=== PATIENT | female | born 1970 | race Caucasian/White ===

== ENCOUNTER 2018-07-06 08:10 | Outpatient (CLI) | payer MEDICAID, SELFPAY ==
[2018-07-06 08:18] VITALS: BP 114/72; PULSE 57; RESP 22; TEMP 36.5; O2SAT 97
[2018-07-06] MEDS: Omnipaque 240 MG/ML 50 ML BTL IJ (09:03)
--- NOTE | 2018-07-06 09:06 | DI.RAD_ITS ---
SYMPTOMS/DIAGNOSIS: SACROILIAC JOINT INJECTION PAIN CLINIC: Fluoroscopy Time: 36.4 sec 21.19mGy Fluoroscopy was utilized by Dr. Gerber during the performance of bilateral sacroiliac joint injections. Please refer to the procedure report for complete details.
[2018-07-06] MEDS: methylPREDNISolone ACETATE 80 MG/ML VIAL IJ (09:09)
[2018-07-06] MEDS: Bupivacaine 0.5% Pres-Free 30 ML VIAL IJ (09:10)
[2018-07-06 09:11] VITALS: BP 135/72; PULSE 66; RESP 19; O2SAT 100
--- NOTE | 2018-07-06 09:13 | PDOC.PAIN ---
Pain Clinic Procedure Note INTRA-ARTICULAR SI JOINT INJECTION GARO MONTANA has been referred to the [facility] for intra-articular SI joint injection. COMMENTS: Patient had been here several years ago and had both radiofrequency ablation and SI joint injections with only transient relief. She does not recall how long the procedure lasted Patient was interviewed and the medical record reviewed. There were no medical, pharmacologic, radiographic or other structural contraindications to attempting fluoroscopically guided intra-articular SI joint injection. Risks and expected side effects as well as potential benefit of the procedure were reviewed and voiced concerns addressed. The printed consent form was signed and witnessed. Standard time-out procedure was performed. Patient was placed in the prone position on the fluoroscopy table and automated blood pressure cuff and pulse oximeter applied. The skin entry point for approaching { bilateral} SI joints was identified under the most advantageous fluoroscopic view and marked. Following thorough Chlorhexadine preparation of the skin and draping and 1% lidocaine infiltration of the skin entry point and subcutaneous tissues, a 22 gauge spinal needle was placed under fluoroscopic guidance into {bilateral} SI joints was identified under the most advantageous fluoroscopic view and marked. Following thorough Chlorhexadine preparation of the skin and draping and 1% lidocaine infiltration of the skin entry point and subcutaneous tissues, a 22 gauge spinal needle was placed under fluoroscopic guidance into { bilateral: } SI joint. Intra-articular placement was confirmed by a clear arthrogram resulting from the injection of 0.25ml Omnipaque 240, 1ml 0.5% bupivacaine, and half ml (40mg) of 80mg concentration Depomedrol were injected intra-articularily with an initial reproduction of a significant component of the usual pain. Vital signs were stable throughout the procedure and were as recorded in the docflowsheet by the nursing staff. If given, dosages of intravenous drugs for anxiolysis and analgesia were documented in MAR. Follow up plans and appointments were discussed with the patient. Post procedure instruction was given as documented in nursing documentation and having met discharge criteria, and was discharged from the [facility]. COMMENTS: Pain went from 5/10-0/10. She will follow-up as needed. She may be a candidate for the Intracept study if still having axial back pain. She has Modic changes on her MRI. CC: Sun Mercedes Current Active Problems Problem Status Onset Sacroiliac dysfunction Chronic
--- NOTE | 2018-07-25 15:07 | PDOC.PAIN_ITS ---
Pain Clinic Procedure Note INTRA-ARTICULAR SI JOINT INJECTION GARO MONTANA has been referred to the [facility] for intra- articular SI joint injection. COMMENTS: Patient had been here several years ago and had both radiofrequency ablation and SI joint injections with only transient relief. She does not recall how long the procedure lasted Patient was interviewed and the medical record reviewed. There were no medical , pharmacologic, radiographic or other structural contraindications to attempting fluoroscopically guided intra-articular SI joint injection. Risks and expected side effects as well as potential benefit of the procedure were reviewed and voiced concerns addressed. The printed consent form was signed and witnessed. Standard time-out procedure was performed. Patient was placed in the prone position on the fluoroscopy table and automated blood pressure cuff and pulse oximeter applied. The skin entry point for approaching { bilateral} SI joints was identified under the most advantageous fluoroscopic view and marked. Following thorough Chlorhexadine preparation of the skin and draping and 1% lidocaine infiltration of the skin entry point and subcutaneous tissues, a 22 gauge spinal needle was placed under fluoroscopic guidance into {bilateral} SI joints was identified under the most advantageous fluoroscopic view and marked. Following thorough Chlorhexadine preparation of the skin and draping and 1% lidocaine infiltration of the skin entry point and subcutaneous tissues, a 22 gauge spinal needle was placed under fluoroscopic guidance into { bilateral: } SI joint. Intra-articular placement was confirmed by a clear arthrogram resulting from the injection of 0.25ml Omnipaque 240, 1ml 0.5% bupivacaine, and half ml (40mg) of 80mg concentration Depomedrol were injected intra- articularily with an initial reproduction of a significant component of the usual pain. Vital signs were stable throughout the procedure and were as recorded in the docflowsheet by the nursing staff. If given, dosages of intravenous drugs for anxiolysis and analgesia were documented in MAR. Follow up plans and appointments were discussed with the patient. Post procedure instruction was given as documented in nursing documentation and having met discharge criteria, and was discharged from the [facility]. COMMENTS: Pain went from 5/10-0/10. She will follow-up as needed. She may be a candidate for the Intracept study if still having axial back pain. She has Modic changes on her MRI. CC: Sun Mercedes Current Active Problems Problem Status Onset Sacroiliac dysfunction Chronic
== END 2018-07-06 08:30 ==
PROVIDERS: PCP Nurse Practitioner Family; Visit Provider Anesthesiology Pain Medicine
DX: M53.3 Sacrococcygeal disorders, not elsewhere classified (principal); G89.29 Other chronic pain
CPT/HCPCS: 27096 ×2; 72200; J1040; Q9967

== ENCOUNTER 2018-08-08 01:16 | Outpatient (CLI) | payer MEDICAID, SELFPAY | END 2018-08-08 01:36 | PROVIDERS: PCP Nurse Practitioner Family; Visit Provider Nurse Practitioner Family | DX: R07.9 Chest pain, unspecified (principal) | CPT/HCPCS: 93225 ==

== ENCOUNTER 2018-08-11 07:52 | Outpatient (REF) | payer MEDICAID, SELFPAY ==
--- NOTE | 2018-08-15 10:32 | W.HOLTRPT ---
Holter Monitor Report Holter Monitor Note: Baseline normal sinus. Rare single PAC. No SVT or atrial fibrillation. Rare single PVC. No VT. Nocturnal heart rates as low as 50-55 bpm, sinus bradycardia. No symptoms. Average heart rate 68 bpm, range 51-125 bpm.
== END 2018-08-11 08:12 ==
LOC: RT 07:52
PROVIDERS: PCP Nurse Practitioner Family; Visit Provider Nurse Practitioner Family
DX: R07.9 Chest pain, unspecified (principal)
CPT/HCPCS: 93226

== ENCOUNTER 2018-08-17 00:58 | Outpatient (CLI) | payer MEDICAID, SELFPAY ==
--- NOTE | 2018-08-17 14:00 | DI.US_ITS ---
SYMPTOMS/DIAGNOSIS: LOWER ABD PAIN INTERMITTENT X 3 MONTHS, R10.9 PELVIC ULTRASOUND: A transabdominal and transvaginal examination was carried out. The uterus measures 10.4 cm in length x 4.8 cm in height x 5.4 cm in width with an endometrial stripe thickness of 3.9 mm. There is a 1.6 x 1 x 1.8 cm anterior lower uterine segment fibroid. The right ovary measures 2.2 x 1.4 x 2.0 cm. The left ovary measures 2.7 x 1.5 x 1.9 cm. A 5 mm hypoechoic region in the right ovary likely represents a small follicle. Also there is a 9 mm hypoechoic region in the left ovary which also appears to represent an ovarian follicle.
== END 2018-08-17 01:18 ==
PROVIDERS: PCP Nurse Practitioner Family; Visit Provider Nurse Practitioner Family
DX: R10.31 Right lower quadrant pain (principal); D25.9 Leiomyoma of uterus, unspecified; N83.01 Follicular cyst of right ovary; N83.02 Follicular cyst of left ovary
CPT/HCPCS: 76830; 76856

== ENCOUNTER 2018-08-30 17:26 | Outpatient (REF) | payer MEDICAID, SELFPAY ==
--- NOTE | 2018-08-30 15:30 | PAPFT_PTH ---
PATIENT: Natalia Thomason LOC: [facility] U#:[id number] AGE/SX: 47/F ROOM: RE08/30/[address]: Isaak Navarro MD : 1970 BED: DIS: 08/30/2018 SPEC #: [id number] RECD: 08/30/18 18:00 STATUS: TIERA REJesus Manuel #: [id number] ANNE: 08/30/18 15:[address]: Isaak Navarro DEPT: [facility] Cytology RECD BY: Casandra Shrestha ENTERED: 08/30/18 18:00 SP TYPE: PAPFT OTHR DR: Sun Mercedes Tissues: 1 - CX/ENDOCX FOR PAP SMEARS Procedures: PAP THIN PREP/UVM Screening HPV DNA PROBE Comments: [id number]
== END 2018-08-30 17:46 ==
LOC: LBN 17:26
PROVIDERS: PCP Nurse Practitioner Family; Visit Provider Obstetrics & Gynecology
DX: Z12.4 Encounter for screening for malignant neoplasm of cervix (principal); Z11.51 Encounter for screening for human papillomavirus (HPV)
CPT/HCPCS: 88142; 87624

== ENCOUNTER 2018-11-03 00:28 | Outpatient (CLI) | payer MEDICAID, SELFPAY ==
--- NOTE | 2018-11-03 16:00 | DI.MAMMO_ITS ---
SYMPTOM/DIAGNOSIS: SCREENING, Z12.31 MAMMOGRAMS: Mammograms were interpreted according to the usual protocol including computer analysis with CAD system, tomosynthesis and C view imaging. Comparison is made with the prior examinations. Breast density, Category B. No suspicious masses or microcalcifications are seen. There is no definite evidence of malignancy. IMPRESSION: Negative mammogram. Routine screening is recommended. Category 1B. MQSA ASSESSMENT OF FINDINGS: Negative. Category 1. Patient will receive a letter notifying them of these results. BI-RADS category B. There are scattered areas of fibroglandular density.
== END 2018-11-03 00:48 ==
PROVIDERS: PCP Nurse Practitioner Family; Visit Provider Obstetrics & Gynecology
DX: Z12.31 Encounter for screening mammogram for malignant neoplasm of breast (principal)
CPT/HCPCS: 77063; 77067

== ENCOUNTER 2019-10-19 11:31 | Outpatient (CLI) | payer SELFPAY ==
--- NOTE | 2019-10-19 11:30 | DI.RAD_ITS ---
EXAM: XR ELBOW RT COMPLETE CLINICAL HISTORY: RT ELBOW JOINT PAIN, M25.521 TECHNIQUE: The study was performed according to the usual protocol. COMPARISON: No exams were available for comparison FINDINGS: Three views were obtained. There is no evidence of an elbow joint effusion or hemarthrosis. No bony abnormality is seen.
--- NOTE | 2019-10-19 11:37 | DI.RAD_ITS ---
EXAM: XR FOOT LT COMPLETE CLINICAL HISTORY: INTRACTABLE LT HEEL PAIN, M79.672 TECHNIQUE: COMPARISON: RIGHT KNEE 3 VIEWS from 03/26/2016 FINDINGS: Three views were obtained. There is a small osteophyte of the site of attachment of the plantar fasc ia on the calcaneus. No additional bony or soft tissue abnormality seen. IMPRESSION:
== END 2019-10-19 11:51 ==
PROVIDERS: PCP Nurse Practitioner Family; Visit Provider Nurse Practitioner Family
DX: M25.521 Pain in right elbow (principal); M79.672 Pain in left foot
CPT/HCPCS: 73080; 73630

== ENCOUNTER 2019-11-14 15:37 | Outpatient (REF) | payer OTHER, SELFPAY ==
[2019-11-14 18:59] LABS: HCT 39.7 % (36.0-46.0); HGB 12.6 g/dL (12.0-15.5); Mean Corp. HGB Concentration 31.7 g/dL (32.0-36.0); Mean Corpuscular Hemoglobin 28.4 pg (27.0-33.0); Mean Corpuscular Volume 89.4 fL (80-95); Mean Platelet Volume 11.7 fL (8.0-11.0); Platelet Count 300 x1000/uL (130-400); RBC 4.44 m/cumm (4.00-5.20); RBC Distribution Width 14.6 % (11.7-14.6); White Blood Cell Count 6.09 k/cumm (4.4-10.8)
[2019-11-14 19:19] LABS: Iron 62 ug/dL (50-170)
[2019-11-14 19:34] LABS: ALT 25 U/L (14-59); AST 13 U/L (15-37); Albumin 3.9 g/dL (3.4-5.0); Alkaline Phosphatase 103 U/L (46-116); Anion Gap 7.6 mmol/L (3-11); BUN 14 mg/dL (7-18); Bilirubin, Total 0.4 mg/dL (0.2-1.0); CO2 30.4 mmol/L (21.0-32.0); CREATININE 0.87 mg/dL (0.55-1.02); Calcium 9.2 mg/dL (8.5-10.1); Calculated LDL 138 mg/dL; Chloride 102 mmol/L (98-107); Cholesterol 256 mg/dL (<200); Ferritin 11 ng/mL (8-252); Glucose 86 mg/dL (74-106); HDL Cholesterol 105 mg/dL (40-60); Potassium 4.3 mmol/L (3.5-5.1); Sodium 140 mmol/L (136-145); TSH (W/Ref FT4) 1.31 uIU/mL (0.36-3.74); Total Protein 7.2 g/dL (6.4-8.2); Triglyceride 66 mg/dL (<150)
== END 2019-11-14 15:57 ==
LOC: NCHCN 15:37
PROVIDERS: PCP Nurse Practitioner Family; Visit Provider Nurse Practitioner Family
DX: G47.9 Sleep disorder, unspecified (principal); Z68.41 Body mass index [BMI] 40.0-44.9, adult
CPT/HCPCS: 80053; 80061; 85027; 82728; 83540; 84443

== ENCOUNTER 2020-01-25 17:50 | Outpatient (REF) | payer OTHER, SELFPAY ==
[2020-01-29 12:48] LABS: SARS-CoV-2 Specimen Source Nasopharynx
[2020-01-29 12:50] LABS: SARS-CoV-2 RNA Undetected (Undetected)
== END 2020-01-25 18:10 ==
LOC: NCHCN 17:50
PROVIDERS: PCP Nurse Practitioner Family; Visit Provider Nurse Practitioner Family
DX: Z20.828 Contact with and (suspected) exposure to other viral communicable diseases (principal)
CPT/HCPCS: U0003

== ENCOUNTER 2020-06-10 01:56 | Outpatient (CLI) | payer OTHER, SELFPAY ==
--- NOTE | 2020-06-10 08:00 | DI.US_ITS ---
EXAM: US PELVIS TRANSVAGINAL CLINICAL HISTORY: Menorrhagia, IUD in place,Z30.431,N92.4. TECHNIQUE: Transabdominal and transvaginal pelvic ultrasound was performed using standard protocol. COMPARISON: US US PELVIS TRANSVAGINAL from 08/17/2018 FINDINGS: KIDNEYS: Kidneys are symmetric in size. No evidence of renal calculi. No evidence of hydronephrosis. No renal mass or cyst identified. UTERUS: Position: Anteverted. Size: 8.7 long by 4.8 AP by 6.6 transverse cm Endometrium: 0.5 cm. Normal for patient's menstrual status. Myometrium: Heterogeneous myometrium with at least 3 discrete fibroids identified. The largest measu res 1.2 cm. Cervix: The IUD is located within the cervical canal. OVARIES: Right: 3.1 x 1.8 x 1.6. cm Cyst or mass: 1.9 x 1.1 x 2.1 cm simple cyst. Left: 2.8 x 0.9 x 1.2 cm cm Cyst or mass: None. DOPPLER: Color: Symmetric and uniform flow to both ovaries. No hyperemia. Duplex: Normal ovarian arterial waveforms visualized. CUL-DE-SAC: Free fluid: None. Other: Right fallopian tube has a thickened appearance. No debris or focal fluid is identified sonog raphically IMPRESSION: 1. Normal sonographic appearance of the kidneys. 2. Normal-appearing uterus with endometrial stripe within normal limits. 3. The IUD has a cervical location. 4. Unremarkable bilateral ovaries. 5. Prominent thickened right fallopian tube. No internal debris or focal fluid is identified. An in fectious or inflammatory process should be considered. Please correlate clinically. DATA REPOSITORY:
== END 2020-06-10 02:16 ==
PROVIDERS: PCP Nurse Practitioner Family; Visit Provider Nurse Practitioner Women's Health
DX: N92.4 Excessive bleeding in the premenopausal period (principal); Z30.431 Encounter for routine checking of intrauterine contraceptive device
CPT/HCPCS: 76830; 76856

== ENCOUNTER 2020-06-12 15:03 | Outpatient (REF) | payer OTHER, SELFPAY ==
--- NOTE | 2020-06-12 14:30 | ENDOMET_PTH ---
PATIENT: Natalia Thomason LOC: [facility]#:[id number] AGE/SX: 49/F ROOM: RE06/12/[address]: Isaak Navarro MD : 1970 BED: DIS: 06/12/2020 SPEC #: [id number] RECD: 06/12/20 16:59 STATUS: TIERA REQ #: [id number] ANNE: 06/12/20 14:[address]: Isaak Navarro DEPT: Surgical Specimen RECD BY: Thalia Mendoza ENTERED: 06/12/20 17:00 SP TYPE: Endomet OTHR DR: Rob Smith Tissues: 1 - ENDOMETRIUM BX/ALFETTE Procedures: GROSS AND MICRO LEVEL 4 Comments: [id number]
== END 2020-06-12 15:23 ==
LOC: LBN 15:03
PROVIDERS: PCP Nurse Practitioner Family; Visit Provider Obstetrics & Gynecology
DX: Z12.79 Encounter for screening for malignant neoplasm of other genitourinary organs (principal); N92.0 Excessive and frequent menstruation with regular cycle
CPT/HCPCS: 88305

== ENCOUNTER 2020-06-17 02:24 | Outpatient (CLI) | payer OTHER, SELFPAY ==
[2020-06-17 13:25] LABS: HCT 37.3 % (36.0-46.0); HGB 11.8 g/dL (11.2-15.7); MCH 28.9 pg (27.0-33.0); MCHC 31.6 % (32.0-36.0); MCV 91.2 fL (80-95); MPV 11.5 fL (8.0-11.0); Platelet Count 275 10^3/uL (130-400); RBC 4.09 10^6/uL (3.93-5.22); RDW 14.2 % (11.7-14.6); RDW-SD 47.3 fL; WBC 5.69 10^3/uL (4.4-10.8)
[2020-06-17 14:45] LABS: HCG Qual (Urine) Negative
[2020-06-19 12:53] LABS: COVID-19 RT-PCR Result NEGATIVE (Negative)
== END 2020-06-17 02:44 ==
PROVIDERS: PCP Nurse Practitioner Family; Visit Provider Obstetrics & Gynecology
DX: Z01.818 Encounter for other preprocedural examination (principal)
CPT/HCPCS: 36415; 85027; 86850; 86900; 86901; U0003; 81025

== ENCOUNTER 2020-06-20 07:43 | Day surgery (SDC) | payer OTHER, SELFPAY ==
[2020-06-20 07:47] VITALS: BP 138/73; PULSE 66; RESP 16; TEMP 36.5; O2SAT 98
[2020-06-20] MEDS: Lactated Ringers 1,000 ML 125 ML IV (08:26)
[2020-06-20] MEDS: Lidocaine 1% Multi-Dose 50 ML VIAL (10:20)
--- NOTE | 2020-06-20 10:25 | ENDOMET_PTH ---
PATIENT: Natalia Thomason LOC: [facility] U#:[id number] AGE/SX: 49/F ROOM: RE06/20/[address]: Isaak Navarro MD : 1970 BED: DIS: 06/20/2020 SPEC #: [id number] RECD: 06/20/20 12:54 STATUS: TIERA REQ #: [id number] ANNE: 06/20/20 10:[address]: Isaak Navarro DEPT: Surgical Specimen RECD BY: Casandra Shrestha ENTERED: 06/20/20 12:55 SP TYPE: Endomet OTHR DR: Rob Smith Tissues: 1 - ENDOMETRIUM BX/AYSHA Procedures: GROSS AND MICRO LEVEL 4 Comments: [id number]
[2020-06-20 11:13] VITALS: BP 127/80; PULSE 55; RESP 14; TEMP 36.2; O2SAT 98
--- NOTE | 2020-06-20 11:51 | W.PM.DSUDISC ---
Discharge Plan Disposition Patient Disposition: HOME Condition: Good Discharge Details Reason For Visit: S/P Hysteroscopy D&C and Endometrial Ablation Attending Provider: Isaak Navarro Primary Care Provider: Rob Smith Home Meds and New Rx's Prescriptions: New hydrocodone-acetaminophen 5-325 mg Tablet 1 tab PO Q6H PRN Qty: 15 RF: 0 Continued escitalopram oxalate [Lexapro] 20 mg tablet 30 mg PO DAILY RF: 0 Discharge Instructions Activity:: Activity as Tolerated Diet:: As Tolerated Discharge Orders Discharge Orders: Discharge Order (Routine); Ordered 06/20/20 Ordered By: Isaak Navarro DS: Diagnosis Discharge Diagnosis (1) Menorrhagia, premenopausal: Status: Acute
[2020-06-20] MEDS: HYDROcodone 5/Acetaminophen 325 TAB PO (12:21)
--- NOTE | 2020-06-20 18:00 | ROE_ITS ---
Date of service: 06/20/20 Time of Service: 18:00 Operative Note Operative Note DATE OF PROCEDURE: 06/20/20 PRE-OP DIAGNOSIS: Menorrhagia PROCEDURE: Hysteroscopy, D&C and NovaSure endometrial ablation SURGEON: Isaak Navarro ANESTHESIA: MAC and local ESTIMATED BLOOD LOSS: 10 PATHOLOGY: other (Endometrial curettings) COMPLICATIONS: None Patient was transported to: PACU Patient's condition: stable Findings: 1. On hysteroscopic exam the uterine contour was noted and there was a small endometrial polyp near the fundus. Procedure Description: The patient was taken to the operating room and after adequate sedation was achieved the patient was placed in lithotomy position. The patient was prepped and draped in usual sterile manner. A weighted speculum was placed in the vagina with good visualization of the cervix. A paracervical block with 10 cc 1% plain lidocaine solution was instilled. The anterior lip of the cervix was grasped with a single-tooth tenaculum. The cervix was gently dilated with Lezama dilators. A 5 mm 30 degree hysteroscope with normal saline distention media was advanced to the cervix with good visualization of the end ometrial cavity. The contour of the uterus was normal. There was a small polyp noted near the fundus of the uterus. A sharp curettage was performed and specimens included the endometrial polyp was submitted to pathology. A second pass with the hysteroscope was made and the polyp was noted to be excised completely. The uterine cavity length was assessed at 6.5 cm. Cavity width was assessed at 4.3 cm. The NovaSure had been passed easily and passed cavity assessment. The device was activated and burn cycle completed normally. All instrumentation was removed. The procedure was tolerated well. The patient was transferred to PACU in stable condition.
== END 2020-06-20 12:30 | disposition home or self-care (01) ==
PROVIDERS: PCP Nurse Practitioner Family; Visit Provider Obstetrics & Gynecology
PROC: 0UDB8ZZ Extraction of Endometrium, Via Natural or Artificial Opening Endoscopic (ICD-10-PCS; CPT 58558; principal; 2020-06-20 09:15)
PROC: (CPT 58353; 2020-06-20 09:15)
DX: N92.4 Excessive bleeding in the premenopausal period (principal); N84.0 Polyp of corpus uteri
CPT/HCPCS: 58563; 81025; 88305; J1100; J1885; J2001; J2250; J2405; J2704

== ENCOUNTER 2020-07-24 01:13 | Outpatient (CLI) | payer OTHER, SELFPAY ==
--- NOTE | 2020-07-24 | DI.US_ITS ---
EXAM: US SOFT TISSUE EXTREMITY CLINICAL HISTORY: LT LOWER LEG MASS,R22.40, MEDIAL SIDE. TECHNIQUE: Ultrasound was performed using standard protocol. COMPARISON: No exams were available for comparison FINDINGS: Sonographic assessment utilizing grayscale and color Doppler imaging was performed and targeted to th e area of clinical concern. There is a 1.0 x 0.6 x 1.1 cm ovoid area in the lower leg corresponding to the palpable abnormality. Overall, the area is hypoechoic with a slight isoechoic rim. No internal blood flow is seen. There is edema seen in the soft tissues of the lower leg. IMPRESSION: Nonspecific avascular mixed echogenicity jeweler area in the lower leg corresponding to the palpable abnormality. Differential considerations include scarring, residual hematoma or abscess among other etiologies. If further imaging is warranted an MRI may be considered. DATA REPOSITORY:
== END 2020-07-24 01:33 ==
PROVIDERS: PCP Nurse Practitioner Family; Visit Provider Nurse Practitioner Family
DX: R22.42 Localized swelling, mass and lump, left lower limb (principal)
CPT/HCPCS: 76881

== ENCOUNTER 2020-09-10 07:32 | Outpatient (CLI) | payer OTHER, SELFPAY ==
[2020-09-11 12:29] LABS: SARS-CoV-2 RNA Not Detected (NotDetected)
[2020-09-11 12:30] LABS: SARS-CoV-2 RNA Source Nasal/Nares
== END 2020-09-10 07:52 ==
PROVIDERS: Surgery; PCP Nurse Practitioner Family; Visit Provider Podiatrist
DX: Z01.818 Encounter for other preprocedural examination (principal)
CPT/HCPCS: U0003

== ENCOUNTER 2020-09-13 06:22 | Day surgery (SDC) | payer OTHER, SELFPAY ==
[2020-09-13 06:38] VITALS: BP 128/77; PULSE 68; RESP 20; TEMP 36.7; O2SAT 20
--- NOTE | 2020-09-13 07:09 | HPE_ITS ---
Date of service: 09/13/20 Time of Service: 07:09 History of Present Illness History of Present Illness Chief Complaint: left bunionette deformity Narrative: 50-year-old female with complaint of increasing pain associated left bunionette deformity which is interfering with shoe gear and daily activities. Nonoperative treatments have failed to provide sufficient relief of symptoms. [facility] Medical History Abdominal pain ADHD Anxiety disorder Body mass index (BMI) 40.0-44.9, adult Chest pain Per pt. states this was from anxiety ,and since she has been on anxiety meds she had not had any issues. Elbow joint pain External hemorrhoid Female pelvic pain Heavy menstrual period Herpes simplex Gingivostomatitis Hot flash, menopausal Intractable left heel pain IUD surveillance Mirena for menorrhagia inserted 11/22/19 Knee pain, right Lumbar back pain Lump Menorrhagia, premenopausal Muscle strain Obese Pain in right elbow Plantar wart, left foot Plantar wart, right foot Sacroiliitis, not elsewhere classified Shoulder pain, right Sleep disorder TMJ syndrome Tobacco use Surgical History History of bunionectomy Social History Smoking/Tobacco Use Status: Former Tobacco Use Quit Date: 11/01/16 Smoking risk assessment performed?: Yes Alcohol Intake: never Drug use: Never Substance use type: does not use Do you feel safe at home: Yes Do you feel safe in your relationship?: Yes Female Reproductive History Menstrual control method: progestin IUCD History History 5 Para 4 Hx # Term Pregnancies Multiple births Hx # Pregnancies Ectopic pregnancies AB induced Hx Number of Living Children AB spontaneous 1 Meds Home Medications and Allergies Home Medications Medication Instructions Recorded Confirmed Type escitalopram oxalate 20 mg tablet 30 mg PO DAILY 11/15/19 09/13/20 History hydrocortisone 2.5 % topical cream 1 applic TOPICAL TID PRN 08/09/20 09/13/20 History melatonin 3 mg capsule 6 mg PO HS PRN cap 08/09/20 09/13/20 History tramadol 50 mg tablet 50 mg PO Q6H PRN 08/09/20 09/13/20 History bisacodyl 5 mg tablet,delayed 5 mg PO ONCE #4 tab 09/05/20 09/13/20 Rx release polyethylene glycol 3350 17 238 g PO ONCE #238 g 09/05/20 09/13/20 Rx gram/dose oral powder Allergies Allergy/AdvReac Type Severity Reaction Status Date / Time azithromycin AdvReac Intermediate yeast Unverified 09/13/20 06:44 [From Zithromax Z-Miky] infection methylprednisolone AdvReac Mild Yeast Unverified 09/13/20 06:44 [From Medrol] infection Exam Narrative Exam Narrative: 50-year-old female looking her stated age in no acute distress Head is normocephalic eyes PERRLA Hearing adequate Uvula is midline he will Heart had regular rate and rhythm no gallops rubs or murmurs. Lung nesbitt were clear Abdomen was nontender to palpation bowel sounds x4 Vascular exam: Peripheral pulses are minimally palpable at the ankles graded - 2/4 bilaterally. No peripheral edema. Capillary return is under 3 seconds to all toes. Muscle groups of 5 out of 5 bilaterally. Skeletal exam is remarkable for enlargement of the left fifth MPJ plan swelling laterally over the fifth metatarsal head. There is periarticular tenderness to direct palpation. Digiti quinti varus deformity is appreciated. Remaining exam is otherwise benign. Neurologically she is grossly intact. Impression: Symptomatic left bunionette deformity Plan: Azalea is being brought to the OR for surgical reduction of the left bunionette deformity. Risk and complications of surgery have been discussed including the potential for pain, scarring, infection, over or correction of deformity with potential recurrence requiring revisional procedures. Informed consent has been obtained no promises made to final outcome of surgery. Results Last Vital Signs Temp 36.7 C 09/13/20 06:38 Pulse 68 09/13/20 06:38 Resp 20 09/13/20 06:38 BP 128/77 09/13/20 06:38 Pulse Ox 20 L 09/13/20 06:38 COVID-19 Screening Have you, or household traveled for leisure in last 14 days?: No Had IN PERSON contact w/suspected or confirmed C-19 person: No
[2020-09-13] MEDS: Lactated Ringers 1,000 ML 80 ML IV (07:28)
[2020-09-13] MEDS: ceFAZolin 1 GM/50 ML BAG IVPB (07:33)
[2020-09-13] MEDS: Lidocaine 1% Pres-Free 5 ML VIAL (07:52)
[2020-09-13] MEDS: Bupivacaine 0.5% Pres-Free 30 ML VIAL (07:53)
[2020-09-13] MEDS: Dexamethasone 4 MG/ML VIAL (08:06)
--- NOTE | 2020-09-13 08:24 | ROE_ITS ---
Date of service: 09/13/20 Time of Service: 08:24 Operative Note Operative Note DATE OF PROCEDURE: 09/13/20 PRE-OP DIAGNOSIS: Left bunionette deformity PROCEDURE: Exostectomy fifth MPJ left foot/partial fifth metatarsal head resection SURGEON: Harsh Viramontes ANESTHESIA: HALIMA ESTIMATED BLOOD LOSS: 1 PATHOLOGY: none sent TOURNIQUET TIME: 30 COMPLICATIONS: None Patient was transported to: same day Patient's condition: stable Indications: 50-year-old female with complaints of progressive pain associated with a left bunionette deformity interfering with comfortable shoe gear, ambulation and daily activities. Symptoms have not improved through palliative treatments. She understands risk and complications of surgery pertaining to pain, scarring, infection, recurrence of deformity, worsening of digiti quinti varus deformity potentially requiring surgical repair. Informed consents been obtained. No promises made to final outcome of surgery. Procedure Description: Azalea was brought to the operative suite placed in the supine position with a left foot prepped and draped in the usual sterile podiatric fashion. Anesthesia being obtained and timeout being performed the left foot was exsanguinated and a well-padded ankle tourniquet inflated 250 mmHg. Attention was directed to the dorsal lateral aspect of the left fifth MPJ where a 3 cm incision was made centered over the fifth MPJ. The incision was deepened in controlled depth fashion hemostasis acquired with electrocautery as needed. Dissection was carried down to the joint capsule which was incised dorsal midline. The joint capsule was retracted medially and laterally. Hypertrophy was appreciated laterally on the fifth metatarsal head as well as b ase of the proximal phalanx. With power instrumentation the lateral hyper trophic bone was resected from the both sides of the MPJ. Hand rasp was then used to smooth all rough and bony edges followed by copious irrigation. Good correction of deformity was appreciated. The joint capsule was repaired with simple interrupted suture 3-0 Vicryl. Subcutaneous layer was brought together with simple interrupted suture 4-0 Vicryl. The skin was coapted with continuous running suture of 4-0 Monocryl. 4 mg of dexamethasone phosphate was infused locally around the incision. Mastisol half-inch Steri-Strips Xeroform gauze fluff compression dressings applied. Tourniquet was released at approximately 30 minutes vascularity returning immediately to all toes. Natalia left the OR with vital signs stable vascular status intact sharp and sponge counts correct. She will be followed by myself in the office next week.
--- NOTE | 2020-09-13 08:30 | W.PM.DSUDISC ---
Discharge Plan Disposition Patient Disposition: HOME Condition: Good Discharge Details Reason For Visit: bunionette resection, left foot Attending Provider: Harsh Viramontes Primary Care Provider: Rob Smith Home Meds and New Rx's Prescriptions: New hydrocodone-acetaminophen [[place]] 5-325 mg tablet 1 tab PO Q6H PRN (Reason: post op pain) Qty: 9 RF: 0 ibuprofen 600 mg tablet 600 mg PO Q6H PRN (Reason: pain and inflamation) Qty: 90 RF: 1 Continued polyethylene glycol 3350 17 gram/dose powder 238 g PO ONCE Qty: 238 RF: 0 bisacodyl [Dulcolax (bisacodyl)] 5 mg tablet,delayed release (DR/EC) 5 mg PO ONCE Qty: 4 RF: 0 escitalopram oxalate [Lexapro] 20 mg tablet 30 mg PO DAILY RF: 0 melatonin 3 mg capsule 6 mg PO HS PRNRF: 0 tramadol 50 mg tablet 50 mg PO Q6H PRNRF: 0 hydrocortisone 2.5 % cream 1 applic topical TID PRNRF: 0 Discharge Instructions Activity:: Elevate Remove Dressings/Wound Care:: Do Not Remove Shower/Bathe:: Cover Diet:: Normal Diet Discharge Orders Discharge Orders: Discharge Order (Routine); Ordered 09/13/20 Ordered By: Harsh Viramontes DS: Diagnosis Discharge Diagnosis (1) Bunionette of left foot: Status: Acute
[2020-09-13 08:45] VITALS: BP 110/73; PULSE 53; RESP 16; TEMP 36.4; O2SAT 97
== END 2020-09-13 10:10 | disposition home or self-care (01) ==
PROVIDERS: PCP Nurse Practitioner Family; Visit Provider Podiatrist
PROC: (CPT 28292; principal; 2020-09-13 07:30)
DX: M21.622 Bunionette of left foot (principal); K21.9 Gastro-esophageal reflux disease without esophagitis; F41.9 Anxiety disorder, unspecified
CPT/HCPCS: 28110; 99236; J0690; J1100; J1885; J2001; J2250; J2405; J2704

== ENCOUNTER 2020-09-25 01:55 | Outpatient (CLI) | payer OTHER, SELFPAY ==
[2020-09-26 15:27] LABS: SARS-CoV-2 RNA Not Detected (NotDetected); SARS-CoV-2 RNA Source Nasal/Nares
== END 2020-09-25 02:15 ==
PROVIDERS: PCP Nurse Practitioner Family; Visit Provider Surgery
DX: Z11.59 Encounter for screening for other viral diseases (principal); Z01.818 Encounter for other preprocedural examination
CPT/HCPCS: U0003

== ENCOUNTER 2020-09-25 04:33 | Outpatient (CLI) | payer OTHER, SELFPAY ==
--- NOTE | 2020-09-25 14:00 | NS.NUTBLAN_ITS ---
Natalia was referred to me for Medical Nutrition Therapy for morbid obesity. She is 50 years old, starting the work up for gastric sleeve surgery at [facility]. Wt: 266, 65 inches, BMI 44. She has no formal exercise routine but is willing to start a walking program of 20 minutes per day. Diet recall indicates 2 meals per day, typically lunch is take out and dinner is home cooked meal. She does not smoke or drink alcohol. She reports being overweight since her teenage years and has tried many diets over the years with no long lasting success. Today's session was focused on how to follow a lower carb, high protein diet prior to surgery. I encouraged her to maintain adequate hydration (64 ounces daily) and supplement with multivitamin and biotin. Natalia was receptive to education and was confident that she can start to make positive changes for a healthier lifestyle. Plan: follow up 10/22/@ 2pm Natalia will use the [employer] michael and track her carb intake. Initial goal is to follow a diet with <200 g carbohydrate with focus onn complex carbs, lean protein and healthy fats. Natalia will start daily exercise of 20 minute walking
== END 2020-09-25 04:53 ==
PROVIDERS: PCP Nurse Practitioner Family; Visit Provider Dietitian, Registered
DX: E66.01 Morbid (severe) obesity due to excess calories (principal); Z71.3 Dietary counseling and surveillance
CPT/HCPCS: 97802

== ENCOUNTER 2020-09-30 08:12 | Day surgery (SDC) | payer OTHER, SELFPAY ==
--- NOTE | 2020-09-30 06:52 | W.COLOREPORT ---
Date of service: 09/30/20 Colonoscopy Report Date of procedure: 09/30/20 Pre-op diagnosis general: colon cancer screening Procedure: colonoscopy Surgeon: Katelyn Callejas Anesthesia proc note operative: other (General/ASA /) Complications: None Disposition: same day Indications: The patient is here for Colonoscopy pre-op. She has no family history of colon cancer. She has not had any bowel habit changes. -Discussed colonoscopy bowel prep as well as the procedure. Discussed possible complications of the procedure to include bleeding, pain, perforation, missed small lesion/polyp, sore throat, aspiration and adverse reaction to the medications. Questions were answered to patient?s satisfaction. No guarantees were implied or given. Prep: Miralax/Dulcolax Procedure Description: After informed consent was obtained the patient was taken to the procedure room and placed in a left decubitous position. Monitors were applied and a time out was done. The patients name, date of , procedure, allergies to medications and metal in their body was reviewed. The patient was then sedated. Once sedated and comfortable a rectal exam was done. External exam was normal. Internal exam revealed a normal sphincter tone and no palpable masses. The scope was then introduced and retro-flexed. [] internal hemorrhoids were identified. The scope was then advanced to the cecum [] difficulty. The ileocecal valve and appendiceal orifice were identified. The prep was []. The scope was then slowly retracted over [] minutes back into the rectum. Polyps were removed at []. The scope was removed and the patient was woken up and taken back to Same day surgery in stable condition. The patient tolerated the procedure well and there were no immediate complications. Follow up: The patient should follow up in [] years unless they develop changes in bowel habits or other new gastrointestinal complaints.
--- NOTE | 2020-09-30 06:53 | W.PM.DSUDISC ---
Discharge Plan Disposition Patient Disposition: HOME Condition: Good Discharge Details Reason For Visit: colon cancer screening Attending Provider: Katelyn Callejas Primary Care Provider: Rob Smith Home Meds and New Rx's Prescriptions: Continued escitalopram oxalate [Lexapro] 20 mg tablet 30 mg PO DAILY RF: 0 melatonin 3 mg capsule 6 mg PO HS PRNRF: 0 hydrocortisone 2.5 % cream 1 applic topical TID PRNRF: 0 hydrocodone-acetaminophen [[place]] 5-325 mg tablet 1 tab PO Q6H PRN (Reason: post op pain) Qty: 9 RF: 0 ibuprofen 600 mg tablet 600 mg PO Q6H PRN (Reason: pain and inflamation) Qty: 90 RF: 1 Discontinued polyethylene glycol 3350 17 gram/dose powder 238 g PO ONCE Qty: 238 RF: 0 bisacodyl [Dulcolax (bisacodyl)] 5 mg tablet,delayed release (DR/EC) 5 mg PO ONCE Qty: 4 RF: 0 Discharge Instructions Additional Instructions: Findings: Follow up: Please call if you develop: fevers >101.5 Nausea or Vomiting Abdominal pain that is not transient DAY SURGERY UNIT POST ENDOSCOPY INSTRUCTIONS 1. Because there will be medication in your system for the next 24 hours, you may feel a little sleepy. Your coordination will be affected. Therefore: a. Do not drive or operate dangerous equipment for 24 hours. b. Do not drink alcohol beverages for 24 hours (not even beer). c. Plan to go home and rest for the day. 2. Generally there are no restrictions on your activity after a day or so has gone by, but you may feel a bit fatigued for a few days. 3 After you arrive home you may have a light meal and return to a normal diet as you can tolerate it without feeling sick to your stomach. 4. After surgery, you may feel pain or discomfort. This should be only transient, but if it persists please contact your doctor. 5. If there are any questions regarding the findings of your procedure, please feel free to contact your doctor. 6. If you are unable to contact your doctor with a problem, contact the hospital at [phone]. 7. Continue all your regular medications unless directed otherwise. I understand the above instructions and have no questions. Signature of Patient or Responsible Adult Escort Date/Time Name of Responsible Adult Escort Signature of Nurse Date/Time Activity:: Activity as Tolerated Diet:: As Tolerated
[2020-09-30 08:26] VITALS: BP 129/64; PULSE 60; RESP 16; TEMP 36.5; O2SAT 99
[2020-09-30] MEDS: Lactated Ringers 1,000 ML 80 ML IV (08:43)
== END 2020-09-30 08:32 | disposition home or self-care (01) ==
PROVIDERS: PCP Nurse Practitioner Family; Visit Provider Surgery
DX: Z12.11 Encounter for screening for malignant neoplasm of colon (principal); Z53.9 Procedure and treatment not carried out, unspecified reason
CPT/HCPCS: J2001

== ENCOUNTER 2020-10-04 03:21 | Outpatient (CLI) | payer OTHER, SELFPAY ==
[2020-10-05 16:43] LABS: COVID-19 RT-PCR Result NEGATIVE (Negative)
== END 2020-10-04 03:41 ==
PROVIDERS: PCP Nurse Practitioner Family; Visit Provider Surgery
DX: Z11.59 Encounter for screening for other viral diseases (principal); Z01.818 Encounter for other preprocedural examination
CPT/HCPCS: U0003

== ENCOUNTER 2020-10-09 06:07 | Day surgery (SDC) | payer OTHER, SELFPAY ==
[2020-10-09 06:10] VITALS: BP 117/67; PULSE 66; RESP 17; TEMP 36.5; O2SAT 98
--- NOTE | 2020-10-09 06:31 | W.COLOREPORT ---
Date of service: 10/09/20 Time of Service: 07:36 Colonoscopy Report Date of procedure: 10/09/20 Pre-op diagnosis general: colon cancer screening Post-op diagnosis procedure note: other (adenomatous polyps and diverticulosis) Procedure: Colonoscopy with polypectomy Surgeon: Katelyn Callejas Anesthesia proc note operative: other (General/ASA 3/German Castillo CRNA) Estimated blood loss (mL): 5 Pathology: other (ascending polyp, sigmoid polyps x2, rectal polyp) Complications: None Disposition: same day Indications: The patient is here for Colonoscopy pre-op. She has no family history of colon cancer. She has not had any bowel habit changes. -Discussed colonoscopy bowel prep as well as the procedure. Discussed possible complications of the procedure to include bleeding, pain, perforation, missed small lesion/polyp, sore throat, aspiration and adverse reaction to the medications. Questions were answered to patient?s satisfaction. No guarantees were implied or given. Prep: Miralax/Dulcolax Procedure Start Time: :36 Procedure End Time: 08:27 Retraction Time: 44 minutes Findings: Ascending colon just distal to the cecum- large >2 cm pedunculated adenomatous polyp sigmoid colon- moderatae diverticulosis and 2 small sessile polyps rectum at 10 cm- large pedunculated adenomatous polyp. Area tattooed Procedure Description: After informed consent was obtained the patient was taken to the procedure room and placed in a left decubitous position. Monitors were applied and a time out was done. The patients name, date of , procedure, allergies to medications and metal in their body was reviewed. The patient was then sedated. Once sedated and comfortable a rectal exam was done. External exam was normal. Internal exam revealed a normal sphincter tone and no palpable masses. The scope was then introduced and retro-flexed. Hemorrhoidal skin tags were identified. There were no masses or polyps on retro-flexion. The scope was then advanced to the cecum without difficulty. The ileocecal valve and appendiceal orifice were identified. The prep was adequate. The scope was then slowly retracted over 44 minutes back into the rectum. Just distal to the cecum there was a >2 cm pedunculated adenomatous polyp. It was removed in 3 pieces with a hot snare. In the sigmoid colon there were 2 small sessile polyps that were removed with a cold forceps. In the rectum at approximately 10 cm there was another large pedunculated adenomatous polyp. The polyp was removed with a hot snare. The area was tattooed with 2 cc of blue dye. There was moderate diverticulosis noted of the sigmoid colon. The scope was removed and the patient was woken up and taken back to Same day surgery in stable condition. The patient tolerated the procedure well and there were no immediate complications. Follow up: will depend on final pathology. I will call patient with results. At the minimum patient will need another colonoscopy in 1 year.
--- NOTE | 2020-10-09 06:31 | W.PREOPHP ---
Assessment and Plan Assessment and plan (1) Encounter for colorectal cancer screening: Status: Acute Assessment and plan: The patient is here for Colonoscopy pre-op. She has no family history of colon cancer. She has not had any bowel habit changes. -Discussed colonoscopy bowel prep as well as the procedure. Discussed possible complications of the procedure to include bleeding, pain, perforation, missed small lesion/polyp, sore throat, aspiration and adverse reaction to the medications. Questions were answered to patient?s satisfaction. No guarantees were implied or given. History of Present Illness Narrative: 50 y/o female with a history of obesity presents for her first colonoscopy screening pre-op. She denies a family history of colon cancer. She denies any changes in bowel habits including bloody or black tarry stools, abdominal pain, diarrhea or constipation. She denies constitutional symptoms. Denies use of marijuana or any other recreational or illegal drugs. She denies chest pain, palpitations, dyspnea or dyspnea with exertion. She denies prior history or family history of adverse reactions or complications with anesthesia. Review of Systems Cardiovascular Cardiovascular: Denies chest pain, Denies chest pain at rest, Denies irregular heart rhythm, Denies dyspnea and Denies dyspnea on exertion Respiratory Respiratory: Reports cough, Denies dyspnea and Denies dyspnea on exertion Gastrointestinal Gastrointestinal: Reports as per HPI Genitourinary Genitourinary: Denies dysuria, Reports urinary incontinence and Denies urinary urgency Endocrine Endocrine: Reports system reviewed and no additional complaints, except as documented Hematologic/Lymphatic Hematologic/Lymphatic: Denies easy bruising and Denies lymphadenopathy COUNTS INCLUDE 234 BEDS AT THE [facility] Medical History Abdominal pain ADHD Anxiety disorder Body mass index (BMI) 40.0-44.9, adult Chest pain Per pt. states this was from anxiety ,and since she has been on anxiety meds she had not had any issues. Elbow joint pain External hemorrhoid Pt. denies this Female pelvic pain Heavy menstrual period Herpes simplex Gingivostomatitis Hot flash, menopausal Intractable left heel pain IUD surveillance Mirena for menorrhagia inserted 11/22/19 Knee pain, right Pt. denies this Lumbar back pain Pt. denies this Lump Menorrhagia, premenopausal Muscle strain Pt. denies this Obese Pain in right elbow Plantar wart, left foot Plantar wart, right foot Sacroiliitis, not elsewhere classified Shoulder pain, right Sleep disorder TMJ syndrome Tobacco use Surgical History History of bunionectomy S/P endometrial ablation Social History Smoking/Tobacco Use Status: Former Tobacco Use Quit Date: 11/01/16 Smoking risk assessment performed?: Yes Alcohol Intake: never Drug use: Never Substance use type: does not use Do you feel safe at home: Yes Do you feel safe in your relationship?: Yes Female Reproductive History Menstrual control method: progestin IUCD History History 5 Para 4 Hx # Term Pregnancies Multiple births Hx # Pregnancies Ectopic pregnancies AB induced Hx Number of Living Children AB spontaneous 1 Meds Home Medications and Allergies Home Medications Medication Instructions Recorded Confirmed Type escitalopram oxalate 20 mg tablet 30 mg PO DAILY 11/15/19 10/09/20 History biotin 1,000 mcg PO DAILY 10/07/20 10/09/20 History multivitamin 1 tab PO DAILY 10/07/20 10/09/20 History Allergies Allergy/AdvReac Type Severity Reaction Status Date / Time azithromycin AdvReac Intermediate yeast Unverified 10/09/20 06:28 [From Zithromax Z-Miky] infection methylprednisolone AdvReac Mild Yeast Unverified 10/09/20 06:28 [From Medrol] infection Exam Const General: healthy appearing and comfortable Resp Effort & Inspection: normal respiratory effort Auscultation: clear to auscultation bilaterally Cardio Rate: regular rate Rhythm: regular rhythm Heart Sounds: no click, no gallops and no murmurs Results Last Vital Signs Temp 97.7 F 10/09/20 06:10 Pulse 66 10/09/20 06:10 Resp 17 10/09/20 06:10 BP 117/67 10/09/20 06:10 Pulse Ox 98 10/09/20 06:10
--- NOTE | 2020-10-09 06:34 | W.PM.DSUDISC ---
Discharge Plan Disposition Patient Disposition: HOME Condition: Good Discharge Details Reason For Visit: SCREENING Attending Provider: Katelyn Callejas Primary Care Provider: Rob Smith Home Meds and New Rx's Prescriptions: Continued escitalopram oxalate [Lexapro] 20 mg tablet 30 mg PO DAILY RF: 0 multivitamin Tablet 1 tab PO DAILY RF: 0 biotin 500 mcg Capsule 1,000 mcg PO DAILY RF: 0 Discharge Instructions Instructions: Diverticulosis (DC), Colorectal Polyps (DC) Additional Instructions: Findings: 2 large polyps, 2 small polyps moderate diverticulosis Follow up: I will call you with results as soon as I have them. Please call if you develop: fevers >101.5 Nausea or Vomiting Abdominal pain that is not transient DAY SURGERY UNIT POST ENDOSCOPY INSTRUCTIONS 1. Because there will be medication in your system for the next 24 hours, you may feel a little sleepy. Your coordination will be affected. Therefore: a. Do not drive or operate dangerous equipment for 24 hours. b. Do not drink alcohol beverages for 24 hours (not even beer). c. Plan to go home and rest for the day. 2. Generally there are no restrictions on your activity after a day or so has gone by, but you may feel a bit fatigued for a few days. 3 After you arrive home you may have a light meal and return to a normal diet as you can tolerate it without feeling sick to your stomach. 4. After surgery, you may feel pain or discomfort. This should be only transient, but if it persists please contact your doctor. 5. If there are any questions regarding the findings of your procedure, please feel free to contact your doctor. 6. If you are unable to contact your doctor with a problem, contact the hospital at [phone]. 7. Continue all your regular medications unless directed otherwise. I understand the above instructions and have no questions. Signature of Patient or Responsible Adult Escort Date/Time Name of Responsible Adult Escort Signature of Nurse Date/Time Activity:: Activity as Tolerated Diet:: high fiber diet Discharge Orders Discharge Orders: Discharge Order (Routine); Ordered 10/09/20 Ordered By: Katelyn Callejas DS: Diagnosis Discharge Diagnosis (1) Encounter for colorectal cancer screening: Status: Acute
[2020-10-09] MEDS: Lactated Ringers 1,000 ML 80 ML IV (06:40)
[2020-10-09] MEDS: Endoscopic Tattoo 5 ML SYR IJ (08:33)
--- NOTE | 2020-10-09 08:46 | BOWEL_PTH ---
PATIENT: Natalia Thomason LOC: [facility] U#:[id number] AGE/SX: 50/F ROOM: RE10/09/[address]: Katelyn Callejas MD : 1970 BED: DIS: 10/09/2020 SPEC #: [id number] RECD: 10/09/20 12:48 STATUS: TIERA REQ #: [id number] ANNE: 10/09/20 08:[address]: Katelyn Callejas DEPT: Surgical Specimen RECD BY: Casandra Shrestha ENTERED: 10/09/20 12:50 SP TYPE: Bowel OTHR DR: Rob Smith Tissues: 1 - BIOPSY BOWEL 2 - BIOPSY BOWEL 3 - BIOPSY BOWEL Procedures: GROSS AND MICRO LEVEL 4 Comments: [id number]
[2020-10-09 09:03] VITALS: BP 135/69; PULSE 52; RESP 16; TEMP 36.4; O2SAT 98
[2020-10-09 09:25] VITALS: BP 116/20; PULSE 52; RESP 18; TEMP 36.6; O2SAT 98
== END 2020-10-09 09:48 | disposition home or self-care (01) ==
PROVIDERS: PCP Nurse Practitioner Family; Visit Provider Surgery
PROC: 0DJD8ZZ Inspection of Lower Intestinal Tract, Via Natural or Artificial Opening Endoscopic (ICD-10-PCS; CPT 45378; principal; 2020-10-09 07:30)
DX: Z12.11 Encounter for screening for malignant neoplasm of colon (principal); K57.30 Diverticulosis of large intestine without perforation or abscess without bleeding; D12.2 Benign neoplasm of ascending colon; D12.8 Benign neoplasm of rectum
CPT/HCPCS: 45385; 45381; 45380; 81025; 88305; NC; J2001

== ENCOUNTER → 2020-10-22 02:39 | Outpatient (CLI) | payer OTHER, SELFPAY ==
--- NOTE | 2020-10-22 13:00 | NS.NUTBLAN_ITS ---
Natalia returns for Medical Nutrition Therapy for nutrition counseling in preparation for [place] loss [place] [facility] [place] Wt: 264 lbs (-2 lbs), 65 inches, BMI 44. Natalia has started to increase her exercise and walks 1 miles 3 times per week. She has made some dietary changes, started drinking protein shakes in AM as she typically skips breakfast. She takes a MVI and biotin as directed. Today's session focused on logging meals and becoming aware of how many grams of carbs and protein she consumes daily. Goal is for her to slowly decrease her reliance on carbohydrates and to increase her intake of protein and vegetables. Encouraged adequate hydration and importance of eating on a schedule. Follow up meeting scheduled 11/18/20 at 1 pm. Goal is for modest weight loss of 5 lbs per month.
== END ==
PROVIDERS: PCP Nurse Practitioner Family; Visit Provider Dietitian, Registered
DX: E66.01 Morbid (severe) obesity due to excess calories (principal); Z71.3 Dietary counseling and surveillance
CPT/HCPCS: 97803

== ENCOUNTER → 2020-11-18 04:49 | Outpatient (CLI) | payer OTHER, SELFPAY ==
--- NOTE | 2020-11-18 13:00 | NS.NUTBLAN_ITS ---
Natalia returns for Medical Nutrition Therapy for obesity in preparation for bariatric surgery at [facility] [place]. This is her third and final visit. Wt: 261 lbs (-3 lbs/month) 65 inches, BMI: 44. Weight loss has been slow since start of nutritional counseling despite making several life style and diet changes. Food recall indicates that Natalia has started to drink a protein shake for breakfast and she has reduced her reliance of convenience foods and focuses more on home made meals. She continues to walk 1 miles 3-4 times daily and reports her stamina is increasing and she is feeling well. She continues to take a MVI and biotin as prescribed. Session today focused on decreasing reliance on carbohydrates and to start exercising 30 minutes, 6 days per week. We also discussed meals, portions and food textures s/p surgery and importance of daily exercise for optimal weight loss results. Overall, it is my impression that Natalia is ready for bariatric surgery. She is aware of its risks and benefits and has demonstrated ability to make significant life style changes.
== END ==
PROVIDERS: PCP Nurse Practitioner Family; Visit Provider Dietitian, Registered
DX: E66.01 Morbid (severe) obesity due to excess calories (principal); Z71.3 Dietary counseling and surveillance; Z68.41 Body mass index [BMI] 40.0-44.9, adult
CPT/HCPCS: 97803

== ENCOUNTER 2020-12-02 02:21 | Outpatient (CLI) | payer OTHER, SELFPAY ==
--- NOTE | 2020-12-02 14:48 | DI.MAMMO_ITS ---
EXAM: MG MAMMO SCREENING CLINICAL HISTORY: SCREENING, Z12.39 TECHNIQUE: Bilateral full field digital CC and MLO mammographic images were obtained with 3D tomosyn thesis and utilizing computer aided detection (CAD). COMPARISON: Available for comparison. FINDINGS: Masses/Architectural Distortion: There is increased prominence of an area of asymmetric density in th e upper-outer quadrant of the right breast. Microcalcifications: No suspicious pleomorphic-type are seen. Skin Thickening/Nipple Retraction: None. IMPRESSION: 1. Area of asymmetric density in the upper-outer quadrant of the right breast. 2. This area should be further evaluated with a spot compression view. Ultrasound may be indicated a t that time. BI-RADS Category 0 - Assessment Incomplete: Need additional imaging evaluation Breast Density - Category B - Scattered areas of fibroglandular density Breast density category C or D implies that the patient has dense breast tissue. Dense breast tissue is very common and is not abnormal but dense breast tissue can make it harder to find cancer on a ma mmogram. Also, dense breast tissue may increase their breast cancer risk. This information about the result of the mammogram report was provided to the patient to raise their awareness. Use this report when you speak with the patient about their risks for breast cancer, which includes their family hist ory. At that time, you may recommend for more screening tests (Ultrasound or MRI) as they might be us eful based on their risk. A negative radiographic report should not delay biopsy if a dominant or clinically suspicious mass is present. Up to ten percent of cancers are not identified on mammography. A negative report may reinforce clinical impression. Adenosis and dense breasts may obscure an underlying neoplasm. False positive reports average 6 to 10%. Patient will receive a letter notifying them of these results.
== END 2020-12-02 02:41 ==
PROVIDERS: PCP Nurse Practitioner Family; Visit Provider Nurse Practitioner Family
DX: Z12.31 Encounter for screening mammogram for malignant neoplasm of breast (principal); R92.8 Other abnormal and inconclusive findings on diagnostic imaging of breast
CPT/HCPCS: 77063; 77067

== ENCOUNTER 2020-12-05 04:10 | Outpatient (CLI) | payer OTHER, SELFPAY ==
--- NOTE | 2020-12-05 14:00 | NS.NUTBLAN_ITS ---
Natalia returns for medical nutrition therapy for weight loss prior to bariatric surgery to be scheduled at [facility] [place]. Wt: 264 lbs, 65 inches, BMI 44. Natalia has lost 1 lbs in last month. Diet record indicates that Natalia skips breakfast and intakes of carbohydrates exceed recommended amount. Reviewed ideal diet for weight loss prior to surgery: 9099-7809 kcal, 80-100 g protein, 60-80 g protein. Meal Plan provided. Going forward, Natalia plans on having a protein bar at breakfast, balanced meal at lunch and a carb free dinner focusing on lean protein protein and non starchy vegetables. She has started to walk every night 15-20 minutes. Goal is 3-5 lbs weight loss per month or weight of < 252 lbs at time of surgery. Follow up visit scheduled for 12/26/20 at 2 pm.
== END 2020-12-05 04:11 | disposition home or self-care (01) ==
LOC: DS 04:10
PROVIDERS: PCP Nurse Practitioner Family; Visit Provider Dietitian, Registered
DX: E66.01 Morbid (severe) obesity due to excess calories (principal); Z68.41 Body mass index [BMI] 40.0-44.9, adult; Z71.3 Dietary counseling and surveillance
CPT/HCPCS: 97803

== ENCOUNTER 2020-12-06 02:16 | Outpatient (CLI) | payer OTHER, SELFPAY ==
--- NOTE | 2020-12-06 | DI.US_ITS ---
EXAM: MG MAMMO SCREEN CALL BACK UNI and U/S breast RT limited CLINICAL HISTORY: F/U MAMMO, ASYMMETRIC DENSITY UOQ RT BREAST. TECHNIQUE: Craniocaudal and mediolateral oblique Full Field Digital Mammography views of the right b reast with Computer Aided Diagnosis followed by Tomosynthesis and right breast ultrasound. COMPARISON: Priors available for comparison. FINDINGS: Mammography/Tomosynthesis: Masses/Architectural Distortion: Asymmetric breast tissue in the upper-outer quadrant of the right br east is again seen. No discrete mass is appreciated mammographically. Microcalcifictions: No suspicious pleomorphic-type are seen. Skin Thickening/Nipple Retraction: None. Right breast US: Echotexture: There is dense breast tissue noted in the upper outer quadrant. Shadowing: No suspicious foci. Cyst: None. Solid lesions: None seen. Ductal dilation: None. IMPRESSION: 1. No evidence of malignancy is noted. 2. A six-month follow-up right mammogram is recommended for re-evaluation. 3. The findings were discussed with the patient on the date of the examination. BI-RADS Category 3 - 6 month - Probably Benign Finding: Recommend follow-up mammography in 6 months Breast Density - Category B - Scattered areas of fibroglandular density Breast density Category C or D implies that the patient has dense breast tissue. Dense breast tissue can make it harder to find cancer on a mammogram. Dense breast tissue is also associated with an incr eased risk of breast cancer. This information about the result of the mammogram report was provided to the patient to raise their awareness. Use this report when you speak with the patient about their risks for breast cancer, which includes their family history. At that time, you may recommend additional screening tests (Ultrasoun d or MRI) as these tests may add significant information. A negative radiographic report should not delay biopsy if a dominant or clinically suspicious mass is present. Up to ten percent of cancers are not identified on mammography. A negative report may reinforce clinical impression. Adenosis and dense breasts may obscure an underlying neoplasm. False positive reports average 6 to 10%. Patient will receive a letter notifying them of these results.
== END 2020-12-06 02:17 ==
LOC: DI 02:16
PROVIDERS: PCP Nurse Practitioner Family; Visit Provider Nurse Practitioner Family
DX: R92.8 Other abnormal and inconclusive findings on diagnostic imaging of breast (principal)
CPT/HCPCS: 76642; 77063; 77067

== ENCOUNTER 2020-12-26 03:59 | Outpatient (CLI) | payer OTHER, SELFPAY ==
--- NOTE | 2020-12-26 14:00 | NS.NUTBLAN_ITS ---
Natalia returns for Medical Nutrition Therapy for nutritional counseling prior to bariatric surgery at [facility] [place]. This is her 5th session. Wt: 260 lbs 65 inches BMI 43.5. Natalia has lost 4 lbs in last 4 weeks. She reports she is omitting starch at dinner and walking daily for 15-20 minutes. She has started to regularly eat breakfast, typically a protein bar. Session today focused on portion control after surgery and importance of monitor caloric and macronutrient intake for optimal weight loss. Reviewed ways to portion control with using tuperware containers or sectional plates. Also reviewed importance of daily exercise, at least 150 minutes per week for maintaining metabolic rate while losing weight. Overall, Ntaalia is making positive changes in preparation for weight loss surgery. Next session scheduled for 01/23/21 at 1 pm.
== END 2020-12-26 04:00 | disposition home or self-care (01) ==
LOC: DS 03:59
PROVIDERS: PCP Nurse Practitioner Family; Visit Provider Dietitian, Registered
DX: E66.01 Morbid (severe) obesity due to excess calories (principal); Z68.41 Body mass index [BMI] 40.0-44.9, adult; Z71.3 Dietary counseling and surveillance
CPT/HCPCS: 97803

== ENCOUNTER 2021-01-23 03:14 | Outpatient (CLI) | payer OTHER, SELFPAY ==
--- NOTE | 2021-01-23 13:00 | NS.NUTBLAN_ITS ---
Natalia returns for 6th and final diet counseling session in preparation for Bariatric Surgery at [facility] [place]. HT: 65 inches, WT: 250 lbs, BMI: 43, down 10 lbs in last 4 weeks, down 16 lbs in last 6 months. Natalia reports increase in exercise, now with spring in full swing. She reports walking 1-2 miles per day. Diet recall indicates reliance on complex carbs, lean protein and non starchy vegetables- eats a protein bar for breakfast (muscle milk), a balanced meal at lunch (provided at her work) and a carb free dinner of lean protein and vegetables. Continues to incorporate protein shake daily as a snack and continues to take MVI, biotin daily. Natalia has made many positive life style changes that will benefit her after weight loss surgery. She is focused on macro nutrient intake and daily exercise- both of which are essential for group home success. Plan: follow up s/p surgery planned to optimize nutrient intake
--- NOTE | 2021-02-07 14:07 | TELEFU_ITS ---
Date of service: 02/07/21 Time of Service: 14:08 Nutritional Follow up NOTE: Natalia returns for medical nutrition therapy for diet counseling prior to bariatric surgery at [facility] [place]. Natalia reports she weighed in at 275 yesterday (02/06/2021) which is significantly higher than previous weight of 250 lbs on 01/23/21. Surgery has been postponed until Natalia loses weight that is below her initial weight. Weight in office today: 270 lbs. Weight for 01/23/21 may be inaccurate. New batteries added to scale last week. Weight Lo09/25/20 266 10/22/20 264 11/18/20 261 12/05/20 264 12/26/20 260 01/23/21 250* scale error? 02/07/21 270 Session today focused on getting Natalia to follow a strict low sodium 1200 calorie diet- education and meal plans provided. Natalia reports edema around foot every night after work. Suspect recent 10 lbs weight gain may in part be due to high intake of high salt foods such as pizza and malay foods. Reviewed strategies to maintain focus on lower calorie diet plan and ways to avoid hunger by filling up on vegetables and lean protein. Encouraged continued use of multivitamin, biotin and increase in fluid intake to 80 oz per day. follow up appt. scheduled for 02/14/21 at 1:30 pm Time Spent in Nutritional Counseling and Treatment: 30 min
== END 2021-01-23 03:15 | disposition home or self-care (01) ==
LOC: DS 03:14
PROVIDERS: PCP Nurse Practitioner Family; Visit Provider Dietitian, Registered
DX: E66.01 Morbid (severe) obesity due to excess calories (principal); Z68.41 Body mass index [BMI] 40.0-44.9, adult; Z71.3 Dietary counseling and surveillance
CPT/HCPCS: 97803

== ENCOUNTER 2021-04-10 02:56 | Outpatient (CLI) | payer MEDICAID, SELFPAY ==
[2021-04-10 08:49] LABS: HCT 38.6 % (36.0-46.0); HGB 12.5 g/dL (11.2-15.7); MCHC 32.4 % (32.0-36.0); MCV 92.6 fL (80-95); Platelet Count 229 10^3/uL (130-400); RBC 4.17 10^6/uL (3.93-5.22); RDW 13.2 % (11.7-14.6)
[2021-04-10 09:00] LABS: Hemoglobin A1C 5.5 % (<5.7)
[2021-04-10 11:56] LABS: ALT 57 U/L (14-59); AST 18 U/L (15-37); Albumin 3.6 g/dL (3.4-5.0); Alkaline Phosphatase 100 U/L (46-116); Anion Gap 6.4 mmol/L (3-11); BUN 15 mg/dL (7-18); Bilirubin, Total 0.4 mg/dL (0.2-1.0); CO2 31.6 mmol/L (21.0-32.0); CREATININE 0.7 mg/dL (0.55-1.02); Calcium 9.1 mg/dL (8.5-10.1); Calculated LDL 125 mg/dL (<100); Chloride 104 mmol/L (98-107); Cholesterol 237 mg/dL (<200); Ferritin 44 ng/mL (8-252); Folate 15.7 ng/mL (8.6-20.0); Glucose 93 mg/dL (74-106); HDL Cholesterol 95 mg/dL (40-60); Potassium 4.4 mmol/L (3.5-5.1); Sodium 142 mmol/L (136-145); TSH 1.32 uIU/mL (0.36-3.74); Total Protein 6.7 g/dL (6.4-8.2); Triglyceride 86 mg/dL (<150); Vitamin B12 486 pg/mL (193-986)
[2021-04-10 12:49] LABS: Iron 76 ug/dL (50-170); Total Iron Binding Capacity 363 ug/dL (250-450); Transferrin Sat 21 % (15-50)
[2021-04-11 09:10] LABS: Parathyroid Hormone,Intact 38 pg/mL (19-88)
[2021-04-12 11:36] LABS: Anabasine <2.0 ng/mL (<2.0); Cotinine <5.0 ng/mL (<5.0); Nicotine <5.0 ng/mL (<5.0); Nornicotine <2.0 ng/mL (<2.0)
[2021-04-14 01:12] LABS: Thiamine (Vitamin B1), WB 122 nmol/L (70-180)
[2021-04-15 14:47] LABS: Helicobacter pylori Ag, Feces Negative (Negative)
== END 2021-04-10 02:57 | disposition home or self-care (01) ==
LOC: LBO 02:56
PROVIDERS: PCP Nurse Practitioner Family; Visit Provider Nurse Practitioner Family
DX: E66.9 Obesity, unspecified (principal); Z01.818 Encounter for other preprocedural examination; F17.219 Nicotine dependence, cigarettes, with unspecified nicotine-induced disorders
CPT/HCPCS: 36415; 80053; 80061; 80323; 82306; 85027; 87338; 82607; 82728; 82746; 83036; 83540; 83550; 83970; 84425; 84443

== ENCOUNTER 2021-05-08 03:47 | Outpatient (CLI) | payer MEDICAID, SELFPAY ==
--- NOTE | 2021-05-08 10:00 | NS.NUTBLAN_ITS ---
Natalia returns for Medical Nutrition Therapy for weight management prior to bariatric surgery at [facility] [place]. Wt: 271 lbs. Weight Progress in last 8 months below: 09/25/20 266 lbs ( initial weigh in) 10/22/21 264 lbs (-2 lbs) 11/18/20 261 lbs (- 5 lbs) 12/05/20 264 lbs (-2 lbs) 01/23/21 250 lbs (possible scale error) 02/07/21 270 lbs (+4 lbs) 05/08/21 271 lbs (+5 lbs) Natalia reports weight this morning before breakfast was 269 lbs. She is following the 1200 kcal [facility] pre op diet for last 14 days with weight loss success and able to stay on track without diet excursions. She feels well and has also been walking daily for 20-30 minutes. She is taking her MVI and biotin, no longer using tobacco products. . Plan is for her to have video call with [facility] [place] tomorrow and to continue diet for another 2 weeks to get her weight at or below 266 lbs. Will continue to be available as needed pre and post surgery.
== END 2021-05-08 03:48 | disposition home or self-care (01) ==
PROVIDERS: PCP Nurse Practitioner Family; Visit Provider Dietitian, Registered
DX: E66.01 Morbid (severe) obesity due to excess calories (principal); Z71.3 Dietary counseling and surveillance
CPT/HCPCS: 97803

== ENCOUNTER 2021-06-10 01:41 | Outpatient (CLI) | payer MEDICAID, SELFPAY ==
--- NOTE | 2021-06-10 | DI.MAMMO_ITS ---
Exam(s) MG MAMMO DIAGNOSTIC UNI EXAM: MAMMO DIAGNOSTIC UNI CLINICAL HISTORY: DIAGNOSTIC, 6 MO F/U, F/U ABNL MAMMO,R92.8. COMPARISON: No 2018 and 02 December 2020 TECHNIQUE: Craniocaudal and mediolateral oblique Full Field Digital Mammography views of the right b reast with Computer Aided Diagnosis followed by Tomosynthesis FINDINGS: Mammography/Tomosynthesis: Masses/Architectural Distortion: None seen. There has been interval decrease in prominence of the are a of asymmetric breast tissue in the upper outer quadrant. Microcalcifications: No suspicious pleomorphic-type are seen. Skin Thickening/Nipple Retraction: None. IMPRESSION: 1. No evidence of malignancy is noted. 2. Unless there is more urgent need, follow-up screening mammography is recommended, in 6 months. BI-RADS Category 1 - Negative Breast Density - Category B - Scattered areas of fibroglandular density A negative radiographic report should not delay biopsy if a dominant or clinically suspicious mass is present. Up to ten percent of cancers are not identified on mammography. A negative report may reinforce clinical impression. Adenosis and dense breasts may obscure an underlying neoplasm. False positive reports average 6 to 10%. Patient will receive a letter notifying them of these results.
== END 2021-06-10 02:01 ==
PROVIDERS: PCP Nurse Practitioner Family; Visit Provider Nurse Practitioner Family
DX: Z13.21 Encounter for screening for nutritional disorder (principal); R92.8 Other abnormal and inconclusive findings on diagnostic imaging of breast; N64.59 Other signs and symptoms in breast
CPT/HCPCS: 77061; 77065; G0279

== ENCOUNTER 2021-10-17 02:57 | Outpatient (CLI) | payer MEDICAID, SELFPAY ==
[2021-10-17 11:02] LABS: Source Nasal/Nares
[2021-10-17 22:06] LABS: COVID-19 PCR Negative (Negative)
== END 2021-10-17 02:58 | disposition home or self-care (01) ==
LOC: LBO 02:57
PROVIDERS: PCP Physician Assistant; Visit Provider Surgery
DX: Z20.822 Contact with and (suspected) exposure to COVID-19 (principal); Z01.812 Encounter for preprocedural laboratory examination
CPT/HCPCS: 87635

== ENCOUNTER 2021-10-20 07:53 | Day surgery (SDC) | payer MEDICAID, SELFPAY ==
--- NOTE | 2021-10-20 06:41 | COLE_ITS ---
Colonoscopy Report Date of procedure: 10/20/21 Pre-op diagnosis general: Hx of colon polyps Post-op diagnosis procedure note: same (polyps) Procedure: Colonoscopy with polypectomy Surgeon: Katelyn Callejas Anesthesia Type: General:No Airway (German Kovacs CRNA) Estimated blood loss (mL): 3 Pathology: other (cecal polyp, ascending polyps x2) Complications: None Disposition: same day Indications: Natalia is back to see me today for another colonoscopy. She had a colonoscopy in October 2020 and was noted to have a tubulovillous adenoma in the ascending colon that was more than 1 cm in size. She also had a tubular adenoma in the rectum. She has not had any changes in bowel habits, melena or hematochezia. She has no family history of colon cancer. She underwent a sleeve gastrectomy in July of this year for weight loss and has lost about 74 pounds. She did well through surgery and postoperatively. Risks, benefits and complications have been reviewed. Complications include but are not limited to bleeding, pain, perforation, missed small lesion/polyp, sore throat, aspiration and adverse reaction to the medications. Questions were entertained and answered to their satisfaction and they wished to proceed. No guarantees were given or implied. Proceed with colonoscopy under sedation Prep: Miralax/Dulcolax Procedure Start Time: 09:14 Procedure End Time: 09:45 Retraction Time: 16 minutes Findings: 3 small sessile polyps Procedure Description: After informed consent was obtained the patient was taken to the procedure room and placed in a left decubitous position. Monitors were applied and a time out was done. The patients name, date of , procedure, allergies to medications and metal in their body was reviewed. The patient was then sedated. Once sedated and comfortable a rectal exam was done. External exam was normal. Internal exam revealed a normal sphincter tone and no palpable masses. The scope was then introduced and retro-flexed. Internal hemorrhoidal skin tags were identified. No polyps or masses were identified on retro-flexion. The scope was then advanced to the cecum without difficulty. The ileocecal vlave and appendiceal orifice were identified. The prep was good. The scope was then slowly retracted over 16 minutes back into the rectum. Polyps were removed with cold forceps in the ceecum and ascending colon and with cold snare in the ascending colon. There was no diverticulosis noted. The scope was removed and t he patient was woken up and taken back to Same day surgery in stable condition. The patient tolerated the procedure well and there were no immediate complications. Follow up: The patient should follow up in 5 years unless they develop changes in bowel habits or other new gastrointestinal complaints.
--- NOTE | 2021-10-20 06:42 | W.PM.DSUDISC ---
Discharge Plan Disposition Patient Disposition: HOME Condition: Good Discharge Details Reason For Visit: Colonoscopy Attending Provider: Katelyn Callejas Primary Care Provider: Jose Napier Home Meds and New Rx's Prescriptions: Continued escitalopram oxalate [Lexapro] 20 mg tablet 30 mg PO DAILY RF: 0 Vyvanse 20 mg capsule 20 mg PO DAILY PRNRF: 0 omeprazole 10 mg capsule,delayed release(DR/EC) 10 mg PO DAILY RF: 0 ursodiol 200 mg capsule 200 mg PO BID RF: 0 multivitamin Tablet 1 tab PO DAILY RF: 0 Discontinued bisacodyl [Dulcolax (bisacodyl)] 5 mg tablet,delayed release (DR/EC) 5 mg PO ONCE Qty: 4 RF: 0 polyethylene glycol 3350 17 gram/dose powder 17 g PO ONCE Qty: 238 RF: 0 Discharge Instructions Instructions: Colorectal Polyps (DC) Additional Instructions: Findings: polyps Follow up: 5 years Please call if you develop: fevers >101.5 Nausea or Vomiting Abdominal pain that is not transient Rectal bleeding that is more then a tbsp A hard abdomen and inability to pass gas DAY SURGERY UNIT POST ENDOSCOPY INSTRUCTIONS Instructions for everyone who is given Anesthesia: For your safety, please do the following for the next 24 Hours: a. Do not drive or operate dangerous equipment b. Do not drink alcohol beverages or use any recreational drugs for the first 24 hours or while taking pain medications. The medications in your body may have a reaction that can be dangerous. c. Do not make any important decisions or sign any important papers 1. Generally there are no restrictions on your activity after a day or so has gone by, but you may feel a bit fatigued for a few days. 2. After you arrive home you may have a light meal and return to a normal diet as you can tolerate it without feeling sick to your stomach. 3. After surgery, you may feel pain or discomfort. This should be only transient, but if it persists please contact your doctor. 4. If there are any questions regarding the findings of your procedure, please feel free to contact your doctor. 6. If you are unable to contact your doctor with a problem, contact the hospital at [phone]. 7. Continue all your regular medications unless directed otherwise. I understand the above instructions and have no questions. Signature of Patient or Responsible Adult Escort Date/Time Name of Responsible Adult Escort Signature of Nurse Date/Time Activity:: Activity as Tolerated Diet:: As Tolerated Discharge Orders Discharge Orders: Discharge Order (Routine); Ordered 10/20/21 Ordered By: Katelyn Callejas
[2021-10-20 08:04] VITALS: BP 128/84; PULSE 73; RESP 16; TEMP 37; O2SAT 99
[2021-10-20] MEDS: Lactated Ringers 1,000 ML 80 ML IV (08:40)
--- NOTE | 2021-10-20 08:57 | W.ANESPRE ---
General Info Date of Service Date Performed: 10/20/21 Height: 5 ft 4 in Weight: 95.2 kg Body Mass Index (BMI): 36.0 Surgical Procedure: Operation Date: 10/20/21 09:20 Proposed Procedures Side Surgeon p Colonoscopy Katelyn Callejas MD Meds Allergies and Home Medications Allergies Allergy/AdvReac Type Severity Reaction Status Date / Time azithromycin AdvReac Intermediate yeast Unverified 10/20/21 08:02 [From Zithromax Z-Miky] infection methylprednisolone AdvReac Mild Yeast Unverified 10/20/21 08:02 [From Medrol] infection Home Medication Medication Instructions Recorded escitalopram oxalate 20 mg tablet 30 mg PO DAILY 11/15/19 multivitamin 1 tab PO DAILY 10/07/20 lisdexamfetamine 20 mg capsule 20 mg PO DAILY PRN 09/16/21 omeprazole 10 mg capsule,delayed 10 mg PO DAILY 09/16/21 release ursodiol 200 mg capsule 200 mg PO BID 09/16/21 bisacodyl 5 mg tablet,delayed 5 mg PO ONCE #4 tab 10/10/21 release polyethylene glycol 3350 17 17 g PO ONCE #238 g 10/10/21 gram/dose oral powder Current Visit Medications: Current Medications Generic Name Dose Route Start Last Admin Trade Name Freq PRN Reason Stop Dose Admin Hyoscyamine Sulfate 0.125 mg 10/20/21 06:42 Hyoscyamine 0.125 Mg Sl/Oral/Chew SL DIRECTED PRN Ringer's Solution 1,000 mls @ 80 mls/hr 10/20/21 06:00 10/20/21 08:40 IV 11/16/21 23:59 80 mls/hr INFUSION CURLY Administration IV Miscellaneous Supplies 1 each 10/20/21 06:00 Iv Access IV 11/16/21 23:59 DIRECTED CURLY Ondansetron HCl 4 mg 10/20/21 06:42 Ondansetron 4 Mg/2 Ml Vial IVP Q4H PRN PRN Nausea / Vomiting Sodium Chloride 0 ml 10/20/21 06:00 Normal Saline Flush 10 Ml Syr IV 11/16/21 23:59 PRN PRN Sodium Chloride 0 ml 10/20/21 06:00 Normal Saline 10 Ml Vial IJ 11/16/21 23:59 DIRECTED PRN Sterile Water 0 ml 10/20/21 06:00 Water,Injection,Sterile 10 Ml Vial IJ 11/16/21 23:59 DIRECTED PRN [facility] Active Problems Active Problems: Problem Status Onset Code Tubular adenoma ~10/2020 D36.9 Tubulovillous adenoma ~10/2020 D36.9 Colon polyp, hyperplastic ~10/2020 K63.5 Medical History Medical History Abdominal pain ADHD Anxiety disorder Body mass index (BMI) 40.0-44.9, adult Bunionette of left foot Chest pain Per pt. states this was from anxiety ,and since she has been on anxiety meds she had not had any issues. Elbow joint pain External hemorrhoid Pt. denies this Family history of ovarian cancer Female pelvic pain Heavy menstrual period Herpes simplex Gingivostomatitis Hot flash, menopausal Intractable left heel pain IUD surveillance Mirena for menorrhagia inserted 11/22/19 Knee pain, right Pt. denies this Leg mass Lumbar back pain Pt. denies this Lump Menorrhagia, premenopausal Muscle strain Pt. 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 Tobacco use Surgical History Surgical History History of bunionectomy S/P endometrial ablation S/P gastric sleeve procedure Status post endometrial ablation Tobacco Smoking/Tobacco Use Status: Current-Occasional Tobacco Type: e-cigarettes Alcohol Alcohol Intake: never Substance Use Substance use: Never Substance use type: does not use Prental History History 5 Para 4 Hx # Term Pregnancies Multiple births Hx # Pregnancies Ectopic pregnancies AB induced Hx Number of Living Children AB spontaneous 1 Vital Signs and Lab Results Vital Signs Most Recent Vital Signs in EMR: Most Recent Vital Signs Temp Pulse Resp BP Pulse Ox 37.0 C 73 16 128/84 99 10/20/21 08:04 10/20/21 08:04 10/20/21 08:04 10/20/21 08:04 10/20/21 08:04 Lab Results Blood Type / Crossmatch: No Data to Display Complete Blood Count: No Data to Display Complete Metabolic Panel: No Data to Display Liver Function Panel: No Data to Display Coagulation Panel: No Data to Display Cardiac Panel: No Data to Display Arterial Blood Gas: No Data to Display Venous Blood Gas: No Data to Display Pancreas Panel: No Data to Display Thyroid Panel: No Data to Display Infectious Disease: Coronavirus (COVID-19)(PCR) Negative (Negative) 10/17/21 08:56 10/17/21 Coronavirus 2019 Source Nasal/Nares 10/17/21 08:56 10/17/21 Blood Cultures: No Data to Display Toxicology Panel: No Data to Display Panel: No Data to Display Anesthesia Assessment and Plan Anesthesia History Personal History: No History of Anesthesia Complications Family History: No Family History of Anesthesia Complications Exercise Tolerance Exercise Tolerance: Metabolic Equivalents>4 Pertinent Negatives Pertinent Negatives: No Symptoms of GERD Cardiac & Pulmonary Exam Cardiac Exam: Normal S1/S2 Heart Sounds Pulmonary Exam: Clear Bilateral Breath Sounds Implantable Cardiac Device Does patient have a Pacemaker or an ICD?: No Airway Exam Known Difficult Airway: No Mallampati Class: 2 Mouth Opening: Normal (> 3cm) Thyromental Distance: Greater than 3 cm Neck Range of Motion: Full ROM Neck Circumference: Normal Teeth Condition: Normal Dentition ASA Classification ASA Score: ASA 2 Emergency Case?: No NPO Status NPO Status: NPO Clears >2 hours, Solids >8 hours Status Status: Negative HCG Anesthesia Plan Resuscitation Status: Full Code Anesthesia Technique: General Anesthesia Airway Planned: Natural Airway Monitors Used: Standard Monitors
[2021-10-20 09:10] VITALS: BMI 36.0
--- NOTE | 2021-10-20 09:20 | BOWEL_PTH ---
PATIENT: Natalia Thomason LOC: [facility] U#:[id number] AGE/SX: 51/F ROOM: RE10/20/[address]: Katelyn Callejas MD : [id number] BED: DIS: 10/20/2021 SPEC #: [id number] RECD: 10/20/21 13:00 STATUS: TIERA REJesus Manuel #: [id number] ANNE: 10/20/21 09:[address]: Katelyn Callejas DEPT: Surgical Specimen RECD BY: Casandra Shrestha ENTERED: 10/20/21 13:01 SP TYPE: Bowel OTHR DR: Jose Napier Tissues: 1 - BIOPSY BOWEL 2 - BIOPSY BOWEL Procedures: GROSS AND MICRO LEVEL 4 Comments: [id number]
[2021-10-20 09:48] VITALS: BP 141/86; PULSE 58; RESP 16; TEMP 36.6; O2SAT 100
--- NOTE | 2021-10-20 09:54 | W.ANESPOSTOP ---
Postoperative Evaluation Date, Time and Location Date Performed: 10/20/21 Time Performed: 09:55 Patient Location: Day Surgery Unit Vital Signs Most Recent Imported Vital Signs: Most Recent Vital Signs Temp Pulse Resp BP Pulse Ox 36.6 C 58 L 16 141/86 H 100 10/20/21 09:48 10/20/21 09:48 10/20/21 09:48 10/20/21 09:48 10/20/21 09:48 Pain Score Most Recent Pain Score: Most Recent Pain Score Pain Level 0 10/20/21 09:48 Assessment Mental Status: Awake (Alert & Oriented to Patient Baseline) Airway and Respiratory Function: Patent airway with normal (patient baseline) respiratory exam Cardiovascular Function: Hemodynamically Stable Hydration Status: Adequately Hydrated Nausea & Vomiting: No Nausea or Vomiting Pain: Pt. Denies Any Pain Peripheral Nerve Block: Patient did not receive a nerve block
[2021-10-20 10:18] VITALS: BP 138/79; PULSE 59; RESP 16; TEMP 36.7; O2SAT 100
== END 2021-10-20 11:05 | disposition home or self-care (01) ==
PROVIDERS: PCP Physician Assistant; Visit Provider Surgery
PROC: 0DJD8ZZ Inspection of Lower Intestinal Tract, Via Natural or Artificial Opening Endoscopic (ICD-10-PCS; CPT 45378; principal; 2021-10-20 09:15)
DX: Z09 Encounter for follow-up examination after completed treatment for conditions other than malignant neoplasm (principal); D12.2 Benign neoplasm of ascending colon; Z86.010 Personal history of colon polyps; Z98.84 Bariatric surgery status
CPT/HCPCS: 45385; 88305; J2250

== ENCOUNTER 2021-12-02 22:24 | Outpatient (CLI) | payer MEDICAID, SELFPAY ==
--- NOTE | 2021-12-02 14:09 | DI.RAD_ITS ---
Exam(s) XR KNEE RT 4V AP,LAT,CALLIE,PAT EXAM: XR KNEE RT 4V AP,LAT,CALLIE,PAT CLINICAL HISTORY: ACUTE RT KNEE PAIN, M25.561. TECHNIQUE: 2D digital imaging was performed of the right knee. Four views obtained. AP, lateral, Me rchant and PA tunnel views were obtained. COMPARISON: CR RIGHT KNEE 3 VIEWS from 03/26/2016 FINDINGS: BONES: No acute fracture is present. No bony destructive lesion is seen. JOINTS: The knee is normally aligned. No joint effusion is seen. There is mild spurring in all 3 join t compartments. The joint spaces are otherwise well maintained. SOFT TISSUE: Normal. IMPRESSION: Mild degenerative changes of the right knee. DATA REPOSITORY: RADIATION DOSE DELIVERED:
== END 2021-12-02 22:44 ==
PROVIDERS: PCP Physician Assistant; Visit Provider Nurse Practitioner Family
DX: M25.561 Pain in right knee (principal); M17.11 Unilateral primary osteoarthritis, right knee
CPT/HCPCS: 73564

== ENCOUNTER → 2022-04-20 01:51 | Outpatient (CLI) | payer MEDICAID, SELFPAY ==
--- NOTE | 2022-04-20 10:56 | DI.MAMMO_ITS ---
Exam(s) MAMMO SCREENING EXAM: MAMMO SCREENING CLINICAL HISTORY: SCREENING, Z12.39 TECHNIQUE: Bilateral full field digital CC and MLO mammographic images were obtained with 3D tomosyn thesis and utilizing computer aided detection (CAD). COMPARISON: Available for comparison. FINDINGS: Masses/Architectural Distortion: There is a focal asymmetry in the central right breast on the cranio caudad view. It is slightly more prominent compared to the prior examination. Microcalcifications: No suspicious pleomorphic-type are seen. Skin Thickening/Nipple Retraction: None. IMPRESSION: 1. Focal asymmetry in the central right breast on the CC view. 2. This area should be further evaluated with a spot compression view. Ultrasound may be indicated a t that time. BI-RADS Category 0 - Assessment Incomplete: Need additional imaging evaluation Breast Density - Category B - Scattered areas of fibroglandular density Breast density category C or D implies that the patient has dense breast tissue. Dense breast tissue is very common and is not abnormal but dense breast tissue can make it harder to find cancer on a ma mmogram. Also, dense breast tissue may increase their breast cancer risk. This information about the result of the mammogram report was provided to the patient to raise their awareness. Use this report when you speak with the patient about their risks for breast cancer, which includes their family hist ory. At that time, you may recommend for more screening tests (Ultrasound or MRI) as they might be us eful based on their risk. A negative radiographic report should not delay biopsy if a dominant or clinically suspicious mass is present. Up to ten percent of cancers are not identified on mammography. A negative report may reinforce clinical impression. Adenosis and dense breasts may obscure an underlying neoplasm. False positive reports average 6 to 10%. Patient will receive a letter notifying them of these results.
== END ==
PROVIDERS: PCP Physician Assistant; Visit Provider Physician Assistant
DX: Z12.31 Encounter for screening mammogram for malignant neoplasm of breast (principal); R92.8 Other abnormal and inconclusive findings on diagnostic imaging of breast
CPT/HCPCS: 77063; 77067

== ENCOUNTER → 2022-04-24 00:21 | Outpatient (CLI) | payer MEDICAID, SELFPAY ==
--- NOTE | 2022-04-24 | DI.US_ITS ---
Exam(s) MG MAMMO SCREEN CALL BACK UNI US BREAST RT LIMITED EXAM: MG MAMMO SCREEN CALL BACK UNI and U/S breast RT limited CLINICAL HISTORY: F/U ABNL MAMMO, FOCAL ASYMMETRY CENTRAL RT BREAST ON CC VIEW. TECHNIQUE: Craniocaudal and mediolateral oblique Full Field Digital Mammography views of the right b reast with Computer Aided Diagnosis followed by Tomosynthesis and right breast ultrasound. COMPARISON: Comparison is made with prior examinations. FINDINGS: Mammography/Tomosynthesis: Masses/Architectural Distortion: None seen. The area of concern does not persist on the spot compress ion views. Microcalcifictions: No suspicious pleomorphic-type are seen. Skin Thickening/Nipple Retraction: None. Limited right breast US: Echotexture: Normal appearance of the glandular tissue. Shadowing: No suspicious foci. Cyst: There is a 6 x 3 x 8 mm cyst at the 12 o'clock position of the right breast 1 cm from the nippl e.. Solid lesions: None seen. Ductal dilation: None. IMPRESSION: 1. No evidence of malignancy is noted. 2. A six-month follow-up right mammogram is recommended for re-evaluation. 3. The findings were discussed with the patient on the date of the examination. BI-RADS Category 3 - 6 month - Probably Benign Finding: Recommend follow-up imaging in 6 months Breast Density - Category C - Heterogeneously dense Breast density Category C or D implies that the patient has dense breast tissue. Dense breast tissue can make it harder to find cancer on a mammogram. Dense breast tissue is also associated with an incr eased risk of breast cancer. This information about the result of the mammogram report was provided to the patient to raise their awareness. Use this report when you speak with the patient about their risks for breast cancer, which includes their family history. At that time, you may recommend additional screening tests (Ultrasoun d or MRI) as these tests may add significant information. A negative radiographic report should not delay biopsy if a dominant or clinically suspicious mass is present. Up to ten percent of cancers are not identified on mammography. A negative report may reinforce clinical impression. Adenosis and dense breasts may obscure an underlying neoplasm. False positive reports average 6 to 10%. Patient will receive a letter notifying them of these results.
--- OUTSIDE RECORDS SUMMARY | 2022-04-24 00:23 | XMS_ITS | Encounter Summary ---
:1970 Author Organization [facility] [address] Care Team Providers Name Role Phone Rob Smith Caesarandrew BRENNA Primary Care Provider Reason for Visit Reason Comments Follow-up s/p noa surg 07/02/21 Encounter Details Date Type Department Care Team Description 07/23/2021 Office Visit General Surgery at Katy Florez ra, APRN [facility] [place] [address] S/P bariatric surgery; [facility] Emili Mclaughlin RD [facility] [place] [address] [place] [address] Social History Tobacco Use Types Packs/Day Years Used Date Former Smoker Smokeless Tobacco: Never Used Comments: pt quit 3 yrs ago Sex Assigned at Date Recorded Not on file documented as of this encounter Last Filed Vital Signs Vital Sign Reading Time Taken Comments Blood Pressure 121/76 07/23/2021 9:12 AM EDT Pulse 63 07/23/2021 9:12 AM EDT Temperature - - Respiratory Rate 16 07/23/2021 9:12 AM EDT Oxygen Saturation 98% 07/23/2021 9:12 AM EDT Inhaled Oxygen Concentration - - Weight 112.4 kg (247 lb 12.8 oz) 07/23/2021 9:12 AM EDT Height 162.6 cm (5' 4) 07/23/2021 9:12 AM EDT Body Mass Index 42.53 07/23/2021 9:12 AM EDT documented in this encounter Patient Instructions Patient InstructionsJennifer Florez, VETERINARY MEDICINE TEACHER - 07/23/2021 9:30 AM EDT Bariatric Surgery Program First Post-operative Follow up visit Contact information: [facility] support merchandiser: Elicia: [phone] and Vashti [phone] Dietitians: [phone] Surgeons/ nurse practitioners: [phone] Nurse line: [phone] Dear Natalia, Thank you for following up with the Bariatric Surgery Program at [facility]. Please review your medical note from today's visit for specific information we discussed. Next follow up visit: at 4 months post-op. Testing: Labwork will be done at your 4 month post-op appointment. The lab orders will be in the system before your visit. The main lab is at [address] and does not require an appointment. The hours are Wednesday through Wednesday, 6:45 am to 6:00 pm. Here's the link to [facility] Lab hours and locations, in case one of the other locations is more convenient for you: [email or web address] If you have labwork done by your primary morning caregiver before that date, please have a copy sent tot Bariatric Surgery Program. Post surgery Medications: 1. Continue medication to prevent ulcer (likely a PPI like omeprazole) until you are at least 3 months post surgery, or as indicated by your primary care doctor. 2. If you have a gallbladder, continue to take ursodiol for a total of 6 months after surgery to prevent gallstones from forming, and to shrink any gallstones that may be present. Vitamins/Nutrition/Activity Recommendations: Please see your visit note for personalized recommendations General Supplement recommendations: ??? Multivitamins with minerals twice daily- needs to be an under 50 multivitamin that contains iron. ??? Vitamin B12 500 mcg by mouth once daily ??? Calcium citrate 500-600 mg with Vitamin D 400 units twice daily (600 mg in AM and 600 mg in PM- 2 pills twice a day) (or 1 chewable twice a day) ??? Iron supplement: as specified in today's visit ??? Vitamin D: as specified in today's visit General Nutrition recommendations: ?? 1,000-1,200 calories per day (300 calories per meal, 100 calories per snack, 1-2 snacks per day) ?? 60 grams of protein per day (20 grams per meal) ?? 48-64 oz of non-caloric and hydrating fluids per day (6-8, 8 oz cups) ?? Do not drink with meals- pushes food through more quickly, can cause upset stomach Activity: ??? Aim for 30 minutes of exercise daily, 5 days a week of both cardio and strength training exercises. Skinfold care: 1. Cleanse area with soap and water. 2. Blow dry area on low setting with wheelchair van driver. 3. Apply absorbent powder such as Gold Mcgee and Desinex 4. Apply cotton strips (such as strips from old sheets) or larger size cotton underwear folded beneath skin folds to act as a wick. Do not apply divya cloth toweling which can cause further irritation 5. Try combination of over the counter hydrocortisone cream with over the counter antifungal cream such as lotrimin twice a day for 2 weeks. 6. If your symptoms do not improve you may require prescription of anti-fungal cream/powder. 7. Follow up with PCP if symptoms worsen/fail to improve with above strategies. Constipation: Increase fiber, fluids and fitness. Yerba Prima is a fiber supplement that comes in capsule form. Additionally, consider trying 1 capful daily of miralax daily (preferably at night) with a goal of at least 1 BM per day. You can increase the dose as needed every 2-3 days (by adding on 1 capful either morning or night) without safety concerns, noting that individual tolerance becomes limited by loose stools and bloating with doses higher than 2 capfuls twice daily. Please call if you do not have a BM after 3 days. On days with loose stools, we recommend reducing miralax to 1/2 capful daily but continue to take miralax every day Nausea: Common causes for nausea post bariatric surgery are: Eating too fast, eating too much, drinking with meals, or not chewing well enough. Be sure to eat slowly and chew food well. Take at least 30 minutes or more to eat a meal. Call if symptoms worsen, fail to improve, or if you have difficulty keeping food or fluid down. Alcohol: is not recommended for at least 6-12 months after surgery. Alcohol is absorbed much faster and stays in your system much longer post bariatric surgery and as a result there is an increase riskof alcohol misuse/abuse after bariatric surgery. It should be used sparingly, no more than one drinkper occasion, no more than 2 drinks a week. Alcohol is toxic to the liver, a source of empty calories, it can cause ulcers, vitamin and mineral deficiencies, as well as impair digestion and absorption of nutrients. Call or follow up with your therapist or primary care provider if you are struggling orthink your alcohol intake is a problem. control for women of child bearing age: control is recommended for at least 18-24 monthsafter surgery. f non-prescribed drugs and treet drugs is unsafe Anti-inflammatory medications (NSAIDs) such as Ibuprofen (Advil), Aleve (Naproxen), Excedrin, [place] should be avoided for at least the first 2 months after surgery. After that they should be used sparingly very sparingly as they increase the risk of ulcer and bleeding. A bone mineral density scan (DEXA) is recommended every 2 years after bariatric surgery. Please schedule this study through your primary care provider's office. Hair Loss: is associated with rapid weight loss and is seen approximately 3 to 6 months after surgery and can last 3 to 6 months. It is almost always temporary. Eating a healthy diet with 60 grams of protein per day and taking your multivitamin with minerals will help. Sleep Apnea: If you have a history of sleep apnea and have a CPAP/BiPAP, please be sure to follow upwith the sleep center to confirm your pressures and determine if continued use of CPAP/BiPAP is recommended. Potential lifetime risks of gastric bypass include risk of ulcer, which is increased with alcohol and antiinflammatory medications and internal hernia (less than 5%), which may be increased with higherthan predicted weight loss. Potential lifetime risks of sleeve gastrectomy include developed heartburn or severe reflux. Call us: ??? If you have concerns. ??? If you have unexplained abdominal pain ??? if you see blood in your stool or vomit blood ??? If you have prolonged vomiting Post Surgery Support Group: Our post surgery support group meets at [facility] on the first Wednesday of every month from 1:00 PM-2:00 PM, call to sign up! Nutrition and Activity apps- Baritastic, My Fitness Pal, Lose It, My Plate Internet resources: www.TechDevils wwwVital LLC www.bariatriceaSMB Suite.ClubLocal www.Paion [email or web address]/blog [facility] facebook page: [email or web address] Books & Magazines: - Recipes for Life After Weight Loss Surgery by Connie La - Shrink Yourself by Dr Wilder Arrington - Eating Well - www.tagUin.ClubLocal - Cooking Light- www.cookinglight.ClubLocal Anxiety: The Happiness Trap by Ranjit Cloud The Mindfulness and acceptance workbook for anxiety By Joaquin Capone. Mindful eating: What are you Hungry For? By Jose Luis Grier The Mindful Diet by Xiomara Moss and the [facility] group. Emotional eating: End Emotional Eating by Ifrah Jean Calming the Emotional Storm Beryl Robles documented in this encounter Progress Notes Emili Mclaughlin, RANDI - 07/23/2021 9:30 AM EDT Bariatric Nutrition Follow-up Visit Topics Discussed/Patient Concerns: ?? Discussed strategies for meeting protein goals ?? 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 Lives w - 2 sons and their girlfriends and a grandson ?? Social support:??, sons, coworkers ?? Hobbies:??horseback riding (has 2 horses) ?? Medical Hx:?Class III obesity, joint pain, sleep disorder, anxiety OBJECTIVE: Date of Bariatric Surgery: 07/02/[address] Hastings Type of Bariatric Surgery: Laparoscopic Sleeve Gastrectomy Weight History: Weight History: Date Weight (lbs) HT BMI Comments ??02/06/21 273.7#? Highest Weight 02/22/20 265# ? Initial program weight 02/06/21 273.7# 64 47.0 1st pre-op visit 03/18/21 267.2# ? 2nd pre-op visit (reported) 04/25/21 281.8# ?? 48.4 3rd pre-op visit ? EWL % ?? Surgery 07/23/21?248# 20%?? 42.5?? 1 month post-op ? 4 months post-op Phyllis Body Weight (based on BMI of 25):??146# 30-70% Excess Weight Loss:??184-235#; 50% Excess Weight Loss:??210# Vitamin/Mineral Supplements (reported by patient): Supplement Type Brand/Form Dosage/Amount Frequency Comments Multivitamin Fusion Complete 2 wafers Twice daily Calcium Vitamin B12 Iron None Vitamin D3 None Patient taking Bariatric Fusion Complete multivitamin, two wafers twice daily (which includes Vit B12 560 mcg, Vit D3 3,000 IU, Calcium 1200 mg, Iron 45mg/day). Food Allergies/Intolerances: None Tracking Intake: [facility] Daily Oral Intake: Breakfast Muscle Milk protein drink- 32g AM Snack Lunch 1/4 cup Tuna fish w/ clark and 1/2 cup green beans PM Snack Dinner 1/4 cup tuna fish w/ clark and 1/2 cup cottage cheese HS Snack Equate protein drink 10g Protein- grams/day: 65g Hydrating fluids - oz/day: 20 oz from protein drink, 3 x 16 oz (plain water, travon, mint tea, broth) Soda: None ETOH: None Caffeine: Some coffee (less than 1 cup, not daily) Meals per day: 3 Other: ?? Feels full/satisfied after eating: yes ?? Spends at least 20 minutes eating each meal: yes ?? Vomiting/ regurgitation: None ?? Nausea: None ?? Constipation/diarrhea: + constipation, taking Miralax and Doculax PRN, BM 1- 2x/wk, rec take Miralax daily Exercise: walking w/ dogs and kids 30 min/daily, energy is good ASSESSMENT: Patient s/p bariatric surgery with 20% EWL. Pt is tolerating the diet and is meeting protein and fluid goals. Reviewed pt questions about stage 3 and 4 diet, advised pt to continue tracking in [facility], addone new food at a time, and to focus on high protein foods. Pt reports some constipation, advised ptto start Miralax 1 cap/daily. Reviewed supplements, pt is taking supplements as recommended. Encouraged increased exercise as tolerated. PLAN: ?? Evaluation by Jennifer Florez APRN today. ?? Provided support/encouragement and reinforced importance of meeting nutritional goals. Continue Stage 3 diet. Advance to Stage 4 diet starting 5 weeks post-op. ?? Great work meeting protein and fluid goals ?? Aim for 60-80g of protein/day- eat protein at all meals and snacks, eat protein first ?? Reviewed vitamin and mineral supplement recommendations. ? Continue Bariatric Fusion Complete multivitamin, two wafers twice daily (which includes Vit B12 560 mcg, Vit D3 3,000 IU, Calcium 1200 mg, Iron 45mg/day). ? Take Miralax 1 cap/day ?? Written recommendations provided. Patient agreed with these and verbalized adequate understanding. Jennifer Florez APRN - 07/23/2021 9:30 AM EDT [place] [address] Reason for visit: Bariatric Surgery Post Op Check Surgery Info: s/p laparoscopic sleeve gastrectomy on 07/02/[address] Hastings. ?? Subjective: Natalia Damico is s/p the above procedures, post operative course has been going well. Port sites are healing. Tolerating foods/fluids overall, still learning what foods work better and pacing eating/drinking. Trying to make sure she is meeting protein/fluid requirements. Current Supplements: Patient taking Bariatric Fusion Complete multivitamin, two wafers twice daily (which includes Vit B12 560 mcg, Vit D3 3,000 IU, Calcium 1200 mg, Iron 45mg/day). Primary care post op follow up visit: Pt is scheduled to be seen by PCP on tomorrow. No ED visits/unplanned medical visits since surgery. Pre-Bariatric Surgery Obesity related medical issues: ? Diabetes: Not a baseline issue.?? ? HTN: Not a baseline issue. ? GERD: Not a baseline issue.?? ? Hyperlipidemia: Not a baseline issue.?? ? CLAUDE: ??Not a baseline issue.?? ? Musculoskeletal issues: baseline issue, ??right foot pain, left knee pain, low back pain (improvedsince surgery). ? Liver Disease: Not a baseline issue. Post Bariatric Surgery Medications: Extended VTE prophylaxis post surgery Completed 10 day course of enoxaparin without incident. Post-discharge narcotic analgesic use No longer required. Ursodiol gallstone prophylaxis Taking as directed. PPI ulcer prophylaxis Taking as directed. Contraception S/p endometrial ablation. ROS: No Fever, chills, denies nausea, denies vomiting. Has not required anti-emetics. No Chest pain, SOB or palpitations. No bladder concerns or changes. BM are every few days. Energy level is great/improving. Appetite: as expected, trying to meet protein/fluid requirements. Activity level: walking daily. Social history/support: . Health Habits: Tobacco: Quit prior to surgery. ETOH: No alcohol since before surgery.. NSAID use: None. Patient Active Problem List Diagnosis Code ??? Back pain M54.9 ??? Attention deficit hyperactivity disorder (ADHD) F90.9 ??? Generalized anxiety disorder F41.1 ??? Sleep disorder G47.9 ??? Temporomandibular joint disorder M26.609 ??? Morbid obesity E66.01 Medications/allergies reviewed. Dietary history/ exericse/ activity level: See dietitian note from today's visit for complete dietary evaluation. Complications summary: Early none Late - WT (lbs) BMI Height Highest wt Pre-op visits 02/06/21 273 46.9 5'4 273 lbs 04/25/21 281 48.4 05/30/21 265 45.6 Post-op WT (lbs) BMI %EBW lost 07/23/21 247 42.3 20% Objective: BP 121/76 (BP Location (NBP): Right arm, Patient Position: Sitting, BP Cuff Sizes: Large Adult (32-43 cm)) Pulse 63 Resp 16 Ht 162.6 cm (5' 4) Wt 112.4 kg (247 lb 12.8 oz) SpO2 98% BMI 42.53 kg/m?? Physical Exam General: Alert, pleasant, NAD, appears well. Abdomen: Soft, non-distended, non-tender. Trochar sites are healing nicely. No heat, tenderness or drainage. Resp: No increased work of breathing. Speaking in full sentences. No cough/wheeze witnessed. Skin: No excess skin noted over abdomen. Skin is warm and dry. No rash noted on exam today. Fading ecchymosis noted. Psychiatric: Normal mood and affect. Appropriate eye contact. Assessment: Natalia Damico is s/p above procedures, with uneventful early post-operative course. Obesity related co-morbidities are improved/stable overall. Plan: ?? Continue Ursodiol as recommended for 6 months to reduce the risk of gallstone formation during the period of rapid weight loss. ?? Continue PPI therapy until at least 3 months post op to decrease the risk of ulcer formation and avoid NSAIDs. Discussed how to taper down/off. ?? Bowel Function: reviewed bowel regimen and importance of movement and fluids. Recommend BM at least every other day. Consider daily miralax. Call if struggling. ?? Advised that hair loss due to rapid weight loss is typical 3-6 months post- surgery and should improve with time and adequate protein/ calorie intake. ?? Avoid ETOH until 6-12 months post-operatively, and then should be used in small amounts ?? Discussion re: importance of chewing food completely, taking time to eat, trying to avoid more complex foods at this time, food/fluids etc. ?? See fish grader note re: recommendations regarding vitamin and mineral supplementation, fluid intake and exercise. ?? Additional vitamin and mineral supplement recommendations: Continue Bariatric Fusion Complete. RTC in 3 months for next BSP follow up visit, with labs. Call/rtc sooner prn with questions/concernsor unexplained abdominal pain, prolonged nausea, vomiting or inability to hydrate Bariatric Program Summary report is availabe for patient's review via e- Jennifer Florez APRN [facility] Bariatric Surgery Program RECOMMENDED BARIATRIC SURGERY PROGRAM POSTOPERATIVE FOLLOW-UP: Follow up: done at 4, 12 and 24 months, and yearly thereafter. High risk patients are evaluated on nery frequent basis. *Supplement recommendations: Multivitamin with minerals twice a day, B12 500 mcg once a day, calcium citrate 600 mg/400 units vitamin D twice a day, iron (ferrous fumarate, carbonyl iron taken with vitamin C 250 mg once a day) formenstruating females or those with GEOVANNY. Labwork: Hemogram, ferritin, iron (transferrin) saturation, iron, folate, B1, B12, D (25 hydroxy only), Intact PTH and comprehensive metabolic profile at 4, 12 and 24 months, and yearly. If labwork is done by the primary morning caregiver: please send a copy to the Bariatric Surgery Program, General Surgery Clinic, [facility], or fax [phone] documented in this encounter Plan of Treatment Not on filedocumented as of this encounter Results Vitamin B12 (11/04/2021 2:07 PM EST) athologist [facility] Vitamin B-12 459 232 - 1,245 [facility] pg/mL [facility] Specimen Anatomical Collection Method Collection Time Receive d Time (Source) Location / / Volume Laterality Blood 11/04/2021 2:07 PM 2 5:26 EST PM EST Resulting Agency Comment Spec In Lab Jennifer Florez APRN CHEMISTRY ORDERABLES Performing Organization Address City/[facility]/ZIP Code Phon e Number [address] (ABNORMAL) Iron and TIBC (11/04/2021 2:07 PM EST) athologist [facility] Iron 46 30 - 150 [facility] mcg/dL [facility] TIBC 284 250 - 450 [facility] mcg/dL [facility] Iron Saturation 16 (L) 20 - 50 % [facility] LABORATORY Specimen Anatomical Collection Method Collection Time Receive d Time (Source) Location / / Volume Laterality Blood 11/04/2021 2:07 PM 2 5:25 EST PM EST Resulting Agency Comment Spec In Lab Jennifer Florez APRN CHEMISTRY ORDERABLES Performing Organization Address City/[facility]/ZIP [facility] Phon e Number [address] Vitamin B1, whole blood (11/04/2021 2:07 PM EST) athologist Signature Vit B1 Lvl WB 118 70 - 180 [facility] nmol/L [facility] Comment: ADDITIONAL INFORMATIO N This test was developed and its performa nce characteristics determined by [facility] in a manner co nsistent with CLIA requirements. This test has not been josue ared or approved by the U.S. Food and Drug Administration. Test Performed by: [facility] [address] [place], [place] [address] [employer] Vice President: Binu Marques M.D. Ph. D.; CLIA# [id number] Specimen Anatomical Collection Method Collection Time Receive d Time (Source) Location / / Volume Laterality Blood 11/04/2021 2:07 PM 2 4:34 EST PM EST Resulting Agency Comment Spec In Lab Jennifer E Vikki VETERINARY MEDICINE TEACHER CHEMISTRY ORDERABLES Performing Organization Address City/[facility] Phon e Number [address] PTH (11/04/2021 2:07 PM EST) P athologist Signature PTH 56 15 - 65 [facility] pg/mL [facility] Specimen Anatomical Collection Method Collection Time Receive d Time (Source) Location / / Volume Laterality Blood 11/04/2021 2:07 PM 2 4:03 EST PM EST Resulting Agency Comment Spec In Lab Jennifer E [place]ford VETERINARY MEDICINE TEACHER CHEMISTRY ORDERABLES Performing Organization Address [facility] Phon e Number [address] Vitamin D, 25-Hydroxy (11/04/2021 2:07 PM EST) Patholo gist Method Time Signature 25-OH Vit D 36 21 - 100 [facility] Total ng/mL [facility] LABORATORY 25-OH Vit D Sufficient [facility] LABORATORY Specimen Anatomical Collection Method Collection Time Receive d Time (Source) Location / / Volume Laterality Blood 11/04/2021 2:07 PM 2 5:26 EST PM EST Resulting Agency Comment Spec In Lab Jennifer E [place] VETERINARY MEDICINE TEACHER CHEMISTRY ORDERABLES Performing Organization Address City/[facility]/ZIP [facility] [place] [address] Hemogram (11/04/2021 2:07 PM EST) athologist Signature WBC 5.8 4.0 - 9.5 [facility] x10(3)/[facility] LABORATORY RBC 4.57 4.00 - [place] PAYNE[place] 5.21 [facility] x10(6)/[facility] LABORATORY Hemoglobin 13.4 11.7 - [place] GE[place]GI 15.5 g/dL [facility] LABORATORY Hematocrit 42.0 35.7 - [place] 45.8 % [facility] LABORATORY MCV 91.9 82.6 - [place] GE[place]GI 94.4 [facility] LABORATORY MCH 29.3 27.1 - [place] 32.0 pg [facility] LABORATORY MCHC 31.9 31.7 - [place] 35.0 g/dL [facility] LABORATORY Platelets 296 145 - 357 [facility] x10(3)/[facility] LABORATORY RDWSD 45.3 37.0 - [place] GE[place]GI 46.0 [facility] LABORATORY RDWCV 13.2 11.5 - [place] 14.1 % [facility] LABORATORY MPV 11.5 7.6 - 12.9 [place] [facility] LABORATORY nRBC % Auto 0.0 % [facility] LABORATORY nRBC Abs Auto 0.000 0.000 - [place] 0.000 [facility] x10(3)/[facility] LABORATORY Specimen Anatomical Collection Method Collection Time Receive d Time (Source) Location / / Volume Laterality Blood 11/04/2021 2:07 PM 2 3:41 EST PM EST Resulting Agency Comment Spec In Lab Jennifer Florez APRN HEMATOLOGY ORDERABLES Performing Organization Address City/State/ZIP Code Phon e Number [address] Folate, serum (11/04/2021 2:07 PM EST) athologist Signature Folate Lvl 19.1 4.8 - 24.2 [place] ng/mL [facility] LABORATORY Specimen Anatomical Collection Method Collection Time Receive d Time (Source) Location / / Volume Laterality Blood 11/04/2021 2:07 PM 2 5:26 EST PM EST Resulting Agency Comment Spec In Lab Jennifer Florez VETERINARY MEDICINE TEACHER CHEMISTRY ORDERABLES Performing Organization Address City/State/ZIP Code Phon e Soy [address] Ferritin (11/04/2021 2:07 PM EST) athologist Signature Ferritin 114 30 - 400 [facility]mL [facility] Comment: Pediatric reference ranges not verified at [facility], interpret with caution. Reference ranges for females greater jared n 50 years of age approach values for men, i.e., 30-400 ng/mL. Specimen Anatomical Collection Method Collection Time Receive d Time (Source) Location / / Volume Laterality Blood 11/04/2021 2:07 PM 2 5:26 EST PM EST Resulting Agency Comment Spec In Lab Jennifer Danielmaureen GARCIAN CHEMISTRY ORDERABLES Performing Organization Address City/[facility] [place] [address] (ABNORMAL) Comprehensive metabolic panel (non-fasting) (11/04/2021 2:07 PM EST) athologist Signature Glucose Lvl 96 65 - 199 [facility] mg/dL [facility] Comment: Diabetes: >=200 mg/dL plus symp toms BUN 8 8 - 18 mg/dL [facility] Creatinine 0.62 (L) 0.70 - 1.20 mg/dL [facility] Sodium 141 135 - 145 mmol/L [facility] Potassium 3.9 3.5 - 5.0 mmol/L [facility] Comment: Please note: ??Patients with WBC >100,00 0 may have falsely elevated Potassium levels. ??For accurate Potassium quantif ication in these patients send serum separator tube (gold top) for subsequent determinations. ??Contact the Clinical Chemistry Laboratory if there are any qu estions. Chloride 101 98 - 107 mmol/L [facility]OR[facility] CO2 26 22 - 31 mmol/L [facility] Anion Gap 14 5 - 15 mmol/L [facility] Calcium 9.9 8.5 - 10.5 mg/dL [facility] Total Protein 7.3 6.1 - 8.0 g/dL [facility] Albumin 4.7 3.2 - 5.2 g/dL [facility]OR[facility] AST 15 0 - 30 unit/L [facility] ALT 16 0 - 30 unit/L [facility] Alk Phos 111 (H) 35 - 105 unit/L [facility] Total Bilirubin 0.3 0.2 - 1.3 mg/dL [facility] Estimated GFR 104 >=60 mL/min/1.73 m?? [facility] Comment: This patient? s estimated glomerular filtration rate (eGFR) is between 104 mL/min/1.73 m2 (patients with less muscl e mass) and 121 mL/min/1.73 m2 (patients with more muscle mass) as dete rmined by the CKD-EPI equation. Assessment of eGFR is not appropriate wh en creatinine concentrations are rapidly changing. For clinical decisions where creatinine clearance will affect therapy, a 24-hour urine creatinine dione portillo may be advised. Assignment of CKD stage 1 - 5 for patien ts with an eGFR near the transition point between stages may be based on cli nical assessment of muscle mass and symptoms in addition to eGFR. Specimen Anatomical Collection Method Collection Time Receive d Time (Source) Location / / Volume Laterality Blood 11/04/2021 2:07 PM 2 5:25 EST PM EST Resulting Agency Comment Spec In Lab Jennifer Florez APRN CHEMISTRY ORDERABLES Performing Organization Address City/State/[place] [address] documented in this encounter Visit Diagnoses Diagnosis S/P bariatric surgery Bariatric surgery status Disorder of iron metabolism Other disorders of iron metabolism documented in this encounter Care Teams Conservation Science Teacher Relationship Specialty Start Date End Date Rob Smith APRN PCP - General Family Medicine 11/15/19 [address] [place] [address] documented as of this encounter
--- OUTSIDE RECORDS SUMMARY | 2022-04-24 00:23 | XMS_ITS | Encounter Summary ---
:1970 Author Organization [facility] [place] [address] Care Team Providers Name Role Phone Rob Smith BRENNA Primary Care Provider Encounter Details Date Type Department Care Team Description 06/11/2021 Office Visit General Surgery at Katy Florez ra, APRN [facility] [place] [address] Encounter for pre-bariatric surgery coun seling and education; [facility] [address] [facility] [place] [address] Obesity, unspecified classification, uns pecified obesity type, unspecified whether [place] [address] Social History Tobacco Use Types Packs/Day Years Used Date Former Smoker Smokeless Tobacco: Never Used Comments: pt quit 3 yrs ago Sex Assigned at Date Recorded Not on file documented as of this encounter Patient Instructions Patient InstructionsJennifer Florez APRN - 06/11/2021 8:30 AM EDT [facility] BARIATRIC SUPPORT TEAM CONTACT NUMBERS (Mon-Fri 8am - 5pm): General Surgery and Bariatric Surgery [phone] Bariatric Surgeons: Doctors. Rand [phone] Piercer: [phone] Dietitians: [phone] Outside of regular business hours, including weekends and holidays: Ask for General Surgery resident director communications [phone] BEFORE YOUR SURGERY: ??? Questions for your doctor, specialist or pharmacist: Ask your doctor about medication suggestions if you currently take medications that are larger than the size of a tylenol or calcium pill. Largepills need to be crushed (if permitted by the drug tool machine shop supervisor), taken in smaller size pills, or taken in liquid form for TWO WEEKS after surgery. ??? If you take antinflammatory medications or steroid medications for arthritis or asthma, please check with your doctor. These medications will need to be held 1 week prior to and at least a few weeks after surgery. ??? Oral contraceptive pills, post menopausal hormones, and male hormones should be stopped 1 month before and 1 month after surgery. ??? If you have sleep apnea be sure to bring your CPAP/BiPAP with you to the hospital. ?? Schedule a follow up appointment with your primary care provider 10-14 days after your surgery. ?? Bring your handbook with you to the hospital AFTER YOUR SURGERY: GENERAL BARIATRIC SURGERY DISCHARGE INFORMATION (some information specific to health problems list below may not pertain to you) FOR EMERGENCIES: CALL 911 (trouble breathing, chest pain, rapid heart rate or severe abdominal pain) CALL THE BARIATRIC TEAM FOR ANY OF THE FOLLOWING: ?? Signs and symptoms of infection such as: - Redness or swelling or new significant drainage from wounds - Drainage or bleeding from wounds - Fever over 101 degrees Fahrenheit, or shaking chills ?? Persistent diarrhea or vomiting or inability to keep down food or fluids down in a 24 hour period. ?? Signs / symptoms of a blood clot: leg swelling, redness, or pain ?? Problems with urination or constipation, worsening abdominal pain not controlled with pain medication ?? Any concerns you may have after your surgery Follow up Information: ?? You will be given a surgical follow-up appointment with The Bariatric Surgery Team in 3-4 weeks at the General Surgery Outpatient Clinic ([facility], [facility]). BATHING AND WOUND CARE: ?? You may shower 2 days after surgery ?? Wash incisions with unscented mild soap ?? Rinse, pat dry and leave open to air. ?? Remove Steri-strips if they don't fall off by 7-10 days after discharge. Pat dry if they become wet. ?? Do not soak wound (no baths, no swimming) for 3 weeks after surgery ACTIVITY, LIFTING AND DRIVING: ?? For laparoscopic surgery: there are no lifting restrictions. Lift when you feel comfortable. ?? Do not drive for 2 weeks. After [address] weeks, [address] when comfortable and not taking narcotic pain medicine. DIET: ?? Follow Stage II diet for two weeks. ?? Keep a log of your intake: Daily goals are: 48-64 ounces of fluids and 60 grams of protein. MEDICATIONS: ?? For 2 WEEKS: LARGE pills (bigger than the size of a calcium pill) must be crushed, Capsules must be opened onto applesauce or pudding. ?? Pills smaller than the size of a calcium DO NOT need to be crushed. ?? Not all medications can be crushed. Check with your pharmacist if unsure. ?? HOLD bariatric vitamins for 2 weeks after surgery BLOOD CLOT PREVENTION: ?? Be active, walk at least 4 times a day and do blood clot prevention exercises in your handbook onpage 82. ?? Some patients will be discharged on enoxaparin twice a day for 10 days to prevent blood clots, which is determined by the surgeon. IF YOU ARE TREATED FOR OBSTRUCTIVE SLEEP APNEA: ?? IMPORTANT - you MUST use your CPAP/ BIPAP after surgery while sleeping at night and also when napping during the day because some medications you may have been prescribed at discharge can decrease your breathing. ?? Follow up with the Sleep Center if pressure seems to be too high. ULCER PREVENTION: ?? IMPORTANT - you must take acid suppressing medication such as pantoprazole, nexium or omeprazole for 3 MONTHS after surgery. This is taken to prevent ulcers at your surgical sites internally, even if you do not have heartburn. ?? omeprazole 20 mg daily (or another medication you may currently take for heartburn/reflux that has been discussed with Bariatric Team) ?? Omeprazole capsules contain enteric-coated, delayed-release granules. Because these granules should not be chewed or crushed, you must OPEN the capsules, sprinkle the enteric-coated granules on applesauce or yogurt. Alternatively, you may take the granules with apple juice, or swallow them quickly with water. Follow any of these methods with additional water to ensure that you have swallowed the granules completely. ?? If your insurer does not cover omeprazole, or similar medications such as pantoprazole, you must purchase these medications over the counter. ?? Decrease the medication to every other day when you have 7 days left in your prescription. Continue this after the initial 3 month course if you have heartburn or reflux ?? If you have Adan's esophagus, continue the medication half-way GALLSTONE PREVENTION: ?? If you have had your gallbladder REMOVED - you do not need this medication. ?? If you have your gallbladder after Bariatric Surgery - you must take start taking Ursodiol (Actigall) 300 mg twice a day to prevent gallstones. You may START this medication 2 weeks after surgery for a duration of 6 months. After that, you may stop this medication unless otherwise directed. PAIN MEDICATION: ?? Your pain should lessen with each day out from surgery. Over the next couple of days you should be requiring less narcotic medication to control your pain, and eventually you will not need any at all. ?? Take the medication exactly as it is prescribed and make sure to read all instructions that come with the medication. Take only as needed. ?? You may adjunct your pain control using scheduled Tylenol (acetaminophen), use as directed. Do NOT use NSAIDS (ibuprofen, Motrin, Aleve, Toradol, aspirin, etc.) to adjunct your pain control. ?? Opioids can slow reaction time, cause drowsiness or cloud judgement. You MUST NOT DRIVE while taking narcotic pain medication. ?? Taking more than the prescribed amount of narcotic or combining with alcohol or drugs can cause you to stop breathing, leading to coma, brain damage or . ?? Using this drug may cause addiction. While addiction is more common in people with a personal or family history of addiction, it can occur in anyone. ?? Opioids are at risk of being diverted by anyone with access to your home. Opioids should be stored in a safe and secure place, such as a locked cabinet or safe. ?? Unused opioids should be disposed of appropriately. They may be returned to a take-back location,or mixed with a small amount of water and poured over an undesirable waste such as used coffee grounds or cat litter. ?? Opioid pain medications can cause significant constipation. You should use a stool softener such as Miralax to address this. OTHER MEANS FOR PAIN RELIEF: Other than medications. ?? Learn deep breathing exercises or meditation to help you relax ?? Reduce stress ?? Your body produces natural endorphins from exercise which can help reduce pain. Even walking is considered exercise. Talk with your provider/surgical team about what exercises are appropriate for you to perform. ?? You may use a heating pad or apply ice to the painful area unless specifically discouraged by thesurgical team. ?? Find ways to distract yourself from the pain. MEDICATIONS TO AVOID FOR TWO MONTHS AFTER SURGERY: ?? Discontinue anti-inflammatory non-steroidal medications, such as Celebrex, Mobic, Advil (ibuprofen), Aleve (naprosyn), etc. Refer to Medications that may increase the risk of bleeding in handbook. ?? If you do take aspirin for your heart or to prevent strokes, continue as prescribed. WOMEN OF CHILDBEARING AGE: ?? Fertility may increase with weight loss. Avoid for 18-24 months after bariatric surgery. ?? Condoms alone are not acceptable as a form of control. Do not take control pills for the first month after surgery. MANAGEMENT OF DIABETES MELLITUS AFTER BARIATRIC SURGERY: ?? IMPORTANT to check blood sugars four times a day, fasting blood sugars, 2 hours after meals and as needed when feeling unwell. ?? If the Diabetes Team saw you during your hospital stay, they have listed specific recommendationselsewhere in your discharge paperwork. Please refer to their specific diabetes care recommendations. ?? Patients on oral diabetic medication: If blood sugar is over 200 on more than 3 checks, call [facility] physician or diabetic specialist for recommendations. For patients on insulin and oral diabetic medications: If blood sugar is over 200 on 3 checks, call your primary care doctor or diabetic specialist for recommendations. ?? Follow up with primary care provider or automotive product specialist in 1-2 weeks in order to adjust your changing diabetes treatment requirements. PATIENTS WITH HIGH BLOOD PRESSURE: ?? Monitor your blood pressure regularly. ?? If you feel dizzy and have been drinking 48-64 ounces of fluid, have your blood pressure checked. ?? If your blood pressure is low, call your primary care provider. Keep a log to bring to your PCP appointments. PATIENTS WHO TAKE DIURETICS (WATER PILLS) such as furosemide, HCTZ (hydrochlorothiazide), spironolactone: ?? Check with your surgical team prior to discharge for instructions. In general, this medication isstopped after surgery, as you are at risk for dehydration after Bariatric Surgery. ?? Monitor yourself for any swelling of legs or gain of water weight after medication is stopped. Call your primary care doctor if you notice this. PATIENTS ON ANTI-DEPRESSANT OR MENTAL HEALTH MEDICATIONS: ?? Do not stop or decrease your medications unless advised. ?? Ongoing counseling is encouraged. ?? Some patients notice a change in their mood early after surgery, if you are having difficulty coping with the lifestyle or dietary changes associated with surgery please follow up with your primary care provider or your mental health provider. Important to have non-food related ways to cope with stress. VITAMIN AND MINERAL SUPPLEMENTATION: START at 2 weeks post surgery Vitamin B12 500 mcg pill daily Complete multivitamin w/ minerals One pill twice daily. If a bariatric specific multivitamin, followthe package directions Calcium Calcium citrate 600 mg with vitamin D 400 units twice a day between meals. Iron with vitamin C Take iron as instructed per Handbook - (only if you have anemia, iron deficiencyor regular menses) FOLLOW-UP CARE: ?? It is IMPORTANT to see your Primary Care Physician or PCP within 10-14 days after surgery for wound check and vital signs check, and to discuss specific medical management as referenced above. ?? You should follow up with your surgeon or bariatric nurse practitioner and dietitian at 3-4 weeksafter surgery. ?? You will follow up with the dietitian and Bariatric nurse practitioner at 4, 12 months, then yearly for life. Vitamins and supplements are required for life. documented in this encounter Progress Notes Jennifer Florez APRN - 06/11/2021 8:30 AM EDT BARIATRIC SURGERY PROGRAM [place], [place] [address] Reason for visit: [facility] for up coming bariatric surgery Natalia attended a comprehensive group pre-operative class today, which included discussion of pre and post operative instructions included in the [facility] Bariatric Surgery Program Education Handbook. The nutrition component of the class was taught by the [facility] RANDI. Patient completed health update form. No new medical issues/ED visit. Medications/allergies are reviewed, otherwise today's visit was group visit. Surgery info: Patient is scheduled for laparoscopic sleeve gastrectomy on 07/02/[address] Hastings. Pre-Bariatric Surgery Obesity related medical issues: ? Diabetes: Not a baseline issue. ? HTN:Not a baseline issue. ? GERD: Not a baseline issue. ? Hyperlipidemia: Not a baseline issue. ? CLAUDE: Not a baseline issue. ? Musculoskeletal issues: baseline issue, right foot pain, left knee pain, low back pain. ? Liver Disease: Not a baseline issue. Post Bariatric Surgery Medications: Extended VTE prophylaxis post surgery Indicated, to be started at discharge. Ursodiol gallstone prophylaxis Indicated, to be prescribed at discharge. PPI ulcer prophylaxis Indicated, to be prescribed at discharge. Contraception s/p endometrial ablation Preop labs:labs completed. Prescriptions provided at today's visit: none Bariatric Surgery Program Pathway and review of status with the requirements of the Bariatric Surgery Program 1. Education: Pt previously attended a Introduction to the [facility] Bariatric Surgery Program seminar, a two hour meeting that provides a program overview as well as expectations. The [facility] Bariatric Surgery Program Educational seminar requirement has been met. The [facility] Educational Handbook was provided atvisit #1. 2. Pre-operative programmatic evaluations have been done, as noted in previous pathway review. 3. Bariatric Surgery Program evaluations with the surgeon and dietitian have taken place. Natalia keith approved to proceed with surgery by surgeon. 6. Surgical consultation has taken place Next steps in pathway: ?? During hospitalization for bariatric surgery, a standard bariatric surgery order set is followed. ?? Routine post-operative follow up with labwork is done at months 1,4,12 and 24, yearly thereafter,and PRN. High risk patients are followed more frequently. Some of the topics reviewed during group discussion today included: ?? day of surgery and post-op routine care/ locations: Admissions/SDP/PACU/4/3/2 [place] units ?? medications that increase the risk of bleeding including NSAIDs and anticoagulants to be avoided per guidelines pre and post-operatively ?? DVT/VTE prevention and signs of DVT/PE. ?? Inpatient management for VTE prevention: venodynes, ambulation, Enoxaparin 40 units BID during inpatient stay. ?? Indications for extended Enoxaparin 10 days post discharge: A. patients with BMI >60 or prior VTE OR B. 2 or more of the following: age >50, BMI >50, male gender, sleep apnea, varicose veins, venous insufficiency, history of oral contraceptive or hormone or post-menopausal hormone replacement use within 30 days of surgery, and recent smoking ?? guidelines for patients treated with oral anticoagulants per Thrombosis Clinic ?? diabetes and hypertension monitoring during pre-op diet and post-operatively. Diuretic therapy isheld to avoid risk of dehydration unless patient is symptomatic. ?? signs and symptoms of infection as well as emergency signs and symptoms were reviewed ?? common post-operative complaints ?? management of sleep apnea during hospitalization and post operatively. The importance of post-operative follow-up with Sleep Center after weight loss was stressed. ?? recommendations for psychiatric medications: should continue uninterrupted after surgery ?? activity post surgery/ return to work recommendations ?? routine BSP post-operative follow-up: 3 weeks. 4 months, 12 months and yearly for LIFE ?? routine Primary Care post-operative follow up: at 10-14 days after surgery to monitor chronic health problems such as diabetes and hypertension, since the requirement for antihypertensive and diabetic medications may decrease or be discontinued A preliminary copy of the discharge instructions was provided, which is also available in the patient handbook. Natalia was given the opportunity to ask questions, and all questions were answered. Time spent in counselin minutes Emili Mclaughlin RD - 06/11/2021 8:30 AM EDT BARIATRIC SURGERY PROGRAM NUTRITION EDUCATION 2nd Pre-Operative Visit Shared Medical Appointment Natalia Damico attended a 2 hour shared medical appointment today with the bariatric surgery program dietitian and nurse practitioner. Ms. Damico is a female with morbid obesity who has been referred for nutrition evaluation and diet instruction in anticipation of bariatric surgery. Previous conservative attempts at weight loss through dieting have been unsuccessful over the termite control service representative. Advised patient that bariatric surgery is a weight loss tool not a solution; and ultimately weight loss will be achieved through proper eating and exercise habits. Patient was given a copy of the program handbook at the initial appointment which includes specific information on all nutrition recommendations and guidelines. Pt instructed on importance of following the Pre-operative Surgical Diet. Failure to do so may result in poor pre-surgical weight loss and may result in surgery not being performed. Natalia was given the opportunity to ask questions and all questions were answered. She was also given contact information for further nutrition questions. Nutrition Topics Covered at Today's Appointment: ?? Pre-operative Surgical Diet ?? Purpose of diet ?? Appropriate foods ?? Protein goals ?? Carbohydrate goals ?? Calorie goals ?? Keeping a food log ?? Hydration and Appropriate Beverages ?? Post-Operative Diets (Stages I-IV) ?? Importance of following diet stages ?? Appropriate foods ?? Sample Menus ?? Vitamin/Mineral Supplementation ?? Common Food Intolerances ?? Dumping Syndrome ?? Sugar Alcohols ?? Physical Activity ?? Weight Regain ?? Habits of Successful Bariatric Surgery Patients The appointment consisted of 60 minutes of group education and counseling. documented in this encounter Plan of Treatment Not on filedocumented as of this encounter Visit Diagnoses Diagnosis Encounter for pre-bariatric surgery coun seling and education Obesity, unspecified classification, uns pecified obesity type, unspecified whether serious comorbidity present documented in this encounter Care Teams Tool Repairer Bench Relationship Specialty Start Date End Date Rob Smith APRN PCP - General Family Medicine 11/15/19 [address] [place] [address] documented as of this encounter
--- OUTSIDE RECORDS SUMMARY | 2022-04-24 00:23 | XMS_ITS | Clinical Summary ---
:1970 Author Organization [facility] [place] [address] Care Team Providers Name Role Phone Rob Smith BRENNA Primary Care Provider Allergies No known active allergies Medications Medication Sig Dispensed Refills Start Date End Date Status Sodium Fluoride 1.1 BRUSH DIRECTED 0 02/14/2021 Active % Paste ONCE DAILY escitalopram Take 20 mg by 0 Act ligia (Lexapro) 20 mg mouth daily. Tablet biotin 300 mcg Take 2,500 mcg by 0 Active Tablet mouth daily. collagen, bovine, Apply topically 0 Active 100 % Powder daily. omeprazole Take 1 capsule by 90 capsule 3 07/04/2021 2 Active (PriLOSEC) 40 mg mouth daily for Capsule, Delayed 360 days. Release(E.C.) Additional Information Patient not taking. Reported on 11/04/2021 ursodioL (Actigall) 300 mg Take 1 capsule by mouth 180 tablet 3 07/04/2021 Active Capsule 2 times daily. Additional Information Patient not taking. Reported on 11/04/2021 acetaminophen (Tylenol) 650 Take 20.3 mLs by mouth 0 07/04/2021 Active mg/20.3 mL Solution every 6 hours as needed (for Pain). nystatin (Mycostatin) 100,000 Take 5 mLs by mouth 4 60 mL 0 07/10/2021 Active unit/mL Suspension times daily. Additional Information Patient not taking. Reported on 11/04/2021 Vyvanse 40 mg Capsule Take 40 mg by mouth daily. 0 1 12/09/2020 Active Active Problems Problem Noted Date Morbid obesity 02/12/2021 Attention deficit hyperactivity disorder (ADHD) 2019 Generalized anxiety disorder 11/13/2019 Sleep disorder 11/13/2019 Temporomandibular joint disorder 11/13/2019 Back pain 06/29/2013 Family History Medical History Relation Comments Lung Cancer Father metastasized through -out body Cancer Maternal Grandmother gallbladder Breast Cancer Paternal Aunt EDWARD mutation Uterine Cancer Paternal Aunt may have been ovaria n Relation Status Comments Father Maternal Grandmother Paternal Aunt Social History Tobacco Use Types Packs/Day Years Used Date Former Smoker Smokeless Tobacco: Never Used Comments: pt quit 3 yrs ago Sex Assigned at Date Recorded Not on file Last Filed Vital Signs Vital Sign Reading Time Taken Comments Blood Pressure 147/95 11/04/2021 10:23 AM EST Pulse 65 11/04/2021 10:23 AM EST Temperature 36.4 ??C (97.5 ??F) 11/04/2021 10:23 AM EST Respiratory Rate 16 11/04/2021 10:23 AM EST Oxygen Saturation 100% 11/04/2021 10:23 AM EST Inhaled Oxygen Concentration - - Weight 95.3 kg (210 lb 1 oz) 11/04/2021 10:23 AM EST Height 162.6 cm (5' 4.02) 11/04/2021 10:23 AM EST Body Mass Index 36.04 11/04/2021 10:23 AM EST Plan of Treatment Health Maintenance Due Date Last Done Comments Covid-19 Vaccine (#1) 1975 Pneumococcal Vaccine: At-Risk 5-64yrs (1 1976 of 2 - PPSV23) HIV screen 1988 Hepatitis C Screening 1988 Lipid Screening 1988 Tdap adult 1989 Tetanus vaccine 1989 HPV test 2000 PAP Smear 2000 Breast Cancer Share Decision Needed 2010 Colonoscopy 2015 Breast Cancer screening 2020 Zoster vaccine (1 of 2) 2020 Influenza (Flu) vaccine (1 of 1 - 07/02/2021 Influenza standard series) Diabetes Screening (HgbA1C or Glucose) 11/04/2024 , 07/03/2021 Insurance Payer Benefit Plan / Subscriber ID Effective Dates Phone Addre ss Type Group [place] [id number] 2021-Prese [phone] [address] [facility] [address] [place], [place] [phone] Advance Directives Latest Code Status on File Code Status Date Activated Date Inactivated Comments Attempt Cardiopulmonary Resuscitation - 07/02/2021 6:15 PM 5:31 PM Inpatient Code Status decision made by: Patient Attempt Cardiopulmonary Resuscitation - Inpatient 07/02/2021 6 :47 AM 07/02/2021 3:39 PM Code Status decision made by: Patient Attempt Cardiopulmonary Resuscitation - Inpatient 07/02/2021 6 :46 AM 07/02/2021 6:47 AM Code Status decision made by: Patient Care Teams Residence Director Relationship Specialty Start Date End Date Rob Smith APRN PCP - General Family Medicine 11/15/19 [address] [place] [address]
--- OUTSIDE RECORDS SUMMARY | 2022-04-24 00:23 | XMS_ITS | Encounter Summary ---
:1970 Author Organization [facility] Address [address] [place] [address] Care Team Providers Name Role Phone Joaquin Celaya MD Primary Care Provider Reason for Visit Reason Comments Back Pain Leg Pain bilateral at bedtime Consult (Routine) - Closed Specialty Diagnoses / Procedures Referred By Contact Refer red To Contact Orthopedic Surgery Diagnoses Low back pain Sun Mercedes APRN [facility] Joni [address] DR [facility] [place] [address] [place] [phone] Fax: Referral ID Status Reason Start Date Expiration Date Visits Requ ested Visits Authorized [id number] Closed 1 1 Encounter Details Date Type Department Care Team Description 05/24/2017 Office Visit [facility] German Segovia low back pain Spine Program - Shahid Torres MD without sciatica, Nae Collins [facility] unspecified chronicity So [facility], ([place]) [id number] [place] [phone] Social History Tobacco Use Types Packs/Day Years Used Date Current Every Day Smoker 0.5 Sex Assigned at Date Recorded Not on file documented as of this encounter Last Filed Vital Signs Vital Sign Reading Time Taken Comments Blood Pressure - - Pulse - - Temperature - - Respiratory Rate - - Oxygen Saturation - - Inhaled Oxygen Concentration - - Weight 104.3 kg (230 lb) 05/24/2017 1159 EDT Height 165.1 cm (5' 5) 05/24/2017 1159 EDT Body Mass Index 38.27 05/24/2017 1159 EDT documented in this encounter Discharge Diagnoses Diagnosis M54.5 Low back pain-M54.5[ICD-10-CM] M79.604 Pain in right leg-M79.604[ICD-10 -CM] documented in this encounter Discharge Disposition Disposition Code Departure Means Destination Auto Discharge documented in this encounter Progress Notes Abel Rutherford MD - 05/24/2017 1200 EDT New patient visit. CHIEF COMPLAINT: 1. Low back pain. HPI: A 46-year-old woman with over 5 years of low back pain that she describes as constant and aching in nature. Approximately 2 years ago she underwent a radiofrequency ablation for treatment of this low back pain and received good relief for almost 14 months. According to her records, this was done at L3-L4, L4-L5, and L5-S1 segments. Following this 14 month period of relief, she then began to havegradual onset and progressive increase in the same low back pain. It progressed to the point that she no longer receives relief with activity like she had been previously and now requiring frequent changes in position in order to improve the pain. She does note that it worsens with flexing and improved by lying flat. Due to the success of her previous RFA, she underwent a repeat RFA in March of this year, which she reports did not help and in fact states that her pain became worse following this procedure. In addition to this, approximately 1 month ago she says she started to notice leg pain which she described as right greater than left-sided and primarily along the outside or anterior aspect of her thighs without any traveling below the knee. She does mention that her leg pain is very secondary to her back pain, which is her primary complaint. Of note, in addition to this, RFA, she has also had a prior sacroiliac injection, which she does not recall a response to and what she reports as being aright- sided buttock injection of pain medication. She is unsure exactly what this was, but reports that she did receive significant relief from this for approximately 4 to 5 days. In addition to these modalities, she has also undergone physical therapy, chiropractics and massage, which she reports minimal help from. Additionally prior to her initial RFA, she was tried on multiple medications including narcotics. She does not recall exactly which but reports that none of these modalities were particularly helpful in controlling her back pain. PAST MEDICAL HISTORY: Anxiety. PAST SURGICAL HISTORY: Right knee meniscus repair. SOCIAL HISTORY: Current half pack per day smoker for the past 15 years. She denies alcohol use. She denies additional drug use. 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 OBJECTIVE: Exam. She is a middle-aged appearing woman who is obese with a BMI of 38.3. She is able to ambulate independently and without difficulty. She is nontender to palpation of her low back and she has full strength in bilateral IP, quad, hamstring, ET, EHL and gastrocs to manual testing. Sensation is intact throughout bilateral lower extremities. Her imaging was reviewed by myself and Dr Segovia today. Her x-rays show appropriate alignment without any dynamic changes on flexion, extension films. She did have disk height loss at L5-S1 as well as to a lesser extent at L4-L5. MRI additionally shows a disk height loss at L5-S1 and L4-5 with milddisk bulging. There is mild lateral recess stenosis apparent at the L5-S1 disk level. ASSESSMENT/PLAN: Ms Damico is a 46-year-old woman with long history of low back pain without complaints of radiculopathy. Her imaging does show significant degenerative changes at L5-S1; however, no significant nerve root compression at any of these levels. We discussed with Ms Damico that based on her current symptoms of primarily low back pain without radicular component and without imaging consistent with a nerve root compression that a surgery would be unlikely to provide successful relief of the pain that she is describing. Rather, we recommended that she continue to undertake conservative measures including quitting smoking and increasing her activity and core strengthening as well as weight loss. She has mentioned that in the past when she was more active with yoga and stretching exercises that she did have less back pain than she does currently. It seems that she has more recently beenlimited because of the knee surgery and now feels like she is back to her baseline in that stent andhas been able to increase her activity level. Furthermore, we counseled her that if she continues tohave worsening pain or she begins to have leg symptoms that it would be possible she could be reevaluated here regarding further surgical options, but that any surgical treatment of her lumbar spine would be ill advised while she continues to smoke. She demonstrated understanding of these recommendations and all of her questions were answered. German Segovia MD - 05/24/2017 1200 EDT Patient was seen and examined with resident physician Dr. Rutherford, please refer to their note for full details. Pleasant 46 yo female smoker with mechanical low back pain x years. Had good response (>1 year) to L3-5 RFA, but repeat no beneft. Has varying documentation and no clear memory of response to SI injection. Had one injection in the office into buttock (unclear where) that provided significant relieffor 4 days. Nontender, normal neurologic exam. Imaging shows L5-S1 loss disc height; arthrosis L5/S1> L4/5 > mild L3-4. No abnormal motion. MRI shows mild L5 foraminal stenosis from height loss and mild right L5-S1 lateral recess stenosis. Overall long discussion with Ms. Damico today. We discussed the entirety of her situation - based on imaging, symptoms, varying response to injections I cannot with any reasonable degree of certainty identify a specific pain generator to target surgically. Additionally we discussed that surgery for LBP has modest results at best, and in the setting of active smoking and multiple potential sources ofpain the likelihood of a successful surgery is very low and I would not recommend. I encouraged her to quit smoking, and work on overall fitness/core strength/weight loss - all of which have been proven to help with low back pain. During this discussion she did note that prior to her knee surgery whenshe was more active with yoga her pain levels were much less. All questions were answered to the best of my ability. I spent a total of more than 30 minutes in face to face time with this patient today and more than 20 minutes of that time was spent counseling the patient on the risks and treatment options for the condition and plan described above. documented in this encounter Plan of Treatment Not on filedocumented as of this encounter Visit Diagnoses Diagnosis Midline low back pain without sciatica, unspecified chronicity - Primary documented in this encounter Care Teams Thermospray Operator Relationship Specialty Start Date End Date Joaquin Celaya MD PCP - General 04/22/10 06/11/[address] [place] [phone] documented as of this encounter
--- OUTSIDE RECORDS SUMMARY | 2022-04-24 00:23 | XMS_ITS | Encounter Summary ---
:1970 Author Organization [facility] Address [address] [place] [address] Care Team Providers Name Role Phone Joaquin Celaya MD Primary Care Provider Encounter Details Date Type Department Care Team Description 01/14/2011 Results Only [facility] Rosie Goodrich, ESSIE Laboratory Services - [address] [facility],[address] [phone] [place] [id number] [phone] Social History Tobacco Use Types Packs/Day Years Used Date Never Assessed Sex Assigned at Date Recorded Not on file documented as of this encounter Plan of Treatment Not on filedocumented as of this encounter Procedures Procedure Name Priority Date/Time Associated Diagnosis Comme nts CYTOPATHOLOGY Routine 01/14/2011 0:00 EDT Results for this procedure are i n the results section . documented in this encounter Results CYTOPATHOLOGY (01/14/2011 0:00 EDT) Pathology Report: CYTOPATHOLOGY REPORT ? [facility] ? LAB Reports generated via electr onic interface contain original data; ? however they are lacking the format of the original report. ? Caution should be taken when reading/interpreting unformatted reports. ? Name: ? NAN, GARO L ? Accession #: ? [id number] ? : ? 1970 (Age: 40) ??F ?Collect Date: ? 01/14/2011 ? Location: ? [facility] ? Receive Date: ? 01/15/2011 ? Provider: ?THANH GOODRICH ETHNIC STUDIES PROFESSOR ? Copy to: ? Specimen/Source: ? Pap Test, Cervix/Endocervix, ThinPrep Imaging System ? with manual evaluation ? Last Menstrual Period: ? Infection History: ? Herpes ? SPECIMEN ADEQUACY ? Satisfactory for Eval uation ? - transformation zone compon ent present ? GENERAL CATEGORIZATION ? Negative for Intraepi thelial Lesion or Malignancy ? INTERPRETATION ? Reactive cellular jonathan nges associated with inflammation present (includes ?? repair). ? Fungal organisms present mor phologically consistent with Uyen species. ? Document reviewed and electr onically signed by: ? GLADWYN LEIMAN MBBCh ? Report Date: ??03/24/ 2011 08:38 ? End of Report ? Specimen Performing Organization Address City/[facility]/ZIP Code Phon e Number [facility] [address] [place] [address] [facility] [address] [place] [address] documented in this encounter Visit Diagnoses Not on filedocumented in this encounter Care Teams [employer] Sectional Center Manager Relationship Specialty Start Date End Date Joaquin Celaya MD PCP - General 04/22/10 06/11/[address] [place] [phone] documented as of this encounter
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
--- OUTSIDE RECORDS SUMMARY | 2022-04-24 00:23 | XMS_ITS | Encounter Summary ---
:1970 [place] [address] Care Team Providers Name Role Phone Rob Smith BRENNA Primary Care Provider Reason for Visit Auth/Cert Specialty Diagnoses / Procedures Referred By Contact Refer red To Contact Diagnoses MORBID OBESITY Procedures PRO LAPAROSCOPY, SURG/GASTRIC RESTRICTIVE PROC, LONGITUDINAL GASTRECTOMY @LAPAROSCOPY, SURG/GASTRIC RESTRICTIVE PROC, LONGITUDINAL GASTRECTOMY (WRVU 20.38) Referral ID Status Reason Start Date Expiration Date Visits Requ ested Visits Authorized [id number] 1 1 Encounter Details Date Type Department Care Team Description 07/02/2021 Anesthesia Event Main Operating Room Bruno Damon MD [facility] [place] [address] [place] [address] [phone] Anesthesia Record Procedure Summary Procedure Name Responsible Anesthesia Start Anesthesia Stop Anesthesiologist Time Time @Rashida REYNAGA Paul J, MD 07/02/21 0736 07/02/21 092 9 SURG/GASTRIC RESTRICTIVE PROC, LONGITUDINAL GASTRECTOMY (WRVU 20.38) (N/A Abdomen) Events Date Time Event Comment 07/02/2021 0704 0736 AN Verify 0736 Start 0739 An Start Data 0743 An Induction 0747 An Intubation 0752 Anesthesia Ready 0843 Quick Note Bougie in per rodriguez rgeon 0858 Quick Note Bougie out 0923 Extubation/LMA Out 0925 an stop data 0929 Recovery or ICU Handoff Patient care was transferred to the destination unit staff after review of the patient's medica l history, current anesthetic/surgi karyna status and plan, according to the Provider Handoff Checklist. 928 Stop Name Total Midazolam 2 mg fentaNYL 100 mcg IV Lidocaine 60 mg Propofol 300 mg Rocuronium 70 mg ePHEDrine 20 mg Ondansetron 8 mg Dexamethasone 8 mg Glycopyrrolate 0.1 mg ceFAZolin (Ancef) 3 g in dextrose 5% 109 mL infusion 3 g Propofol INF 256.18 mg PHENYLephrine INF 1,030 mcg Ketamine 10 mg/mL 50 mg HYDROmorphone 0.4 mg Sugammadex 200 mg ketorolac (Toradol) (30 mg/mL) injection 15 mg Lactated Ringers 700 mL Agents Name O2 Air N2O Sevoflurane (et) O2 Auxiliary Flowmeter 1 Blood No blood administrations on file. Lines, Drains, and Airways Type Details Placement Removal Incision 07/02/21; 814; abdomen; 07/02/21 08 by Dino , laparoscopic punctures Nuvia Ibarra RN (specify) (5 trocar sites); 5 trocar sites PIV 07/02/21; 0711; 07/02/21 0711 by Boucher, 07/04/21 0157 by rexx-egp-urudmy catheter BRENDA Weinberg Rachel M, system; 20 gauge, 1 in ERECTOR OPERATOR length; intradermal injection, tolerated well; tender to flush; catheter/device intact, removed per policy/procedure, site care per policy/procedure, site symptomatic; 07/04/21; 0157 ETT Mask Ventilation: Easy (1); 07/02/21 0747 by 11/21 0923 by ETT Type: Cuffed, Oral; ETT Abel Chandra CR NA Abel Chandra, WILL Size: 7 mm; Mac Blade: (cmac); Notes: Asleep, Pre-O2, Stylette; Attempts: 1; Laryngoscopy Grade: 1; ETT Placement Verified By: Auscultation, Capnometry, Visual; Secured at Teeth: 22 cm; Inserted by: Prateek SOLIS NG/OG Tube 07/02/21; 0752; nonweighted; 07/02/21 0752 by 0822 by mouth; 07/02/21; 0822 Abel Chandra CRNA Eck hardt, Adam C, CRNA documented in this encounter Social History Tobacco Use Types Packs/Day Years Used Date Former Smoker Smokeless Tobacco: Never Used Comments: pt quit 3 yrs ago Sex Assigned at Date Recorded Not on file documented as of this encounter OR Notes Anesthesia Postprocedure Evaluation - Bruno Field MD - 07/02/2021 10:40 AM EDT Department of Anesthesiology Post-procedure Note Patient: Natalia Damico Procedure Summary Date: 07/02/21 Room / Location: [facility] OR [address] [place] [address] MAIN OR Anesthesia Start: 735 Anesthesia Stop: 928 Procedure: @LAPAROSCOPY, SURG/GASTRIC RESTRICTIVE PROC, LONGITUDINAL GASTRECTOMY (WRVU 20.38) (N/A Abdomen) Diagnosis: (MORBID OBESITY) Surgeons: Corrie Hastings MD Responsible Provider: Bruno Field MD Anesthesia Type: general ASA Status: 2 All Anesthesia Providers: Anesthesiologist: Bruno Field MD [employer]: Abel Chandra CRNA Vitals Value Taken Time BP 145/82 07/02/21 1030 Temp 36.4 ??C (97.5 ??F) 07/02/21 0929 Pulse 61 07/02/21 1040 Resp 28 07/02/21 1040 SpO2 94 % 07/02/21 1040 Pain Level 0 07/02/21 0929 Vitals shown include unvalidated device data. Patient Location: PACU/[facility] Level of Consciousness: Conscious but Sleepy Pain Management: Satisfactory Analgesia PONV: PONV Resolved with Rx Cardiovascular Status: At Baseline Respiratory Status: At Baseline Postoperative Fluid Status: Intravascular EUvolemia Possible Anesthetic Complications: NONE apparent at time of evaluation Final Primary Anesthesia Type: General (The anesthetic type performed was the same as planned.) Comments: Anesthesia Preprocedure Evaluation - Bruno Field MD - 07/01/2021 1:27 PM EDT Pre-Anesthesia Evaluation for: Natalia Damico a 50 y.o. female. Procedure(s): @LAPAROSCOPY, SURG/GASTRIC RESTRICTIVE PROC, LONGITUDINAL GASTRECTOMY (WRVU 20.38) Patient Active Problem List Diagnosis ??? Morbid obesity ??? Attention deficit hyperactivity disorder (ADHD) ??? Generalized anxiety disorder ??? Sleep disorder ??? Temporomandibular joint disorder ??? Back pain No past medical history on file. Past Surgical History: Procedure Laterality Date ??? FOOT SURGERY Left 2020 ??? KNEE ARTHROSCOPY Right 2016 Social History Tobacco Use ??? Smoking status: Former Smoker ??? Smokeless tobacco: Never Used ??? Tobacco comment: pt quit 3 yrs ago Substance Use Topics ??? Alcohol use: Not on file Social History Substance and Sexual Activity Drug Use Not on file No Known Allergies Medications: MAR and/or home medications have been reviewed. Physical Exam: Preprocedure Vitals Current as of 07/01/21 1327 No BP, pulse, respiration, SpO2, or temperature recorded. Height: Weight: BMI: IBW: Airway Assessment: Mallampati: I TM distance: >3 FB Neck ROM: full Cardiovascular Assessment: Rhythm: regular Rate: normal system normal Pulmonary Assessment: unlabored breathing pulmonary exam normal Dental Assessment: - normal exam Misc Assessment: IV access: Peripheral line Last Filed Perioperative Cognitive Screening None Anesthesia Plan: ASA 2 general, with a(n) intravenous induction 50 yo woman for laparoscopic gastrectomy Chart and labs reviewed; patient seen and examined PMH significant for Obesity with BMI 45.6 ADD/SAMI TM joint disorder Former smoker Assessment/Plan: ASA 2 GA/ETT; routine monitors; adequate IV access Risks, plans, and procedures discussed with patient who understands and consents; questions and concerns addressed Region - Other Informed Consent: Anesthetic plan and risks discussed with patient. Use of blood products discussed with patient who consented to blood products. Plan discussed with [employer]. Anesthesia Screening documented in this encounter Plan of Treatment Not on filedocumented as of this encounter Visit Diagnoses Not on filedocumented in this encounter Administered Medications Inactive Administered Medications - up to 3 most recent administrations Medication Order MAR Action Action Date Dose Rate Site ceFAZolin (Ancef) 3 g in dextrose 5% Given 07/02/2021 7:52 AM ED T 3 g 109 mL infusion 3 g, Intravenous, ONCE, 1 dose, On Wed07/02/21 at 0715, Administer over 30 Minutes, Day of Surgery (Day of Procedure), Indication for (Active or Suspected): Prophylaxis dexamethasone (Decadron) injection Given 07/02/2021 7:58 AM EDT 8 mg Intravenous, PRN, Starting on Wed07/02/21 at 0758, Until Wed07/02/21 at 0930, Anesthesia Intra-op, Routine ePHEDrine sulfate (5 mg/mL) multi-dose Given 07/02/2021 8:25 AM EDT 10 mg injection Intravenous, PRN, Starting on Wed07/02/21 at 0801, Until Wed07/02/21 at 0930, Anesthesia Intra-op, Routine Given 07/02/2021 8:01 AM EDT 10 mg fentaNYL (pf) (50 mcg/mL) multi-dose Given 07/02/2021 7:43 AM ED T 100 mcg injection Intravenous, PRN, Starting on Wed07/02/21 at 0743, Until Wed07/02/21 at 0930, Anesthesia Intra-op, Routine glycopyrrolate (Robinul) (0.2 mg/mL) Given 07/02/2021 8:07 AM ED T 0.1 mg multi-dose injection Intravenous, PRN, Starting on Wed07/02/21 at 0807, Until Wed07/02/21 at 0930, Anesthesia Intra-op, Routine HYDROmorphone (Dilaudid) (2 mg/mL) multi-dose Given 8:48 AM EDT 0.4 mg injection solution Intravenous, PRN, Starting on Wed07/02/21 at 0848, Until Wed07/02/21 at 0930, Anesthesia Intra-op, Routine ketamine (Ketalar) (10 mg/mL) IV bolus Given 07/02/2021 8:43 AM EDT 20 mg injection (Anesthesia) Intravenous, PRN, Starting on Wed07/02/21 at 0806, Until Wed07/02/21 at 0930, Anesthesia Intra-op Given 07/02/2021 8:06 AM EDT 30 mg ketorolac (Toradol) (30 mg/mL) injection Given 07/02/2021 9:10 AM EDT 15 mg Intravenous, PRN, Starting on Wed07/02/21 at 0910, Until Wed07/02/21 at 0930, Anesthesia Intra-op, Routine lactated ringers infusion New Bag 07/02/2021 7:36 AM EDT Intravenous, CONTINUOUS PRN, Starting on Wed07/02/21 at 0736, Until Wed07/02/21 at 0930, Anesthesia Intra-op lidocaine (pf) (Xylocaine) (20 mg/mL) 2% Given 07/02/2021 7:43 A M EDT 60 mg injection syringe Intravenous, PRN, Starting on Wed07/02/21 at 0743, Until Wed07/02/21 at 0930, Anesthesia Intra-op, Routine midazolam (pf) (Versed) (1 mg/mL) multi-dose Given 07/02/2021 7: 36 AM EDT 2 mg injection Intravenous, PRN, Starting on Wed07/02/21 at 0736, Until Wed07/02/21 at 0930, Anesthesia Intra-op, Routine ondansetron (pf) (Zofran) (2 mg/mL) inje ction Given 07/02/2021 9:00 AM EDT 4 mg Intravenous, PRN, Starting on Wed07/02/21 at 0758, Until Wed07/02/21 at 0930, Anesthesia Intra-op, Routine Given 07/02/2021 7:58 AM EDT 4 mg PHENYLephrine (Bill-Synephrine) Restarted 07/02/2021 8:25 AM 20 mcg/m in 15 mL/hr (80 mcg/mL) in sodium chloride EDT 0.9% 250 mL infusion Intravenous, CONTINUOUS PRN, Starting on Wed07/02/21 at 0752, Until Wed07/02/21 at 0930, Anesthesia Intra-op, Routine New Bag 07/02/2021 7:52 AM EDT 25 mcg/min 18.75 mL/hr propofoL (Diprivan) 10 mg/mL bolus injection Given 11/2020 7:46 AM EDT 100 mg (Anesthesia) Intravenous, PRN, Starting on Wed07/02/21 at 0743, Until Wed07/02/21 at 0930, Anesthesia Intra-op Given 07/02/2021 7:43 AM EDT 200 mg propofoL (Diprivan) infusion New Bag 07/02/2021 7:47 AM 30 mcg/kg/min 21.348 mL/hr Intravenous, CONTINUOUS PRN, EDT Starting on Wed07/02/21 at 0747, Until Wed07/02/21 at 0930, Anesthesia Intra-op, Routine rocuronium (Zemuron) (10 mg/mL) multi-dose Given 07/02/2021 8:24 AM EDT 20 mg injection Intravenous, PRN, Starting on Wed07/02/21 at 0744, Until Wed07/02/21 at 0930, Anesthesia Intra-op, Routine Given 07/02/2021 7:44 AM EDT 50 mg sugammadex (Bridion) 100 mg/mL injection Given 07/02/2021 9:10 AM EDT 180 mg Intravenous, PRN, Starting on Wed07/02/21 at 0905, Until Wed07/02/21 at 0930, Anesthesia Intra-op, Routine Given 07/02/2021 9:05 AM EDT 20 mg documented in this encounter Care Teams Crosscutter Relationship Specialty Start Date End Date Rob Smith APRN PCP - General Family Medicine 11/15/19 [address] [place] [address] documented as of this encounter
--- OUTSIDE RECORDS SUMMARY | 2022-04-24 00:23 | XMS_ITS | Encounter Summary ---
:1970 Author Organization [facility] Address [address] [place] [address] Care Team Providers Name Role Phone Rob Smith DNP Primary Care Provider Encounter Details Date Type Department Care Team Description 10/04/2020 Lab Requisition [facility] Outr Resulting Lab, Pathology & Laboratory Provider [facility] [address], [place] [address] Social History Tobacco Use Types Packs/Day Years Used Date Current Every Day Smoker 0.5 Sex Assigned at Date Recorded Not on file documented as of this encounter Plan of Treatment Not on filedocumented as of this encounter Procedures Procedure Name Priority Date/Time Associated Comments Diagnosis DO NOT ORDER Today 10/04/2020 9:03 EST Results for this STANDALONE - BROAD procedure are in COVID TEST the results section. COVID-19 TESTING Routine 10/04/2020 9:03 EST Resu lts for this procedure are i n the results section. documented in this encounter Results DO NOT ORDER STANDALONE - BROAD COVID TEST (10/04/2020 9:03 EST) COVID-19 rt-PCR NEGATIVE Negative [facility] Result Comment: LABORATORY 2019-novel Coronavirus (2019 -nCoV) not detected by the qRT-PCR assay. Consider testing for other respiratory viruses or re-collecting for 2019-nCoV testing. Note: Optimum timing for peak viral levels du ring infections caused by 20 -nCoV have not been determined. Collection of multiple specimens from the same patient may be necessary to detect the virus. Limitations Positive results are indicat ligia of active infection with SARS-CoV-2 but do not rule out bacterial infection or co-infection with other viruses. The agent detected may not be the definite cause of diseas e. In addition, detection of viral RNA may not indicate the presence of infectious virus or that SARS-CoV-2 is the causative agent for clinical symptoms. Negative results do not prec lude SARS-CoV-2 infection and should not be used as the sole basis for patient management decisions. Negative results must be combined with clinical observations, patient his tory, and epidemiological in formation. False negative results may also occur if amplification inhibitors are present in the specimen or if inadequate numbers of organisms are present in the specimen. Op timum specimen types and mildred ing for peak viral levels during infections caused by SARS-CoV-2 have not been fully determined. Collection of multiple specimens (types and time points) from the same patient may be necessary to detect the virus. The test was validated for u se with upper respiratory specimens obtained via nasopharyngeal or oropharyngeal swabs in VTM, UTM, M4, M5, M6, saline, and MTM media. The performance of this test has not be en established for other spe cimens. Specimens collected using other FDA recommended Specimen Collection Materials listed in the FDA COVID-19 [employer] communication (January 25, 2020) are pr ocessed with the caveat that they were not all validated for use with this test and the result must be interpreted in this context. Furthermore, a false negative results may occur if a specimen is improperly collected, transported or handled. If the virus mutates in the RT-PCR target region, SARS-CoV-2 may not be detected or may be detected less predictably. Inhibitors or other types of interference may produce a false negative result. An interference study evaluating the effect of common cold medications was not performed. This test is not FDA-cleared but its performance characteristics were established by our CLIA-certified, CAP-accredited, high complexity laboratory in accordance with CLIA regulations, [employer] (CAP) guidel stephanie (Jan 18, 2020), and FDA guidance (Dec 30, 2019). This test is only for use un corine the Food and Drug Administration's Emergency Use Authorization. Specimen Swab - Entire nasopharynx (body structur e) Performing Organization Address City/State/ZIP Code Phon e Number [facility] [place], [place] COVID-19 TESTING (10/04/2020 9:03 EST) COVID-19 rt-PCR NEGATIVE Negative [facility] Result Comment: LABORATORY 2019-novel Coronavirus (2019 -nCoV) not detected by the qRT-PCR assay. Consider testing for other respiratory viruses or re-collecting for 2019-nCoV testing. Note: Optimum timing for peak viral levels du ring infections caused by 20 -nCoV have not been determined. Collection of multiple specimens from the same patient may be necessary to detect the virus. Limitations Positive results are indicat ligia of active infection with SARS-CoV-2 but do not rule out bacterial infection or co-infection with other viruses. The agent detected may not be the definite cause of diseas e. In addition, detection of viral RNA may not indicate the presence of infectious virus or that SARS-CoV-2 is the causative agent for clinical symptoms. Negative results do not prec lude SARS-CoV-2 infection and should not be used as the sole basis for patient management decisions. Negative results must be combined with clinical observations, patient his tory, and epidemiological in formation. False negative results may also occur if amplification inhibitors are present in the specimen or if inadequate numbers of organisms are present in the specimen. Op timum specimen types and mildred ing for peak viral levels during infections caused by SARS-CoV-2 have not been fully determined. Collection of multiple specimens (types and time points) from the same patient may be necessary to detect the virus. The test was validated for [facility] with upper respiratory specimens obtained via nasopharyngeal or oropharyngeal swabs in VTM, UTM, M4, M5, M6, saline, and MTM media. The performance of this test has not be en established for other [facility]. Specimens collected using other FDA recommended Specimen Collection Materials listed in the FDA COVID-19 [employer] communication (January 25, 2020) are pr ocessed with the caveat that they were not all validated for use with this test and the result must be interpreted in this context. Furthermore, a false negative results may occur if a specimen is improperly collected, transported or handled. If the virus mutates in the RT-PCR target region, SARS-CoV-2 may not be detected or may be detected less predictably. Inhibitors or other types of interference may produce a false negative result. An interference study evaluating the effect of common cold medications was not performed. This test is not FDA-cleared but its performance characteristics were established by our CLIA-certified, CAP-accredited, high complexity laboratory in accordance with CLIA regulations, [employer] (CAP) guidel stephanie (Jan 18, 2020), and FDA guidance (Dec 30, 2019). This test is only for use un corine the Food and Drug Administration's Emergency Use Authorization. Performing Lab [facility] LABORATORY SERVICES Specimen Swab Performing Organization Address City/State/ZIP Code Phon e Number [facility] [address] [place] [address] SERVICES [facility] [place], [place] documented in this encounter Visit Diagnoses Not on filedocumented in this encounter Care Teams Director Microbiology Relationship Specialty Start Date End Date Rob Smith, DNP PCP - General 06/12/20 [address] [place] [id number] documented as of this encounter
--- OUTSIDE RECORDS SUMMARY | 2022-04-24 00:23 | XMS_ITS | Encounter Summary ---
:1970 Author Organization [facility] [place] [address] Care Team Providers Name Role Phone Rob Smith Caesarandrew BRENNA Primary Care Provider Encounter Details Date Type Department Care Team Description 03/18/2021 TH Visit General Surgery at Katy Florez ra, APRN [facility] [place] [place] [address] Cigarette nicotine dependence with nicot ine-induced disorder; (TeleHealth) [facility] Ifrah Mcc[address] [facility] [place] [place] [address] Pre-op examination; [facility] Obesity, unspecified classification, unspecified obesity type, unspecified whether [place] [address] Social History Tobacco Use Types Packs/Day Years Used Date Former Smoker Smokeless Tobacco: Never Used Comments: pt quit 3 yrs ago Sex Assigned at Date Recorded Not on file documented as of this encounter Progress Notes Ifrah Mccartney RD - 03/18/2021 8:30 AM EDT Images from the original note were not included. Bariatric Surgery Program Pre-op Nutrition Assessment - Second Visit Call made with Jennifer Florez APRN BARIATRIC SURGERY VIRTUAL NOTE At the time of the visit pt was at home in [place]. Natalia Damico is being seen today for follow-up evaluation in anticipation for bariatric surgery.Initial visit was on 02/06/21. Insurance changed since her NPW (no longer has MVP which requires 5% weight loss). Telemedicine visit scheduled to touch base on process going forward. SUBJECTIVE: Reports losing 8# on her own. Recently unemployed but looking for work. New insurance is [place] Medicaid. Changes made in preparation since last visit: Decreased portions, instead of McDs having a salad, instead of fried chicken, more grilled chicken. 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 Lives w - 2 sons and their girlfriends and a grandson 24-hour recall: . Breakfast Coffee and pc of toast Snack Lunch Didn't eat until 2:30P- minimart: sandwich- ate meat out of the middle, ham and salami, regular coke Snack Supper Pork chops, green beans and rice a coleen (small portions) Snacks Fluids: coke, water - drinking bottled water, milk, apple cider. Finds around dinner she wants to drink more fluids * alcohol: reports she does not drink on a regular basis. Exercise: continues to walk w her dogs. OBJECTIVE: Weight History: Date Weight (lbs) HT BMI Comments ? Highest Weight 02/22/20 265# ? Initial program weight 02/06/21 273.7# 64 47.0 1st pre-op visit 03/18/21 267.2# 2nd pre-op visit (reported) ? EWL % ?? Surgery ? 1 month post-op ? 4 months post-op [place] Body Weight (based on BMI of 25): 146# 30-70% Excess Weight Loss: 184-235#; 50% Excess Weight Loss: 210# ASSESSMENT: Pt continues to make positive changes in preparation for bariatric surgery. Encouraged her to continue w healthy eating pattern. Encouraged her to continue to work toward not drinking soda as it is notrecommended after surgery. Suggested limiting high fat meats such as salami. Discussed no weight gain policy, starting weight of 265#. PLAN: Tobacco cessation. Plan outlined by Jennifer Florez APRN. Continue weight loss and nutrition counseling with Ruma Martinez RD. Pt has contact information for further questions. T Jennifer Florez APRN - 03/18/2021 8:30 AM Kem: Pre-op follow up Images from the original [place] [address] BARIATRIC SURGERY VIRTUAL NOTE 1. Reason/purpose for phone call: PRE OP - follow up visit 2. The patient voiced an understanding of the reason and intent of the televisit and provided verbalconsent to discuss clinical issues by telehealth. Additionally, the patient acknowledged that the telehealth consultation is a billable encounter, and that the patient or their medical insurance carrier could be billed. 3. Summary of conversation, decision making, and plan: see below encounter note for details. Time Attestation: I spent a total of 30 minutes associated with this encounter, including chart review, the patient encounter, and documentation. Reason for visit: Bariatric Surgery follow up visit Subjective: Natalia Damico is preparing for bariatric surgery with Dr. Hastings. She was evaluated in clinic on 02/06/21. No surgery date was given due to weight gain and smoking. At the time, Natalia had an insurance policy which required weight loss. Natalia has recently had a change in insurance (now [place] Medicaid). On 02/06/21 Natalia's weight was 273 lbs, BMI was 47. Since this visit, Natalia reports weight loss of about 5 lbs, she reports her weight a couple days ago at home was 267 lb. At the time of her last visit on 02/06/21, Natalia endorsed smoking. She explains she does not smoke regularly, rather, would have a drag off of a friend's cigarette sporadically. Natalia reports her most recent smoking was on 03/10/21 (3-5 drags). She states she quit cold turkey and is feeling good. Interim Health: Denies major changes, no hospitalizations/ED visits. Current Supplements: Biotin 1000 mcg daily. Pre-Bariatric Surgery Obesity related medical issues: o Diabetes: Not a baseline issue. o HTN:Not a baseline issue. o GERD: Not a baseline issue. o Hyperlipidemia: Not a baseline issue. o CLAUDE: Not a baseline issue. o Musculoskeletal issues: baseline issue, right foot pain, left knee pain, low back pain. o Liver Disease: Not a baseline issue. Patient Active Problem List Diagnosis Code ??? Back pain M54.9 ??? Attention deficit hyperactivity disorder (ADHD) F90.9 ??? Generalized anxiety disorder F41.1 ??? Sleep disorder G47.9 ??? Temporomandibular joint disorder M26.609 ??? Morbid obesity E66.01 Review of Systems Constitutional: denies changes to energy level and recent illness. Neuro: denies changes/new symptoms. CV: no c/o chest pain or palpitations. Pulm: denies SOB or cough. GI: denies new GI symptoms including bloating, abdominal pain, nausea/vomiting. No diarrhea. No constipation. [employer]: s/p endometrial ablation. Health Habits: Tobacco: was smoking drags from friends' cigarettes most recent smoking 03/10/21. ETOH: Denies regular alcohol intake (once per 6 months). Most recent alcohol 03/10/21. NSAID use: Infrequent. Dietary history/ exericse/ activity level: See dietitian note from today's visit for complete dietary evaluation. Meds and Allergies reviewed. Objective: There were no vitals taken for this visit. (Telehealth). Physical Exam Gen: Alert, pleasant, NAD, appears well. Resp: Speaking in full sentences, no gasping. No cough witnessed. Skin: No pallor or diaphoresis visible. No rash noted. Psychiatric: normal mood and affect. No results found for this or any previous visit (from the past 72 hour(s)). Assessment/ Plan: 50 y.o. year old female with Morbid obesity with obesity-related subclinical risk factors including borderline hypertension, mild physical symptoms including dyspnea on moderate [...] are non-surgical methods to achieve weight loss. Patient's visit today is to discuss plan to move forward toward surgery. ?? Weight: Patient no longer has an insurance plan that requires weight loss. Reviewed no weight gain policy. Encouraged continued follow up with outside concrete buster operator. See RD note for details. ?? Smoking cessation: discussed the need for complete abstinence from nicotine prior to surgery. Most recent smoking 03/10/21. After being abstinent from smoking for 1 month (04/10/21 at the soonest) shewill have her nicotine and metabolites blood test drawn. She can be scheduled to follow up in clinicwith Dr. Hastings and myself after the lab results are available (if negative). If positive will be needhold/repeat test before being scheduled. ?? Patient will have preop labs drawn (standard preop labs + TSH for [place] medicaid) when she presents for nicotine screening. H pylori also ordered. Patient aware stool study will be needed. -Lab orders to be routed to local hospital. She has had an opportunity to have all her questions answered and is in agreement with the plan of care. She was encouraged to call with any questions or concerns. Pending: - All program requirements - Educational classes - CBC and CMP within 6 months of surgery, per [facility] accredited bariatric center guidelines - Ongoing weight loss encouraged Bariatric Program Summary report is availabe for patient's review via e- 30 minutes spent with patient in [id number] discussion including review of diagnosis, labs, counseling/education and treatment plan. Jennifer Florez APRN RECOMMENDED BARIATRIC SURGERY PROGRAM POSTOPERATIVE FOLLOW-UP: Follow up: done at 4, 12 and yearly thereafter. High risk patients are evaluated on a more frequent basis. *Typical Supplement recommendations: Multivitamin with minerals twice a day, B12 500 mcg once a day, calcium citrate 600 mg/400 units vitamin D twice a day, iron (ferrous fumarate, carbonyl iron taken with vitamin C 250 mg once every other day) for menstruating females or those with Iron Deficiency. Labwork: Hemogram, ferritin, iron (transferrin) saturation, iron, folate, B1, B12, D (25 hydroxy only), Intact PTH and comprehensive metabolic profile at 4, 12 months and yearly. If labwork is done by the primary primary care coordinator: please send a copy to the Bariatric Surgery Program, General Surgery Clinic, [facility], or fax [phone] documented in this encounter Plan of Treatment Not on filedocumented as of this encounter Visit Diagnoses Diagnosis Cigarette nicotine dependence with nicot ine-induced disorder Unspecified drug-induced mental disorder Pre-op examination Preoperative examination, unspecified Obesity, unspecified classification, uns pecified obesity type, unspecified whether serious comorbidity present documented in this encounter Care Teams Bailiff Relationship Specialty Start Date End Date Rob Smith APRN PCP - General Family Medicine 11/15/19 [address] [place] [address] documented as of this encounter
--- OUTSIDE RECORDS SUMMARY | 2022-04-24 00:23 | XMS_ITS | Encounter Summary ---
:[address] [facility] Address [address] [place] [address] Care Team Providers Name Role Phone Joaquin Celaya MD Primary Care Provider Encounter Details Date Type Department Care Team Description 04/20/2016 Results Only [facility] [place], BRENNA [phone] [address] [place] [address] [phone] (Wo rk) Social History Tobacco Use Types Packs/Day Years Used Date Never Assessed Sex Assigned at Date Recorded Not on file documented as of this encounter Plan of Treatment Not on filedocumented as of this encounter Procedures Procedure Name Priority Date/Time Associated Diagnosis Comme nts PAP TEST- RESULT Routine 04/20/2016 0:00 EDT Resu lts for this ONLY procedure are i n the results section. documented in this encounter Results PAP TEST- RESULT ONLY (04/20/2016 0:00 EDT) Pathology Report: CYTOPATHOLOGY REPORT [facility] Reports generated via electronic interface contain alma ginal data; SERVICES however they are lacking the format of the original re port. Caution should be taken when reading/interpreting unfo rmatted reports. Name: ? GARO MONTANA ? Accession #: ? [id number] ? : ? 1970 (Age: 45) ??F ?Collect Date: ? 04/20/2016 ? Location: ? [facility] ? Receive Date: ? 04/21/20 16 ? Provider: SUN WHEATLEY BACON SLICER Copy to: ? Final Report SPECIMEN ADEQUACY ? Satisfactory for Evaluation - transformation zone component absent GENERAL CATEGORIZATION ? Negative for Intraepithelial Lesion or Malignan cy ?? Specimen/Source: ??Pap Test, Cervix/Endocervix, ThinPr ep Imaging System with manual evaluation Document reviewed and electronically signed by: ? Loy Mejias, [place](ASCP) ? Report ??Date: 04/30/2016 12:11 HPV with Pap Test ? Date Ordered: ? 04/30/2016 ? Status: ?? Signed Out ?Date Complete: ? 05/04/2016 ? By: ??Sys tem Interface ? Date Reported: ? 05/04/2016 ? Interpretation RESULT: Negative for HPV. No E6 or E7 mRNA is detected from HPV types 16,18,31,3 3,35, 39,45,51,52,56,58,59,66, and 68 by cushion maker hand media jennifer amplification. Comments Document reviewed and electronically signed by: ? System Interface ? Report date: 05/04/2016 By the signature above, the attending physician certif ies that he/she has personally conducted a gross and/or microscopic examin ation of the described specimens and rendered or confirmed the above diagnosi s. End of Report Specimen Performing Organization Address City/State/ZIP Code Phon e Number [facility] [address] [place] [phone] SERVICES documented in this encounter Visit Diagnoses Not on filedocumented in this encounter Care Teams Cost Recorder Relationship Specialty Start Date End Date Joaquin Celaya MD PCP - General 04/22/10 06/11/[address] [place] [phone] documented as of this encounter
--- OUTSIDE RECORDS SUMMARY | 2022-04-24 00:23 | XMS_ITS | Encounter Summary ---
:1970 Author Organization [facility] [place] [address] Care Team Providers Name Role Phone Rob Smith Caesarandrew BRENNA Primary Care Provider Reason for Visit Reason Comments Follow-up Encounter Details Date Type Department Care Team Description 11/04/2021 Office Visit General Surgery at Katy Florez ra, APRN [facility] [place] [address] S/P bariatric surgery; [facility] Emili Mcl[address] RD [facility] [place] [address] [place] [address] Social History Tobacco Use Types Packs/Day Years [...] Mass Index 36.04 11/04/2021 10:23 AM EST documented in this encounter Patient Instructions Patient InstructionsSpberyl Jennifer Andrew, BRENNA - 11/04/2021 10:30 AM EST [facility] clerical support specialist Elicia [phone] and Vashti [phone] Dietitians: [phone] Surgeons/ nurse practitioners: [phone] Nurse line: [phone] Dear Natalia, Please see your electronic medical record note from today for details we discussed at your visit. Below is some additional general information that you may find helpful. Testing: It would be helpful if you can have your lab work drawn a couple days before your visit at a [facility] facility so the results are available at the time of your follow up visit. If you have labworkdone by your primary insurance healthcare consultant before that date, please have a copy sent to the Bariatric Surgery Program. Please call/send my Dispop message if you have not heard from us within 2 weeks of having labs work done. Here's the link to [facility] Lab hours and locations: [email or web address] Next visit: Follow up visits are done at 4 months and 12 months after surgery and yearly thereafter.Some patients are evaluated on a more frequent basis. Please call [phone] if you do not receivean appointment by 3-4 weeks prior to the expected visit. Vitamins/Nutrition/Activity Recommendations: Please see your visit note for personalized recommendations General Vitamin recommendations: ??? Multivitamins with minerals twice daily- [...] Blow dry area on low setting with environmental studies department chair. 3. Avoid excessive heat and/or sweating as friction and moisture can exacerbate disease. 4. Try OTC Dove clinical strength anti perspirant to affected areas nightly or an absorbent powder such as Gold Mcgee and Desinex 5. Apply cotton strips (such as strips from old sheets) or larger size cotton underwear folded beneath skin folds to act as a wick. Do not apply divya cloth toweling which can cause further irritation 6. Try combination of over the counter hydrocortisone cream with over the counter antifungal cream such as lotrimin twice a day for 2 weeks. 7. If your symptoms do not improve you may require prescription of anti-fungal cream/powder. 8. Follow up with PCP if symptoms worsen/fail [...] control for women of child bearing age: is recommended for at least 18-24 months after surgery. f non-prescribed drugs and treet drugs is unsafe Anti-inflammatory medications such as Ibuprofen (Advil), Aleve (Naproxen), Excedrin, Yadi-Waddell should be used sparingly after gastric bypass, since they increase the risk of ulcer and bleeding. A bone mineral density scan (DEXA) is recommended every 2 years after bariatric surgery. Please schedule this study through your primary care providers office. Hair Loss: is associated with rapid [...] may be increased with higherthan predicted weight loss Potential lifetime risks of sleeve gastrectomy include developed heartburn or severe reflux Call us: ??? If you have concerns. ??? If you have unexplained abdominal pain. ??? if you see blood in your stool or vomit blood ??? If you have prolonged vomiting Post Surgery Support Group: Our post surgery support group meets at [facility] on the first Wednesday of every month from 1:00 PM-2:00 PM. You can attend online or in person. Use the following link to attend online: [email or web address] Nutrition and Activity apps- Baritastic, My Fitness Pal, Lose It, My Plate Internet resources: www.Ar[employer] wwwPacific Star Communications wwwTransCardiac TherapeuticsbariatriceaLightbox.Ocean Executive www.Zootcard.Ocean Executive/blog [facility] facebook page: [email or web address].facebook.[email or web address] COR[facility]LLBariatricSurgery Books & Magazines: - Recipes for Life After Weight Loss Surgery by Connie La - Shrink Yourself by Dr Wilder Arrington - Eating Well - www.HIT Application Solutions - Cooking Light- www.cookinglight.Ocean Executive Anxiety: The Happiness Trap by Ranjit Cloud The Mindfulness and acceptance workbook for anxiety By Joaquin Capone. Mindful eating: What are you Hungry For? By Jose Luis Grier The Mindful Diet by Xiomara Moss and the [facility] group. Emotional eating: End Emotional Eating by Ifrah Jean Calming the Emotional Storm Beryl Robles documented in this encounter Progress Notes Emili Mclaughlin, RANDI - 11/04/2021 10:30 AM EST Bariatric Surgery Program Nutrition Progress Note Encounter Type: follow up SUBJECTIVE: Topics Discussed/Patient Concerns: ?? Pt states she is happy with her weight loss, states her energy is good and she feels good about herself ?? Natalia reports she is eating ~ 1200 karyna/day, limiting CHO and fat, meeting protein goal of 60-80g, and focusing on fluid intake ?? 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 Lives w - 2 sons and their girlfriends and a grandson ?? Social support:??, sons, coworkers ?? Hobbies:??horseback riding (has 2 horses) ?? Medical Hx:?Class III obesity, joint pain, sleep disorder, anxiety ?? OBJECTIVE: ?? Date of Bariatric Surgery: 07/02/[address] Hastings Type of Bariatric Surgery: Laparoscopic Sleeve Gastrectomy ?? Weight History: Date Weight (lbs) HT BMI Comments ??02/06/21 273.7#? Highest Weight 02/22/20 265# ? Initial program weight 02/06/21 273.7# 64 47.0 1st pre-op visit 03/18/21 267.2# ? 2nd pre-op visit (reported) 04/25/21 281.8# ?? 48.4 3rd pre-op visit ? EWL % ?? Surgery 07/23/21?248# 20%?? 42.5?? 1 month post-op ??11/04/21 210#?? 50%?? 36.0?? 4 months post-op [place] Body Weight (based on BMI of 25):??146# 30-70% Excess Weight Loss:??184-235#; 50% Excess Weight Loss:??210# ?? Vitamin/Mineral Supplements (reported by patient): Supplement Type Brand/Form Dosage/Amount Frequency Comments Multivitamin Fusion Complete 2 wafers Twice daily 1-2 twice per week gets evening dose in Calcium ? Vitamin B12 ? Iron ? None ?? Vitamin D3 ? None ?? Mg 600 mg Daily For constipation Patient taking Bariatric Fusion Complete multivitamin, two wafers twice daily (which includes Vit B12 560 mcg, Vit D3 3,000 IU, Calcium 1200 mg, Iron 45mg/day). ?? Food Allergies/Intolerances: None ?? Tracking Intake: MFP ?? Daily Oral Intake: Breakfast Oven roasted turkey breast 1 oz, 1 string cheese AM Snack Coffee w/ collagen PP Lunch Atkins shake-160 kcal, seasoned tuna packet PM Snack Dinner Maltese [place] meat pie HS Snack 1 spoonful ice cream Protein/ grams per day: 62g pro Hydrating fluids- oz/ day: 11 oz shake, water w/ travon- 40-80 oz, drinks milk occ Soda: none ETOH: none Caffeine: 2 small coffees w/ cream Sweets: Can tolerate small amounts Meals per day: 3 ?? Feels full/satisfied after eating: yes ?? Feels hungry []never [x]sometimes []most of the time [] always ?? Drinks with meals: no ?? Practices portion control: yes ?? Spends at least 20 minutes eating each meal: n/a ?? Has had dumping syndrome: none ?? In the past month, pt has vomited/regurgitated: none ?? Constipation/Diarrhea: none Exercise: not horseback riding currently, walking w/ dogs, reports energy is good ASSESSMENT: Summary of Weight Loss: Natalia Damico returns for routine follow-up at 4 months s/p surgery. Her excess weight loss is at50%. Pt is tolerating the diet and is meeting protein and fluid goals. Discussed liberalizing carbohydrate and fat intake. Reviewed supplements, pt states she is inconsistent about taking evening dose of fusion MVM, discussed moving supplements to another area where she is more likely to take them in the evening. Encouraged increased exercise as tolerated. NUTRITION INTERVENTION & MONITORING: ?? Provided support/encouragement and reinforced importance of meeting nutritional goals. ?? Great work meeting protein and fluid goals ?? Okay to increase carbohydrate and fat intake, continue tracking to ensure you are meeting proteinneeds ?? Reviewed vitamin and mineral supplement recommendations. ? Continue taking Bariatric Fusion Complete multivitamin, two wafers twice daily (which includes VitB12 560 mcg, Vit D3 3,000 IU, Calcium 1200 mg, Iron 45mg/day). ?? Evaluation by nurse practitioner today. RTC in 8 mo for next BSP follow up visit, with labs. Call/rtc sooner prn with questions/concerns. Jennifer Florez APRN - 11/04/2021 10:30 AM [place] [address] Reason for visit: Bariatric Surgery follow up visit Subjective: Natalia Damico is s/p laparoscopic sleeve gastrectomy ??on 07/02/21?with Dr. Hastings, she presents today for 4 month post bariatric surgery follow up. Overall tolerating foods/fluids and trying to makesure she is meeting nutritional/fluid requirements. No bariatric related concerns/complaints today. Current Supplements: Patient taking Bariatric Fusion Complete multivitamin, two wafers twice daily (which includes Vit B12 560 mcg, Vit D3 3,000 IU, Calcium 1200 mg, Iron 45mg/day). Interim Health: Patient reports health has been stable overall. No bariatric related surgeries, hospitalizations, or ED visits since the last visit. No kidney stones or atraumatic fractures. Pt follows with PCP/specialist for disease management and age specific screening. Pre-Bariatric Surgery Obesity related medical issues: ? Diabetes: Not a baseline issue.?? ? HTN: Not a baseline issue. ? GERD: Not a baseline issue.?? ? Hyperlipidemia: Not a baseline issue.?? ? CLAUDE: ??Not a baseline issue.?? ? Musculoskeletal issues: baseline issue, ??right foot pain, left knee pain, low back pain (improvedsince surgery). ? Liver Disease: Not a baseline issue. Patient Active Problem List Diagnosis Code ??? Back pain M54.9 ??? Attention deficit hyperactivity disorder (ADHD) F90.9 ??? Generalized anxiety disorder F41.1 ??? Sleep disorder G47.9 ??? Temporomandibular joint disorder M26.609 ??? Morbid obesity E66.01 Review of Systems Constitutional: energy level is good, no c/o restless leg, no pica, endorses hair thinning/loss. Neuro: no c/o paresthesias. No changes in memory. CV: no chest pain or palpitations. Pulm: denies SOB or cough. GI: denies bloating, abdominal pain, nausea, vomiting. No diarrhea or constipation. MANAGER INTRANET: s/p endometrial ablation. Skin: No c/o redundant skin, no skin fold rashes. Health Habits: Tobacco/Nicotine use: None (quit for surgery). ETOH use: None. No NSAID use. 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 Dietary history/ exericse/ activity level: See dietitian note from today's visit for complete dietary evaluation. Meds and Allergies reviewed. ?? Complications summary: Early none Late - ? WT (lbs) BMI Height Highest wt Pre-op visits 02/06/21 273 46.9 5'4 273 lbs ?? 04/25/21 281 48.4 ? 05/30/21 265 45.6 ? Post-op WT (lbs) BMI ?? %EBW lost 07/23/21 247 42.3 ?? 20% 11/04/21 210?? 36.4 ?? 50%? Objective: BP (!) 147/95 Pulse 65 Temp 36.4 ??C (97.5 ??F) Resp 16 Ht 162.6 cm (5' 4.02) Wt 95.3 kg (210 lb 1 oz) SpO2 100% BMI 36.04 kg/m?? Physical Exam General: Alert, pleasant, NAD, appears well. Abdomen: Soft, non-distended, non-tender. Well healed incisions. Respiratory: No increased work of breathing. Speaking in full sentences. No cough/wheeze witnessed. Skin: No excess skin noted over abdomen. Skin is warm and dry. No rash noted on exam today. Psychiatric: Normal mood and affect. Appropriate eye contact. No results found for this or any previous visit (from the past 72 hour(s)). Assessment 51 y.o. female 4 months s/p sleeve gastrectomy with 50% of excess body weight lost. Plan: ??? S/p bariatric surgery: o Doing well from a bariatric surgery perspective, overall pleased with surgery outcome. Discussed dietary considerations and strategies for continued success . Reviewed importance of meeting nutritional/protein/fluid requirements, tracking food and food choices, pairing carbs with protein, being careful to avoid eating too fast, eating too much, drinking with meals, or not chewing well enough. o Patient has met with briquette operator today, please see note for additional details/dietary evaluation. o Advised that Ursodiol can be discontinued at 6 months post-operatively. o Advised that hair loss due to rapid weight loss is typical for this early post-surgery time frame,will improve with time and adequate protein/calorie intake. o Avoid ETOH until 6-12 months post-operatively, and then should be used in small amounts ??? Obesity related co-morbidities: o Improved/stable overall. ??? Risk for vitamin deficiencies: o Will check iron studies, folate, Vit D, Vit B 1, Vit B 12, hemogram, CMP, PTH. Will make additional recommendations once lab results are available. o Pt reminded that a bone mineral density scan (DEXA) is recommended every 2 years after bariatric surgery. RTC in 8 months for 1 year post bariatric surgery follow up visit, with labs. Call/rtc sooner prn with questions/concerns, unexplained abdominal pain, prolonged nausea, vomiting or inability to hydrate, questions or concerns. Bariatric Program Summary report is availabe for patient's review via e- I spent a total of 30 minutes associated with this encounter, including chart review, the patient encounter, and documentation. Jennifer Florez APRN RECOMMENDED BARIATRIC SURGERY PROGRAM [...] If labwork is done by the primary insurance healthcare consultant: please send a copy to the Bariatric Surgery Program, General Surgery Clinic, [facility], or fax [phone] documented in this encounter Plan of Treatment Not on filedocumented as of this encounter Procedures Procedure Name Priority Date/Time Associated Comments Diagnosis HC PARATHYROID Routine 11/04/2021 2:07 PM S/P bariatric Result s for this HORMONE(PTH INTACT EST surgery procedure are in Disorder of iron the results metabolism section. HC HEMOGRAM Routine 11/04/2021 2:07 PM S/P bariatric Results for this EST surgery procedure are in Disorder of iron the results metabolism section. HC PCH THIAMIN Routine 11/04/2021 2:07 PM S/P bariatric Result s for this LVL(VITAMIN B1) EST surgery procedure are in [facility] Disorder of iron the results metabolism section. HC IRON BINDING Routine 11/04/2021 2:07 PM S/P bariatric Resul ts for this CAPACITY EST surgery procedure are in Disorder of iron the results metabolism section. HC VITAMIN D TOTAL-25 Routine 11/04/2021 2:07 PM S/P bariatric Results for this HYDROXY EST surgery procedure are in Disorder of iron the results metabolism section. HC FOLATE, SERUM Routine 11/04/2021 2:07 PM S/P bariatric Resu lts for this EST surgery procedure are in Disorder of iron the results metabolism section. HC FERRITIN, SERUM Routine 11/04/2021 2:07 PM S/P bariatric Re sults for this EST surgery procedure are in Disorder of iron the results metabolism section. HC VENIPUNCTURE Routine 11/04/2021 2:07 PM S/P bariatric Resul ts for this EST surgery procedure are in Disorder of iron the results metabolism section. COMPREHENSIVE Routine 11/04/2021 2:07 PM S/P bariatric Results for this METABOLIC PANEL EST surgery procedure are in (NON-FASTING) Disorder of iron the result s metabolism section. documented in this encounter Results (ABNORMAL) Comprehensive metabolic panel (non-fasting) (11/04/2021 2:07 PM EST) P athologist Signature Glucose Lvl 96 65 - 199 [facility] mg/dL [facility] Comment: Diabetes: >=200 mg/dL plus symp toms BUN 8 8 - 18 mg/dL [facility] Creatinine 0.62 (L) 0.70 - 1.20 mg/dL [facility] Sodium 141 135 - 145 mmol/L [facility] Potassium 3.9 3.5 - 5.0 mmol/L [facility] Comment: Please note: ??Patients with WBC >100,00 0 may have falsely elevated Potassium levels. ??For accurate Potassium quantif ication in these patients send serum separator tube (gold top) for subsequent determinations. ??Contact the Clinical Chemistry Laboratory if there are any qu estions. Chloride 101 98 - 107 mmol/L [facility] CO2 26 22 - 31 mmol/L [facility] Anion Gap 14 5 - 15 mmol/L [facility] Calcium 9.9 8.5 - 10.5 mg/dL [facility] Total Protein 7.3 6.1 - 8.0 g/dL [facility] Albumin 4.7 3.2 - 5.2 g/dL [facility] AST 15 0 - 30 unit/L [facility] ALT 16 0 - 30 unit/L [facility] Alk Phos 111 (H) 35 - 105 unit/L [facility] Total Bilirubin 0.3 0.2 - 1.3 mg/dL [facility] Estimated GFR 104 >=60 mL/min/1.73 m?? [facility] Comment: This patient? s [...] Resulting Agency Comment Spec In Lab Jennifer Andrew Florez EXCHANGE ARCHITECT CHEMISTRY ORDERABLES Performing Organization Address City/[facility]/ZIP Code Phon e Number [address] Ferritin (11/04/2021 2:07 PM EST) athologist Signature Ferritin 114 30 - 400 [facility] ng/mL [facility] Comment: Pediatric reference ranges not verified at [facility], interpret with caution. Reference ranges for females greater jared n 50 years of age approach values for men, i.e., 30-400 ng/mL. Specimen Anatomical Collection Method Collection Time Receive d Time (Source) Location / / Volume Laterality Blood 11/04/2021 2:07 PM 2 5:26 EST PM EST Resulting Agency Comment Spec In Lab Jennifer E Corona EXCHANGE ARCHITECT CHEMISTRY ORDERABLES Performing Organization Address City/State/[place] [address] Folate, serum (11/04/2021 2:07 PM EST) athologist Signature Folate Lvl 19.1 4.8 - 24.2 KYLE[place] GEORGI ng/mL [facility] Specimen Anatomical Collection Method Collection Time Receive d Time (Source) Location / / Volume Laterality Blood 11/04/2021 2:07 PM 2 5:26 EST PM EST Resulting Agency Comment Spec In Lab Jennifer Florez APRN CHEMISTRY ORDERABLES Performing Organization Address City/State/[place] [address] Hemogram (11/04/2021 2:07 PM EST) athologist Signature WBC 5.8 4.0 - 9.5 [employer] x10(3)/[facility] LABORATORY RBC 4.57 4.00 - [employer] TechnologiesGEORGI 5.21 [facility] x10(6)/[facility] LABORATORY Hemoglobin 13.4 11.7 - KYLE[place] GEORGI 15.5 g/dL [facility] Hematocrit 42.0 35.7 - [employer] TechnologiesGEORGI 45.8 % [facility] MCV 91.9 82.6 - [facility] GEORGI 94.4 [facility] LABORATORY MCH 29.3 27.1 - [place] GEORGI 32.0 pg [facility] MCHC 31.9 31.7 - [employer] TechnologiesGEORGI 35.0 g/dL [facility] Platelets 296 145 - 357 [employer] x10(3)/[facility] LABORATORY RDWSD 45.3 37.0 - [employer] TechnologiesGEORGI 46.0 [facility] LABORATORY RDWCV 13.2 11.5 - [employer] TechnologiesGEORGI 14.1 % [facility] MPV 11.5 7.6 - 12.9 [place] GEORGI [facility] LABORATORY nRBC % Auto 0.0 % [facility] nRBC Abs Auto 0.000 0.000 - [employer] 0.000 [facility] x10(3)/[facility] LABORATORY Specimen Anatomical Collection Method Collection Time Receive d Time (Source) Location / / Volume Laterality Blood 11/04/2021 2:07 PM 2 3:41 EST PM EST Resulting Agency Comment Spec In Lab Jennifer E Corona EXCHANGE ARCHITECT HEMATOLOGY ORDERABLES Performing Organization Address City/[facility]/ZIP [facility] Phon e Number [address] Vitamin D, 25-Hydroxy (11/04/2021 2:07 PM EST) Patholo gist Method Time Signature 25-OH Vit D 36 21 - 100 KYLEIGH LAUREANO Total ng/mL [facility] 25-OH Vit D Sufficient [facility] LABORATORY Specimen Anatomical Collection Method Collection Time Receive d Time (Source) Location / / Volume Laterality Blood 11/04/2021 2:07 PM 2 5:26 EST PM EST Resulting Agency Comment Spec In Lab Jennifer E Vikki EXCHANGE ARCHITECT CHEMISTRY ORDERABLES Performing Organization Address [facility]/ZIP [facility] Phon e Number [address] PTH (11/04/2021 2:07 PM EST) P athologist Signature PTH 56 15 - 65 [place] GEORGI pg/mL [facility] Specimen Anatomical Collection Method Collection Time Receive d Time (Source) Location / / Volume Laterality Blood 11/04/2021 2:07 PM 2 4:03 EST PM EST Resulting Agency Comment Spec In Lab Jennifer E Corona EXCHANGE ARCHITECT CHEMISTRY ORDERABLES Performing Organization Address [facility] Phon e Number [address] Vitamin B1, whole blood (11/04/2021 2:07 PM EST) P athologist Signature Vit B1 Lvl WB 118 70 - 180 [facility] nmol/L [facility] Comment: ADDITIONAL INFORMATIO N This test was developed and its performa nce characteristics determined by [facility] in a manner co nsistent with CLIA requirements. This test has not been josue ared or approved by the U.S. Food and Drug Administration. Test Performed by: [facility] [address] [place], [place] [address] [address] Hand: Binu Marques M.D. Ph. D.; CLIA# [id number] Specimen Anatomical Collection Method Collection Time Receive d Time (Source) Location / / Volume Laterality Blood 11/04/2021 2:07 PM 2 4:34 EST PM EST Resulting Agency Comment Spec In Lab Jennifer E Corona EXCHANGE ARCHITECT CHEMISTRY ORDERABLES Performing Organization Address City/[facility]/[place] [address] (ABNORMAL) Iron and TIBC (11/04/2021 2:07 PM EST) athologist Signature Iron 46 30 - 150 [facility] mcg/dL [facility] TIBC 284 250 - 450 [facility] mcg/dL [facility] Iron Saturation 16 (L) 20 - 50 % [facility] Specimen Anatomical Collection Method Collection Time Receive d Time (Source) Location / / Volume Laterality Blood 11/04/2021 2:07 PM 2 5:25 EST PM EST Resulting Agency Comment Spec In Lab Jennifer E Corona EXCHANGE ARCHITECT CHEMISTRY ORDERABLES Performing Organization Address City/[facility]/[place] [address] Vitamin B12 (11/04/2021 2:07 PM EST) athologist Signature Vitamin B-12 459 232 - 1,245 [facility] pg/mL [facility] Specimen Anatomical Collection Method Collection Time Receive d Time (Source) Location / / Volume Laterality Blood 11/04/2021 2:07 PM 2 5:26 EST PM EST Resulting Agency Comment Spec In Lab Jennifer E Vikki EXCHANGE ARCHITECT CHEMISTRY ORDERABLES Performing Organization Address City/[facility] [place] [address] documented in this encounter Visit Diagnoses Diagnosis S/P bariatric surgery Bariatric surgery status Disorder of iron metabolism Other disorders of iron metabolism documented in this encounter Care Teams Joint Setter Relationship Specialty Start Date End Date Rob Smith APRN PCP - General Family Medicine 11/15/19 [address] [place] [address] documented as of this encounter
--- OUTSIDE RECORDS SUMMARY | 2022-04-24 00:23 | XMS_ITS | Encounter Summary ---
:1970 Author Organization [facility] Address [address] [place] [address] Care Team Providers Name Role Phone Joaquin Celaya MD Primary Care Provider Britt Mckay MD Primary Care Provider Encounter Details Date Type Department Care Team Description 09/22/2004 Results Only [facility] - Britt Calderon MD conversion [address] [place] [phone] (Wo rk) Social History Tobacco Use Types Packs/Day Years Used Date Never Assessed Sex Assigned at Date Recorded Not on file documented as of this encounter Plan of Treatment Not on filedocumented as of this encounter Procedures Procedure Name Priority Date/Time Associated Diagnosis Comme nts CYTOPATHOLOGY Routine 09/22/2004 0:00 EST Results for this procedure are i n the results section . documented in this encounter Results CYTOPATHOLOGY (09/22/2004 0:00 EST) Pathology Report: CYTOPATHOLOGY REPORT [facility] Reports generated via electronic interface contain alma ginal data; however they are lacking the format of the original re port. Caution should be taken when reading/interpreting unfo rmatted reports. Name: ? GARO MONTANA ? Accession #: ? [id number] : ? 1970 (Age: 34) ??F ?Collect Date: ? 09/02 Location: ? [facility] ? Receive Date : ? 09/24/2004 Provider: ?BRITT MCKAY MD Copy to: ? Specimen/Source: ?ThinPrep Pap Test, Cervix/ Endocervix Last Menstrual Period: ? 09/08/04 Other: ? HPVA - HPV testing requested if ASC-US on the current ThinPrep Pap test. ? SPECIMEN ADEQUACY ? Satisfactory for Evaluation - transformation zone component present GENERAL CATEGORIZATION ? Negative for Intraepithelial Lesion or Malignan cy ? Document reviewed and electronically signed by: ? WESTON Rene(ASCP) ? Report Date: ??10/01/2004 12:45 End of Report Specimen Performing Organization Address City/State/ZIP Code Phon e Number [facility] [address] [place] [address] SERVICES [facility] [address] [place] [address] documented in this encounter Visit Diagnoses Not on filedocumented in this encounter Care Teams Apparel Merchandiser Relationship Specialty Start Date End Date Joaquin Celaya MD PCP - General 04/22/10 06/11/[address] [place] [phone] Britt Mckay MD PCP - General 01/23/10 04/21/[address] [id number] documented as of this encounter
--- OUTSIDE RECORDS SUMMARY | 2022-04-24 00:23 | XMS_ITS | Encounter Summary ---
:1970 Author Organization [facility] Address [address] [place] [address] Care Team Providers Name Role Phone Britt Crowell MD Primary Care Provider Encounter Details Date Type Department Care Team Description 06/07/2003 Results Only [facility] - Britt Calderon MD conversion [address] [place] [phone] (Wo rk) Social History Tobacco Use Types Packs/Day Years Used Date Never Assessed Sex Assigned at Date Recorded Not on file documented as of this encounter Plan of Treatment Not on filedocumented as of this encounter Procedures Procedure Name Priority Date/Time Associated Diagnosis Comme nts CYTOPATHOLOGY Routine 06/07/2003 0:00 EDT Results for this procedure are i n the results section . documented in this encounter Results CYTOPATHOLOGY (06/07/2003 0:00 EDT) Pathology Report: CYTOPATHOLOGY REPORT [facility] Reports generated via electronic interface contain alma ginal data; however they are lacking the format of the original re port. Caution should be taken when reading/interpreting unfo rmatted reports. Name: ? GARO MONTANA ? Accession #: ? [id number] : ? 1970 (Age: 32) ??F ?Collect Date: ? 0805/2003 Location: ? [facility] ? Receive Date : ? 06/11/2003 Provider: ?BRITT CROWELL MD Copy to: ? Specimen/Source: ?ThinPrep Pap Test, Cervix/ Endocervix Last Menstrual Period: ? 05/24/03 Other: ? Additional clinical information: PID HPVA - HPV testing requested if ASC-US on the current ThinPrep Pap test. ? SPECIMEN ADEQUACY ? Satisfactory for Evaluation - transformation zone component present GENERAL CATEGORIZATION ? Negative for Intraepithelial Lesion or Malignan cy ? Document reviewed and electronically signed by: ? WESTON Medellin(ASCP) ? Report Date: ??06/14/2003 08:48 End of Report Specimen Performing Organization Address City/State/ZIP Code Phon e Number [facility] [address] [place] [address] SERVICES [facility] [address] [place] [address] documented in this encounter Visit Diagnoses Not on filedocumented in this encounter Care Teams Director Drug Relationship Specialty Start Date End Date Britt Crowell MD PCP - General 01/23/10 04/21/[address] [phone] documented as of this encounter
--- OUTSIDE RECORDS SUMMARY | 2022-04-24 00:23 | XMS_ITS | Encounter Summary ---
:1970 Author Organization [facility] Address [address] [place] [address] Care Team Providers Name Role Phone Britt Mckay MD Primary Care Provider Encounter Details Date Type Department Care Team Description 11/25/2000 Results Only [facility] - Tyesha Marcos CNM conversion [address] [facility] [address] [place], [place] [address] [place] [address] [phone] Social History Tobacco Use Types Packs/Day Years Used Date Never Assessed Sex Assigned at Date Recorded Not on file documented as of this encounter Plan of Treatment Not on filedocumented as of this encounter Procedures Procedure Name Priority Date/Time Associated Diagnosis Comme nts CYTOPATHOLOGY Routine 11/25/2000 0:00 EST Results for this procedure are i n the results section . documented in this encounter Results CYTOPATHOLOGY (11/25/2000 0:00 EST) Pathology Report: CYTOPATHOLOGY REPORT [facility] Reports generated via electronic interface contain alma ginal data; however they are lacking the format of the original re port. Caution should be taken when reading/interpreting unfo rmatted reports. Name: ? GARO MONTANA ? Accession #: ? [id number] : ? 1970 (Age: 30) ??F ?Collect Date: ? 11/02 Location: ? [facility] ? Receive Date : ? 11/26/2000 Provider: ?ANERhea JUAREZ CNM Copy to: ? Specimen/Source: ?ThinPrep Pap Test, Cervix/ Endocervix Last Menstrual Period: ? 11/15/99 Menstrual/ Status: ? Post ? SPECIMEN ADEQUACY ? Satisfactory for evaluation but limited by scan t squamous epithelial component secondary to excessive inflammation. GENERAL CATEGORIZATION ? Within Normal Limits ? Document reviewed and electronically signed by: ? WESTON Tubbs(ASCP)(IAC) ? Report Date: ??11/29/2000 17:13 End of Report Specimen Performing Organization Address City/State/ZIP Code Phon e Number [facility] [address] [place] [address] SERVICES [facility] [address] [place] [address] documented in this encounter Visit Diagnoses Not on filedocumented in this encounter Care Teams Automotive Window Tinter Relationship Specialty Start Date End Date Britt Mckay MD PCP - General 01/23/10 04/21/[address] [phone] documented as of this encounter
--- OUTSIDE RECORDS SUMMARY | 2022-04-24 00:23 | XMS_ITS | Encounter Summary ---
:1970 Author Organization [facility] Address [address] [place] [address] Care Team Providers Name Role Phone Unavailable Primary Care Provider Unavailable Encounter Details Date Type Department Care Team Description 01/18/2009 Before [facility] - Britt Crowell MD Converted Visit [place] conversion [address] ([place]) [address] [facility] [address] [place], [place] [id number] [place] [phone] (Wo rk) Social History Tobacco Use Types Packs/Day Years Used Date Never Assessed Sex Assigned at Date Recorded Not on file documented as of this encounter Plan of Treatment Not on filedocumented as of this encounter Procedures Procedure Name Priority Date/Time Associated Diagnosis Comme nts CYTOPATHOLOGY Routine 01/18/2009 0:00 EDT Results for this procedure are i n the results section . documented in this encounter Results CYTOPATHOLOGY (01/18/2009 0:00 EDT) Pathology Report: CYTOPATHOLOGY REPORT ? [facility] Reports generated via electr onic interface contain original data; ? however they are lacking the format of the original report. ? Caution should be taken when reading/interpreting unformatted reports. ? Name: ? GARO MONTANA L ? Accession #: ? [id number] ? : ? 1970 (Age: 38) ??F ?Collect Date: ? 01/18/2009 ? Location: ? [facility] ? Receive Date: ? 01/22/2009 ? Provider: ?BRITT CROWELL MD ? Copy to: ? Specimen/Source: ? Pap Test, Cervix/Endocervix, ThinPrep Imaging System ? with manual evaluation ? Last Menstrual Period: ? 03/11/09 ? Infection History: ? Herpes ? Other: ? HPVA - HPV testing requested if ASC-US on the current ThinPrep Pap test. ? SPECIMEN ADEQUACY ? Satisfactory for Eval uation ? - transformation zone compon ent absent ? GENERAL CATEGORIZATION ? Negative for Intraepi thelial Lesion or Malignancy ? Document reviewed and electr onically signed by: ? Arlene Baltazar, CT( CP)(IAC) ? Report Date: ??03/25/ 2009 14:54 ? End of Report ? Specimen Performing Organization Address City/State/ZIP Code Phon e Number [facility] [address] [place] [address] SERVICES [facility] [address] [place] [address] documented in this encounter Visit Diagnoses Not on filedocumented in this encounter
--- OUTSIDE RECORDS SUMMARY | 2022-04-24 00:23 | XMS_ITS | Encounter Summary ---
:1970 Author Organization [facility] Address [address] [place] [address] Care Team Providers Name Role Phone Joaquin Celaya MD Primary Care Provider Encounter Details Date Type Department Care Team Description 08/30/2018 Results Only [facility] Matteo Miranda MD [phone] [address] [place] [phone] Social History Tobacco Use Types Packs/Day Years Used Date Current Every Day Smoker 0.5 Sex Assigned at Date Recorded Not on file documented as of this encounter Plan of Treatment Not on filedocumented as of this encounter Procedures Procedure Name Priority Date/Time Associated Diagnosis Comme nts PAP TEST- RESULT Routine 08/30/2018 0:00 EDT Resu lts for this ONLY procedure are i n the results section. documented in this encounter Results PAP TEST- RESULT ONLY (08/30/2018 0:00 EDT) Pathology Report: CYTOPATHOLOGY REPORT [facility] Reports generated via electronic interface contain alma ginal data; SERVICES however they are lacking the format of the original re port. Caution should be taken when reading/interpreting unfo rmatted reports. Name: ? GARO MONTANA ? Accession #: ? [id number] ? : ? 1970 (Age: 48) ??F ?Collect Da te: ? 08/30/2018 ? Location: ? [facility] ? Receive Date: ? 018 ? Provider: MATTEO MIRANDA MD Copy to: DOMINIQUE WHEATLEY CREW DIRECTOR ? Final Report SPECIMEN ADEQUACY ? Satisfactory for Evaluation - transformation zone component absent GENERAL CATEGORIZATION ? Negative for Intraepithelial Lesion or Malignan cy ?? Specimen/Source: ??Pap Test, Cervix, ThinPrep Imaging System with manual evaluation Document reviewed and electronically signed by: ? Ifrah Riley, [facility](ASCP) ? Report ??Date: 09/08/2018 11:45 HPV with Pap Test ? Date Ordered: ? 09/08/2018 ? Status: ?? Signed Out ?Date Complete: ? 09/09/2018 ? By: ??Sy stem Interface ? Date Reported: ? 09/09/2018 ? Interpretation RESULT: Negative for HPV. No E6 or E7 mRNA is detected from HPV types 16,18,31,3 3,35, 39,45,51,52,56,58,59,66, and 68 by plastic welder media jennifer amplification. Comments Document reviewed and electronically signed by: ? System Interface ? Report date: 09/09/2018 By the signature above, the attending physician certif ies that he/she has personally conducted a gross and/or microscopic examin ation of the described specimens and rendered or confirmed the above diagnosi s. End of Report Specimen Performing Organization Address City/State/ZIP Code Phon e Number [facility] [address] [place] [address] SERVICES documented in this encounter Visit Diagnoses Not on filedocumented in this encounter Care Teams Physical Science Professor Relationship Specialty Start Date End Date Joaquin Celaya MD PCP - General 04/22/10 06/11/20 [address] [place] [phone] documented as of this encounter
--- OUTSIDE RECORDS SUMMARY | 2022-04-24 00:23 | XMS_ITS | Encounter Summary ---
:1970 [place] [address] Care Team Providers Name Role Phone Rob Smith BRENNA Primary Care Provider Reason for Visit Auth/Cert Specialty Diagnoses / Procedures Referred By Contact Refer red To Contact Diagnoses MORBID OBESITY Procedures PRO LAPAROSCOPY, SURG/GASTRIC RESTRICTIVE PROC, LONGITUDINAL GASTRECTOMY @LAPAROSCOPY, SURG/GASTRIC RESTRICTIVE PROC, LONGITUDINAL GASTRECTOMY (WRVU 20.38) Referral ID Status Reason Start Date Expiration Date Visits Requ ested Visits Authorized [id number] 1 1 Encounter Details Date Type Department Care Team Description 07/02/2021 - Hospital Encounter 4 [facility] Corrie Chopra, 07/04/2021 [facility] [address] [place], [place] GENERAL SURGERY [address] [place] [address] [phone] Social History Tobacco Use Types Packs/Day Years Used Date Former Smoker Smokeless Tobacco: Never Used Comments: pt quit 3 yrs ago Sex Assigned at Date Recorded Not on file documented as of this encounter Last Filed Vital Signs Vital Sign Reading Time Taken Comments Blood Pressure 158/78 07/04/2021 11:45 AM EDT Pulse 69 07/03/2021 3:54 PM EDT Temperature 36.8 ??C (98.2 ??F) 07/04/2021 11:45 AM EDT Respiratory Rate 18 07/04/2021 11:45 AM EDT Oxygen Saturation 97% 07/04/2021 11:45 AM EDT Inhaled Oxygen Concentration - - Weight 118.6 kg (261 lb 8 oz) 07/02/2021 6:25 AM EDT Height 162.6 cm (5' 4.02) 07/02/2021 6:25 AM EDT Body Mass Index 44.86 07/02/2021 6:25 AM EDT documented in this encounter Discharge Summaries Trey Mora MD - 07/04/2021 2:30 PM EDT General Surgery Discharge Summary Primary Diagnosis: Morbid Obesity Secondary Diagnosis: Patient Active Problem List Diagnosis Code ??? Back pain M54.9 ??? Attention deficit hyperactivity disorder (ADHD) F90.9 ??? Generalized anxiety disorder F41.1 ??? Sleep disorder G47.9 ??? Temporomandibular joint disorder M26.609 ??? Morbid obesity E66.01 Operations and Procedures: Procedure(s): @LAPAROSCOPY, SURG/GASTRIC RESTRICTIVE PROC, LONGITUDINAL GASTRECTOMY (WRVU 20.38) Surgeons: Surgeon(s) and Role: * Corrie Chopra MD - Primary * Anselmo Deshpande MD - Resident History of Present Illness: Hospital Course: Natalia Damico is a 50 y.o. female who was admitted on 07/02/2021 postoperatively after a Laparoscopic Sleeve Gastrectomy. Operative course was uneventful, please see operative note for further detail. On POD#1 her diet was advanced from stage 1 to stage 2, which was tolerated well. she was changed to oral pain medicationsshe was voiding without difficulty. On POD#1 the dressing was dry and intact and the wound was benign. Prior to discharge on POD#2 Natalia Damico was afebrile, with stable vital signs. On POD#2, was discharged to home in stable condition. Vital Signs Last value Range last 24hrs Temperature Temp: 36.8 ??C (98.2 ??F) Temp: [36.8 ??C (98.2 ??F)-37.2 ??C (99 ??F)] Heart Rate Heart Rate: 69 Heart Rate: [69] Blood Pressure BP: 158/78 BP: (137-176)/(71-104) Respiratory Rate Resp: 18 Resp: [17-18] SpO2 SpO2: 97 % SpO2: [96 %-99 %] Pertinent Lab Data: Recent Labs 07/03/21 0629 WBC 8.6 HGB 11.7 HCT 35.9 PLATELET 253 Recent Labs 07/03/21 0629 NA 137 K 3.9 CL 105 CO2 23 BUN 8 CREATININE 0.50* GLUCOSE 118 CALCIUM 8.3* MAGNESIUM 0.78 PHOS 2.3* Physical Exam: General: NAD, resting comfortably, pleasant, conversant HEENT: PERRL, anicteric sclerae CVS: RRR Pulm: CTAB Abd: soft, nontender, non-distended, port site incisions clean, dry and intact Skin: warm, dry Ext: no c/c/e, cap refill <2sec Neuro: CN 2-12 grossly intact, nonfocal,moving all four extremities spontaneously Imaging: No results found. Condition at discharge: Stable Mental Status: awake and alert, oriented x 3 Medications: Your Medications New Medications Dose Details acetaminophen 650 mg/20.3 mL Soln Commonly known as: Tylenol Take 20.3 mLs by mouth every 6 hours as needed (for Pain). 650 mg Refills: 0 enoxaparin 40 mg/0.4 mL Syrg Commonly known as: Lovenox Inject 0.4 mLs subcutaneously 2 times daily for 10 days. 40 mg Quantity: 8 mL Refills: 0 omeprazole 40 mg Cpdr Commonly known as: PriLOSEC Take 1 capsule by mouth daily for 360 days. 40 mg Quantity: 90 capsule Refills: 3 ondansetron ODT 4 mg Tbdl Commonly known as: Zofran-ODT Take 1 tablet by mouth every 8 hours as needed for Nausea. 4 mg Quantity: 20 tablet Refills: 0 oxyCODONE 5 mg/5 mL Soln Commonly known as: Roxicodone Take 5 mLs by mouth every 6 hours as needed for Pain. 5 mg Quantity: 60 mL Refills: 0 ursodioL 300 mg Cap Commonly known as: Actigall Take 1 capsule by mouth 2 times daily. 300 mg Quantity: 180 tablet Refills: 3 Continued medications, unchanged Dose Details biotin 300 mcg Tab Take 2,500 mcg by mouth daily. 2,500 mcg Refills: 0 collagen (bovine) 100 % Powd Apply topically daily. Refills: 0 escitalopram 20 mg Tab Commonly known as: Lexapro Take 30 mg by mouth daily. 30 mg Refills: 0 Sodium Fluoride 1.1 % Pste Commonly known as: Clinpro 5000 BRUSH DIRECTED ONCE DAILY Refills: 0 Disposition: Home Allergies: No Known Allergies Outpatient Services/Studies: No discharge procedures on file. Scheduled Appointments: Future Appointments and Orders Future Appointments and Orders Future Appointments Provider Department Dept Phone 07/21/2021 9:[address]; Jennifer Florez APRN General Surgery at [facility] Arrive at: [facility] Area [phone] 11/04/2021 10:[address]; Jennifer Florez APRN General Surgery at [facility] Arrive at: [facility] Area [phone] Instructions Given to Patient at Discharge: Patient Instructions BARIATRIC SURGERY DISCHARGE INFORMATION BARIATRIC SUPPORT TEAM CONTACT NUMBERS (Mon-Fri 8am - 5pm): General Surgery and Bariatric Surgery [phone] Bariatric Surgeons: Drs. Rand [phone] Fur Sewer: [phone] Dietitians: [phone] Outside of regular business hours, including weekends and holidays: Ask for General Surgery resident precision optics technician [phone] Please note, this call will be answered by a resident, and they may not be Able to return your call for many hours FOR EMERGENCIES: CALL 911 (trouble breathing, chest pain, rapid heart rate >120 beats per minute or severe abdominal pain) CALL THE BARIATRIC [...] a blood clot: leg swelling, redness, or pain, shortness of breath ?? Problems with urination or constipation, worsening abdominal pain not controlled with pain medication ?? Any concerns you may have after your surgery Follow up Information: You have a surgical followup appointment with The Bariatric Surgery Team in 3 weeks at the General Surgery Outpatient [facility] ([facility] [address] [place] [address]). Future Appointments Date Time Provider Department Center 07/21/2021 9:30 AM Jennifer Florez APRN [facility] 11/04/2021 10:30 AM Jennifer Florez APRN [facility] BATHING AND WOUND CARE: ?? You may [...] you feel comfortable. ?? Do not drive if you are taking narcotic pain medication. When you are no longer taking narcotic pain medication and when it no longer causes pain to get in and out of the vehicle, you may drive whencomfortable. DIET: ?? Follow Stage II diet for two weeks. ?? Keep a log of your intake: Daily goals are: 48-64 ounces of fluids and 60 grams of protein. MEDICATIONS: ?? For 2 WEEKS: LARGE pills (bigger than the size of an eraser on the end of a pencil) must be crushed. Capsules must be opened and put on applesauce or pudding. ?? Pills smaller than the size of an eraser DO NOT need to be crushed. ?? Not all medications can be crushed. Check with your pharmacist if unsure. ?? HOLD bariatric vitamins for 2 weeks after surgery (unless you have one that is chewable or liquid) BLOOD CLOT PREVENTION: ?? You WILL be discharged on enoxaparin injections twice daily for 10 days after you go home to prevent blood clots. ?? Be active, walk at least 4 times a day and do blood clot prevention exercises in your handbook onpage 82. ?? You do not meet scoring criteria to be discharged on medication to prevent blood clots. Be active, walk at least 4 times a day and do blood clot prevention exercises in your handbook on page 82. IF YOU ARE TREATED FOR OBSTRUCTIVE SLEEP APNEA: ?? IMPORTANT - you MUST use your CPAP/ BIPAP after surgery while sleeping at night and also when napping during the day because some medications you may have been prescribed at discharge can decrease your breathing. ?? Follow up with the Sleep Center if pressure seems to be too high. ULCER PREVENTION: ?? IMPORTANT - starting the day after discharge, you must take acid suppressing medication for 3 MONTHS after surgery. This is taken to prevent ulcers at your surgical sites internally, even if you do not have heartburn. ?? omeprazole 40 mg daily (or another medication you may currently take for heartburn/reflux that has been discussed with Bariatric Team) ?? Omeprazole capsules contain enteric-coated, delayed-release granules. It is ok to swallow this capsule, but if you choose, you can OPEN the capsules, sprinkle the enteric-coated granules on applesauce or yogurt. Alternatively, you may take the granules with apple juice, or swallow them quickly withwater. Follow any of these methods with additional water to ensure that you have swallowed the granules completely. ?? If your insurer does not cover omeprazole, or similar medications such as pantoprazole, you must purchase these medications over the counter. ?? You will continue this after the initial 3 month course if you have heartburn or reflux GALLSTONE PREVENTION: ?? If you have had your gallbladder REMOVED - you do not need this medication. ?? If you have your gallbladder after Bariatric Surgery - you must take start taking Ursodiol (Actigall) 250 mg twice a day to prevent gallstones. You may START this medication 2 weeks after surgery for a duration of 6 months. After that, you may stop this medication unless otherwise directed. If you find that this medication costs too much, and/or your insurance will not pay for it, you may be eligible for assistance to pay for this with [employer]. Go to www.[employer] and put in the prescription and the pharmacy you would like to pick it up from, and you may be able to get the medication at a significantly reduced darby. PAIN MEDICATION: ?? Your pain should lessen [...] ?? Discontinue anti-inflammatory non-steroidal medications, such as Advil, Aleve, etc. Refer to Medications that may increase [...] 200 on more than 3 checks, call [facility] care physician or diabetic specialist for recommendations. For patients on insulin and oral diabetic medications: If blood sugar is over 200 on 3 checks, call your primary care doctor or diabetic specialist for recommendations. ?? Follow up with primary care provider or demo event specialist in 1-2 weeks in order to [...] PCP appointments. PATIENTS WHO TAKE DIURETICS (WATER PILLS): ?? Check with your surgical team prior [...] unless advised. ?? Ongoing counseling is encouraged. VITAMIN AND MINERAL SUPPLEMENTATION: START at 2 [...] You should follow up with your surgeon and dietitian at 3-4 weeks after surgery. ?? You will follow up with the dietitian and Bariatric nurse practitioner at 4, 12, 18, and 24 months, then yearly for life. General Instructions None Future Appointments and Orders Future Appointments and Orders Future Appointments Provider Department Dept Phone 07/21/2021 9:[address]; Jennifer Florez APRN General Surgery at [facility] Arrive at: [facility] Area [phone] 11/04/2021 10:[address]; Jennifer Florez APRN General Surgery at [facility] Arrive at: [facility] Area [phone] Signed: Trey Mora MD 07/04/2021 Primary [place] Physician: BRENNA [address] / [facility] [id number] documented in this encounter Discharge Instructions Patient InstructionsPhiAnselmo will MD - 07/03/2021 7:16 AM EDT BARIATRIC SURGERY DISCHARGE INFORMATION BARIATRIC SUPPORT TEAM CONTACT NUMBERS (Mon-Fri 8am - 5pm): General Surgery and Bariatric Surgery [phone] Bariatric Surgeons: Drs. Estevez and Venkata [phone] Fur Sewer: [phone] Dietitians: [phone] Outside of regular business hours, including weekends and holidays: Ask for General Surgery resident precision optics technician [phone] Please note, this call will be answered by a resident, and they may not be Able to return your call for many hours FOR EMERGENCIES: CALL 911 (trouble breathing, chest pain, rapid heart rate >120 beats per minute or severe abdominal pain) CALL THE BARIATRIC [...] a blood clot: leg swelling, redness, or pain, shortness of breath ?? Problems with urination or constipation, worsening abdominal pain not controlled with pain medication ?? Any concerns you may have after your surgery Follow up Information: You have a surgical followup appointment with The Bariatric Surgery Team in 3 weeks at the General Surgery Outpatient Clinic ([facility] [address], [facility]). Future Appointments Date Time Provider Department Center 07/21/2021 9:30 AM Jennifer Florez APRN [facility] 11/04/2021 10:30 AM Jennifer Florez APRN [facility] BATHING AND WOUND CARE: ?? You may [...] you feel comfortable. ?? Do not drive if you are taking narcotic pain medication. When you are no longer taking narcotic pain medication and when it no longer causes pain to get in and out of the vehicle, you may drive whencomfortable. DIET: ?? Follow Stage II diet for two weeks. ?? Keep a log of your intake: Daily goals are: 48-64 ounces of fluids and 60 grams of protein. MEDICATIONS: ?? For 2 WEEKS: LARGE pills (bigger than the size of an eraser on the end of a pencil) must be crushed. Capsules must be opened and put on applesauce or pudding. ?? Pills smaller than the size of an eraser DO NOT need to be crushed. ?? Not all medications can be crushed. Check with your pharmacist if unsure. ?? HOLD bariatric vitamins for 2 weeks after surgery (unless you have one that is chewable or liquid) BLOOD CLOT PREVENTION: ?? You WILL be discharged on enoxaparin injections twice daily for 10 days after you go home to prevent blood clots. ?? Be active, walk at least 4 times a day and do blood clot prevention exercises in your handbook onpage 82. ?? You do not meet scoring criteria to be discharged on medication to prevent blood clots. Be active, walk at least 4 times a day and do blood clot prevention exercises in your handbook on page 82. IF YOU ARE TREATED FOR OBSTRUCTIVE SLEEP APNEA: ?? IMPORTANT - you MUST use your CPAP/ BIPAP after surgery while sleeping at night and also when napping during the day because some medications you may have been prescribed at discharge can decrease your breathing. ?? Follow up with the Sleep Center if pressure seems to be too high. ULCER PREVENTION: ?? IMPORTANT - starting the day after discharge, you must take acid suppressing medication for 3 MONTHS after surgery. This is taken to prevent ulcers at your surgical sites internally, even if you do not have heartburn. ?? omeprazole 40 mg daily (or another medication you may currently take for heartburn/reflux that has been discussed with Bariatric Team) ?? Omeprazole capsules contain enteric-coated, delayed-release granules. It is ok to swallow this capsule, but if you choose, you can OPEN the capsules, sprinkle the enteric-coated granules on applesauce or yogurt. Alternatively, you may take the granules with apple juice, or swallow them quickly withwater. Follow any of these methods with additional water to ensure that you have swallowed the granules completely. ?? If your insurer does not cover omeprazole, or similar medications such as pantoprazole, you must purchase these medications over the counter. ?? You will continue this after the initial 3 month course if you have heartburn or reflux GALLSTONE PREVENTION: ?? If you have had your gallbladder REMOVED - you do not need this medication. ?? If you have your gallbladder after Bariatric Surgery - you must take start taking Ursodiol (Actigall) 250 mg twice a day to prevent gallstones. You may START this medication 2 weeks after surgery for a duration of 6 months. After that, you may stop this medication unless otherwise directed. If you find that this medication costs too much, and/or your insurance will not pay for it, you may be eligible for assistance to pay for this with [employer]. Go to www[employer] and put in the prescription and the pharmacy you would like to pick it up from, and you may be able to get the medication at a significantly reduced darby. PAIN MEDICATION: ?? Your pain should lessen [...] ?? Discontinue anti-inflammatory non-steroidal medications, such as Advil, Aleve, etc. Refer to Medications that may increase [...] 200 on more than 3 checks, call [facility] care physician or diabetic specialist for recommendations. For patients on insulin and oral diabetic medications: If blood sugar is over 200 on 3 checks, call your primary care doctor or diabetic specialist for recommendations. ?? Follow up with primary care provider or demo event specialist in 1-2 weeks in order to [...] PCP appointments. PATIENTS WHO TAKE DIURETICS (WATER PILLS): ?? Check with your surgical team prior [...] unless advised. ?? Ongoing counseling is encouraged. VITAMIN AND MINERAL SUPPLEMENTATION: START at 2 [...] You should follow up with your surgeon and dietitian at 3-4 weeks after surgery. ?? You will follow up with the dietitian and Bariatric nurse practitioner at 4, 12, 18, and 24 months, then yearly for life. documented in this encounter Medications at Time of Discharge Medication Sig Dispensed Refills Start Date End Date acetaminophen Take 20.3 mLs by mouth 0 07/04/2021 (Tylenol) 650 mg/20.3 every 6 hours as mL Solution needed (for Pain). collagen, bovine, 100 Apply topically daily. 0 % Powder escitalopram (Lexapro) Take 20 mg by mouth 0 20 mg Tablet daily. omeprazole (PriLOSEC) Take 1 capsule by 90 capsule 3 021 06/29/2022 40 mg Capsule, Delayed mouth daily for 360 Release(E.C.) days. ursodioL (Actigall) Take 1 capsule by 180 tablet 3 300 mg Capsule mouth 2 times daily. biotin 300 mcg Tablet Take 2,500 mcg by 0 mouth daily. Sodium Fluoride 1.1 % BRUSH DIRECTED ONCE 0 Paste DAILY enoxaparin (Lovenox) Inject 0.4 mLs 8 mL 0 07/04/2021 07/14/2021 40 mg/0.4 mL Syringe subcutaneously 2 times daily for 10 days. ondansetron ODT Take 1 tablet by mouth 20 tablet 0 07/04/20 21 07/23/2021 (Zofran-ODT) 4 mg every 8 hours as Tablet, Rapid Dissolve needed for Nausea. oxyCODONE (Roxicodone) Take 5 mLs by mouth 60 mL 0 12/202007/23/2021 5 mg/5 mL Solution every 6 hours as needed for Pain. documented as of this encounter Progress Notes Ifrah Castillo RN - 07/04/2021 3:00 PM EDT NURSING DISCHARGE NOTE Discharge orders received. PIV x1 removed. Belongings gathered. Bariatric surgery discharge instructions reviewed with pt and understanding verbalized. Lovenox teaching completed in am, pt able to demonstrate correct administration. Pt to p/u multiple Rx upon d/c. Pt brought by to [facility] with her . Anselmo Deshpande MD - 07/04/2021 8:41 AM EDT General Surgery Inpatient Progress Note ID: Natalia Damico is a 50 y.o. female with a history of Morbid Obesity (Body mass index is 44.86 kg/m??.) who was admitted 07/02/2021 for weight loss surgery Hospital Day: 2 Operations: LSG 2 Days Post-Op 24hr events: ?? NAEON Subjective: no complaints this AM, denies n/v/cp/sob, tolerating diet O: BP 176/88 (BP Location (NBP): Left arm, Patient Position: Lying) Pulse 69 Temp 36.9 ??C (98.4 ??F) (Oral) Resp 17 Ht 162.6 cm (5' 4.02) Wt 118.6 kg (261 lb 8 oz) SpO2 97% BMI 44.86 kg/m?? I/O last 3 completed shifts: In: 4016 [P.O.:240; I.V.:3776] Out: 1964 [Urine:1925; Emesis/NG output:40] No intake/output data recorded. Physical Exam: General: NAD, resting comfortably, pleasant, conversant HEENT: anicteric sclerae Chest: No Abd: soft, Obese, non-tender, non-distended, incisions c/d/i Ext: wwp Neuro: nonfocal,moving all four extremities spontaneously Recent Labs 07/03/21 0629 WBC 8.6 HGB 11.7 HCT 35.9 PLATELET 253 Recent Labs 07/03/21 0629 NA 137 K 3.9 CL 105 CO2 23 BUN 8 CREATININE 0.50* GLUCOSE 118 CALCIUM 8.3* MAGNESIUM 0.78 PHOS 2.3* Medications Prior to Admission Medication Sig Dispense Refill Last Dose ??? biotin 300 mcg Tablet Take 2,500 mcg by mouth daily. 06/30/2021 at Unknown time ??? escitalopram (Lexapro) 20 mg Tablet Take 30 mg by mouth daily. 07/02/2021 at Unknown time ??? collagen, bovine, 100 % Powder Apply topically daily. Unknown at Unknown time ??? Sodium Fluoride 1.1 % Paste BRUSH DIRECTED ONCE DAILY Unknown at Unknown time Imaging: N/a Assessment: Natalia Damico is a 50 y.o. female, 2 Days Post-Op s/p LSG. Doing Well Plan: Neuro/Pain: #Acute Post-op Pain: Continue Liq Tylenol, Celecoxib, Moon. PRN IV Dilaudid Cardio/pulm: #CLAUDE: CPAP GI: #Post-op Nausea: Scop patch, Zofran, PRN Compazine FEN: LR @125cc/hr Routine Labs, Replete lytes Advance to Phase II Endo: #DM: WNL PPX: Lovenox 40 BID Dispo: plan for d/c today. Scripts needed: PPI, Ursodiol, Lovenox Anselmo Deshpande MD General Surgery MIS Fellow [c] [phone] [p] [phone] 07/04/2021, 8:41 AM Monet Mckeon RN - 07/04/2021 3:57 AM EDT OUTCOME EVALUATION NOTE: OUTCOME SUMMARY: AOx4, VSS on RA. Intermittently nauseous with 1 small emesis at beginning of shift. PRN compazine and scheduled zofran given. Unable to tolerate PO tylenol due to nausea, order was changed to IV tylenol q8hr. AUOP via BR, no BM this shift, passing flatus. Pt ambulates independently in room. Incisions CDI, covered with steri strips and band aids. WCM. PLAN MOVING FORWARD: Pain control. Manage nausea. Encourage fluids/nutrition. Monitor I&Os. Encourage ambulation. INDIVIDUALIZED FALL PREVENTION INTERVENTIONS: Patient-specific fall risk factors per assessment: [current deficits]: Pain, tethering lines/drains,generalized weakness Assistance [level of assistance required for transfers and ambulation]: independent Supervision [direct monitoring required during toileting and ADLs]: Hands off Surveillance [continuous indirect monitoring]: Masimo, purposeful rounding, call bourgeois in reach Patient-specific fall prevention interventions for sensory deficits provided, if applicable: [X] Yes, lighting adjusted, non-skid socks CPG GOAL OUTCOME EVALUATION: Ongoing Trey Mora MD - 07/03/2021 7:02 AM EDT Surgery Inpatient Progress Note ID: Natalia Damico is a 50 y.o. female, now 1 Day Post-Op s/p Laparoscopic sleeve gastrectomy for Obesity. S/IE: - No acute events overnight - Pain controlled, with very minimal nausea. - No emesis, fevers, chills, chest pain or shortness of breath. - Tolerating bariatric stage 1 O: VITALS Last value Range last 24hrs Temperature Temp: 37 ??C (98.6 ??F) Temp: [36.4 ??C (97.5 ??F)-37.1 ??C (98.8 ??F)] Heart Rate Heart Rate: 56 Heart Rate: [56-73] Blood Pressure BP: 163/83 BP: (117-163)/(67-94) Respiratory Rate Resp: 14 Resp: [13-28] SpO2 SpO2: 95 % SpO2: [92 %-100 %] EXAM Gen: NAD, resting comfortably CV: RRR Pulm: unlabored respirations on RA, lungs CTAB Abd: soft, non-tender, non-distended, with no peritoneal signs. Incisions are c/d/i with no surrounding erythema or discharge. LABS Recent Labs 07/03/21 0629 WBC 8.6 HGB 11.7 HCT 35.9 PLATELET 253 No results for input(s): NA, K, CL, CO2, BUN, CREATININE, GLUCOSE, CALCIUM, MAGNESIUM, PHOS in the last 72 hours. MICRO: None pending IMAGING/DIAGNOSTICS: None pending A/P: Natalia Damico is a 50 y.o. female 1 Day Post-Op s/p Laparoscopic sleeve gastrectomy. progressing appropriately. Remains afebrile and hemodynamically stable. - Pain control - Antiemetics as needed - Home medications as appropriate - DVT ppx: Lovenox - OOB/ambulate - IS/pulmonary toilet - Will advance to bariatric stage 2 diet - Anticipate DC today pending diet tolerance - Examined and discussed with Dr. Kumar - Will finalize with attending this morning - Please call/page [phone] with any questions. Trey Mora MD 07/03/2021 7:02 AM Tex Gomes RN - 07/02/2021 5:07 PM EDT Natalia slept throughout the afternoon and evening, occasionally waking up to answer questions or request medication. A+Ox4. VSS on RA. Pt complaining of abdominal pain, well controlled by PRN dilaudid. Pt reported brief moments of nausea which quickly dissipated. Five lap sites with steri strips and band aids open to air. Pt still has not voided. Last bladder scan at 1715 showed 297 mL. Pt reports no urge to void. Tex Gomes RN - 07/02/2021 3:40 PM EDT Natalia arrived to the unit around 1530. VSS on RA. A+Ox4, but lethargic and requiring constant stimulation to stay awake. Pt resting, reporting 4/10 pain present only with deep breaths. No nausea. No numbness or tingling. Oriented to room. Call bourgeois within reach. documented in this encounter H&P Notes Anselmo Deshpande MD - 07/02/2021 6:[address] [facility] Minimally Invasive Surgery Interval History and Physical HPI: Natalia Damico is a 50 y.o. female who presents for weight loss surgery. Please see clinic note dated 05.30.21 for further historical details. There have been no changes to the patient's history or physical exam since documented in clinic. No past medical history on file. Past Surgical History: Procedure Laterality Date ??? FOOT SURGERY Left 2019 ??? KNEE ARTHROSCOPY Right 2015 No current facility-administered medications on file prior to encounter. Current Outpatient Medications on File Prior to Encounter Medication Sig Dispense Refill ??? biotin 300 mcg Tablet Take 2,500 mcg by mouth daily. ??? escitalopram (Lexapro) 20 mg Tablet Take 30 mg by mouth daily. ??? collagen, bovine, 100 % Powder Apply topically daily. ??? Sodium Fluoride 1.1 % Paste BRUSH DIRECTED ONCE DAILY No Known Allergies Social History Socioeconomic History ??? Marital status: [...] Strain: ??? Difficulty of Paying Living Expenses: Not on file Food Insecurity: ??? Worried About Running Out of Food in the Last Year: Not on file ??? Ran Out of Food in the Last Year: Not on file Transportation Needs: ??? Lack of Transportation (Medical): Not on file ??? Lack of Transportation (Non-Medical): Not on file Physical Activity: ??? Days of Exercise per Week: Not on file ??? Minutes of Exercise per Session: Not on file Patient Vitals for the past 24 hrs: BP Temp Temp src Pulse Resp SpO2 Height Weight 07/02/21 0625 110/57 36 ??C (96.8 ??F) Temporal 54 18 97 % 162.6 cm (5' 4.02) 118.6 kg (261 lb 8 oz) PE: Comfortable, in NAD, conversant RRR without murmurs CTAB Abdomen soft, NT, ND Plan: Natalia Damico is a 50 y.o. female who presents for weight loss surgery - Lap Sleeve Gastrectomy. She has no further questions and agrees to proceed. Anselmo Deshpande MD General Surgery MIS Fellow [c] [phone] [p] [phone] 07/02/2021, 6:47 AM documented in this encounter Nursing Notes Adi Dillon RN - 07/02/2021 9:48 AM EDT 0948- Pt awake and alert, reports increased nausea. Pt medicated with phenergan per MAR. Pt maintaining her own airway on room air. NAD. VSS. 1435- Pt complaining of abdominal soreness. Pt medicated with hydromophone per DEC. Patient had small sips of water. Denies nausea at this time. VSS. documented in this encounter Miscellaneous Notes Plan of Care - Beckie Hamlin RN - 07/03/2021 7:31 PM EDT OUTCOME EVALUATION NOTE: OUTCOME SUMMARY: Natalia had an okay day. VSS on RA. A&Ox4. Pt intermittently nauseous with few small emesis. GavePRN compazine & phenergan, and scheduled zofran with good effect. Pt could not tolerate oral tylenol due to nausea. Pt had only sips of water this shift. Voiding adequate amount in the BR. No BM this shift. Pt ambulated at the hallway independently. Incisions CDI. Will continue to monitor. PLAN MOVING FORWARD: Encourage ambulation Pain control Monitor I/O Encourage fluids/nutrition INDIVIDUALIZED FALL PREVENTION INTERVENTIONS: Patient-specific fall risk factors per assessment: [current deficits]: Lines/tubings, pain Assistance [level of assistance required for transfers and ambulation]: Independent Supervision [direct monitoring required during toileting and ADLs]: Eyes on Surveillance [continuous indirect monitoring]: Purposeful hourly rounding, Masimo, call bourgeois within reach Patient-specific fall prevention interventions for sensory deficits provided, if applicable: [X] Yes, lighting adjusted for tasks/safety, non-skid socks, environmental modifications CPG GOAL OUTCOME EVALUATION: ongoing Initial Assessments - Rayshawn Paredes RN - 07/03/2021 3:43 PM EDT Office of Care Management Initial Assessment Rayshawn Paredes RN reviewed record and discussed patient with Care Team. Source of Information: Team, bedside nurse, medical record, and Chart Review Reason for Hospitalization: Lap sleeve gastrectomy Last COVID test: Lab Results Component Value Date COVID19 Not Detected 09/25/2020 [id number] Not Detected 07/02/2021 Past medical History: No past medical history on file. Hospitalizations Within the Past 30 Days: no previous admission in last 30 days Current Decision-Making Capacity: Self Advance Care Planning: Attempt Cardiopulmonary Resuscitation - Inpatient <no information> -Advanced Directive: No, declines If AD's have not been completed Alexei Damico would be surrogate decision maker per [place] surrogate decision making law. (Only good for 180 days) Any patient receiving care at [facility] must abide by [place] law. The hierarchy for surrogate decision making is: (a) Patient???s spouse, or civil union partner or common law spouse unless there is a divorce proceeding, separation agreement, or restraining order limiting that person???s relationship with the patient. (b) Any adult son or daughter of the patient. (c) Either parent of the patient. (d) Any adult brother or sister of the patient. (e) Any adult grandchild of the patient. (f) Any grandparent of the patient. (g) Any adult aunt, uncle, niece, or nephew of the patient. (h) A close friend of the patient. (i) The agent with financial power of finance attorney or a conservator appointed in accordance with [place] 464-A. (j) The guardian of the patient???s estate. Current Coping/Education/Information Needs: n/a Current Functional Ability: Assistive Person Functional Status Prior to Admission: Independent Home Environment: Others in the home: spouse. Current Living Arrangements: home/apartment/condo Current DME: none Home Address [address] [place] [id number] Social & Family Supports: Extended Emergency Contact Information Primary Emergency Contact: Alexei Damico Mobile Relation: Spouse Secondary Emergency Contact: JacksonMaty Relation: Parent Current Care Provided by: self Provides Primary Care For: no one Caregiver if needed: spouse Quality of Family relationships: helpful, involved, supportive Community Resources being provided currently: none Behavioral Health History: None Substance Use/Abuse : Social History Tobacco Use Smoking Status Former Smoker Tobacco Comment pt quit 3 yrs ago Other Pertinent/Service Specific Information: n/a Health/Prescription Coverage: Primary Insurance: [place] Payor[place] / Plan: [place] PRIMARY CARE PLUS / Product Type: *No Product type* / Secondary Insurance: N/A Prescription Coverage: Yes Preferred Pharmacy: [place], [place] - [address] [place] [address] [address] [facility] [address] [facility] [id number] Brogue Status: Patient is a : No Primary Care Provider: Rob Smith, DONOR SERVICES TECHNICIAN [phone] Patient/Caregiver Goals of Treatment: Return home Potential Needs for Transition of Care: none Agency Referrals: n/a Transportation: no concerns Transportation Anticipated: family or friend will provide Concerns to be Addressed: no discharge needs identified Assessment: Patient with no apparent RNCM/SW needs at this time. No housing, transportation, insurance, resources concerns identified at this time. Supports in place to achieve a safe post-hospital transition. No identified barriers to accessing necessary care and/or follow-up after discharge. Plan: Patient to d/c to home via family when medically ready. A member of the Care Management team will continue to monitor progress, follow for continuity of care and assist with transition of care planning. Rayshawn Paredes tile finisher Pgr: [phone] Plan of Care - Lidia Romano RN - 07/03/2021 4:23 AM EDT OUTCOME SUMMARY: Natalia had a good night. Pt slept well in between care. AAOx4. VSS on RA. Pt intermittently nauseas,PRN compazine given x1. Pt could not tolerate oral liquid tylenol due to nausea. Pain well controlled with PRN and scheduled meds. Pt voiding adequate amounts, up to BR. Incisions CDI. Heating pad given for comfort. Pt ambulated in halls independently. Will continue with the current plan of care and update as needed. Patient Vitals for the past 8 hrs: BP Temp Temp src Resp SpO2 07/03/21 0302 163/83 37 ??C (98.6 ??F) Oral 14 95 % 07/03/21 0017 149/84 37.1 ??C (98.8 ??F) Oral 16 97 % PLAN MOVING FORWARD: Encourage ambulation Encourage fluids/nutrition Pain management Q4h VS + I&O D/c planning INDIVIDUALIZED FALL PREVENTION INTERVENTIONS: Patient-specific fall risk factors per assessment: [current deficits]: lines/drains Assistance [level of assistance required for transfers and ambulation]: IND Supervision [direct monitoring required during toileting and ADLs]: eyes on Surveillance [continuous indirect monitoring]: Masimo, purposeful rounding, call bourgeois in reach Patient-specific fall prevention interventions for sensory deficits provided, if applicable: [X] Yes, environmental modifications, lights adjusted to task, non- skid socks CPG GOAL OUTCOME EVALUATION: Ongoing Op Note - Corrie Chopra MD - 07/02/2021 8:11 AM EDT [facility] Operative Note Patient Name: Natalia aDmico : [id number] MR#: [id number] Case Date: 07/02/2021 Surgeon: Surgeon(s) and Role: * Corrie Chopra MD - Primary * Anselmo Deshpande MD - No qualified resident available to assist Preoperative diagnosis: MORBID OBESITY Postoperative diagnosis: MORBID OBESITY Procedure(s) (LRB): @LAPAROSCOPY, SURG/GASTRIC RESTRICTIVE PROC, LONGITUDINAL GASTRECTOMY (WRVU 20.38) (N/A) Anesthesia: General Estimated Blood Loss: 7 mL Specimens removed during surgery: Order Name Source Comment Collection Info Order Time SPECIMEN TO PATHOLOGY MORBID OBESITY Portion of Stomach excision 07/02/2021 9:02 AM Time specimen removed from patient: 9:01 AM Number of tissue samples (in container) 1 Drains: * No LDAs found * Surgical Closure: Primary Closure - skin incision is completely closed without any wires, jennifer, drains or other devices Disposition: awakened from anesthesia, extubated and taken to the recovery room in a stable condition, having suffered no apparent untoward event. Condition: doing well without problems (Please see the Surgical Encounter Summary for any Implant and Specimen details pertinent to this patient.) Natalia Damico is a 50 y.o. female who was evaluated by our Bariatric Program and it was felt thatshe was best suited with a sleeve gastrectomy. After completing the program, informed consent was obtained. Under general anesthesia and endotracheal intubation, the patient was prepped and draped in the supine position. IV antibiotics were infused, and preoperative enoxaparin was given as well as SCDs placed. After team time out, the abdomen was entered using an Optiview technique approximately 18 cm below the xiphoid just slightly to the left of midline. After adequate insufflation with CO2 to a pressure of 15 mmHg, a 30-degree scope was inserted. A 12-mm port placed approximately 18 cm slightly to the right of the midline. An additional 5-mm port was placed in the right upper quadrant and one approximately 18cm along the right costal margin through which a 5mm liver retractor was inserted to elevate the left lobe of the liver and this was fixed into position with a mechanical arm A final 5mm port was placed in the left upper quadrant. A point approximately 6 cm proximal to the pylorus along the greater curve was chosen to start our dissection. The short gastric vessels and epiploic vessels were taken down along the entire length of the greater curve up to the tip of the fundus. Once entirely mobilizing the greater curve, an Power stapler with a re-enforced purple 60 mm load was inserted in the abdominal cavity; and the antrum was divided. A 38-Burkinan bougie was placed by Anesthesia and hugged against the lesser curve. Multiple firings of the stapler with a re- enforced 60 mm purpleload to hug against the bougie were used to tubularize the stomach in a sleeve fashion. The staple line was fanned out slightly at the angle of His. Once the stomach was completely mobilized and divided free of the remaining lesser curve, it was left to the side of the field. Reinspection of the abdominal cavity revealed adequate hemostasis. There appeared to be no active bleeding, and reinspection of the bowel was normal. The 12-mm port was then extended slightly at the fascial level, and the stomach was then easily withdrawn through this incision. All ports were then removed under direct vision. The skin sites were all closed with a running subcuticular 4-0 Monocryl suture followed by Steri-Strips and Band-Aids. The patient returned to the Recovery Room in stable conditions. Sponge, instrument and needle counts were correct. Attestation: Case Date: 07/02/2021 I performed this procedure without the involvement of a resident. CORRIE CHOPRA MD 07/02/2021 documented in this encounter Plan of Treatment Not on filedocumented as of this encounter Procedures Procedure Name Priority Date/Time Associated Comments Diagnosis HEMOGRAM Routine 07/03/2021 6:29 AM Results f or this EDT procedure are i n the results section. DIFFERENTIAL, Routine 07/03/2021 6:29 AM Results for this AUTOMATED EDT procedure are i n the results section. HC VENIPUNCTURE Routine 07/03/2021 6:29 AM EDT HC PHOSPHORUS, SERUM Routine 07/03/2021 6:29 AM R esults for this EDT procedure are i n the results section. HC MAGNESIUM, SERUM Routine 07/03/2021 6:29 AM Re sults for this EDT procedure are i n the results section. BASIC METABOLIC PANEL Routine 07/03/2021 6:29 AM Results for this (NON-FASTING) EDT procedure are in the results section. SPECIMEN TO PATHOLOGY Routine 07/02/2021 9:02 AM Results for this EDT procedure are i n the results section. SURGICAL PATHOLOGY Routine 07/02/2021 9:01 AM Res ults for this REPORT EDT procedure are i n the results section. RAPID COVID-19 PCR Routine 07/02/2021 8:05 AM Res ults for this ([facility]) EDT procedure are in the results section. @LAPAROSCOPY, 07/02/2021 7:38 AM MORBID OBESITY SURG/GASTRIC EDT RESTRICTIVE PROC, LONGITUDINAL GASTRECTOMY (WRVU 20.38) documented in this encounter Results (ABNORMAL) Differential, Automated (07/03/2021 6:29 AM EDT) [facility] gist Method Time Signature Neutrophils % 77.0 % [facility] Neutr Abs (ANC) 6.59 (H) 1.70 - [facility] 6.[address] [facility] x10(3)/[facility] LABORATORY Lymphocytes % 17.3 % [facility] Lymphocytes Abs 1.5 0.9 - 3.2 [facility] x10(3)/[facility] LABORATORY Monocytes % 5.4 % [facility] Monocyte Abs 0.5 0.3 - 0.9 [facility] x10(3)/[facility] LABORATORY Eosinophils % 0.0 % [facility] Eosinophils Abs 0.0 0.0 - 0.4 [facility] x10(3)/[facility] LABORATORY Basophils % 0.1 % [facility] Basophils Abs 0.0 0.0 - 0.1 [facility] x10(3)/[facility] LABORATORY Immature Gran % 0.20 % [facility] Comment: Immature granulocytes(IG's)percentage an d absolute count will include metamyelocytes, myelocytes, and promyelo cytes. Blood smears from CBCs yielding IG's will be scanned manually for concor dance. If this scan disagrees with the automated IG or if promyelocytes are not ed, a manual differential will be performed. Estela Gran Abs 0.02 0.00 - 0.04 x10(3)/[facility] MAR Y [facility] LABORATORY Specimen Anatomical Collection Method Collection Time Receive d Time (Source) Location / / Volume Laterality Blood 07/03/2021 6:29 AM 6:54 EDT AM EDT Resulting Agency Comment Spec In Lab Anselmo Deshpande MD HEMATOLOGY ORDERABLES Performing Organization Address City/State/[place] [address] (ABNORMAL) Hemogram (07/03/2021 6:29 AM EDT) Analysis Performed At Patho logist Time Signature WBC 8.6 4.0 - 9.5 [facility] x10(3)/[facility] LABORATORY RBC 3.95 (L) 4.00 - [facility] 5.[address] [facility] x10(6)/[facility]ORY Hemoglobin 11.7 11.7 - [facility] 15.5 gm/dL [facility]ORY Hematocrit 35.9 35.7 [facility] 45.8 % [facility] MCV 90.9 82.6 - [facility] 94.4 fL [facility] MCH 29.6 27.1 - [facility] 32.0 pg [facility] MCHC 32.6 31.7 - [place] 35.0 gm/dL [facility] Platelets 253 145 - 357 [facility] LABORATORY RDWSD 44.9 37.0 - [place] [address] [facility] LABORATORY RDWCV 13.4 11.5 - [place] 14.1 % [facility] LAB[facility]ORY MPV 11.7 7.6 - 12.9 [facility] nRBC % Auto 0.0 % [facility] nRBC Abs Auto 0.000 0.000 - [place] 0.[address] [facility] x10(3)/[facility] LAB[facility]ATORY Specimen Anatomical Collection Method Collection Time Receive d Time (Source) Location / / Volume Laterality Blood 07/03/2021 6:29 AM 6:54 EDT AM EDT Resulting Agency Comment Spec In Lab Anselmo Deshpande MD HEMATOLOGY ORDERABLES Performing Organization Address City/[facility]/ZIP Code Phon e Number [address] (ABNORMAL) Phosphorus (07/03/2021 6:29 AM EDT) P athologist Signature Phosphorus 2.3 (L) 2.5 - 4.5 [place] mg/dL [facility] LABOR[facility]ORY Specimen Anatomical Collection Method Collection Time Receive d Time (Source) Location / / Volume Laterality Blood 07/03/2021 6:29 AM 1 6:54 EDT AM EDT Resulting Agency Comment Spec In Lab Anselmo Deshpande MD CHEMISTRY ORDERABLES Performing Organization Address City/State/[place] [address] Magnesium (07/03/2021 6:29 AM EDT) P athologist Signature Magnesium 0.78 0.69 - 1.07 [place] mmol/L [facility] LABOR[facility]ORY Specimen Anatomical Collection Method Collection Time Receive d Time (Source) Location / / Volume Laterality Blood 07/03/2021 6:29 AM 6:54 EDT AM EDT Resulting Agency Comment Spec In Lab Anselmo Deshpande MD CHEMISTRY ORDERABLES Performing Organization Address City/State/[place] [address] (ABNORMAL) Basic Metabolic Panel (non-fasting) (07/03/2021 6:29 AM EDT) P athologist Signature Glucose Lvl 118 65 - 199 [facility] mg/dL [facility] Comment: Diabetes: >=200 mg/dL plus symp toms BUN 8 8 - 18 mg/dL [facility] Creatinine 0.50 (L) 0.70 - 1.20 mg/dL [facility] LAB[facility] Sodium 137 135 - 145 mmol/L [facility] Potassium 3.9 3.5 - 5.0 mmol/L [facility] Comment: Please note: ??Patients with WBC >100,00 0 may have falsely elevated Potassium levels. ??For accurate Potassium quantif ication in these patients send serum separator tube (gold top) for subsequent determinations. ??Contact the Clinical Chemistry Laboratory if there are any qu estions. Chloride 105 98 - 107 mmol/L [facility] CO2 23 22 - 31 mmol/L [facility] Anion Gap 9 5 - 15 mmol/L [facility]ORY Calcium 8.3 (L) 8.5 - 10.5 mg/dL [facility] Estimated GFR 113 >=60 mL/min/1.73 m?? [facility] Comment: This patient? s estimated glomerular filtration rate (eGFR) is between 113 mL/min/1.73 m2 (patients with less muscl e mass) and 131 mL/min/1.73 m2 (patients with more muscle mass) [...] (Source) Location / / Volume Laterality Blood 07/03/2021 6:29 AM 1 6:54 EDT AM EDT Resulting Agency Comment Spec In Lab Anselmo Deshpande MD CHEMISTRY ORDERABLES Performing Organization Address City/[facility]/[place] [address] Specimen to Pathology (07/02/2021 9:02 AM EDT) Specimen Anatomical Collection Method Collection Time Receive d Time (Source) Location / / Volume Laterality AP Specimen 07/02/2021 9:02 AM 1 9:02 EDT AM EDT Narrative [facility] ORY - 07/02/2021 9:02 AM EDT Specimen requisition ordered. ??Separate Pathology report to follow Corrie Chopra MD PATHOLOGY/CYTOLOGY ORDERABLE S Performing Organization Address City/[facility]/ZIP Code Phon e Number [address] Surgical Pathology Report (07/02/2021 9:01 AM EDT) Component Value Ref Test Analysis Performed At [facility] gist Range Method Time Signature Surgical [id number] ? Location: [facility]; [facility]; [facility] Report The signing pathologist has (i) examined the relevant preparation(s) for the [facility] specimen(s) and (ii) rendered or confirmed the diagnosis(es) . HOSPITAL LABORATORY . ?Surgic al Pathology DIAGNOSIS Portion of stomach, excision: Segment of stomach lined by unremarkable fundic gland mucosa . Electronically signed by: ?Kayla Wilkins MD Verified: ??07/13/2021 0:50 ?? Pathologist Performed at: ??-[facility] Dept. of Pathology, [place], [place] SPECIMEN(S) SUBMITTED A - Portion of Stomach, excision (1) CLINICAL INFORMATION Morbid obesity SPECIMEN PROCESSING A - Labeled/Fixative: Portion of stomach, fresh. Quantity/Size: ??Single, 21.5 x 4.0 x 1.5 cm. Tissue Description: Longitud inal, wedge resection of stomach. ??The serosa is pink, smooth and glistening. ??The mucosa is red with the usual r ugal folds. Sections/Processing: Geographic Information Systems Engineer sections in 1 cassettes as follows: ?A1: ??sales representative printing supplies of mucosa ??sns Specimen (Source) Anatomical Collection Method Collection Time Re ceived Time Location / / Volume Laterality 07/02/2021 9:01 AM EDT Corrie Chopra MD PATHOLOGY/CYTOLOGY ORDERABLE S Performing Organization Address City/State/ZIP Code Phon e Number [place] [id number] COVID-19 PCR (07/02/2021 8:05 AM EDT) [facility] Method Time Signature SARS-CoV-2 Not Detected Not Detected [facility] RNA PCR [facility] Comment: This result should be interpreted in com bination with the clinical observations, patient history and epidem iological information. For testing of asymptomatic individuals, assay performa nce characteristics and clinical utility have not been evaluated. Testing for SARS-CoV-2 (Severe acute respiratory syndrome coronavirus 2, form erly known as 2018 novel coronavirus or 2019-nCoV) to aid in the diagnosis of CO VID-19 is performed using the Simplexa COVID-19 Direct Assay by Anulexsharyn crespo as authorized by the FDA issued Emergency Use Authorization (EUA). This assay is intended for In-vitro Diagnostic (IVD) use with nasopharyngeal swabs collected from individuals meeting the CDC criteria for testing. Th e assay is performed based on the instructions for use and additional guid ance provided by the FDA. Testing is performed in the Microbiology Laboratory within the Department of Pathology and Laboratory Medicine at [facility], certified under the Clinical Laboratory Improvement Amendmen ts of 1988 (CLIA), 42 U.S.C. section 263a, to perform high complexity tests. Assay performance has been verified according to clinical laboratory regulat ory requirements. Test results are provided above. A resul t of Not Detected indicates that the viral RNA target is not present but does not preclude SARS-CoV-2 infection. False negative results may occur if a sp ecimen is improperly collected, transported or handled; if amplification inhibitors are present; or if inadequate numbers of viral particles ar e present in the specimen. A result of Detected suggests a current or recent infection and the patient is presumed to be infected. Positive and negative pr edictive values for this test are highly dependent on disease prevalence. A result of Invalid indicates the inability to conclusively determine the presence or absence of SARS-CoV-2 RNA in the sample which can be due to a vari ety of factors. Recollection is recommended in the case of an invalid re sult. CDC COVID-19 criteria for testing on hum an specimens and clinical management guidance information are available at th e CDC Coronavirus Disease 2019 (COVID-19) webpage under Information fo r Healthcare Professionals (https://www.cdc.gov/coronavirus/2019-nc ov/hcp/index.html). Additional information about this and ot her EUA tests can be found in provider and patient fact sheets at the following FDA website: https://www.fda.gov/medical-devices/sdxrjbdwmoq-mvlmpeg-8797-sebdb-56-pzqjilmxw- ffs-gspywnkcanwfby-gzatoir-devices/kjpzh-tqilxvpzbyk-domh SARS-CoV-2 Source [employer] [facility] Specimen (Source) Anatomical Collection Method Collection Time Re ceived Time Location / / Volume Laterality Nasopharyngeal Swab 07/02/2021 8:05 07/02 AM EDT 9:08 AM EDT Comment: Symptoms->Surveillance Resulting Agency Comment Spec In Lab Anselmo Deshpande MD MICROBIOLOGY - GENERAL ORDER LUIS Performing Organization Address City/State/[place] [address] documented in this encounter Visit Diagnoses Diagnosis Morbid obesity documented in this encounter Admitting Diagnoses Diagnosis Morbid obesity documented in this encounter Administered Medications Inactive Administered Medications - up to 3 most recent administrations Medication Order MAR Action Action Date Dose Rate Site acetaminophen (Ofirmev) (1000 Given 07/04/2021 10:25 AM 1,000 mg 400 mL/hr mg/100 mL) infusion 1,000 mg EDT 1,000 mg, Intravenous, at 400 mL/hr, EVERY 8 HOURS SCHEDULED, 3 doses, First dose on Wed07/04/21 at 0130, Last dose on Wed07/04/21 at 1800, Maximum dose of acetaminophen is 4000 mg from all sources in 24 hours. When ordered for pain, acetaminophen should be given even when other ordered pain medications are indicated. , Routine Given 07/04/2021 2:03 AM EDT 1,000 mg 400 mL/hr acetaminophen (Tylenol) tablet 1,000 mg Given 07/02/2021 6:55 AM EDT 1,000 mg 1,000 mg, Oral, ONCE, 1 dose, On Wed07/02/21 at 0715, Maximum dose of acetaminophen is 4000 mg from all sources in 24 hours. When ordered for pain, acetaminophen should be given even when other ordered pain medications are indicated. , Day of Surgery (Day of Procedure), Routine celecoxib (CeleBREX) capsule 200 mg Given 07/04/2021 10:16 AM EDT 200 mg 200 mg, Oral, 2 TIMES DAILY, First dose on Bridgett 07/03/21 at 0900, Until Discontinued, Administer starting post-op day one. Open capsule and administer all at once., Routine Given 07/03/2021 10:00 PM EDT 200 mg Given 07/03/2021 9:11 AM EDT 200 mg celecoxib (CeleBREX) capsule 400 mg Given 07/02/2021 6:55 AM EDT 400 mg 400 mg, Oral, ONCE, 1 dose, On Wed07/02/21 at 0715, Day of Surgery (Day of Procedure), Routine enoxaparin (Lovenox) (40 mg/0.4 mL) Given 07/02/2021 6:58 AM EDT 40 mg subcutaneous injection 40 mg 40 mg, Subcutaneous, ONCE, 1 dose, On Wed07/02/21 at 0715, To be given in preop area, Day of Surgery (Day of Procedure), Routine enoxaparin (Lovenox) (40 mg/0.4 mL) Given 07/04/2021 10:18 AM ED T 40 mg subcutaneous injection 40 mg 40 mg, Subcutaneous, EVERY 12 HOURS SCHEDULED (2 times per day), First dose (after last modification) on Wed07/02/21 at 2100, Until Discontinued, Routine Given 07/03/2021 8:29 PM EDT 40 mg Given 07/03/2021 9:11 AM EDT 40 mg HYDROmorphone (Dilaudid) (2 mg/mL) injection Given 12/2020 2:56 AM EDT 0.4 mg solution 0.4 mg 0.4 mg, Intravenous, EVERY 2 HOURS PRN, Starting on Wed07/02/21 at 1428, Until Wed07/04/21 at 1726, Pain, Moderate-Severe pain 4-10, Routine Given 07/02/2021 9:12 PM EDT 0.4 mg Given 07/02/2021 5:01 PM EDT 0.4 mg lactated ringers infusion New Bag 07/02/2021 7:12 AM EDT 1,000 mLs 100 mL/hr 1,000 mL, at 100 mL/hr, Intravenous, CONTINUOUS, Starting on Wed07/02/21 at 0715, Until Wed07/02/21 at 1539, Day of Surgery (Day of Procedure) lactated ringers infusion New Bag 07/03/2021 5:11 AM EDT 1,000 mLs 125 mL/hr 1,000 mL, at 125 mL/hr, Intravenous, CONTINUOUS, Starting on Wed07/02/21 at 1230, Until Wed07/03/21 at 1335 New Bag 07/02/2021 9:21 PM EDT 1,000 mLs 125 mL/hr New Bag 07/02/2021 12:44 PM EDT 1,000 mLs 125 mL/hr ondansetron (pf) (Zofran) (2 mg/mL) injection Given 10:47 AM EDT 4 mg 4 mg 4 mg, Intravenous, EVERY 8 HOURS SCHEDULED, First dose on Wed07/02/21 at 1600, Until Discontinued, For nausea please use ondansetron as the first choice; prochlorperazine as a second choice; promethazine as a third choice. Call provider if not effective. Given 07/04/2021 1:30 AM EDT 4 mg Given 07/03/2021 6:33 PM EDT 4 mg pantoprazole (Protonix) injection 40 mg Given 07/04/2021 10:12 AM EDT 40 mg 40 mg, Intravenous, DAILY, First dose on Wed07/02/21 at 1600, Until Discontinued, Reconstitute with 10 mL of normal saline to a concentration of 4 mg/mL and infuse slowly over 2 minutes. , Routine Given 07/03/2021 9:11 AM EDT 40 mg Given 07/02/2021 5:00 PM EDT 40 mg prochlorperazine (Compazine) (5 mg/mL) Given 07/03/2021 8:19 PM EDT 10 mg injection 10 mg 10 mg, Intravenous, EVERY 6 HOURS PRN, Starting on Wed07/02/21 at 1142, Until Wed07/04/21 at 1726, Nausea, Vomiting, For nausea please use ondansetron as the first choice; prochlorperazine as a second choice; promethazine as a third choice. Call provider if not effective., Routine Given 07/03/2021 7:43 AM EDT 10 mg Given 07/03/2021 12:05 AM EDT 10 mg promethazine (Phenergan) (25 mg/mL) Given 07/03/2021 1:50 PM EDT 6.25 mg injection 6.25 mg 6.25 mg, Intravenous, EVERY 4 HOURS PRN, Starting on Wed07/02/21 at 1539, Until Wed07/04/21 at 1726, Nausea, For nausea please use ondansetron as the first choice; prochlorperazine as a second choice; promethazine as a third choice. Call provider if not effective., Routine promethazine (Phenergan) (25 mg/mL) Given 07/02/2021 9:48 AM EDT 6.25 mg injection 6.25 mg 6.25 mg, Intravenous, EVERY 30 MIN PRN, 2 doses, Starting on Wed07/02/21 at 0933, Until Wed07/02/21 at 1539, Nausea, Maximum total dose of 12.5 mg (including OR administration). VESICANT - Dilute with a minimum of 10 mL sodium chloride 0.9%. LARGE VEIN only. Inject over 10 minutes into the farthest port of a running IV infusion. Remain with the patient and STOP infusion immediately if patient reports burning. Avoid extravasation. If multiple antiemetics are ordered, use ondansetron first and if ineffective use prochlorperazine second and if ineffective use promethazine., PACU Recovery, Routine scopolamine (Transderm Patch Applied 07/02/2021 6:55 AM 1 patch 01- Ear Behind Scop) 1 mg over 3 days EDT (L eft) patch 1 patch 1 patch, Transdermal, ONCE, 1 dose, On Wed07/02/21 at 0715, Remove post-operatively if patient requires straight catheterization x 2, Day of Surgery (Day of Procedure), Routine sodium chloride 0.9 % (flush) (BD PosiFlush Given 12/2020 10:22 AM EDT 10 mLs Normal Saline 0.9) flush 5 mL 5 mL, Intravenous, 2 TIMES DAILY, First dose on Wed07/02/21 at 2100, Until Discontinued, Recovery (Recovery-Hospital Unit), Routine Given 07/03/2021 8:33 PM EDT 5 mLs Given 07/03/2021 9:11 AM EDT 5 mLs sodium chloride 0.9% infusion New Bag 07/04/2021 5:42 AM EDT 125 mL/hr 125 mL/hr 125 mL/hr, Intravenous, CONTINUOUS, Starting on Bridgett 07/03/21 at 1430, Until Wed07/04/21 at 1726 New Bag 07/03/2021 10:13 PM EDT 125 mL/hr 125 mL/hr New Bag 07/03/2021 1:58 PM EDT 125 mL/hr 125 mL/hr sodium phosphate 15 mMol in New Bag 07/03/2021 1:07 PM EDT 15 mmol 37.5 mL/hr sodium chloride 0.9% 150 mL infusion 15 mmol, Intravenous, ONCE, 1 dose, On Bridgett 07/03/21 at 1200, Administer over 4 Hours, Administer over 4-6 hours documented in this encounter Active and Recently Administered Medications Times are shown in EDT. Scheduled Medication Order 07/02/2021 07/03/2021 07/04/2021 acetaminophen (Ofirmev) (1000 mg/100 mL) infusion 1,000 mg 0203 (Given - Provider: Jeannie Oneal, BRENDA)1025 (Given - Provider: Ifrah Castillo RN) 1,000 mg, Intravenous, at 400 mL/hr, ROSALIE RY 8 HOURS SCHEDULED, 3 doses, First dose on Wed07/04/21 at 0130, Last dose on Wed07/04/21 at 1800, Maximum dose of acetaminophen is 4000 mg from all sources in 24 hours. When ordered for pain, acetaminop hen should be given even when other ordered pain medications are indicated. , Routine acetaminophen (Tylenol) tablet 1,000 mg (COMPLETED) (Given - Provider: Deonna Boucher RN) 1,000 mg, Oral, ONCE, 1 dose, On 07/02 at 0715, Maximum dose of acetaminophen is 4000 mg from all sources in 24 hours. When ordered for pain, acetaminophen should be given even when other ordered p ain medications are indicated. , Day of Surgery (Day of Procedur e), Routine ceFAZolin (Ancef) 3 g in dextrose 5% 109 mL infusion ( COMPLETED) 075 (Given - Provider: Abel Chandra CRNA) 3 g, Intravenous, ONCE, 1 dose, On Wed at 0715, Administer over 30 Minutes, Day of Surgery (Day of Procedure), Indication for (Active or Suspected): Prophylaxis celecoxib (CeleBREX) capsule 200 mg 910 (Given - Provider: Beckie Hamlin, BRENDA)2199 (Given - Provider: Monet Mckeon RN) 1016 (Given - Provider: Ifrah Castillo RN) 200 mg, Oral, 2 TIMES DAILY, First dose on Wed07/03/21 at 0900, Until Discontinued, Administer starting post-op day one. Open capsule and administer all at once., Routine celecoxib (CeleBREX) capsule 400 mg (COMPLETED) 654 ( Given - Provider: Deonna Boucher RN) 400 mg, Oral, ONCE, 1 dose, On Wed at 0715, Day of Surgery (Day of Procedure), Routine enoxaparin (Lovenox) (40 mg/0.4 mL) subcutaneous injec tion 40 mg (COMPLETED) 657 (Given - Provider: eDonna Boucher RN) 40 mg, Subcutaneous, ONCE, 1 dose, On 07/02/21 at 0715, To be given in preop area, Day of Surgery (Day of Procedure), Routine enoxaparin (Lovenox) (40 mg/0.4 mL) subcutaneous injec tion 40 mg 2110 (Given - Provider: Lidia Romano RN) 910 (Given - Provider: Beckie Hamlin , BRENDA)2028 (Given - Provider: Monet Mckeon RN) 101 (Given - Provider: Ifrah E Castillo, RN) 40 mg, Subcutaneous, EVERY 12 HOURS SCHE DULED (2 times per day), First dose (after last modification) on Wed07/02/21 at 2100, Until Discontinued, Routine ondansetron (pf) (Zofran) (2 mg/mL) injection 4 mg 174 0 (Given - Provider: Dayanara Griffin RN) 0256 (Given - Provider: Sarina Salguero)0911 (Given - Provider: Beckie Hamlin, BRENDA)1833 (Given - Provider: Beckie Hamlin RN) 0130 (Given - Provider: Monet Mckeon, BRENDA)1000 (Not Given - Provider: Ifrah Castillo RN - Reason: Patient/family refused)1047 (Given - Provider: Ifrah Castillo RN) 4 mg, Intravenous, EVERY 8 HOURS SCHEDUL ED, First dose on Wed07/02/21 at 1600, Until Discontinued, For nausea please use ondansetron as the first choice; prochlorperazine as a second choice; promethazine as a third choice. Call provider if not effective. pantoprazole (Protonix) injection 40 mg 1700 (Given - Provider: Tex Gomes RN) 0911 (Given - Provider: Beckie Hamlin, BRENDA) 1012 (Gi eder - Provider: Ifrah Castillo RN) 40 mg, Intravenous, DAILY, First dose on Wed07/02/21 at 1600, Until Discontinued, Reconstitute with 10 mL of normal saline to a concentration of 4 mg/mL and infuse slowly over 2 minutes. , Routine scopolamine (Transderm Scop) 1 mg over 3 days patch 1 patch (COMPLETED) 0655 (Patch Applied - Provider: Deonna Boucher, RN) 1 patch, Transdermal, ONCE, 1 dose, On W ed 07/02/21 at 0715, Remove post- operatively if patient requires straight catheterization x 2, Day of Surgery (Day of Procedure), Routine sodium chloride 0.9 % (flush) (BD PosiFlush Normal Dejon ine 0.9) flush 5 mL 2110 (Given - Provider: Lidia Romano RN) 0911 (Given - Provider: Beckie Hamlin , BRENDA)203 (Given - Provider: Monet Mckeon, BRENDA) 1022 (Given - Provider: Ifrah E Castillo, RN) 5 mL, Intravenous, 2 TIMES DAILY, First dose on Wed07/02/21 at 2100, Until Discontinued, Recovery (Recovery-Hospital Unit), Routine sodium phosphate 15 mMol in sodium chloride 0.9% 150 mL infu vida (COMPLETED) 1307 (New Bag - Provider: Beckie Hamlin, RN)1707 (Stopped - Provider: Beckie Hamlin, RN) 15 mmol, Intravenous, ONCE, 1 dose, On T hu 07/03/21 at 1200, Administer over 4 Hours, Administer over 4-6 hours Continuous Medication Order 07/02/2021 07/03/2021 07/04/2021 lactated ringers infusion (CANCELED) 0712 (New Bag - P rovider: Deonna Boucher RN) 1,000 mL, at 100 mL/hr, Intravenous, CON TINUOUS, Starting on Wed07/02/21 at 0715, Until Wed07/02/21 at 1539, Day of Surgery (Day of Procedure) lactated ringers infusion (CANCELED) 1244 (New Bag - P rovider: Adi Dillon RN)2121 (New Bag - Provider: Lidia Romano, BRENDA) 0511 (New Bag - Provider: Lidia Romano, BRENDA) 1,000 mL, at 125 mL/hr, Intravenous, CON TINUOUS, Starting on Wed07/02/21 at 1230, Until Bridgett 07/03/21 at 1335 sodium chloride 0.9% infusion 1358 (New Bag - Provider: Beckie Hamlin, BRENDA)2213 (New Bag - Provider: Tex Ledbetter, BRENDA) 0542 (New Bag - Provider: Jeannie Oneal, BRENDA)1223 (Stopped - Provider: Ifrah Castillo, RN) 125 mL/hr, at 125 mL/hr, Intravenous, CO NTINUOUS, Starting on Bridgett 07/03/21 at 1430, Until Wed07/04/21 at 1726 PRN Medication Order 07/02/2021 07/03/2021 07/04/2021 BUpivacaine (pf) (Marcaine) (2.5 mg/mL) 0.25% injectio n (CANCELED) 0811 (Given - Provider: Corrie Chopra MD) ONCE PRN, Starting on Wed07/02/21 at 0811 , Until Wed07/04/21 at 1726, Intra- Operative (Intra-Procedure), Routine HYDROmorphone (Dilaudid) (2 mg/mL) injection solution 0.4 mg 1433 (Given - Provider: Adi Dillon RN)1701 (Given - Provider: Tex Gomes, RN)2112 (Given - Provider: Lidia Romano, BRENDA) 0256 (Given - Provider: Lidia Romano RN) 0.4 mg, Intravenous, EVERY 2 HOURS PRN, Starting on Wed07/02/21 at 1428, Until Wed07/04/21 at 1726, Pain, Moderate-Severe pain 4-10, Routine lidocaine (Xylocaine) 1% (10 mg/mL) injection 3 mg 3 mg (0.3 mL), Subcutaneous, ONCE PRN, 1 dose, Starting on Wed07/02/21 at 1539, Until Wed07/04/21 at 1726, for discomfort with PIV insertion, Recovery (Recovery- Hospital Unit), Routine prochlorperazine (Compazine) (5 mg/mL) injection 10 mg 1144 (Given - Provider: Radha Chapman RN) 0005 (Given - Provider: Sarina Salguero)0743 (Given - Provider: Beckie Hamlin, BRENDA)2019 (Given - Provider: Monet Mckeon RN) 10 mg, Intravenous, EVERY 6 HOURS PRN, S tarting on Wed07/02/21 at 1142, Until Wed07/04/21 at 1726, Nausea, Vomiting, For nausea please use ondansetron as the first choice; prochlorperazine as a second cho ice; promethazine as a third choice. Call provider if not effect ligia., Routine promethazine (Phenergan) (25 mg/mL) injection 6.25 mg 1350 (Given - Provider: Beckie Hamlin, BRENDA) 6.25 mg, Intravenous, EVERY 4 HOURS PRN, Starting on Wed07/02/21 at 1539, Until Wed07/04/21 at 1726, Nausea, For nausea please use ondansetron as the first choice; prochlorperazine as a second choice; pro methazine as a third choice. Call provider if not effective., Ro utine promethazine (Phenergan) (25 mg/mL) injection 6.25 mg (CANCELED) 0948 (Given - Provider: Adi Dillon, RN) 6.25 mg, Intravenous, EVERY 30 MIN PRN, 2 doses, Starting on Wed07/02/21 at 0933, Until Wed07/02/21 at 1539, Nausea, Maximum total dose of 12.5 mg (including OR administration). VESICANT - Dilute with a m inimum of 10 mL sodium chloride 0.9%. LA RGE VEIN only. Inject over 10 minutes into the farthest port of a running IV infusion. Remain with the patient and STOP infusion immediately if patient reports bu rning. Avoid extravasation. If multip le antiemetics are ordered, use ondansetron first and if ineffective use prochlorperazine second and if ineffective use promethazine., PACU Recovery, Routine sodium chloride 0.9 % (flush) (BD PosiFlush Normal Saline 0.9) f lush 5-20 mL 5-20 mL, Intravenous, EVERY 1 MIN PRN, S tarting on Wed07/02/21 at 1539, Until Wed07/04/21 at 1726, flush, Flush pertains to all indwelling lines. 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
--- OUTSIDE RECORDS SUMMARY | 2022-04-24 00:23 | XMS_ITS | Encounter Summary ---
:1970 [place] [address] Care Team Providers Name Role Phone Rob Smith BRENNA Primary Care Provider Reason for Visit Auth/Cert Specialty Diagnoses / Procedures Referred By Contact Refer red To Contact Diagnoses MORBID OBESITY Procedures PRO LAPAROSCOPY, SURG/GASTRIC RESTRICTIVE PROC, LONGITUDINAL GASTRECTOMY @LAPAROSCOPY, SURG/GASTRIC RESTRICTIVE PROC, LONGITUDINAL GASTRECTOMY (WRVU 20.38) Referral ID Status Reason Start Date Expiration Date Visits Requ ested Visits Authorized [id number] 1 1 Encounter Details Date Type Department Care Team Description 07/02/2021 Surgery Main Operating Room [facility] JOSEPH [facility] GENERAL SURGE RY GASTRECTOMY (WRVU 20.38) [place] [address] [place] [address] [phone] Social History Tobacco Use Types Packs/Day Years Used Date Former Smoker Smokeless Tobacco: Never Used Comments: pt quit 3 yrs ago Sex Assigned at Date Recorded Not on file documented as of this encounter Last Filed Vital Signs Vital Sign Reading Time Taken Comments Blood Pressure 148/81 07/02/2021 10:00 AM EDT Pulse 73 07/02/2021 10:00 AM EDT Temperature 36.4 ??C (97.5 ??F) 07/02/2021 9:29 AM EDT Respiratory Rate 13 07/02/2021 10:00 AM EDT Oxygen Saturation 95% 07/02/2021 10:00 AM EDT Inhaled Oxygen Concentration - - [...] RD; Jennifer Florez APRN General Surgery at [facility] Arrive at: Lead Slot Technician Area [phone] 11/04/2021 10:[address]; Jennifer Florez APRN General Surgery at [facility] Arrive at: Lead Slot Technician Area [phone] Instructions Given to Patient at Discharge: Patient Instructions BARIATRIC SURGERY DISCHARGE INFORMATION BARIATRIC SUPPORT TEAM CONTACT NUMBERS (Mon-Fri 8am - 5pm): General Surgery and Bariatric Surgery [phone] Bariatric Surgeons: Drs. Estevez and Venkata [phone] Pack Worker Supervisor: [phone] Dietitians: [phone] Outside of regular business hours, including weekends and holidays: Ask for General Surgery resident optical effects layout person [phone] Please note, this call will be answered [...] weeks at the General Surgery Outpatient Clinic (Lead Slot Technician [address] [place] [address]). Future Appointments Date Time Provider Department Center 07/21/2021 9:30 AM Jennifer Florez APRN [facility] SURG [facility] 11/04/2021 10:30 AM Jennifer Florez APRN [facility] SURG [facility] BATHING AND WOUND CARE: ?? You may [...] for assistance to pay for this with Girly Stuff. Go to www.AngioSlide and put in the prescription and the [...] 200 on more than 3 checks, call yourpratrium healthry care physician or diabetic specialist for recommendations. For patients on insulin and oral diabetic medications: If blood sugar is over 200 on 3 checks, call your primary care doctor or diabetic specialist for recommendations. ?? Follow up with primary care provider or business process specialist in 1-2 weeks in order to [...] RD; Jennifer Florez APRN General Surgery at [facility] Arrive at: Lead Slot Technician Area [phone] 11/04/2021 10:[address]; Jennifer Florez APRN General Surgery at [facility] Arrive at: Lead Slot Technician Area [phone] Signed: Trey Mora MD 07/04/2021 Primary [place] Physician: BRENNA Goldsmith DR [address] / [facility] [id number] documented in this encounter Discharge Instructions Patient InstructionsPhiAnselmo will MD - 07/03/2021 7:16 AM EDT BARIATRIC SURGERY DISCHARGE INFORMATION BARIATRIC SUPPORT TEAM CONTACT NUMBERS (Mon-Fri 8am - 5pm): General Surgery and Bariatric Surgery [phone] Bariatric Surgeons: Drs. Estevez and Venkata [phone] Pack Worker Supervisor: [phone] Dietitians: [phone] Outside of regular business hours, including weekends and holidays: Ask for General Surgery resident optical effects layout person [phone] Please note, this call will be answered [...] weeks at the General Surgery Outpatient Clinic (Lead Slot Technician [address] [place] [address]). Future Appointments Date Time Provider Department Center 07/21/2021 9:30 AM Jennifer Florez APRN [facility] SURG [facility] 11/04/2021 10:30 AM Jennifer Florez APRN [facility] SURG [facility] BATHING AND WOUND CARE: ?? You may [...] for assistance to pay for this with Girly Stuff. Go to www.AngioSlide and put in the prescription and the [...] 200 on more than 3 checks, call yourpratrium healthry care physician or diabetic specialist for recommendations. For patients on insulin and oral diabetic medications: If blood sugar is over 200 on 3 checks, call your primary care doctor or diabetic specialist for recommendations. ?? Follow up with primary care provider or business process specialist in 1-2 weeks in order to [...] Rx upon d/c. Pt brought by to home with her . Anselmo Deshpande MD - [...] Deshpande MD General Surgery MIS Fellow [c] [phone] [p] [phone] 07/04/2021, 8:41 AM Monet Mckeon RN - [...] non-skid socks CPG GOAL OUTCOME EVALUATION: Ongoing T Trey Mora MD - 07/03/2021 7:02 AM [...] with attending this morning - Please call/page [phone] with any questions. Trey Mora MD 07/03/2021 [...] Deshpande MD - 07/02/2021 6:46 AM EDT [facility] Minimally Invasive Surgery Interval History and Physical [...] Deshpande MD General Surgery MIS Fellow [c] [phone] [p] [phone] 07/02/2021, 6:47 AM documented in this encounter Nursing Adi Jones RN - 07/02/2021 9:48 AM EDT 0948- Pt awake and alert, reports increased nausea. Pt medicated with phenergan per DEC. Pt maintaining her own airway on room [...] Component Value Date COVID19 Not Detected 09/25/2020 [id number] Not Detected 07/02/2021 Past medical History: No [...] 180 days) Any patient receiving care at [facility] must abide by [place] law. The hierarchy [...] (i) The agent with financial power of criminal attorney or a conservator appointed in accordance with RSA 464-A. (j) The guardian of the patient???s estate. Current Coping/Education/Information Needs: n/a Current Functional Ability: Assistive Person Functional Status Prior to Admission: Independent Home Environment: Others in the home: spouse. Current Living Arrangements: home/apartment/condo Current DME: none Home Address [address] [place] [phone] Social & Family Supports: Extended Emergency Contact Information Primary Emergency Contact: Alexei Damico Mobile Relation: Spouse Secondary Emergency Contact: Maty Jackson Relation: Parent Current Care Provided by: self [...] Insurance: N/A Prescription Coverage: Yes Preferred Pharmacy: [address] [facility] [address] [facility] [address] [place] Status: Patient is a : No Primary Care Provider: Rob Smith, SEWER MAINTENANCE SUPERVISOR [phone] Patient/Caregiver Goals of Treatment: Return home Potential [...] assist with transition of care planning. Rayshawn Paredes, manager route Pgr: [phone] Plan of Care - Lidia Romano RN [...] Chopra MD - 07/02/2021 8:11 AM EDT [facility] Operative Note Patient Name: Natalia Damico : [id number] MR#: [id number] Case Date: 07/02/2021 Surgeon: Surgeon(s) and Role: [...] cavity; and the antrum was divided. A 38-Croatian bougie was placed by Anesthesia and hugged [...] (ABNORMAL) Differential, Automated (07/03/2021 6:29 AM EDT) [facility] gist Method Time Signature Neutrophils % 77.0 % [facility] Neutr Abs (ANC) 6.59 (H) 1.70 - [facility] 6.10 [facility] x10(3)/[facility] LABORATORY Lymphocytes % 17.3 % [facility] Lymphocytes Abs 1.5 0.9 - 3.2 [facility] x10(3)/[facility] LABORATORY Monocytes % 5.4 % [facility] Monocyte Abs 0.5 0.3 - 0.9 [facility] x10(3)/[facility] LABORATORY Eosinophils % 0.0 % [facility] Eosinophils Abs 0.0 0.0 - 0.4 [facility] x10(3)/[facility] LABORATORY Basophils % 0.1 % [facility] Basophils Abs 0.0 0.0 - 0.1 [facility] x10(3)/[facility] LABORATORY Immature Gran % 0.20 % [facility] Comment: Immature granulocytes(IG's)percentage an d absolute count will include metamyelocytes, myelocytes, and promyelo cytes. Blood smears from CBCs yielding IG's will be scanned manually for concor dance. If this scan disagrees with the automated IG or if promyelocytes are not ed, a manual differential will be performed. Estela Gran Abs 0.02 0.00 - 0.04 x10(3)/[facility] MAR Y [facility] LABORATORY Specimen Anatomical Collection Method Collection Time Receive d Time (Source) Location / / Volume Laterality Blood 07/03/2021 6:29 AM 6:54 EDT AM EDT Resulting Agency Comment Spec In Lab Anselmo Deshpande MD HEMATOLOGY ORDERABLES Performing Organization Address City/State/ZIP Code Phon e Number [place] [id number] (ABNORMAL) Hemogram (07/03/2021 6:29 AM EDT) Analysis Performed At Patho logist Time Signature WBC 8.6 4.0 - 9.5 [facility] x10(3)/[facility] LABORATORY RBC 3.95 (L) 4.00 - [facility] 5.21 [facility] x10(6)/[facility] LABORATORY Hemoglobin 11.7 11.7 - [facility] 15.5 gm/dL [facility] LABORATORY Hematocrit 35.9 35.7 - [facility] 45.8 % [facility] MCV 90.9 82.6 - [facility] 94.4 fL [facility] LAB[facility]ORY MCH 29.6 27.1 - [place] 32.0 pg [facility] LAB[facility]ORY MCHC 32.6 31.7 - [place] 35.0 gm/dL [facility] LAB[facility]ORY Platelets 253 145 - 357 [place] x10(3)/[facility] LABORATORY RDWSD 44.9 37.0 - [place] 46.0 [facility] LABORATORY RDWCV 13.4 11.5 - [place] 14.1 % [facility] LABORATORY MPV 11.7 7.6 - 12.9 [place] [facility] LABORATORY nRBC % Auto 0.0 % [facility] nRBC Abs Auto 0.000 0.000 - [place] 0.000 [facility] x10(3)/[facility] LABORATORY Specimen Anatomical Collection Method Collection Time Receive d Time (Source) Location / / Volume Laterality Blood 07/03/2021 6:29 AM 6:54 EDT AM EDT Resulting Agency Comment Spec In Lab Anselmo Deshpande MD HEMATOLOGY ORDERABLES Performing Organization Address City/State/ZIP Code Phon e Number [address] (ABNORMAL) Phosphorus (07/03/2021 6:29 AM EDT) P athologist Signature Phosphorus 2.3 (L) 2.5 - 4.5 [facility] [place] mg/dL [facility] LABORATORY Specimen Anatomical Collection Method Collection Time Receive d Time (Source) Location / / Volume Laterality Blood 07/03/2021 6:29 AM 6:54 EDT AM EDT Resulting Agency Comment Spec In Lab Anselmo Deshpande MD CHEMISTRY ORDERABLES Performing Organization Address City/State/[place] [address] Magnesium (07/03/2021 6:29 AM EDT) P athologist Signature Magnesium 0.78 0.69 - 1.07 [place] mmol/L [facility] Specimen Anatomical Collection Method Collection Time Receive d Time (Source) Location / / Volume Laterality Blood 07/03/2021 6:29 AM 6:54 EDT AM EDT Resulting Agency Comment Spec In Lab Anselmo Deshpande MD CHEMISTRY ORDERABLES Performing Organization Address City/State/[place] [address] (ABNORMAL) Basic Metabolic Panel (non-fasting) (07/03/2021 6:29 AM EDT) P athologist Signature Glucose Lvl 118 65 - 199 [facility] mg/dL [facility] Comment: Diabetes: >=200 mg/dL plus symp toms BUN 8 8 - 18 mg/dL [facility] Creatinine 0.50 (L) 0.70 - 1.20 mg/dL [facility] Sodium 137 135 - 145 mmol/L [facility] Potassium 3.9 3.5 - 5.0 mmol/L [facility] Comment: Please note: ??Patients with WBC >100,00 0 may have falsely elevated Potassium levels. ??For accurate Potassium quantif ication in these patients send serum separator tube (gold top) for subsequent determinations. ??Contact the Clinical Chemistry Laboratory if there are any qu estions. Chloride 105 98 - 107 mmol/L [facility] CO2 23 22 - 31 mmol/L [facility] Anion Gap 9 5 - 15 mmol/L [facility] Calcium 8.3 (L) 8.5 - 10.5 mg/dL [facility] Estimated GFR 113 >=60 mL/min/1.73 m?? [facility] Comment: This patient? s [...] Organization Address City/State/[place] [address] Specimen to Pathology (07/02/2021 9:02 AM EDT) Specimen Anatomical Collection Method Collection Time Receive d Time (Source) Location / / Volume Laterality AP Specimen 07/02/2021 9:02 AM 1 9:02 EDT AM EDT Narrative [facility] - 07/02/2021 9:02 AM EDT Specimen requisition ordered. ??Separate Pathology report to follow Corrie Chopra MD PATHOLOGY/CYTOLOGY ORDERABLE S Performing Organization Address City/[facility]/[place] [address] Surgical Pathology Report (07/02/2021 9:01 AM EDT) Component Value Ref Test Analysis Performed At [facility] gist Range Method Time Signature Surgical [id number] ? Location: [facility]; [facility]; A [facility] Report The signing pathologist has (i) examined the relevant preparation(s) for the [facility] specimen(s) and (ii) rendered or confirmed the diagnosis(es) . HOSPITAL LABORATORY . ?Surgic al Pathology DIAGNOSIS Portion of stomach, excision: Segment of stomach lined by unremarkable fundic gland mucosa . Electronically signed by: ?Kayla Wilkins MD Verified: ??07/13/2021 0:50 ?? Pathologist Performed at: ??-[facility] Dept. of Pathology, [place], [place] SPECIMEN(S) SUBMITTED A - Portion of Stomach, excision (1) CLINICAL INFORMATION Morbid obesity SPECIMEN PROCESSING A - Labeled/Fixative: Portion of stomach, fresh. Quantity/Size: ??Single, 21.5 x 4.0 x 1.5 cm. Tissue Description: Longitud inal, wedge resection of stomach. ??The serosa is pink, smooth and glistening. ??The mucosa is red with the usual r ugal folds. Sections/Processing: Cytogenetic Technician sections in 1 cassettes as follows: ?A1: ??it sales representative of mucosa ??sns Specimen (Source) Anatomical Collection Method Collection Time Re ceived Time Location / / Volume Laterality 07/02/2021 9:01 AM EDT Corrie Chopra MD PATHOLOGY/CYTOLOGY ORDERABLE S Performing Organization Address City/State/ZIP Code Phon e Number [place] [id number] COVID-19 PCR (07/02/2021 8:05 AM EDT) [facility] Method Time Signature SARS-CoV-2 Not Detected Not Detected [facility] RNA PCR [facility] Comment: This result should be interpreted in com bination with the clinical observations, patient history and epidem iological information. For testing of asymptomatic individuals, assay performa nce characteristics and clinical utility have not been evaluated. Testing for SARS-CoV-2 (Severe acute respiratory syndrome coronavirus 2, form erly known as 2019 novel coronavirus or 2019-nCoV) to aid in the diagnosis of CO VID-19 is performed using the Simplexa COVID-19 Direct Assay by [employer].TVsharyn crespo as authorized by the FDA issued [...] Department of Pathology and Laboratory Medicine at [facility], certified under the Clinical Laboratory [...] fact sheets at the following FDA website: https://www.fda.gov/medical-devices/fzcmpkyeimf-wcqqesn-4777-kouek-25-sksjyebxn- bhz-ssdqaszjadodvz-vgrvzwe-devices/jkprv-avvtnsrzhxa-tcpu SARS-CoV-2 Source ARCHITECTURAL MODELER Swab [facility] Specimen (Source) Anatomical Collection Method Collection Time Re ceived Time Location / / Volume Laterality Nasopharyngeal Swab 07/02/2021 8:05 07/02 AM EDT 9:08 AM EDT Comment: Symptoms->Surveillance Resulting Agency Comment Spec In Lab Anselmo Deshpande MD MICROBIOLOGY - GENERAL ORDER LUIS Performing Organization Address City/State/[place] [address] documented in this encounter Visit Diagnoses Not on filedocumented in this encounter Admitting Diagnoses Diagnosis Morbid [...] 2:03 AM EDT 1,000 mg 400 mL/hr BUpivacaine (pf) (Marcaine) Given 07/02/2021 8:11 AM EDT 23 mLs 19- Surgical Site (2.5 mg/mL) 0.25% injection ONCE PRN, Starting on Wed07/02/21 at 0811, Until Wed07/04/21 at 1726, Intra-Operative (Intra-Procedure), Routine celecoxib (CeleBREX) capsule 200 mg Given 07/04/2021 10:16 AM EDT 200 mg 200 mg, Oral, 2 TIMES DAILY, First dose on Bridgett 07/03/21 at 0900, Until Discontinued, Administer starting post-op day one. Open capsule and administer all at once., Routine Given 07/03/2021 10:00 PM EDT 200 mg Given 07/03/2021 9:11 AM EDT 200 mg enoxaparin (Lovenox) (40 mg/0.4 mL) Given 07/04/2021 [...] Given 07/02/2021 5:01 PM EDT 0.4 mg ondansetron (pf) (Zofran) (2 mg/mL) injection Given [...] choice. Call provider if not effective., Routine sodium chloride 0.9 % (flush) (BD [...] 1:58 PM EDT 125 mL/hr 125 mL/hr documented in this encounter Active and Recently Administered Medications Times are shown in EDT. Scheduled Medication Order 07/02/2021 07/03/2021 07/04/2021 acetaminophen (Ofirmev) (1000 mg/100 mL) infusion 1,000 mg 0203 (Given - Provider: Jeannie Oneal, BRENDA)1025 (Given - Provider: Ifrah aCstillo RN) 1,000 mg, Intravenous, at 400 mL/hr, [...] Routine acetaminophen (Tylenol) tablet 1,000 mg (COMPLETED) 06 55 (Given - Provider: Deonna Boucher, BRENDA) 1,000 mg, Oral, ONCE, 1 dose, On 07/02 at 0715, Maximum dose of acetaminophen is 4000 mg from all sources in 24 hours. When ordered for pain, acetaminophen should be given even when other ordered p ain medications are indicated. , Day of Surgery (Day of Procedur e), Routine ceFAZolin (Ancef) 3 g in dextrose 5% 109 mL infusion ( COMPLETED) 0752 (Given - Provider: Abel Chandra CRNA) 3 g, Intravenous, ONCE, 1 dose, On Wed at 0715, Administer over 30 Minutes, Day of Surgery (Day of Procedure), Indication for (Active or Suspected): Prophylaxis celecoxib (CeleBREX) capsule 200 mg 09 (Given - Provider: Beckie Hamlin RN)2200 (Given - Provider: Monet Mckeon, RN) 1016 (Given - Provider: Ifrah Castillo, BRENDA) 200 mg, Oral, 2 TIMES DAILY, First [...] 40 mg (COMPLETED) 657 (Given - Provider: Deonna Boucher RN) 40 mg, Subcutaneous, ONCE, 1 dose, On 07/02/21 at 0715, To be given in preop area, Day of Surgery (Day of Procedure), Routine enoxaparin (Lovenox) (40 mg/0.4 mL) subcutaneous injec tion 40 mg 2110 (Given - Provider: Lidia Romano RN) 0911 (Given - Provider: Beckie Hamlin , BRENDA)202 (Given - Provider: Monet Mckeon RN) 1018 (Given - Provider: Ifrah Castillo, BRENDA) 40 mg, Subcutaneous, EVERY 12 HOURS SCHE DULED (2 times per day), First dose (after last modification) on Wed07/02/21 at 2100, Until Discontinued, Routine ondansetron (pf) (Zofran) (2 mg/mL) injection 4 mg 174 0 (Given - Provider: Dayanara Griffin RN) 0256 (Given - Provider: Sarina Salguero)0911 (Given - Provider: Beckie Hamlin, BRENDA)1833 (Given - Provider: Beckie Hamlin, BRENDA) 0130 (Given - Provider: Monet Mckeon RN)1000 (Not Given - Provider: Ifrah E Castillo, RN - Reason: Patient/family refused)1047 (Given - Provider: Ifrah Castillo RN) 4 mg, Intravenous, EVERY 8 HOURS SCHED ED, First dose on Wed07/02/21 at 1600, Until Discontinued, For nausea please use ondansetron as the first choice; prochlorperazine as a second choice; promethazine as a third choice. Call provider if not effective. pantoprazole (Protonix) injection 40 mg 1699 (Given - Provider: Tex Gomes, BRENDA) 09 (Given - Provider: Beckie Hamlin, BRENDA) 101 (Gi eder - Provider: Ifrah Castillo, BRENDA) 40 mg, Intravenous, DAILY, First dose on Wed07/02/21 at 1600, Until Discontinued, Reconstitute with 10 mL of normal saline to a concentration of 4 mg/mL and infuse slowly over 2 minutes. , Routine scopolamine (Transderm Scop) 1 mg over 3 days patch 1 patch (COMPLETED) 06 (Patch Applied - Provider: Deonna Boucher RN) 1 patch, Transdermal, ONCE, 1 dose, On W ed 07/02/21 at 0715, Remove post- operatively if patient requires straight catheterization x 2, Day of Surgery (Day of Procedure), Routine sodium chloride 0.9 % (flush) (BD PosiFlush Normal Dejon ine 0.9) flush 5 mL 2110 (Given - Provider: Lidia Romano RN) 09 (Given - Provider: Beckie Hamlin , BRENDA)2032 (Given - Provider: Monet Mckeon RN) 1022 (Given - Provider: Ifrah Castillo RN) 5 mL, Intravenous, 2 TIMES DAILY, First dose on Wed07/02/21 at 2100, Until Discontinued, Recovery (Recovery-Hospital Unit), Routine sodium phosphate 15 mMol in sodium chloride 0.9% 150 mL infu vida (COMPLETED) 1307 (New Bag - Provider: Beckie Hamlin, BRENDA)1707 (Stopped - Provider: Beckie Hamlin, BRENDA) 15 mmol, Intravenous, ONCE, 1 dose, On T hu 07/03/21 at 1200, Administer over 4 Hours, Administer over 4-6 hours Continuous Medication Order 07/02/2021 07/03/2021 07/04/2021 lactated ringers infusion (CANCELED) 0712 (New Bag - P rovider: Deonna Boucher, RN) 1,000 mL, at 100 mL/hr, Intravenous, CON TINUOUS, Starting on Wed07/02/21 at 0715, Until Wed07/02/21 at 1539, Day of Surgery (Day of Procedure) lactated ringers infusion (CANCELED) 1244 (New Bag - P rovider: Adi Dillon RN)2121 (New Bag - Provider: Lidia Romano RN) 0511 (New Bag - Provider: Lidia Romano RN) 1,000 mL, at 125 mL/hr, Intravenous, CON TINUOUS, Starting on Wed07/02/21 at 1230, Until Wed07/03/21 at 1335 sodium chloride 0.9% infusion 1358 (New Bag - Provider: Beckie Hamlin, BRENDA)2213 (New Bag - Provider: Tex Ledbetter, RN) 0542 (New Bag - Provider: Jeannie Oneal RN)1223 (Stopped - Provider: Ifrah Castillo RN) 125 mL/hr, at 125 mL/hr, Intravenous, [...] mg (CANCELED) 0948 (Given - Provider: Adi Dillon RN) 6.25 mg, Intravenous, EVERY 30 MIN [...] Routine documented in this encounter Care Teams Vocational Rehab Consultant Relationship Specialty Start Date End Date Rob Smith APRN PCP - General Family Medicine 11/15/19 [address] [place] [address] documented as of this encounter
--- OUTSIDE RECORDS SUMMARY | 2022-04-24 00:23 | XMS_ITS | Encounter Summary ---
:1970 Author Organization [facility] Address [address] [place] [address] Care Team Providers Name Role Phone Rob Smith DNP Primary Care Provider Encounter Details Date Type Department Care Team Description 06/17/2020 Lab Requisition [facility] Outr Resulting Lab, Pathology & Laboratory Provider [facility] [address] [place], [place] [id number] Social History Tobacco Use Types Packs/Day Years Used Date Current Every Day Smoker 0.5 Sex Assigned at Date Recorded Not on file documented as of this encounter Plan of Treatment Not on filedocumented as of this encounter Procedures Procedure Name Priority Date/Time Associated Comments Diagnosis DO NOT ORDER Today 06/17/2020 13:21 Results for this STANDALONE - BROAD EDT procedure are in COVID TEST the results section. COVID-19 TESTING Routine 06/17/2020 13:21 Results for this EDT procedure are i n the results section. documented in this encounter Results DO NOT ORDER STANDALONE - BROAD COVID TEST (06/17/2020 13:21 EDT) COVID-19 rt-PCR NEGATIVE Negative [facility] Result Comment: LABORATORY 2019-novel Coronavirus (2019 -nCoV) not detected by the qRT-PCR assay. Consider testing for other respiratory viruses or re-collecting for 2019-nCoV testing. Note: Optimum timing for peak viral levels du ring infections caused by 20 19-nCoV have not been determined. Collection of multiple [...] Organization Address City/State/ZIP Code Phon e Number [facility] [employer] [facility] [place], [place] COVID-19 TESTING (06/17/2020 13:21 EDT) COVID-19 rt-PCR NEGATIVE Negative [facility] Result Comment: LABORATORY 2019-novel Coronavirus (2019 -nCoV) [...] the virus. The test was validated for [facility] with upper respiratory specimens obtained via nasopharyngeal or oropharyngeal swabs in VTM, UTM, M4, M5, M6, saline, and MTM media. The performance of this test has not be en established for other [facility]. Specimens collected using other FDA recommended Specimen [...] Administration's Emergency Use Authorization. Performing Lab [facility] LABORATORY SERVICES Specimen Swab Performing Organization Address City/State/ZIP Code Phon e Number [facility] [address] [place] [address] [facility] [place], [place] documented in this encounter Visit Diagnoses Not on filedocumented in this encounter Care Teams Skid Worker Relationship Specialty Start Date End Date Rob Smith, DNP PCP - General 06/12/20 Joni GIRON [address] [place] [phone] documented as of this encounter
--- OUTSIDE RECORDS SUMMARY | 2022-04-24 00:23 | XMS_ITS | Encounter Summary ---
:[address] [facility] Address [address] [place] [address] Care Team Providers Name Role Phone Britt Mckay MD Primary Care Provider Encounter Details Date Type Department Care Team Description 06/23/2001 Results Only [facility] - Jeffry Gillette MD conversion [address] [place] [phone] (Wo rk) Social History Tobacco Use Types Packs/Day Years Used Date Never Assessed Sex Assigned at Date Recorded Not on file documented as of this encounter Plan of Treatment Not on filedocumented as of this encounter Procedures Procedure Name Priority Date/Time Associated Diagnosis Comme nts CYTOPATHOLOGY Routine 06/23/2001 0:00 EDT Results for this procedure are i n the results section . documented in this encounter Results CYTOPATHOLOGY (06/23/2001 0:00 EDT) Pathology Report: CYTOPATHOLOGY REPORT [facility] Reports generated via electronic interface contain alma ginal data; however they are lacking the format of the original re port. Caution should be taken when reading/interpreting unfo rmatted reports. Name: ? GARO MONTANA ? Accession #: ? [id number] : ? 1970 (Age: 30) ??F ?Collect Date: ? 06/02 Location: ? [facility] ? Receive Date : ? 06/28/2001 Provider: ?JEFFRY SPAULDING MD Copy to: ? Specimen/Source: ?Conventional Pap Test, Cer vix/Endocervix Last Menstrual Period: ? 01/30 Menstrual/ Status: ? SPECIMEN ADEQUACY ? Satisfactory for eval uation but limited by an absence of a transformation zone component. GENERAL CATEGORIZATION ? Within Normal Limits ? Document reviewed and electronically signed by: ? WESTON Rene(ASCP) ? Report Date: ??06/29/2001 08:44 End of Report Specimen Performing Organization Address City/State/ZIP Code Phon e Number [facility] [address] [place] [address] SERVICES [facility] [address] [place] [address] documented in this encounter Visit Diagnoses Not on filedocumented in this encounter Care Teams Aquatic Biologist Relationship Specialty Start Date End Date Britt Mckay MD PCP - General 01/23/10 04/21/[address] [place] [phone] documented as of this encounter
--- OUTSIDE RECORDS SUMMARY | 2022-04-24 00:23 | XMS_ITS | Encounter Summary ---
:1970 Author Organization [facility] Address [address] [place] [address] Care Team Providers Name Role Phone Rob Smith DNP Primary Care Provider Encounter Details Date Type Department Care Team Description 10/09/2020 Lab Requisition [facility] Chad Callejas for Pathology & MD Juan screening for Laboratory Medicine [address] malignant neoplasm - [place], [place] of colon [address] [facility] [address] [place], [place] [address] Social History Tobacco Use Types Packs/Day Years Used Date Current Every Day Smoker 0.5 Sex Assigned at Date Recorded Not on file documented as of this encounter Plan of Treatment Not on filedocumented as of this encounter Procedures Procedure Name Priority Date/Time Associated Diagnosis Comme nts SURGICAL PATHOLOGY Today 10/09/2020 8:46 EST Encounter for R esults for this screening for procedure are in malignant neoplasm the resul ts of colon section. documented in this encounter Results SURGICAL PATHOLOGY (10/09/2020 8:46 EST) Final Diagnosis A. COLON, ASCENDING, BIOPSY: [facility] - Tubulovillous adenoma [facility] LABORATORY B. COLON, SIGMOID, BIOPSIES: SERVICES - Hyperplastic polyp C. COLON, RECTUM, BIOPSY: - One (1) tubular adenoma - One (1) hyperplastic polyp Attestation By the signature [facility] Electronica lly below, the attending CENTER signed by Carissa, physician certifies LABORATORY Emilie Ramirez MD on that they have 1) SERVICES 10/14/2020 at 1437 personally conducted a gross and/or microscopic examination of the described specimen(s), and/or personally interpreted the results of laboratory testing of the described specimen(s), and 2) personally rendered or confirmed the above diagnosis. Clinical History Screening; clinical [facility] diagnosis code: CENTER Z12.11 LABORATORY SERVICES Gross Description A. [facility] Received in formalin kennedy d with proper patient identification (initials S, T) and ascending colon polyp are 10 sandoval-brown tissue fragments ranging in size from 0.3 x 0.2 x 0.2 cm up to 0.7 x 0.5 x 0.3 cm. Submitted intact in A1-A3. [facility]ENTER LABORATORY B. SERVICES Received in formalin kennedy d with proper patient identification (initials S, T) and sigmoid polyps x2 are 2 light sandoval tissues measuring 0.3 x 0.2 x 0.1 cm and 0.3 x 0.2 x 0.2 cm. Submitted intact in B1. C. Received in formalin kennedy d with proper patient identification (initials S, T) and rectal polyp is a lobulated sandoval-pink polypoid tissue measuring 1.2 x 0 point 8 x 0.8 cm. Serially sectioned and submitted entirely in C1-C2. JENIFFER PERDUE(ASCP) 10/09/2020 19:29 Performing Lab [facility] SERVICES Scanned Images [facility] SERVICES Specimen Tissue - Specimen from rectum (specimen) Tissue specimen (specimen) - Entire sigm oid colon (body structure) Tissue specimen (specimen) - Specimen fr om rectum (specimen) Performing Organization Address City/State/ZIP Code Phon e Number [facility] [address] [place] [address] SERVICES documented in this encounter Visit Diagnoses Diagnosis Encounter for screening for malignant ne oplasm of colon Special screening for malignant neoplasm s, colon documented in this encounter Care Teams Stator Connector Relationship Specialty Start Date End Date Rob Smith, DNP PCP - General 06/12/20 [address]i [address]IRON [address] [place] [phone] documented as of this encounter
--- OUTSIDE RECORDS SUMMARY | 2022-04-24 00:23 | XMS_ITS | Encounter Summary ---
:1970 Author Organization [facility] Address [address] [place] [address] Care Team Providers Name Role Phone Britt Crowell MD Primary Care Provider Encounter Details Date Type Department Care Team Description 03/06/2002 Results Only [facility] - Britt Calderon MD conversion [address] [facility] [address] [place] [phone] (Wo rk) Social History Tobacco Use Types Packs/Day Years Used Date Never Assessed Sex Assigned at Date Recorded Not on file documented as of this encounter Plan of Treatment Not on filedocumented as of this encounter Procedures Procedure Name Priority Date/Time Associated Diagnosis Comme nts CYTOPATHOLOGY Routine 03/06/2002 0:00 EDT Results for this procedure are i n the results section . documented in this encounter Results CYTOPATHOLOGY (03/06/2002 0:00 EDT) Pathology Report: CYTOPATHOLOGY REPORT [facility] Reports generated via electronic interface contain alma ginal data; however they are lacking the format of the original re port. Caution should be taken when reading/interpreting unfo rmatted reports. Name: ? GARO MONTANA ? Accession #: ? [id number] : ? 1970 (Age: 31) ??F ?Collect Date: ? 05/0 04/2002 Location: ? [facility] ? Receive Date : ? 03/08/2002 Provider: ?BRITT CROWELL MD Copy to: ? Specimen/Source: ?Conventional Pap Test, Cer vix/Endocervix Last Menstrual Period: ? 01/30 Menstrual/ Status: ? Post ? SPECIMEN ADEQUACY ? Satisfactory for Evaluation - transformation zone component present GENERAL CATEGORIZATION ? Negative for Intraepithelial Lesion or Malignan cy ? Document reviewed and electronically signed by: ? Thais Lawson, ??SCT(ASCP) ? Report Date: ??03/10/2002 12:58 End of Report Specimen Performing Organization Address City/State/ZIP Code Phon e Number [facility] [address] [place] [address] SERVICES [facility] [address] [place] [address] documented in this encounter Visit Diagnoses Not on filedocumented in this encounter Care Teams Manager Investment Relationship Specialty Start Date End Date Britt Crowell MD PCP - General 01/23/10 04/21/[address] [place] [phone] documented as of this encounter
--- OUTSIDE RECORDS SUMMARY | 2022-04-24 00:23 | XMS_ITS | Encounter Summary ---
:1970 Author Organization [facility] Address [address] [place] [address] Care Team Providers Name Role Phone Rob Smith DNP Primary Care Provider Encounter Details Date Type Department Care Team Description 10/20/2021 Lab Requisition [facility] Chad Callejas for other Pathology & MD Juan general examination Laboratory Medicine [address] [place], [place] [address] [facility] [address] [place], [place] [address] Social History Tobacco Use Types Packs/Day Years Used Date Current Every Day Smoker 0.5 Sex Assigned at Date Recorded Not on file documented as of this encounter Plan of Treatment Not on filedocumented as of this encounter Procedures Procedure Name Priority Date/Time Associated Diagnosis Comme nts SURGICAL PATHOLOGY Today 10/20/2021 9:20 EST Encounter for o ther Results for this general examination procedur e are in the results section. documented in this encounter Results SURGICAL PATHOLOGY (10/20/2021 9:20 EST) Note to Patient The following [facility] pathology results CENTER have been interpreted LABORATORY by your pathologist SERVICES and may be available to you before your health provider has had the opportunity to review them. Please allow time for your provider to receive these results and explore management options, if applicable. Final Diagnosis A. COLON, CECUM, POLYP, BIOPSY: [facility] D[facility] - Polypoid colonic mucosa with no specific pathologic features. CENTER LABORATORY B. COLON, ASCENDING, POLYPS, BIOPSY: SERV ICES - Fragments of tubular adenoma(s). Attestation By the signature [facility] Electronica lly below, the attending CENTER signed by physician Symone certifies LABORATORY MD Laila on that they have 1) SERVICES 10/21/2021 at 1517 personally conducted a gross and/or microscopic examination of the described specimen(s), and/or personally interpreted the results of laboratory testing of the described specimen(s), and 2) personally rendered or confirmed the above diagnosis. Clinical History History of polyps [facility]ORATORY SERVICES Gross Description A. [facility] Received in formalin kennedy d with proper patient identification (initials S, T) and cecal polyp is a sandoval tissue, 0.4 x 0.2 x 0.1 cm. Entirely submitted in A1. CENTER LABORATORY B. SERVICES Received in formalin kennedy d with proper patient identification (initials S, T) and ascending colon polyps x3 are four sandoval tissues ranging from 0.1 x 0.1 x 0.1 cm to 0.3 x 0.2 x 0.2 cm. Entirely submitted in B1. JENIFFER JOHNSON(ASCP) 10/20/2021 17:35 Performing Lab [facility] LABORATORY SERVICES Scanned Images [facility] LABORATORY SERVICES Specimen Tissue - Ascending colon structure (body structure) Tissue specimen (specimen) - Ascending c olon structure (body structure) Performing Organization Address City/State/ZIP Code Phon e Number [facility] [address] [place] [address] SERVICES documented in this encounter Visit Diagnoses Diagnosis Encounter for other general examination documented in this encounter Care Teams Tier In Relationship Specialty Start Date End Date Rob Smith, LALITA PCP - General 06/12/20 Joni [address]IRON [address] [place] [phone] documented as of this encounter
--- OUTSIDE RECORDS SUMMARY | 2022-04-24 00:23 | XMS_ITS | Encounter Summary ---
:1970 Author Organization [facility] Address [address] [place] [address] Care Team Providers Name Role Phone Rob Smith DNP Primary Care Provider Encounter Details Date Type Department Care Team Description 06/12/2020 Lab Requisition [facility] Isaak Navarro MD Encounter for other Pathology & [address] general examination Laboratory Medicine [facility] [phone] [address] [facility] [phone] [place] [address] (Work) [phone] Social History Tobacco Use Types Packs/Day Years Used Date Current Every Day Smoker 0.5 Sex Assigned at Date Recorded Not on file documented as of this encounter Plan of Treatment Not on filedocumented as of this encounter Procedures Procedure Name Priority Date/Time Associated Diagnosis Comme nts SURGICAL PATHOLOGY Today 06/12/2020 14:30 Encounter for othe r Results for this EDT general examination procedur e are in the results section. documented in this encounter Results SURGICAL PATHOLOGY (06/12/2020 14:30 EDT) Final Diagnosis A. ENDOMETRIUM, BIOPSY: [facility] MED[facility] - Fragmented endometrium with stromal breakdown CENTER - Negative for hyperplasia/malignancy LAB ORATORY SERVICES Attestation There was significant [facility] Electr onically resident/fellow CENTER signed by Fr abarca, involvement in the LABORATORY Stacey Lutz on diagnostic evaluation SERVICES 020 at 0935 of this case. By the signature below, the attending physician certifies that they have personally conducted a gross and/or microscopic examination of the described specimens and rendered or confirmed the above diagnosis. Clinical History Menorrhagia [facility] LABORATORY SERVICES Gross Description A. [facility] MEDICAL Received in formalin kennedy d with proper patient identification (initials S, T) and endometrium is dark red-brown soft tissue that measures 2.5 x 2.0 x 0.2 cm in aggregate. Entirely submitted in A1-A2. CENTER LABORATORY Raffi Deangeloluc 06/13/2020 11:23 SERVICE S Resident/Fellow: Roslyn Shaver [facility] RACHEL Reynolds MD [facility] Performing Lab [facility] LABORATORY SERVICES Scanned Images [facility] LABORATORY SERVICES Specimen Tissue - Entire endometrium (body struct ure) Performing Organization Address City/State/ZIP Code Phon e Number [facility] [address] [place] [address] SERVICES documented in this encounter Visit Diagnoses Diagnosis Encounter for other general examination documented in this encounter Care Teams Campaign Specialist Relationship Specialty Start Date End Date Rob Smith, DNP PCP - General 06/12/20 [address]i [address]IRON [address] [place] [phone] documented as of this encounter
--- OUTSIDE RECORDS SUMMARY | 2022-04-24 00:23 | XMS_ITS | Encounter Summary ---
:1970 Author Organization [facility] Address [address] [place] [address] Care Team Providers Name Role Phone Rob Smith DNP Primary Care Provider Encounter Details Date Type Department Care Team Description 04/10/2021 Lab Requisition [facility] Outr Resulting Lab, Pathology & Laboratory Provider [facility] [address] [place], [place] [address] Social History Tobacco Use Types Packs/Day Years Used Date Current Every Day Smoker 0.5 Sex Assigned at Date Recorded Not on file documented as of this encounter Plan of Treatment Not on filedocumented as of this encounter Procedures Procedure Name Priority Date/Time Associated Diagnosis Comme nts PTH INTACT Routine 04/10/2021 8:30 EDT Results for this procedure are i n the results section . documented in this encounter Results PTH INTACT (04/10/2021 8:30 EDT) Pathologist Sig nature Intact PTH 38 19 - 88 pg/mL [facility]ATO RY SERVICES Specimen Blood - Venous blood (substance) Performing Organization Address City/State/ZIP Code Phon e Number [facility] [address] [place] [address] SERVICES documented in this encounter Visit Diagnoses Not on filedocumented in this encounter Care Teams Parts Counter Specialist Relationship Specialty Start Date End Date Rob Smith DNP PCP - General 06/12/20 Joni GIRON [address] [place] [phone] documented as of this encounter
--- OUTSIDE RECORDS SUMMARY | 2022-04-24 00:23 | XMS_ITS | Encounter Summary ---
:1970 [place] [address] Care Team Providers Name Role Phone Rob Smith BRENNA Primary Care Provider Encounter Details Date Type Department Care Team Description 02/10/2021 Notes Only General Surgery at [facility] Jennifer Florez APRN [facility] [place] [address] GENERAL SURGERY [phone] [place], [place] [address] (Wo rk) Social History Tobacco Use Types Packs/Day Years Used Date Former Smoker Smokeless Tobacco: Never Used Comments: pt quit 3 yrs ago Sex Assigned at Date Recorded Not on file documented as of this encounter Progress Notes Jennifer Florez APRN - 02/10/2021 2:53 PM EDT Called patient (with Nafisa Mccartney RD) to discuss her insurance's weight loss requirement. Natalia reports she is on a low sodium, 1200 calorie diet. 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 She is aware she will need to be at a weight of 251 to meet the insurance requirement. When she is closer to this weight she will call [facility] to schedule her follow up visit. She is aware she will have a nicotine blood test at her follow up visit as well. She states she is not a smoker but smokes a few drags here and there. Questions encouraged and answered. documented in this encounter Plan of Treatment Not on filedocumented as of this encounter Visit Diagnoses Not on filedocumented in this encounter Care Teams Budget Assistant Relationship Specialty Start Date End Date Rob Smith APRN PCP - General Family Medicine 11/15/19 Joni GIRON [address] [place] [address] documented as of this encounter
--- OUTSIDE RECORDS SUMMARY | 2022-04-24 00:23 | XMS_ITS | Encounter Summary ---
:1970 Author Organization [facility] Address [address] [place] [address] Care Team Providers Name Role Phone Joaquin Celaya MD Primary Care Provider Encounter Details Date Type Department Care Team Description 04/27/2017 Results Only Imaging [facility]- Unknown, LEAH Rosales MD [phone] Social History Tobacco Use Types Packs/Day Years Used Date Never Assessed Sex Assigned at Date Recorded Not on file documented as of this encounter Plan of Treatment Pending Results Name Type Priority Associated Diagnoses Date/Ti me OUTSIDE IMAGES - OTHER Imaging 04/27 10:18 EDT NEURO OUTSIDE IMAGES - MR NEURO Imaging 10:18 EDT OUTSIDE IMAGES - MR NEURO Imaging 10:18 EDT documented as of this encounter Visit Diagnoses Not on filedocumented in this encounter Care Teams Crm Solution Architect Relationship Specialty Start Date End Date Joaquin Celaya MD PCP - General 04/22/10 06/11/20 [address] [place] [phone] documented as of this encounter
--- OUTSIDE RECORDS SUMMARY | 2022-04-24 00:23 | XMS_ITS | Encounter Summary ---
:1970 Author Organization [facility] Address [address] [place] [address] Care Team Providers Name Role Phone Joaquin Celaya MD Primary Care Provider Rob Smith DNP Primary Care Provider Encounter Details Date Type Department Care Team Description 01/26/2020 Lab Requisition [facility] José Miguel Hutchins En counter for other Pathology & D, general examination Laboratory Medicine - [address] [place], [place] [address] [facility] [id number] [place], [place] [id number] Social History Tobacco Use Types Packs/Day Years Used Date Current Every Day Smoker 0.5 Sex Assigned at Date Recorded Not on file documented as of this encounter Plan of Treatment Not on filedocumented as of this encounter Procedures Procedure Name Priority Date/Time Associated Diagnosis Comme nts COVID-19 [place] Today 01/25/2020 14:10 EDT Encounter for other Results for this general examination procedur e are in the results section. documented in this encounter Results SARS CORONAVIRUS 2 RNA DETECTION [place] (01/25/2020 14:10 EDT) COVID-19 [place] Nasopharynx [facility] Specimen Source LABORATORIES COVID-19 [place] Undetected Undetected [facility] Result Comment: LABORATORIES SARS-CoV-2 RNA is not detected. ADDITIONAL INFORMATION ------ Testing was performed using the cyndy SARS-CoV-2 assay ([employer] on the cyndy [employer] [place]. Fact sheets for this Emergency Use Authorization (EUA) assay can be found at the following links: For Healthcare Providers: https://www.fda.gov/media/498408/download For Patients: https://www.fda.gov/media/218722/jacqueloa d Test Performed by: [facility] [address] [place] [id number] Hospitality Manager: Binu Marques M.D. Ph.D.; CLIA# [id number] Specimen Swab - Entire nasopharynx (body structur e) Performing Organization Address City/State/ZIP Code Phon e Number [facility] [address] [place] [address] documented in this encounter Visit Diagnoses Diagnosis Encounter for other general examination documented in this encounter Care Teams Lock Fitter Relationship Specialty Start Date End Date Joaquin Celaya MD PCP - General 04/22/10 06/11/[address] [place] [phone] Rob Smith, DNP PCP - General 06/12/20 [address] [place] [address] documented as of this encounter
--- OUTSIDE RECORDS SUMMARY | 2022-04-24 00:23 | XMS_ITS | Encounter Summary ---
:1970 Author Organization [facility] [place] [address] Care Team Providers Name Role Phone Rob Smith APRN Primary Care Provider Encounter Details Date Type Department Care Team Description 04/25/2021 Office Visit General Surgery at [facility] Corrie Hastings MD Morbid obesity [facility] [place] [address] GENERAL SURGERY [phone] [place], [place] [address] (Wo rk) Social History Tobacco Use Types Packs/Day Years Used Date Former Smoker Smokeless Tobacco: Never Used Comments: pt quit 3 yrs ago Sex Assigned at Date Recorded Not on file documented as of this encounter Progress Notes Corrie Hastings MD - 04/25/2021 9:15 AM EDT Natalia Damico was seen again to schedule bariatric surgery and she has again gained weight. She was seen by both our dietitian and our AGRICULTURE LABORER whose notes also confirm her weight gain and some poor dietary choices. Our plan for her is to re-focus on weight loss and we have scheduled a telehealth visit in 1 month to see if she is back on track. documented in this encounter Plan of Treatment Not on filedocumented as of this encounter Visit Diagnoses Diagnosis Morbid obesity documented in this encounter Care Teams Dog License Officer Supervisor Relationship Specialty Start Date End Date Rob Smith APRN PCP - General Family Medicine 11/15/19 [address] [place] [address] documented as of this encounter
--- OUTSIDE RECORDS SUMMARY | 2022-04-24 00:23 | XMS_ITS | Encounter Summary ---
:1970 Author Organization [facility] Address [address] [place] [address] Care Team Providers Name Role Phone Rob Smith DNP Primary Care Provider Encounter Details Date Type Department Care Team Description 04/10/2021 Lab Requisition [facility] Outr Resulting Lab, Pathology & Laboratory Provider [facility] [address] [place] [address] Social History Tobacco Use Types Packs/Day Years Used Date Current Every Day Smoker 0.5 Sex Assigned at Date Recorded Not on file documented as of this encounter Plan of Treatment Not on filedocumented as of this encounter Procedures Procedure Name Priority Date/Time Associated Diagnosis Comme nts H. PYLORI ANTIGEN Routine 04/10/2021 11:55 Result s for this EDT procedure are i n the results section. documented in this encounter Results H. PYLORI ANTIGEN (04/10/2021 11:55 EDT) Pathologist Sig nature H. Pylori Negative Negative [facility] Y SERVICES Specimen Feces - Specimen from rectum (specimen) Narrative [facility] - 04/15/2021 14:42 EDT Results were obtained with the Premier P latinum HpSA Plus YUMIKO. Performing Organization Address City/State/ZIP Code Phon e Number [facility] [address] [place] [address] SERVICES documented in this encounter Visit Diagnoses Not on filedocumented in this encounter Care Teams Film Splicer Relationship Specialty Start Date End Date Rob Smith DNP PCP - General 06/12/20 [address] [place] [address] documented as of this encounter
--- OUTSIDE RECORDS SUMMARY | 2022-04-24 00:23 | XMS_ITS | Encounter Summary ---
:1970 Author Organization [facility] Address [address] [place] [address] Care Team Providers Name Role Phone Joaquin Celaya MD Primary Care Provider Reason for Referral Radiology Services (Routine) - Closed Specialty Diagnoses / Procedures Referred By Contact Refer red To Contact Diagnoses Low back pain with right-sided sciatica, unspecified back pain laterality, unspecified chronicity Rogers Talbert MD Procedures L SPINE 4 OR MORE VIEWS [address] [place] [address] Referral ID Status Reason Start Date Expiration Date Visits Requ ested Visits Authorized [id number] Closed 05/13/2017 1 1 Reason for Visit Reason Onset Date Comments Pre-visit Orders 05/13/2017 Encounter Details Date Type Department Care Team Description 05/13/2017 Orders Only [facility] [place] ack pain with Spine Program - Shahid Torres MD right-sided sciatica, [address] [facility] [address] [employer] [facility] unspecified back pain So [facility], [facility] ality, [address] [place] [phone] unspecified chronicity [phone] (Primary Dx) (Work) Social History Tobacco Use Types Packs/Day Years Used Date Never Assessed Sex Assigned at Date Recorded Not on file documented as of this encounter Plan of Treatment Not on filedocumented as of this encounter Procedures Procedure Name Priority Date/Time Associated Diagnosis Comme nts L SPINE 4 OR MORE Routine 05/24/2017 11:56 Low back pain with Results for this VIEWS EDT right-sided procedure are i n sciatica, the results unspecified back section. pain laterality, unspecified chronicity documented in this encounter Results L SPINE 4 OR MORE VIEWS (05/24/2017 11:56 EDT) Anatomical Region Laterality Modality Other Specimen Narrative [facility] FERNANDO HUNT - 05/25/2017 13:21 EDT L SPINE 4 OR MORE VIEWS ??05/24/2017 11:56 AM Clinical History/Comments: M54.41-Lumbago with sciatica, right side -ICD-10; low back pain; right leg pain. Comparison: Lumbar spine MRI March 10, 2017 from [facility]. Technique: AP and lateral flexion, neutral and exte nsion views of the lumbar spine were obtained. Findings: Mild thoracolumbar dextroscoliotic curva ture is demonstrated with the apex of the curve at about L2-L3. No tiny- or retrolisthesis is demonstr ated in flexion, neutral or extension views. Vertebral body heights are preserved. There is moderate disc space narrowing a t L5-S1 consistent with disc degeneration. Hypertrophy of the facet joints is demon strated at L4-L5 and L5-S1. Procedure Note Diana Servin MD - 05/25/2017 L SPINE 4 OR MORE VIEWS 05/24/2017 11:56 AM Clinical History/Comments: M54.41-Lumbago with sciatica, right side -ICD-10; low back pain; right leg pain. Comparison: Lumbar spine MRI March 10, 2017 from [facility]. Technique: AP and lateral flexion, neutral and exte nsion views of the lumbar spine were obtained. Findings: Mild thoracolumbar dextroscoliotic curva ture is demonstrated with the apex of the curve at about L2-L3. No tiny- or retrolisthesis is demonstr ated in flexion, neutral or extension views. Vertebral body heights are preserved. There is moderate disc space narrowing a t L5-S1 consistent with disc degeneration. Hypertrophy of the facet joints is demon strated at L4-L5 and L5-S1. Performing Organization Address City/State/ZIP Code Phon e Number [facility] [place] documented in this encounter Visit Diagnoses Diagnosis Low back pain with right-sided sciatica, unspecified back pain laterality, unspecified chronicity - Primary documented in this encounter Care Teams Division Operations Specialist Relationship Specialty Start Date End Date Joaquin Celaya MD PCP - General 04/22/10 06/11/20 [address] [place] [phone] documented as of this encounter
--- OUTSIDE RECORDS SUMMARY | 2022-04-24 00:23 | XMS_ITS | Encounter Summary ---
:1970 Author Organization [facility] [place] [address] Care Team Providers Name Role Phone Rob Smith Caesarandrew BRENNA Primary Care Provider Encounter Details Date Type Department Care Team Description 05/09/2021 TH Visit General Surgery at Katy Florez ra, APRN [facility] [address] Encounter for pre-bariatric surgery coun seling and education; (TeleHealth) [facility] [address] [facility] [address] Pre-op evaluation; [facility] [place] [address] Social History Tobacco Use Types Packs/Day Years Used Date Former Smoker Smokeless Tobacco: Never Used Comments: pt quit 3 yrs ago Sex Assigned at Date Recorded Not on file documented as of this encounter Progress Notes Ifrah Mccartney RD - 05/09/2021 10:00 AM EDT Images from the original note were not included. Bariatric Nutrition - Pre-op Assessment Call made with Jennifer Florez APRN BARIATRIC SURGERY VIRTUAL NOTE Natalia Damico is being seen today for nutrition follow-up in anticipation for bariatric surgery. Previous visits on 02/06/21, 03/18/21, and 04/25/21. Pt was asked to follow modified preop diet for 2 weeks to help focus her meal plan in preparation to surgery. At the time of the visit pt was in [place]. SUBJECTIVE: Pt met w Ruma Martinez RD on 05/08/21. Weight 271#. Note reports pt is following 1200 calorie meal plan. Able to stay on track with the diet. Walking 20-30 minutes per day. Taking MVI and biotin. Things are going well. Loves the diet on it. Has been helpful. Finds diet easy to follow. Loves Honduran yogurt Social history:??Currently unemployed; working toward doctorate in psychology; - 3 boys, 1 girl. Lives w - 2 sons and their girlfriends and a grandson ?? Social support:??, sons, coworkers ?? Hobbies:??horseback riding (has 2 horses) ?? Medical Hx:?Class III obesity, joint pain, sleep disorder, anxiety Tracking Intake: My Fitness Pal. 24-hour recall: Has tried Kashi Cereal. Trying new fruits Breakfast Kashi Crush cereal w skim milk Snack Lunch Honduran yogurt, a little bit of cottage cheese, protein drink Snack Cheese stick Supper Chicken without the skin, green beans Snacks Fluids: decaf coffee, water. Practicing not drinking w meals. Exercise: Feeling more energetic Walking w family and dogs. some swimming OBJECTIVE: Weight History: Date Weight (lbs) HT BMI Comments ??02/06/21 273.7#? Highest Weight 02/22/20 265# ? Initial program weight 02/06/21 273.7# 64 47.0 1st pre-op visit 03/18/21 267.2# ? 2nd pre-op visit (reported) 04/25/21 281.8# ?? 48.4 3rd pre-op visit 05/08/21 271# 4th visit (weight recorded at external RD office) ? EWL % ?? Surgery ? 1 month post-op ? 4 months post-op [place] Body Weight (based on BMI of 25):??146# 30-70% Excess Weight Loss:??184-235#; 50% Excess Weight Loss:??210# ASSESSMENT: Pt continues to make positive changes in preparation for bariatric surgery. She is happy with how the diet is going and plans to continue to follow it which I encouraged her to do. PLAN: In person f/u scheduled for 05/30/21. Pt has contact information for further questions. Jennifer Florez APRN - 05/09/2021 10:00 AM EDT Images from the [place] [address] BARIATRIC SURGERY VIRTUAL NOTE 1. Reason/purpose for phone call: BSP follow up visit 2. The patient voiced an understanding of the reason and intent of the televisit and provided verbalconsent to discuss clinical issues by telehelath. Additionally, the patient acknowledged that the telehealth consultation is a billable encounter, and that the patient or their medical insurance carrier could be billed. 3. Summary of conversation, decision making, and plan: see below encounter note for details. Time Attestation: I spent a total of 20 minutes associated with this encounter, including chart review, the patient encounter, and documentation. Reason for visit: Bariatric Surgery follow up visit. Subjective: Natalia Damico is preparing for bariatric surgery. At her most recent visit, weight had increased.Plan following the visit including the preoperative diet and tracking in order to get back on track with diet/lifestyle changes. Natalia has been following up with her outside RD. She had a visit yesterday with a weight check and has lost about 10 lbs. Natalia is following the pre-op diet and has even grown to love Honduran yogurt. She is tracking with My Fitness Pal. Pre-Bariatric Surgery Obesity related medical issues: o [...] Review of Systems Constitutional: energy level is good (feeling more energetic), no recent illnesses. Neuro: no c/o paresthesias, no changes in memory. CV: no c/o chest pain or palpitations. Pulm: denies SOB or cough. GI: denies bloating, abdominal pain. No nausea/vomiting. No diarrhea. No constipation. 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 Health Habits: Tobacco: Quit recently (negative nicotine last month). ETOH: None currently. NSAID use: None. Dietary history/ exericse/ activity level: See dietitian note from today's visit for complete dietary evaluation. Meds and Allergies reviewed. Objective: There were no vitals taken for this visit. (TeleFlowJob). Reported weight: 269 lbs. Physical Exam Gen: Alert, pleasant, NAD, appears well Resp: Speaking in full sentences, no gasping. No cough witnessed. Skin: No pallor or diaphoresis visible. No rash noted. Psychiatric: normal mood and affect. No results found for this or any previous visit (from the past 72 hour(s)). Assessment 50 y.o. female who is preparing for bariatric surgery (prefers gastric sleeve), followingup today on weight gain. Patient is now on track with diet and exercise with about 10 lb weight losssince last visit. Plan: ??? Encouraged continued tracking and good diet choices. Encouraged continued exercise. RTC as scheduled for next BSP follow up visit, with labs. Call/rtc sooner prn with questions/concerns or unexplained abdominal pain, prolonged nausea, vomiting or inability to hydrate. Bariatric Program Summary report is availabe for patient's review via e-DH 20 minutes spent with patient in [id number] discussion including review of diagnosis, labs, counseling/education [...] If labwork is done by the primary manager respiratory care: please send a copy to the Bariatric Surgery Program, General Surgery Clinic, [facility], or fax [phone] documented in this encounter Plan of Treatment Not on filedocumented as of this encounter Visit Diagnoses Diagnosis Encounter for pre-bariatric surgery coun seling and education Pre-op evaluation Preoperative examination, unspecified Weight gain Abnormal weight gain documented in this encounter Care Teams Muffle Operator Relationship Specialty Start Date End Date Rob Smith APRN PCP - General Family Medicine 11/15/19 [address] [place] [address] documented as of this encounter
--- OUTSIDE RECORDS SUMMARY | 2022-04-24 00:23 | XMS_ITS | Encounter Summary ---
:1970 Author Organization [facility] [place] [address] Care Team Providers Name Role Phone Rob Smith JOINT MAKER MACHINE Primary Care Provider Encounter Details Date Type Department Care Team Description 07/10/2021 Telephone General Surgery at [facility] Mary Werner, [place] [address] Social History Tobacco Use Types Packs/Day Years Used Date Former Smoker Smokeless Tobacco: Never Used Comments: pt quit 3 yrs ago Sex Assigned at Date Recorded Not on file documented as of this encounter Miscellaneous Notes Telephone Encounter - Mary Werner, RN - 07/10/2021 1:33 PM EDT Nursing Triage - Phone Note CALLER: Natalia Damico who is a 50 y.o. female. Learning Needs Assessment Reviewed: Yes CHIEF COMPLAINT: Dull pain SUBJECTIVE- Natalia called the clinic today with complaints of dull pain that causes me to hold my breath. It's similar to indigestion. She explained that this pain only occurs while eating or drinking. PERTINENT PAST SURGICAL HISTORY: @LAPAROSCOPY, SURG/GASTRIC RESTRICTIVE PROC, LONGITUDINAL GASTRECTOMY (WRVU 20.38) (N/A) on 07/02/[address] Hastings and Dr. Deshpande. NURSING ASSESSMENT: Natalia explained she was doing well after surgery until this dull pain began last night while she was eating strained cream of mushroom soup. She tried to eat again this morning and could barely get2-3 tsp of cream of wheat down and had to stop because it hurt so bad. Natalia confirmed she has been taking her PPI as prescribed. She denies any: nausea, vomiting, fever or chills. She had her last BM on 07/08/2021. Symptom onset: Last night (07/09/2021) Location: Upper abdomen Characteristics: Dull pain & similar to indigestion Aggravating factors: Eating and drinking. INTERVENTION/PLAN/ FOLLOW UP: Disposition: Patient was prescribed Nystatin oral suspension to swish and swallow 5 mL's by mouth QID, per Dr. Hastings. Teaching: The patient was instructed to use the Nystatin oral suspension as prescribed. She will molded goods spot picker the prescription today. Patient able to verbalize teaching plan: Yes. Worsening symptoms: Increased pain, nausea, vomiting, fever or chills. The patient was instructed tocall the clinic with any worsening symptoms. Patient able to verbalize worsening symptom plan: Yes. Mary Werner RN Resource in decision making: Dr. Hastings PCP: Rob Smith APRN documented in this encounter Plan of Treatment Not on filedocumented as of this encounter Visit Diagnoses Not on filedocumented in this encounter Care Teams Robot Technician Relationship Specialty Start Date End Date Rob Smith APRN PCP - General Family Medicine 11/15/19 [address] [place] [address] documented as of this encounter
--- OUTSIDE RECORDS SUMMARY | 2022-04-24 00:23 | XMS_ITS | Clinical Summary ---
:1970 Author Organization [facility] Address [address] [place] [address] Care Team Providers Name Role Phone Rob Smith DNP Primary Care Provider Allergies No known active allergies Medications No known medications Social History Tobacco Use Types Packs/Day Years [...] Body Mass Index 38.27 05/24/2017 1159 EDT Plan of Treatment Health Maintenance Due Date Last Done Comments Hepatitis C Screen 1970 COVID-19 Vaccine (1) 1975 Pneumococcal Immunization (1 of 2 - PPSV23) 1976 Insurance Payer Benefit Plan / Subscriber ID Effective Phone Address T ype Group Dates [place] [id number] 2021-Prese [address] [place] [facility] [id number] (Work) [phone] Natalia Damico Personal/Famil Self 1970 [address] (Home) [facility] [phone] [place], [place] (Work) [phone] Igor Damicoia L Personal/Famil Self 1970 [address] (Home) [facility] [phone] [place] (Work) [phone] Igor Damicoia L Personal/Famil Self 1970 [address] (Home) [facility] [phone] [place] (Work) [phone] Igor Damicoia L Personal/Famil Self 1970 [address] (Home) [facility] [phone] [place], [place] (Work) [phone] Igor Damicoia L Personal/Famil Self 1970 [address] (Home) [facility] [phone] [place], [place] (Work) [phone] Igor Damicoia L Personal/Famil Self 1970 [address] (Home) [facility] [phone] [place], [place] (Work) [phone] Igor Damicoia L Personal/Famil Self 1970 [address] (Home) [facility] [phone] [facility] [place] (Work) [phone] Care Teams Fisher Dip Net Relationship Specialty Start Date End Date Rob Smith, DNP PCP - General 06/12/20 [address] [place] [address]
--- OUTSIDE RECORDS SUMMARY | 2022-04-24 00:23 | XMS_ITS | Encounter Summary ---
:1970 Author Organization [facility] [place] [address] Care Team Providers Name Role Phone Rob Smith APRN Primary Care Provider Reason for Visit Reason Comments Follow-up Encounter Details Date Type Department Care Team Description 05/30/2021 Office Visit General Surgery at [facility] Corrie Hastings MD Morbid obesity [facility] [place] [address] GENERAL SURGERY [phone] [place] [address] (Wo rk) Social History Tobacco Use Types Packs/Day Years Used Date Former Smoker Smokeless Tobacco: Never Used Comments: pt quit 3 yrs ago Sex Assigned at Date Recorded Not on file documented as of this encounter Progress Notes Corrie Hastings MD - 05/30/2021 2:45 PM EDT Natalia Damico was seen in follow up to schedule bariatric surgery. She has achieved the weight loss goal given to her and has met all the other requirements of the program. Details are in Jennifer Florez APRN note from today. Informed consent obtained, scheduled for surgery. documented in this encounter Plan of Treatment Not on filedocumented as of this encounter Visit Diagnoses Diagnosis Morbid obesity documented in this encounter Care Teams Apprentice Pattern Maker Relationship Specialty Start Date End Date Rob Smith APRN PCP - General Family Medicine 11/15/19 [address] [place] [address] documented as of this encounter
--- OUTSIDE RECORDS SUMMARY | 2022-04-24 00:23 | XMS_ITS | Encounter Summary ---
:[address] [facility] Address [address] [place] [address] Care Team Providers Name Role Phone Joaquin Celaya MD Primary Care Provider Encounter Details Date Type Department Care Team Description 04/05/2014 Results Only [facility] Rosie Goodrich NP Laboratory Services - [address] [facility],[address] [id number] [place] [address] [id number] [phone] Social History Tobacco Use Types Packs/Day Years Used Date Never Assessed Sex Assigned at Date Recorded Not on file documented as of this encounter Plan of Treatment Not on filedocumented as of this encounter Procedures Procedure Name Priority Date/Time Associated Diagnosis Comme nts PAP TEST- RESULT Routine 04/05/2014 0:00 EDT Resu lts for this ONLY procedure are i n the results section. documented in this encounter Results PAP TEST- RESULT ONLY (04/05/2014 0:00 EDT) Pathology Report: CYTOPATHOLOGY REPORT [facility] Reports generated via electronic interface contain alma ginal data; however they are lacking the format of the original re port. Caution should be taken when reading/interpreting unfo rmatted reports. Name: ? GARO MONTANA ? Accession #: ? [id number] ? : ? 1970 (Age: 43) ??F ?Collect Da te: ? 04/05/2014 ? Location: ? [facility] ? Receive Date: ? 014 ? Provider: [facility] Copy to: ? Final Report SPECIMEN ADEQUACY ? Satisfactory for Evaluation - transformation zone component present GENERAL CATEGORIZATION ? Negative for Intraepithelial Lesion or Malignan cy ?? Last Menstrual Period: 03/23/2014 Specimen/Source: ??Pap Test, Cervix/Endocervix, ThinPr ep Imaging System with manual evaluation Document reviewed and electronically signed by: ? WESTON Calvo(ASCP) ? Report ??Date: 04/16/2014 10:24 HPV with Pap Test ? Date Ordered: ? 04/16/2014 ? Status: ?? Signed Out ?Date Complete: ? 04/18/2014 ? By: ??S ystem Interface ? Date Reported: ? 04/18/2014 ? Interpretation RESULT: Negative for HPV. No E6 or E7 mRNA is detected from HPV types 16,18,31,3 3,35, 39,45,51,52,56,58,59,66, and 68 by gl accountant media jennifer amplification. Comments Document reviewed and electronically signed by: ? System Interface ? Report date: 04/18/2014 By the signature above, the attending physician certif ies that he/she has personally conducted a gross and/or microscopic examin ation of the described specimens and rendered or confirmed the above diagnosi s. End of Report Specimen Performing Organization Address City/State/ZIP Code Phon e Number [facility] [address] [place] [address] SERVICES [facility] [address] [place] [address] documented in this encounter Visit Diagnoses Not on filedocumented in this encounter Care Teams Coremaker Floor Relationship Specialty Start Date End Date Joaquin Celaya MD PCP - General 04/22/10 06/11/[address] [place] [phone] documented as of this encounter
--- OUTSIDE RECORDS SUMMARY | 2022-04-24 00:23 | XMS_ITS | Encounter Summary ---
:1970 Author Organization [facility] Address [address] [place] [address] Care Team Providers Name Role Phone Rob Smith DNP Primary Care Provider Encounter Details Date Type Department Care Team Description 06/20/2020 Lab Requisition [facility] Isaak Navarro MD Encounter for other Pathology & [address] general examination Laboratory Medicine [facility] [phone] [address] [facility] [phone] [place] [address] (Work) [phone] Social History Tobacco Use Types Packs/Day Years Used Date Current Every Day Smoker 0.5 Sex Assigned at Date Recorded Not on file documented as of this encounter Plan of Treatment Not on filedocumented as of this encounter Procedures Procedure Name Priority Date/Time Associated Diagnosis Comme nts SURGICAL PATHOLOGY Today 06/20/2020 10:25 Encounter for othe r Results for this EDT general examination procedur e are in the results section. documented in this encounter Results SURGICAL PATHOLOGY (06/20/2020 10:25 EDT) Final Diagnosis A. ENDOMETRIUM, CURETTAGE: [facility] - Fragments of endometrial polyp(s). CENT ER - Proliferative endometrium. LABORATORY - Fragments of benign endocervical and squamous mucosa . SERVICES Attestation There was significant [facility] MEDICAL Electr onically resident/fellow CENTER signed by Jennifer weaver, involvement in the LABORATORY Mayelin Torres MD on diagnostic evaluation SERVICES 020 at 1518 of this case. By the signature below, the attending physician certifies that they have personally conducted a gross and/or microscopic examination of the described specimens and rendered or confirmed the above diagnosis. Clinical History Menorrhagia [facility] SERVICES Gross Description A. [facility] Received in formalin kennedy d with proper patient identification (initials S, T) and endometrial curettings are red-brown soft tissues aggregating 1.8 x 1.5 x 0.9 cm. Entirely submitted in A1-A3. CENTER LABORATORY Chelsea Gonzalez 06/20/2020 17:04 SERVICES Resident/Fellow: Roslyn Shaver [facility] RACHEL Reynolds MD [facility] Performing Lab [facility] SERVICES Scanned Images [facility] SERVICES Specimen Tissue - Entire endometrium (body struct ure) Performing Organization Address City/State/ZIP Code Phon e Number [facility] [address] [place] [address] SERVICES documented in this encounter Visit Diagnoses Diagnosis Encounter for other general examination documented in this encounter Care Teams Cone Chocolate Dipper Relationship Specialty Start Date End Date Rob Smith, DNP PCP - General 06/12/20 [address] [place] [id number] documented as of this encounter
--- OUTSIDE RECORDS SUMMARY | 2022-04-24 00:24 | XMS_ITS | Encounter Summary ---
:1970 Author Organization [facility] [place] [address] Care Team Providers Name Role Phone Rob Smith APRN Primary Care Provider Encounter Details Date Type Department Care Team Description 02/10/2021 Orders Only General Surgery at [facility] Jennifer Florez APRN [facility] [place] [address] GENERAL SURGERY [phone] [place], [place] [address] (Wo rk) Social History Tobacco Use Types Packs/Day Years Used Date Former Smoker Smokeless Tobacco: Never Used Comments: pt quit 3 yrs ago Sex Assigned at Date Recorded Not on file documented as of this encounter Plan of Treatment Not on filedocumented as of this encounter Visit Diagnoses Not on filedocumented in this encounter Care Teams Real Estate Loan Officer Relationship Specialty Start Date End Date Rob Smith APRN PCP - General Family Medicine 11/15/19 [address] [place] [address] documented as of this encounter
--- OUTSIDE RECORDS SUMMARY | 2022-04-24 00:24 | XMS_ITS | Encounter Summary ---
:1970 Author Organization [facility] [place] [address] Care Team Providers Name Role Phone Rob Smith APRN Primary Care Provider Encounter Details Date Type Department Care Team Description 09/14/2020 Notes Only Hematology and Oncology at Horacio Amin MD [facility] Katherin willard HEMATOLOGY/[place] [address] [place] [address] [phone] (Wo rk) Social History Tobacco Use Types Packs/Day Years Used Date Current Every Day Smoker Smokeless Tobacco: Never Used Sex Assigned at Date Recorded Not on file documented as of this encounter Progress Notes Horacio Constantino MD - 09/14/2020 1:27 PM EST I have reviewed the patient's record and given personal and/or family history of cancer she should be seen by genetic counselor. This is scheduled for next week. documented in this encounter Plan of Treatment Not on filedocumented as of this encounter Visit Diagnoses Not on filedocumented in this encounter Care Teams Chiropractor Assistant Relationship Specialty Start Date End Date Rob Smith APRN PCP - General Family Medicine 11/15/19 [address] [place], [place] [id number] documented as of this encounter
--- OUTSIDE RECORDS SUMMARY | 2022-04-24 00:24 | XMS_ITS | Encounter Summary ---
:1970 Author Organization [facility] [place] [address] Care Team Providers Name Role Phone Rob Smith APRN Primary Care Provider Reason for Visit Reason Comments Genetic Evaluation Consultation (Routine) - Specialty Diagnoses / Procedures Referred By Contact Refer red To Contact Hematology and Oncology Diagnoses Family history of malignant neoplasm of ovary Rob Smith [facility] Hem Onc Office MANAGER APPLICATION [address] [place] [address] [address] [place] [id number] Referral ID Status Reason Start Date Expiration Date Visits V isits Requested Authorized [id number] Consult, Test 07/05/2020 01/02/2021 6 6 & Treat [facility] PCP Updated and/or Approved Encounter Details Date Type Department Care Team Description 11/11/2020 TH Visit Hematology and Nuvia Nowak, Family hist ory of breast cancer; (TeleHealth) Oncology at [facility] Family history of gene mutation [facility] SHELBY Garcia HEMATOLOGY/ONCOLO [address] [place] DEPT. [phone] SHELBY AZUL 0375 Social History Tobacco Use Types Packs/Day Years Used Date Current Every Day Smoker Smokeless Tobacco: Never Used Sex Assigned at Date Recorded Not on file documented as of this encounter Progress Notes Nuvia Nowak LGC - 11/11/2020 11:00 AM EST Natalia Damico was seen by SUSHIL Lyon in consultation at the request of Rob parsons regarding possible heritable predisposition to cancer. Due to COVID-19 restrictions this was a phone consult. I spent 24 minutes of this telephone encounter with the patient gathering medical and family historyand discussing the likelihood of a genetic predisposition to cancer and the option of genetic testing. Reason for referral/Chief complaint Family history of breast and gynecologic cancer and EDWARD mutation. Medical history Cancer hx and treatment: No personal history of cancer. Has had adenomatous polyps on colonoscopy. Age at 1st menses: 17 Age at 1st child: 16 Menopause status: pre-menopause Hormone replacement therapy use: n/a Current cancer screening: annual mammograms. Colonoscopy in October 2020 - follow-up planned for one year due to polyps. Family History of Cancer Problem Relation Age of Onset ??? Lung Cancer Father 67 metastasized through-out body ??? Cancer Maternal Grandmother 88 gallbladder ??? Breast Cancer, EDWARD mutation Uterine or ovarian cancer Paternal Aunt 60 Age not known Maternal ethnic background is Tongan, Greek. Paternal ethnic background is [place], Kiswahili. Is not sure if there is any Ashkenazi Alevism heritage. Genetic risk assessment Natalia reports that her aunt, who has had breast and a gynecologic(not sure if uterine or ovarian) cancer, was found to have a mutation in EDWARD. This aunt's daughter also has the EDWARD mutation. They haveboth elected to have bilateral mastectomy. She believes her aunt's testing was done several years ago. She does not have a copy of the test report and does not know how many genes were analyzed for heraunt. We discussed that it would be helpful to have a copy of her aunt's report to verify the specific mutation found in the EDWARD gene and also to know whether her aunt was tested for other genes related to gynecologic cancers. Mutations in EDWARD are associated with increased risk for breast cancer. Most EDWARD mutations have a risk of 17-33%. There is one specific mutation that is known to confer a higher risk for breast cancer, up to 60%. Mutations in EDWARD also increase the risk for pancreatic cancer, althoughexact risk is not known. It may also increase the risk for prostate cancer in men and ovarian cancerin women although this is not certain. It is not known to be associated with uterine cancer. The chance that Natalia's father would have also had the EDWARD mutation is 50%. He from lung cancer at age 67. Not knowing whether her father had this mutation, Natalia's risk is 25%. Natalia reported that her sister has had negative testing for mutations in the EDWARD gene. Not discussed is that if an individual inherits two non-working copies of the EDWARD gene, one from each parent, it can lead to a rare, autosomal recessive, childhood onset neurodegenerative disorder affecting multiple body systems. This condition is called ataxia-telangiectasia. Should any relatives in reproductive age test positive for the EDWARD mutation, they may want their partner to be tested, in order to find out if they are at risk of having a child with ataxia telangiectasia. Reproductive optionsare available to those interested in preventing passing this condition to their future children. A consultation with a genetic counselor may be useful for any relatives who may be concerned about reproductive risks. We discussed the Genetic Information Nondiscrimination Act (DALLAS), a federal law prohibiting discrimination by health insurance companies and employers based on genetic information. DALLAS does not applyto life insurance, disability insurance or long-term care insurance. Individuals will often obtain these insurances, if desired, prior to proceeding with genetic testing. More information about DALLAS may be found at www.GinaHelp.org. We reviewed various testing options for Natalia:: 1. Testing just the EDWARD gene. Ideally we would obtain a copy of the test report from either Natalia'saunt or cousin to confirm the mutation. Without this documentation, we can not be absolutely certainthat we analyzed the correct gene and that we've ruled out the specific mutation running in the family. 2. [facility]'s Common Hereditary Cancers Panel: Analyzes 47 genes, including the EDWARD gene, associated with increased risk for breast, gynecologic and gastrointestinal cancers. While many of the genes on this panel have specific guidelines regarding screening and medical management, there are some for which less information is known and therefore specific guidelines are not available. If Natalia is not able to obtain her aunt's test report to verify that genes associated with an increased risk of ovarian and uterine cancer were included, she may want to do this broader panel to ensure that she doesn't have a mutation in one of these genes. 3. [facility]'s Multi-Cancer Panel: Analyzes 84 genes associated with increased risk for cancers in eight major organ systems including breast, gynecologic, gastrointestinal, endocrine, genitourinary, skin, brain/nervous system, sarcoma and hematologic. While many of the genes on this panel have specificguidelines regarding screening and medical management there are some for which less information is known and therefore specific guidelines are not available. The advantage of choosing a larger panel is that you learn more information about your potential risk for cancer. However the disadvantage is that there is a chance of an incidental finding of learningabout an increased risk for a cancer that has not been seen in the family. In addition, you may learn about an increased risk for a cancer for which advice is not available regarding how to prevent thecancer or detect it early. These findings could lead to increased anxiety. It is also important to note that the more genes analyzed, the higher the chance of identifying a variant of uncertain significance (VUS). The VUS classification means that there is not enough clinicalor research information to determine whether the change is associated with an increased risk of cancer or is a normal variation with no medical implications. For some individuals, finding uncertain results can lead to increased anxiety. At this time, Natalia does not feel ready to proceed with testing as she is concerned that a positiveresult will lead to anxiety without significantly changing her current medical management. . Natalia plans to consider the above options and will contact me if she decides to proceed with testing. Prior to testing it would be very helpful to have a copy of the report from the testing that has been done for her aunt and/or her cousin. She is aware that there is no difference in cost for the 3 panels and that testing can be accomplished either by obtaining a saliva sample at home or by arranging for a blood draw. We did discuss that if any of Natalia's children desire testing they can proceed even if Natalia decides not to have testing for herself. Not knowing Natalia's status, they each have a 12.5% chance of having inherited the EDWARD mutation. Of course if any of them test positive this will indicate that Watson carries the mutation. Again, it would be helpful to have documentation of the mutation in the family before proceeding with testing for Natalia or her adult children. Screening Recommendations Based on personal and/or family history, we recommend: Breast cancer screening ?? Be aware of any breast changes and share concerns with primary care provider ?? Annual clinical breast exams ?? Annual mammograms ?? Individuals with an EDWARD mutation can also consider annual breast MRI exams. There is insufficientevidence to recommend bilateral mastectomy for all women with EDWARD mutations, but this can be considered on an individual basis. Ovarian cancer screening ?? We do not recommend any special screening studies in addition to an annual WIND TURBINE ELECTRICAL ENGINEER exam at this time. Colon cancer screening ?? Periodic colonoscopy screening as recommended by Natalia's farmworker machine. Skin cancer screening ?? Periodic skin exams We will readdress the issue of screening should Natalia opt to proceed with testing. documented in this encounter Plan of Treatment Not on filedocumented as of this encounter Visit Diagnoses Diagnosis Family history of breast cancer Family history of malignant neoplasm of breast Family history of gene mutation documented in this encounter Care Teams Handkerchief Presser Relationship Specialty Start Date End Date Rob Smith APRN PCP - General Family Medicine 11/15/19 [address] [place] [address] documented as of this encounter
--- OUTSIDE RECORDS SUMMARY | 2022-04-24 00:24 | XMS_ITS | Encounter Summary ---
:1970 Author Organization [facility] [place] [address] Care Team Providers Name Role Phone Joaquin Celaya MD Primary Care Provider Encounter Details Date Type Department Care Team Description 07/02/2013 External Results XRay at [facility] Provider, [address] [place] [phone] Social History Tobacco Use Types Packs/Day Years Used Date Current Every Day Smoker Smokeless Tobacco: Never Used Sex Assigned at Date Recorded Not on file documented as of this encounter Plan of Treatment Not on filedocumented as of this encounter Procedures Procedure Name Priority Date/Time Associated Diagnosis Comme nts MRI/MRA SCAN Routine 08/23/2009 documented in this encounter Results Scan Doc: MRI/MRA (08/23/2009) Anatomical Region Laterality Modality Other Narrative This result has an attachment that is no t available. Scanning Provider MEDIA MGR SCAN EXT ORDR/RSLT documented in this encounter Visit Diagnoses Not on filedocumented in this encounter Care Teams Relocation Counselor Relationship Specialty Start Date End Date Joaquin Celaya MD PCP - General 06/29/13 02/19/19 documented as of this encounter
--- OUTSIDE RECORDS SUMMARY | 2022-04-24 00:24 | XMS_ITS | Encounter Summary ---
:1970 Author Organization [facility] [place] [address] Care Team Providers Name Role Phone Joaquin Celaya MD Primary Care Provider Encounter Details Date Type Department Care Team Description 06/29/2013 Hospital Encounter XRay at [address] [place] [address] Social History Tobacco Use Types Packs/Day Years Used Date Current Every Day Smoker Smokeless Tobacco: Never Used Sex Assigned at Date Recorded Not on file documented as of this encounter Medications at Time of Discharge Medication Sig Dispensed Refills Start Date End Date lamoTRIgine (LAMICTAL XR) Take 50 mg by mouth 0 02/06/2021 50 mg TR24 daily. MULTIVIT WITH Take 1 tablet by 0 02/06 CALCIUM,IRON,MIN mouth daily. (MULTIPLE VITAMIN, WOMENS ORAL) OXYcodone (OXYCONTIN) 10 Take 10 mg by mouth 0 02/06/2021 mg CR tablet 3 times daily. documented as of this encounter Plan of Treatment Not on filedocumented as of this encounter Visit Diagnoses Not on filedocumented in this encounter Care Teams Mold Dumper Relationship Specialty Start Date End Date Joaquin Celaya MD PCP - General 06/29/13 02/19/19 documented as of this encounter
--- OUTSIDE RECORDS SUMMARY | 2022-04-24 00:24 | XMS_ITS | Encounter Summary ---
:1970 Author Organization [facility] [address] Care Team Providers Name Role Phone Joaquin Celaya MD Primary Care Provider Reason for Visit Reason Onset Date Comments Medication Refill 03/10/2017 Encounter Details Date Type Department Care Team Description 03/10/2017 Refill Acute Pain Services Durga Gerber MD Back pain, unspecified [facility] location, [facility] [place] [address] [facility] laterality, unspecified [phone] [place], [place] [address] chronicity [phone] (Wo rk) Social History Tobacco Use Types Packs/Day Years Used Date Current Every Day Smoker Smokeless Tobacco: Never Used Sex Assigned at Date Recorded Not on file documented as of this encounter Plan of Treatment Not on filedocumented as of this encounter Visit Diagnoses Diagnosis Back pain, unspecified back location, un specified back pain laterality, unspecified chronicity documented in this encounter Care Teams Cut In Worker Relationship Specialty Start Date End Date Joaquin Celaya MD PCP - General 06/29/13 02/19/19 documented as of this encounter
--- OUTSIDE RECORDS SUMMARY | 2022-04-24 00:24 | XMS_ITS | Encounter Summary ---
:1970 Author Organization [facility] [place] [address] Care Team Providers Name Role Phone Rob Smith APRN Primary Care Provider Encounter Details Date Type Department Care Team Description 07/16/2020 Telephone General Surgery at [facility] [place] [address] Social History Tobacco Use Types Packs/Day Years Used Date Current Every Day Smoker Smokeless Tobacco: Never Used Sex Assigned at Date Recorded Not on file documented as of this encounter Miscellaneous Notes Telephone Encounter - Elicia Bell - 07/16/2020 9:26 AM EDT Left message for patient returning her call regarding registering for Wednesday's bariatric intro session. documented in this encounter Plan of Treatment Not on filedocumented as of this encounter Visit Diagnoses Not on filedocumented in this encounter Care Teams Floorworker Distributor Relationship Specialty Start Date End Date Rob Smith APRN PCP - General Family Medicine 11/15/19 [address] [place], [place] [address] documented as of this encounter
--- OUTSIDE RECORDS SUMMARY | 2022-04-24 00:24 | XMS_ITS | Encounter Summary ---
:1970 Author Organization [facility] [place] [address] Care Team Providers Name Role Phone Joaquin Celaya MD Primary Care Provider Encounter Details Date Type Department Care Team Description 08/11/2012 Orders Only Functional Hinduism Sarina Booth MD Program at [facility] [address] [place] [address] [place] [id number] [phone] (Wo rk) Social History Tobacco Use Types Packs/Day Years Used Date Never Assessed Sex Assigned at Date Recorded Not on file documented as of this encounter Plan of Treatment Not on filedocumented as of this encounter Procedures Procedure Name Priority Date/Time Associated Diagnosis Comme nts FILM LIBRARY Routine 08/11/2012 11:16 AM Results for this STORAGE ONLY MR EDT procedure ar e in SPINE the results section. documented in this encounter Results Film Library- Storage only MR Spine (08/11/2012 11:16 AM EDT) Specimen (Source) Anatomical Collection Method Collection Time Re ceived Time Location / / Volume Laterality 08/11/2012 11:16 AM EDT Narrative RAD - 06/27/2014 11:28 AM EDT This is a non-reportable exam. Procedure Note Nick Mosley - 06/27/2014Formatti ng of this note might be different from the original. This is a non-reportable exam. Abundio Booth MD G FILM LIBRARY ORDERABLES Performing Organization Address City/State/ZIP Code Phon e Number RAD RAD [address] [place] [address] documented in this encounter Visit Diagnoses Not on filedocumented in this encounter Care Teams Glass Sander Belt Relationship Specialty Start Date End Date Joaquin Celaya MD PCP - General 06/29/13 02/19/19 documented as of this encounter
--- OUTSIDE RECORDS SUMMARY | 2022-04-24 00:24 | XMS_ITS | Encounter Summary ---
:1970 Author Organization [facility] [place] [address] Care Team Providers Name Role Phone Joaquin Celaya MD Primary Care Provider Encounter Details Date Type Department Care Team Description 09/07/2006 Orders Only Functional Evangelical Sarina Booth MD Program at [facility] [address] [place] [address] [place] [address] [phone] (Wo rk) Social History Tobacco Use Types Packs/Day Years Used Date Never Assessed Sex Assigned at Date Recorded Not on file documented as of this encounter Plan of Treatment Not on filedocumented as of this encounter Procedures Procedure Name Priority Date/Time Associated Diagnosis Comme nts FILM LIBRARY Routine 09/07/2006 11:16 AM Results for this STORAGE ONLY DX EST procedure ar e in SPINE the results section. documented in this encounter Results Film Library- Storage only DX Spine (09/07/2006 11:16 AM EST) Specimen (Source) Anatomical Collection Method Collection Time Re ceived Time Location / / Volume Laterality 09/07/2006 11:16 AM EST Narrative RAD - 06/27/2014 11:28 AM EDT This is a non-reportable exam. Procedure Note Nick Mosley - 06/27/2014Formatti ng of this note might be different from the original. This is a non-reportable exam. Abundio Booth MD G FILM LIBRARY ORDERABLES Performing Organization Address City/State/ZIP Code Phon e Number RAD RAD [address] [place] [address] documented in this encounter Visit Diagnoses Not on filedocumented in this encounter Care Teams Fire Management Specialist Relationship Specialty Start Date End Date Joaquin Celaya MD PCP - General 06/29/13 02/19/19 documented as of this encounter
== END ==
PROVIDERS: PCP Physician Assistant; Visit Provider Physician Assistant
DX: Z12.31 Encounter for screening mammogram for malignant neoplasm of breast (principal); R92.8 Other abnormal and inconclusive findings on diagnostic imaging of breast; N60.01 Solitary cyst of right breast
CPT/HCPCS: 76642; 77063; 77067

== ENCOUNTER 2022-10-29 01:41 | Outpatient (CLI) | payer MEDICAID, SELFPAY ==
--- NOTE | 2022-10-29 | DI.MAMMO_ITS ---
Exam(s) MG MAMMO DIAGNOSTIC UNI EXAM: MAMMO DIAGNOSTIC UNI-RIGHT CLINICAL HISTORY: DIAGNOSTIC, 6 MO F/U,R92.8,ABNL/INCONCLUSIVE MAMMO. TECHNIQUE: Both CC and MLO views of the right breast were performed. Also performed an additional C C spot mammographic images were obtained with 3D tomosynthesis technique and utilizing computer system validation specialist d detection (CAD). COMPARISON: Prior mammograms were reviewed, the most recent being April 2022.. Ultrasound of April 2022 also reviewed. FINDINGS: Fibroglandular tissue pattern in the right breast is unchanged. There are no CAD designations in the right breast. The area of asymmetric density previously described again dissipates on 3D spot compression view. There are no CAD designations No new masses nor malignant-appearing microcalcification groups. No new architectural distortion nor skin thickening-traction. IMPRESSION: No radiographic evidence of malignancy in the right breast. Appropriate follow-up is to keep this patient on her yearly mammogram schedule, this implying the nex t bilateral mammogram would be in April 2023. At that time I recommend that she undergo repeat ultras ound examination. The patient was informed of the findings and follow-up recommendations [facility] BI-RADS Category 3 - 6 month - Probably Benign Finding: Recommend follow-up mammography in 6 months Breast Density - Category C - Heterogeneously dense Breast density Category C or D implies that the patient has dense breast tissue. Dense breast tissue can make it harder to find cancer on a mammogram. Dense breast tissue is also associated with an incr eased risk of breast cancer. This information about the result of the mammogram report was provided to the patient to raise their awareness. Use this report when you speak with the patient about their risks for breast cancer, which includes their family history. At that time, you may recommend additional screening tests (Ultrasoun d or MRI) as these tests may add significant information. A negative radiographic report should not delay biopsy if a dominant or clinically suspicious mass is present. Up to ten percent of cancers are not identified on mammography. A negative report may reinforce clinical impression. Adenosis and dense breasts may obscure an underlying neoplasm. False positive reports average 6 to 10%. Patient will receive a letter notifying them of these results.
== END 2022-10-29 02:01 ==
LOC: DI 01:42
PROVIDERS: PCP Physician Assistant; Visit Provider Physician Assistant
DX: R92.8 Other abnormal and inconclusive findings on diagnostic imaging of breast (principal)
CPT/HCPCS: 77061; 77065; G0279

== ENCOUNTER 2022-12-04 13:16 | Outpatient (REF) | payer MEDICAID, SELFPAY ==
[2022-12-05 13:52] LABS: Chlamydia Result Negative (Negative); GC Result Negative (Negative)
== END 2022-12-04 13:17 | disposition home or self-care (01) ==
LOC: NCHCN 13:16
PROVIDERS: PCP Physician Assistant; Visit Provider Nurse Practitioner Family
DX: N89.8 Other specified noninflammatory disorders of vagina (principal)
CPT/HCPCS: 87491; 87591; 87480; 87510; 87660

== ENCOUNTER 2023-01-04 19:19 | Emergency (ER) | payer MEDICAID, SELFPAY ==
[2023-01-04 19:33] VITALS: PULSE 74; RESP 20; TEMP 36.9; O2SAT 98
--- NOTE | 2023-01-04 19:47 | DI.RAD_ITS ---
Exam(s) XR WRIST RT COMPLETE EXAM: XR WRIST RT COMPLETE CLINICAL HISTORY: fall onto R wrist, r/o fx. TECHNIQUE: 2D digital imaging was performed. COMPARISON: No exams were available for comparison FINDINGS: 3 views No evidence of acute fracture or dislocation. Scapholunate distance and scaphoid are normal. There is developmental negative ulnar variance. IMPRESSION: No acute osseous findings. DATA REPOSITORY: RADIATION DOSE DELIVERED:
--- NOTE | 2023-01-04 20:29 | ED.GENADUL_ITS ---
Discharge Plan Disposition Patient Disposition: Home Condition: Stable Discharge Details Clinical Impression: Right wrist sprain Primary Care Provider: Jose Napier ED Provider: Shauna Vargas Home Meds and New Rx's Prescriptions: Continued escitalopram oxalate [Lexapro] 20 mg tablet 30 mg PO DAILY Vyvanse 20 mg capsule 20 mg PO DAILY PRN omeprazole 10 mg capsule,delayed release(DR/EC) 10 mg PO DAILY ursodiol 200 mg capsule 200 mg PO BID multivitamin Tablet 1 tab PO DAILY guanfacine 1 mg tablet 1 mg Patient Comments: TAKE ONE TABLET BY MOUTH AT BEDTIME aripiprazole [Abilify] 5 mg tablet Patient Comments: Take 1 tablet by mouth every night Discharge Instructions Instructions: Wrist Sprain (ED) Additional Instructions: Your x-rays today show no evidence of acute fracture. Rest, ice, and elevate the affected area as much as possible. Wear the wrist splint as much as possible to help with pain and swelling and provide stability of the wrist. Take Tylenol as needed and directed for pain. Follow-up with your primary care doctor in 1 week and for referral to orthopedics if needed. Return to the emergency department with any worsening or new concerning symptoms. Referrals: Adi Maldonado MD [ [facility] STAFF PHYSICIAN] - Discharge Data Discharge Physician: Shauna Vargas Medical Decision Making 52-year-old asrra-niwg-qxhefjyg female presents with right wrist pain after fall onto right wrist 3 days ago been feeling a pop in her right wrist while throwing castillo of hay yesterday. Pain in right ulnar wrist with range of motion and tender to palpation. There is no deformity and she is neurovascularly intact. Patient referred for right wrist x-ray which is negative for acute findings. Will place in right wrist splint. Advised on the importance of rest, ice and elevation. Given orthopedic follow-up information if needed. Usual and customary return precautions given prior to discharge. Medical Records Medical records reviewed: Yes I reviewed the patient's medical records. Imaging Data Radiologic Study: Radiologist's impression: XR Right Wrist Exam date and time: 01/04/2023 8:07 PM Age: 52 years old Clinical indication: Other: Fall, onto R wrist R/O FX TECHNIQUE: Imaging protocol: Radiologic exam of the right wrist. Views: 3 or more views. COMPARISON: US SOFT TISSUE EXTREMITY 07/24/2020 3:13 PM FINDINGS: Bones/joints:? Suggestion of negative ulnar variance. No acute fracture or dislocation Soft tissues: Normal. IMPRESSION: No acute findings. HPI General Mode of arrival: ambulatory . Date/Time Provider Initiated Documentation: 01/04/23 19:20 . Limitations to Documentation: no limitations . Information obtained by: patient . HPI Narrative: Patient is a 52-year-old cirso-ukmn-aviygtuv female presents with right wrist pain after initially fell on her right wrist when slipped on ice 3 days ago and then felt a pop in her wrist while throwing castillo of hay yesterday. Patient states she cannot take NSAIDs due to stomach issues. She states she has been taking Tylenol without relief. She denies any pain in her elbow or hand. Related Data Home Medications Medication Instructions Recorded Confirmed escitalopram oxalate 20 mg tablet 30 mg PO DAILY 11/15/19 01/04/23 (Lexapro) multivitamin 1 tab PO DAILY 10/07/20 10/20/21 lisdexamfetamine 20 mg capsule 20 mg PO DAILY PRN 09/16/21 01/04/23 (Vyvanse) omeprazole 10 mg capsule,delayed 10 mg PO DAILY 09/16/21 10/20/21 release ursodiol 200 mg capsule 200 mg PO BID 09/16/21 10/20/21 aripiprazole 5 mg tablet (Abilify) mg 01/04/23 01/04/23 guanfacine 1 mg tablet 1 mg 01/04/23 Allergies Allergy/AdvReac Type Severity Reaction Status Date / Time azithromycin AdvReac Intermediate yeast Unverified 01/04/23 19:37 [From Zithromax Z-Miky] infection methylprednisolone AdvReac Mild Yeast Unverified 01/04/23 19:37 [From Medrol] infection General Stated Complaint: Orthopedic KURTIS: 4 Review of Systems All systems reviewed & are unremarkable except as noted in HPI and below Constitutional Constitutional: Reports as per HPI, Denies chills and Denies fever(s) Eyes Eyes: Denies blurry vision ENT Ears, Nose, Mouth, and Throat: Denies dizziness, Denies sore throat and Denies throat swelling Cardiovascular Cardiovascular: Denies chest pain and Denies dyspnea Respiratory Respiratory: Denies cough and Denies dyspnea Gastrointestinal Gastrointestinal: Denies abdominal pain, Denies diarrhea and Denies vomiting Genitourinary Genitourinary: Denies hematuria and Denies dysuria Musculoskeletal Musculoskeletal: Denies back pain and Denies numbness Comments: Right wrist pain Integumentary/Breasts Skin/Breast: Denies lesions and Denies rash Neurologic Neurologic: Denies dizziness, Denies localized weakness and Denies numbness Allergic/Immunologic Allergic/Immunologic: Denies throat swelling PFSH All Active Problems (Updated 01/04/23 @ 20:59 by Shauna Vargas DO) Right wrist sprain (Acute) Tubular adenoma (Acute ~10/2020) Tubulovillous adenoma (Acute ~10/2020) Colon polyp, hyperplastic (Acute ~10/2020) Medical History (Updated 01/04/23 @ 20:59 by Shauna Vargas DO) Abdominal pain ADHD Anxiety disorder Body mass index (BMI) 40.0-44.9, adult Bunionette of left foot Chest pain Per pt. states this was from anxiety ,and since she has been on anxiety meds she had not had any issues. Elbow joint pain External hemorrhoid Pt. denies this Family history of ovarian cancer Female pelvic pain Heavy menstrual period Herpes simplex Gingivostomatitis Hot flash, menopausal Intractable left heel pain IUD surveillance Mirena for menorrhagia inserted 11/22/19 Knee pain, right Pt. denies this Leg mass Lumbar back pain Pt. denies this Lump Menorrhagia, premenopausal Muscle strain Pt. 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 Tobacco use Surgical History (Updated 10/28/21 @ 13:19 by Caroline Fang RN) History of bunionectomy History of colonoscopy (~10/2021) S/P endometrial ablation S/P gastric sleeve procedure Status post endometrial ablation Family History (Updated 10/20/21 @ 08:02 by Yudelka Ramos RN) Other Unknown family medical history Social History Smoking/Tobacco Use Status: Current-Occasional Tobacco Type: e-cigarettes Smoking risk assessment performed?: Yes Alcohol Intake: never Drug use: Never Substance use type: does not use Do you feel safe at home: Yes Do you feel safe in your relationship?: Yes Female Reproductive History Menstrual control method: progestin IUCD History History 5 Para 4 Hx # Term Pregnancies Multiple births Hx # Pregnancies Ectopic pregnancies AB induced Hx Number of Living Children AB spontaneous 1 Exam Const General: cooperative, healthy appearing and no acute distress HENMT Head: normal to inspection Mouth: oral mucosae normal Eyes General: appearance normal, both eyes and all related structures Neck Neck: normal visual inspection Resp Effort & Inspection: normal respiratory effort and able to speak in complete sentences Cardio Rate: regular rate Skin General skin exam: no rashes or lesions noted Neuro General: patient alert, patient awake and patient oriented x3 Motor: muscle tone normal throughout Extrem General: normal to inspection Hand/finger images: 1. Tenderness to palpation overlying right ulnar wrist. Ulnar styloid appears normal to inspection. Pain is reproduced with flexion extension pronation and supination. There is no obvious deformity. Right radial and ulnar pulses intact. No right snuffbox tenderness. Right hand normal to inspection and no tenderness to palpation. Psych Appearance: grossly normal Affect: normal affect Course Vital Signs Vital signs: Vital Signs Temperature 98.5 F 01/04/23 19:33 Pulse 74 01/04/23 19:33 Respiratory Rate 20 01/04/23 19:33 Pulse Oximetry 98 01/04/23 19:33 Temperature 98.5 F 01/04/23 19:33 Pulse 74 01/04/23 19:33 Respiratory Rate 20 01/04/23 19:33 Respiratory Effort Normal 01/04/23 19:37 Blood Pressure Position Sitting 01/04/23 19:33 Pulse Oximetry 98 01/04/23 19:33 Oxygen Delivery Method Room Air 01/04/23 19:33 Oxygen Flow Rate 0 01/04/23 19:33 Pain Level 6 01/04/23 19:33
--- NOTE | 2023-01-04 20:50 | DI.VRAD_ITS ---
PROCEDURE INFORMATION: Exam: XR Right Wrist Exam date and time: 01/04/2023 8:07 PM Age: 52 years old Clinical indication: Other: Fall, onto R wrist R/O FX TECHNIQUE: Imaging protocol: Radiologic exam of the right wrist. Views: 3 or more views. COMPARISON: US SOFT TISSUE EXTREMITY 07/24/2020 3:13 PM FINDINGS: Bones/joints: Suggestion of negative ulnar variance. No acute fracture or dislocation Soft tissues: Normal. IMPRESSION: No acute findings. Suggestion of negative ulnar variance Dictated and Authenticated by: Abel Urias MD. Ordering:ALONDRA Villatoro MD
[2023-01-04 21:51] VITALS: BP 112/77; PULSE 55; RESP 18; TEMP 36.6; O2SAT 97
== END 2023-01-04 21:51 | disposition home or self-care (01) ==
PROVIDERS: Emergency Provider Physician Assistant; PCP Physician Assistant
DX: S63.501A Unspecified sprain of right wrist, initial encounter (principal); W00.0XXA Fall on same level due to ice and snow, initial encounter
CPT/HCPCS: 99283; 73110; 99282

== ENCOUNTER 2023-01-07 13:27 | Outpatient (REF) | payer MEDICAID, SELFPAY ==
[2023-01-07 16:25] LABS: HCT 36.2 % (36.0-46.0); HGB 12.7 g/dL (11.2-15.7); Iron 64 ug/dL (50-170); MCH 32.3 pg (27.0-33.0); MCHC 35.1 % (32.0-36.0); MCV 92 fL (80-95); MPV 11.1 fL (8.0-11.0); Platelet Count 229 10^3/uL (130-400); RBC 3.93 10^6/uL (3.93-5.22); RDW 13.6 % (11.7-14.6); RDW-SD 43.9 fL; Total Iron Binding Capacity 336 ug/dL (250-450); Transferrin Sat 19 % (15-50)
== END 2023-01-07 13:28 | disposition home or self-care (01) ==
LOC: NCHCN 13:27
PROVIDERS: PCP Physician Assistant; Visit Provider Nurse Practitioner Family
DX: N89.8 Other specified noninflammatory disorders of vagina (principal); E66.8 Other obesity; R82.998 Other abnormal findings in urine; K63.5 Polyp of colon
CPT/HCPCS: 82306; 85027; 83540; 83550; 87086; 87480; 87510; 87660

== ENCOUNTER 2023-02-24 12:17 | Outpatient (REF) | payer MEDICAID, SELFPAY ==
--- NOTE | 2023-02-24 11:45 | PAPFT_PTH ---
PATIENT: Natalia Thomason LOC: [facility]#:[id number] AGE/SX: 52/F ROOM: RE02/24/[address]: Jose Napier : 1970 BED: DIS: 02/24/2023 SPEC #: [id number] RECD: 02/24/23 18:03 STATUS: TIERA REQ #: [id number] ANNE: 02/24/23 11:[address]: Jose Napier DEPT: [facility] Cytology RECD BY: Casandra Shrestha Tissues: 1 - CX/ENDOCX FOR PAP SMEARS Procedures: PAP THIN PREP/UVM Screening Comments: [id number] (CHLAMYDIA/GC) (UNSATISFACTORY FOR EVALUATION)
[2023-02-26 15:44] LABS: Chlamydia Result Negative (Negative); GC Result Negative (Negative)
== END 2023-02-24 12:18 | disposition home or self-care (01) ==
LOC: NCHCN 12:17
PROVIDERS: PCP Physician Assistant; Visit Provider Physician Assistant
DX: A60.00 Herpesviral infection of urogenital system, unspecified (principal); Z00.00 Encounter for general adult medical examination without abnormal findings
CPT/HCPCS: 87491; 87591; 88142; 87480; 87510; 87660

== ENCOUNTER 2023-03-31 13:51 | Outpatient (REF) | payer MEDICAID, SELFPAY ==
[2023-04-02 13:14] LABS: Chlamydia Result Negative (Negative); GC Result Negative (Negative)
== END 2023-03-31 13:52 | disposition home or self-care (01) ==
LOC: NCHCN 13:51
PROVIDERS: PCP Physician Assistant; Visit Provider Physician Assistant
DX: N89.8 Other specified noninflammatory disorders of vagina (principal)
CPT/HCPCS: 87491; 87591; 87480; 87510; 87660

== ENCOUNTER 2023-05-20 01:33 | Outpatient (CLI) | payer MEDICAID, SELFPAY ==
--- NOTE | 2023-05-20 | DI.MAMMO_ITS ---
Exam(s) MAMMO DIAGNOSTIC BI US BREAST LT LIMITED EXAM: MAMMO DIAGNOSTIC BI and U/S breast LT limited CLINICAL HISTORY: 6 MO F/U, R92.8. TECHNIQUE: Craniocaudal and mediolateral oblique Full Field Digital Mammography views with Computer Aided Diagnosis followed by Tomosynthesis and left breast ultrasound. COMPARISON: Comparison is made with prior examinations. FINDINGS: Mammography/Tomosynthesis: Masses/Architectural Distortion: There is a well-circumscribed nodule in the upper outer quadrant of the left breast measuring 8 mm. No areas of architectural distortion. Microcalcifictions: No suspicious pleomorphic-type are seen. Benign punctate calcifications are seen in both breasts. No pleomorphic calcifications are seen. No segmental distribution is noted. Skin Thickening/Nipple Retraction: None. Limited left breast US: Echotexture: Normal appearance of the glandular tissue. Shadowing: No suspicious foci. Cyst: There is a 0.7 cm simple cyst at the 1 o'clock position of the left breast 3 cm from the nipple . This would appear to correspond to the mammographic abnormality. Solid lesions: None seen. Ductal dilation: None. IMPRESSION: 1. No evidence of malignancy is noted. New diffuse punctate calcifications in both breasts. No pleom orphic or segmental type calcifications are seen. 2. A bilateral 6 month follow-up mammogram is recommended for re-evaluation. 3. Simple left breast cyst corresponding to the mammographic abnormality. BI-RADS Category 3 - 6 month - Probably Benign Finding: Recommend follow-up imaging in 6 months Breast Density - Category C - Heterogeneously dense Breast density Category C or D implies that the patient has dense breast tissue. Dense breast tissue can make it harder to find cancer on a mammogram. Dense breast tissue is also associated with an incr eased risk of breast cancer. This information about the result of the mammogram report was provided to the patient to raise their awareness. Use this report when you speak with the patient about their risks for breast cancer, which includes their family history. At that time, you may recommend additional screening tests (Ultrasoun d or MRI) as these tests may add significant information. A negative radiographic report should not delay biopsy if a dominant or clinically suspicious mass is present. Up to ten percent of cancers are not identified on mammography. A negative report may reinforce clinical impression. Adenosis and dense breasts may obscure an underlying neoplasm. False positive reports average 6 to 10%. Patient will receive a letter notifying them of these results.
== END 2023-05-20 01:53 ==
LOC: DI 01:34
PROVIDERS: PCP Physician Assistant; Visit Provider Physician Assistant
DX: Z12.31 Encounter for screening mammogram for malignant neoplasm of breast (principal); R92.8 Other abnormal and inconclusive findings on diagnostic imaging of breast
CPT/HCPCS: 76642; 77062; 77066; G0279

== ENCOUNTER 2023-06-08 20:32 | Outpatient (REF) | payer MEDICAID, SELFPAY ==
[2023-06-08 16:17] LABS: Iron 87 ug/dL (50-170); Total Iron Binding Capacity 322 ug/dL (250-450); Transferrin Sat 27 % (15-50)
[2023-06-08 16:22] LABS: Ferritin 61 ng/mL (8-252)
== END 2023-06-08 20:33 | disposition home or self-care (01) ==
LOC: NCHCN 20:32
PROVIDERS: PCP Physician Assistant; Visit Provider Physician Assistant
DX: G25.81 Restless legs syndrome (principal)
CPT/HCPCS: 82728; 83540; 83550

== ENCOUNTER 2023-06-24 15:18 | Emergency (ER) | payer MEDICAID, SELFPAY ==
[2023-06-24 15:20] VITALS: BP 102/51; PULSE 71; RESP 15; TEMP 36.4; O2SAT 99
--- NOTE | 2023-06-24 15:45 | DI.RAD_ITS ---
Exam(s) XR FOOT RT COMPLETE EXAM: XR FOOT RT COMPLETE CLINICAL HISTORY: Crush injury (horse) great toe. TECHNIQUE: 2D digital imaging was performed of the right foot. Three images were obtained. AP, obl ique and lateral views were obtained. COMPARISON: No exams were available for comparison FINDINGS: BONES: No acute fracture is present. No bony destructive lesion is seen. There is a chronic deformity of the head of the 5th metatarsal. JOINTS: No dislocation present. SOFT TISSUE: Normal. IMPRESSION: No acute fracture or dislocation. DATA REPOSITORY: RADIATION DOSE DELIVERED:
--- NOTE | 2023-06-24 15:49 | ED.GENADUL_ITS ---
Discharge Plan Disposition Patient Disposition: Home Discharge Details Clinical Impression: Open wound of toe with avulsion of toenail Primary Care Provider: Jose Napier ED Provider: Maci Hernandez Home Meds and New Rx's Prescriptions: No Action propranolol 40 mg tablet 40 mg PO Q4H PRN biotin 10 mg tablet 10 mg PO DAILY Vyvanse 30 mg capsule 30 mg PO DAILY escitalopram oxalate [Lexapro] 20 mg tablet 30 mg PO DAILY omeprazole 10 mg capsule,delayed release(DR/EC) 10 mg PO DAILY ursodiol 200 mg capsule 200 mg PO BID ropinirole 1 mg tablet 1 mg PO QHS Patient Comments: TAKE ONE TABLET BY MOUTH AT BEDTIME NEEDED FOR RESTLESS LEGS multivitamin Tablet 1 tab PO DAILY guanfacine 1 mg tablet 1 mg PO DAILY PRN Patient Comments: TAKE ONE TABLET BY MOUTH AT BEDTIME aripiprazole [Abilify] 5 mg tablet Patient Comments: Take 1 tablet by mouth every night Discharge Instructions Instructions: Nail Avulsion (ED) Additional Instructions: Keep dressing on for next 12-24 hours, then change daily. Keep clean and dry. You may wash under running soap and water daily in the shower. Be seen sooner for any signs of infection, red streaks drainage swelling or concerns. Follow up with primary care provider in 3-5 days. Return to ED sooner if any worsening or concerns. Increase oral fluids. Keep it elevated when sitting or lying down. Please take Tylenol or Ibuprofen with food every 4-6 hours as needed for pain and swelling. Rest ice compression elevation wear the postop shoe as directed as needed. Advance as tolerated. Your nail will most likely turn black and fall off. No evidence of broken bones or fractures noted on the x-ray today. Referrals: Jose Napier [Primary Care Provider] - 5 days Discharge Data Discharge Date/Time-TO BE ENTERED AT DEPARTURE: 06/24/23 18:44 Medical Decision Making 52-year-old female presents to the ER with a chief complaint of right foot crushing injury which occurred approximately 30 minutes prior to arrival. She reports that approximately 1200 to 1500 pound horse stepped on her right foot she shoulder bumped the worse and the horse bumped her back pushing her to the ground. She then stepped off her foot. She was wearing sneakers at the time. She reports that she is up-to-date on her tetanus vaccine. Has not taken any medications prior to arrival. She does have a past medical history of endometrial ablation gastric sleeve procedure bunionectomy, TMJ syndrome, GERD and depression. On exam she has a approximately 2 cm curved laceration just below her great nailbed. Denies any ankle pain no lower leg pain no obvious deformity to her lower leg or ankle. Distal CMS is intact. Patient does have some adversity to needles I did discuss a nerve block with her and explained the procedure to her she does agree to have her toe blocked to be able to properly clean the wound, get x-rays and evaluate whether laceration needs to be repaired. Right foot x-ray ordered to rule out any other injury due to mechanism. She reports she is up-to-date on the tetanus vaccine. Tylenol and Zofran ordered. Patient c/o anxiety, requesting something to knock her out Lorazepam 0.5mg po ordered. 1659: 3 sided block performed on right great toe. Patient tolerated well. On further assessment the nail was completely out of the nailbed I will attempt to reinsert the nail into the fold. Will apply xeroform dressing and place patient on empirical antibiotics. Wound was irrigated by ED staff. Nail placed back into the nail bed under the fold. Patient tolerated with mild difficulty, xeroform dressing and bulk dressing applied with Coban. Patient was given a postop shoe instructed on home care follow-up care strict return instruc tions she verbalized understanding. This text was generated using [employer] dictation system, please disregard any oddities of phrase or misspellings. HPI General Mode of arrival: ambulatory . Date/Time Provider Initiated Documentation: 06/24/23 15:36 . Limitations to Documentation: no limitations . Information obtained by: patient, RN notes reviewed and old records reviewed . HPI Narrative: 52-year-old female presents to the ER with a chief complaint of right foot crush ing injury which occurred approximately 30 minutes prior to arrival. She reports that approximately 1200 to 1500 pound horse stepped on her right foot she shoulder bumped the worse and the horse bumped her back pushing her to the ground. She then stepped off her foot. She was wearing sneakers at the time. She reports that she is up-to-date on her tetanus vaccine. Has not taken any medications prior to arrival. She does have a past medical history of endometrial ablation gastric sleeve procedure bunionectomy, TMJ syndrome, GERD and depression. On exam she has a approximately 2 cm curved laceration just below her great nailbed. Denies any ankle pain no lower leg pain no obvious deformity to her lower leg or ankle. Distal CMS is intact. Related Data Home Medications Medication Instructions Recorded Confirmed escitalopram oxalate 20 mg tablet 30 mg PO DAILY 11/15/19 06/24/23 (Lexapro) multivitamin 1 tab PO DAILY 10/07/20 06/24/23 omeprazole 10 mg capsule,delayed 10 mg PO DAILY 09/16/21 06/24/23 release ursodiol 200 mg capsule 200 mg PO BID 09/16/21 03/04/23 aripiprazole 5 mg tablet (Abilify) mg 01/04/23 03/04/23 guanfacine 1 mg tablet 1 mg PO DAILY PRN 01/04/23 06/24/23 biotin 10 mg tablet 10 mg PO DAILY 03/03/23 06/24/23 lisdexamfetamine 30 mg capsule 30 mg PO DAILY 03/03/23 06/24/23 (Vyvanse) propranolol 40 mg tablet 40 mg PO Q4H PRN 03/03/23 06/24/23 ropinirole 1 mg tablet 1 mg PO QHS 06/24/23 06/24/23 Allergies Allergy/AdvReac Type Severity Reaction Status Date / Time azithromycin AdvReac Intermediate yeast Unverified 06/24/23 15:25 [From Zithromax Z-Miky] infection methylprednisolone AdvReac Mild Yeast Unverified 06/24/23 15:25 [From Medrol] infection General Stated Complaint: Orthopedic KURTIS: 3 Review of Systems All systems reviewed & are unremarkable except as noted in HPI and below Musculoskeletal Musculoskeletal: Reports other (left great toe laceration and avulsed nail) Integumentary/Breasts Skin/Breast: Reports as per HPI and Reports wounds PFSH All Active Problems (Updated 06/24/23 @ 18:26 by Maci Hernandez NP) Open wound of toe with avulsion of toenail (Acute) Pes planus of both feet (Acute) Dermatitis (Acute) Herpes simplex (Acute) Gingivostomatitis ADHD (Acute) Body mass index (BMI) 40.0-44.9, adult (Acute) Sleep disorder (Acute) Anxiety disorder (Acute) Hammer toe (Acute) Tic disorder (Acute) Neck pain (Acute) Abnormal finding on mammography (Acute) Pain in right wrist (Acute ~01/04/23) Discharge from the vagina (Acute) Tubular adenoma (Acute ~10/2020) Tubulovillous adenoma (Acute ~10/2020) Colon polyp, hyperplastic (Acute ~10/2020) Medical History (Updated 06/24/23 @ 18:26 by Maci Hernandez NP) Abdominal pain Bunionette of left foot Chest pain Per pt. states this was from anxiety ,and since she has been on anxiety meds she had not had any issues. Elbow joint pain External hemorrhoid Pt. denies this Family history of ovarian cancer Female pelvic pain Heavy menstrual period Hot flash, menopausal Intractable left heel pain IUD surveillance Mirena for menorrhagia inserted 11/22/19 Knee pain, right Pt. denies this Leg mass Lumbar back pain Pt. denies this Lump Menorrhagia, premenopausal Muscle strain Pt. denies this Pain in right elbow Plantar wart, left foot Plantar wart, right foot Sacroiliac dysfunction Shoulder pain, right Spondylosis of lumbosacral region without myelopathy or radiculopathy TMJ syndrome Tobacco use Surgical History (Updated 10/28/21 @ 13:19 by Caroline Fang RN) History of bunionectomy History of colonoscopy (~10/2021) S/P endometrial ablation S/P gastric sleeve procedure Status post endometrial ablation Family History (Updated 10/20/21 @ 08:02 by Yudelka Ramos RN) Other Unknown family medical history Social History Smoking/Tobacco Use Status: Current-Occasional Tobacco Type: e-cigarettes Smoking risk assessment performed?: Yes Alcohol Intake: never Drug use: Never Substance use type: does not use Housing: house Do you feel safe at home: Yes Do you feel safe in your relationship?: Yes Female Reproductive History Menstrual control method: progestin IUCD History History 5 Para 4 Hx # Term Pregnancies Multiple births Hx # Pregnancies Ectopic pregnancies AB induced Hx Number of Living Children AB spontaneous 1 Exam Extrem Right lower extremity: foot Details: tenderness and laceration dorsal great toe Details: L-shaped ([place] shaped) Ankle/foot/toe images: 1. Approximately 2 cm crescent-shaped laceration noted just below the nail bed, bleeding controlled with pressure. Distal CMS intact. No other obvious deformity or crepitus noted. Course Vital Signs Vital signs: Vital Signs Temperature 36.4 C L 06/24/23 15:20 Pulse 71 06/24/23 15:20 Respiratory Rate 15 06/24/23 15:20 Blood Pressure 102/51 L 06/24/23 15:20 Pulse Oximetry 99 06/24/23 15:20 Temperature 36.4 C L 06/24/23 15:20 Pulse 71 06/24/23 15:20 Respiratory Rate 15 06/24/23 15:20 Blood Pressure 102/51 L 06/24/23 15:20 Blood Pressure Position Sitting 06/24/23 15:20 Pulse Oximetry 99 06/24/23 15:20 Oxygen Delivery Method Room Air 06/24/23 15:20 Oxygen Flow Rate 0 06/24/23 15:20 Pain Level 8 06/24/23 15:20 Procedures Nerve Block Nerve Block 1: Time out performed: No Local Anesthetic: Lidocaine 1% and Bupivicaine 0.5% Amount of anesthesia used (mL): 2 Side: right Nerve Blocks: digital (3 sided great toe nerve block) Patient Tolerated Procedure: well Complications: none
[2023-06-24] MEDS: Acetaminophen 500 MG TAB 1000 MG PO (15:56)
[2023-06-24] MEDS: Ondansetron O.D.T. 4 MG TABEF PO (15:57)
--- NOTE | 2023-06-24 15:57 | NUR.NOTE ---
Nursing Note: patient gave permission to cut sock off right foot. Min amount of blood from right big toe nail, bleeding controlled at this time. call light within reach at this time
[2023-06-24] MEDS: LORazepam 0.5 MG TAB (16:42)
[2023-06-24] MEDS: Bupivacaine 0.5% Pres-Free 30 ML VIAL IJ (16:43)
[2023-06-24] MEDS: Lidocaine 2% Multi-Dose 50 ML VIAL (16:44)
== END 2023-06-24 18:44 | disposition home or self-care (01) ==
PROVIDERS: Emergency Provider Registered Nurse Emergency; PCP Physician Assistant
DX: W55.12XA Struck by horse, initial encounter; S91.211A Laceration without foreign body of right great toe with damage to nail, initial encounter; F41.9 Anxiety disorder, unspecified
CPT/HCPCS: 64450; 99284; 73630; 99283; J3490

== ENCOUNTER → 2023-07-22 03:08 | Outpatient (CLI) | payer MEDICAID, SELFPAY ==
--- NOTE | 2023-07-22 08:30 | DI.RAD_ITS ---
Exam(s) XR FOOT RT COMPLETE EXAM: XR FOOT RT COMPLETE CLINICAL HISTORY: Painful hammer toe(s) rt foot,rt toe pain,m20.41,m79.674. TECHNIQUE: 2D digital imaging was performed of the right foot. Three images were obtained. AP, obl ique and lateral views were obtained. COMPARISON: CR XR FOOT RT COMPLETE from 06/24/2023 FINDINGS: BONES: No acute fracture is present. No bony destructive lesion is seen. There is a small spur at the plantar surface of the calcaneus. There is now osteopenia seen at the tip of the distal phalanx of the great toe. On the lateral view there is a question of disruption of the cortex of the terminal t uft. There is an old deformity of the head of the 5th metatarsal bone. There is no periosteal react ion present. JOINTS: No dislocation present. The joint spaces are well maintained. SOFT TISSUE: There is now a triangular density in the soft tissues between the 1st and 2nd metatarsal s. This was not present on the examination from 06/24/2023. There is also a 2 mm density in the soft tissues on the plantar surface of the foot which lies adjacent to the base of the proximal phalanx o f the 2nd toe. This was not present on the prior examination. IMPRESSION: 1. New osteopenia involving the terminal tuft of the great toe with question of cortical disruption d istally. Osteomyelitis should be considered. Fracture should also be considered. There is soft tis marquis swelling of the great toe. 2. Two density seen in the soft tissues of the foot as described above. These are new compared to . These may represent foreign bodies. 3. MRI should be considered for further evaluation. Unexpected findings DATA REPOSITORY: RADIATION DOSE DELIVERED:
--- NOTE | 2023-07-22 08:30 | DI.RAD_ITS ---
Exam(s) XR FOOT LT COMPLETE EXAM: XR FOOT LT COMPLETE CLINICAL HISTORY: Painful hammer(s) toe lt foot,lt toe pain,m20.42,m79.675. TECHNIQUE: 2D digital imaging was performed of the left foot. Three images were obtained. AP, obli que and lateral views were obtained. COMPARISON: CR XR FOOT LT COMPLETE from 10/19/2019 CR XR FOOT RT COMPLETE from 07/22/2023 FINDINGS: BONES: No acute fracture is present. No bony destructive lesion is seen. There is a small plantar spu r on the calcaneus. There is a hammertoe deformity of the 2nd toe. Chronic postsurgical changes are seen in the head of the 5th metatarsal. JOINTS: No dislocation present. SOFT TISSUE: Normal. IMPRESSION: No acute abnormality. DATA REPOSITORY: RADIATION DOSE DELIVERED:
== END ==
PROVIDERS: PCP Physician Assistant; Visit Provider Podiatrist
DX: M20.42 Other hammer toe(s) (acquired), left foot (principal); M79.675 Pain in left toe(s); M20.41 Other hammer toe(s) (acquired), right foot; M79.674 Pain in right toe(s)
CPT/HCPCS: 73630

== ENCOUNTER → 2023-08-05 03:35 | Outpatient (CLI) | payer MEDICAID, SELFPAY ==
--- NOTE | 2023-08-05 14:48 | DI.RAD_ITS ---
Exam(s) XR FOOT RT COMPLETE EXAM: XR FOOT RT COMPLETE CLINICAL HISTORY: Osteomyelitis versus trauma right great toe, CRUSHING INJURY, S97.111A. TECHNIQUE: 2D digital imaging was performed. COMPARISON: CR XR FOOT LT COMPLETE from 07/22/2023 FINDINGS: 3 views There is a fracture of the tuft of the distal phalanx of the great toe, without displacement. No rad iopaque foreign body. No osseous lesions. No other fractures identified in the foot. No diastasis of the Lisfranc joint. No degenerative osorio ges. Inferior calcaneal spur noted. IMPRESSION: Minimally displaced fracture of the tuft of the distal phalanx of the great toe. No overlying soft t issue avulsion nor ulcer. Given the history of clinically indicated dedicated three views of the great toe can be performed. DATA REPOSITORY: RADIATION DOSE DELIVERED:
== END ==
PROVIDERS: PCP Physician Assistant; Visit Provider Podiatrist
DX: S92.421A Displaced fracture of distal phalanx of right great toe, initial encounter for closed fracture (principal); S97.111A Crushing injury of right great toe, initial encounter; X58.XXXA Exposure to other specified factors, initial encounter
CPT/HCPCS: 73630

== ENCOUNTER → 2023-08-23 02:52 | Outpatient (CLI) | payer MEDICAID, SELFPAY ==
--- NOTE | 2023-08-23 14:44 | DI.RAD_ITS ---
Exam(s) XR FOOT RT COMPLETE EXAM: XR FOOT RT COMPLETE CLINICAL HISTORY: Osteomyelitis right great toe,CRUSH INJURY,S97.111A,M86.9. TECHNIQUE: 2D digital imaging was performed. Three views. COMPARISON: CR XR FOOT RT COMPLETE from 08/05/2023 FINDINGS: BONES: No change in nondisplaced fracture tuft of distal phalanx of the great toe. No bony destructi ve lesion is seen. Small plantar calcaneal spur. Plantar arch is maintained. JOINTS: No dislocation present. SOFT TISSUE: No foreign body or gas collection. IMPRESSION: Stable tuft fracture great toe. No bony erosions to suggest osteomyelitis. DATA REPOSITORY: RADIATION DOSE DELIVERED:
== END ==
PROVIDERS: PCP Physician Assistant; Visit Provider Podiatrist
DX: M86.9 Osteomyelitis, unspecified (principal); S97.111A Crushing injury of right great toe, initial encounter; S92.424A Nondisplaced fracture of distal phalanx of right great toe, initial encounter for closed fracture
CPT/HCPCS: 73630

== ENCOUNTER 2023-08-25 12:48 | Emergency (ER) | payer MEDICAID, SELFPAY ==
[2023-08-25 12:52] VITALS: BP 160/78; PULSE 75; RESP 20; TEMP 36.9; O2SAT 99
[2023-08-25 12:58] VITALS: RESP 20; TEMP 36.9; O2SAT 99
--- NOTE | 2023-08-25 13:00 | DI.RAD_ITS ---
Exam(s) XR WRIST RT COMPLETE EXAM: XR WRIST RT COMPLETE CLINICAL HISTORY: pain. TECHNIQUE: 2D digital imaging was performed. COMPARISON: CR,XR XR WRIST RT COMPLETE from 01/04/2023 FINDINGS: 3 views No evidence of acute fracture or carpal dislocation. Scaphoid and scapholunate distance normal. Mil d negative ulnar variance noted. No degenerative changes evident. Bone density normal. IMPRESSION: No significant radiograph findings in the right wrist. DATA REPOSITORY: RADIATION DOSE DELIVERED:
--- NOTE | 2023-08-25 13:11 | ED.GENADUL_ITS ---
Discharge Plan Disposition Patient Disposition: Home Condition: Stable Discharge Details Clinical Impression: Right wrist sprain Primary Care Provider: Jose Napier ED Provider: Jeromy Montgomery Home Meds and New Rx's Prescriptions: Continued propranolol 40 mg tablet 40 mg PO Q4H PRN biotin 10 mg tablet 10 mg PO DAILY lisdexamfetamine [Vyvanse] 30 mg capsule 30 mg PO DAILY valacyclovir [Valtrex] 1 gram tablet See Rx Instructions PO .COMPLEX PRN Rx Instructions: orally PRN; BID x 5 days, and repeat for subsequent outbreak x 3 days. cyanocobalamin (vitamin B-12) 1,000 mcg capsule 1,000 mcg PO DAILY escitalopram oxalate [Lexapro] 20 mg tablet 30 mg PO DAILY ropinirole 1 mg tablet 1 mg PO QHS Patient Comments: TAKE ONE TABLET BY MOUTH AT BEDTIME NEEDED FOR RESTLESS LEGS multivitamin Tablet 1 tab PO DAILY guanfacine 1 mg tablet 1 mg PO DAILY PRN Patient Comments: TAKE ONE TABLET BY MOUTH AT BEDTIME Discharge Instructions Instructions: Wrist Sprain (ED) Additional Instructions: Please use wrist splint over the next 1 to 2 weeks. Please take acetaminophen (tylenol) - 650mg every 6 hours by mouth as needed for pain. Please contact your primary care physician to arrange follow-up. Return to the ER immediately for any worsening or new concerning symptoms. Referrals: Jose Napier [Primary Care Provider] - Discharge Data Discharge Date/Time-TO BE ENTERED AT DEPARTURE: 08/25/23 15:07 Medical Decision Making 1311 --52-year-old female here with FOOSH and injury to right wrist. Patient has pain ulnar wrist. With concern for sprain versus fracture. Plan to obtain x-ray. Patient notes unable to take NSAID. I will acetaminophen and give oxycodone 5 mg orally for severe pain. -- Xrays of the wrist was interpreted by radiology: No significant radiograph findings in the right wrist. Suspect sprain. Plan for universal wrist splint. Usual customary discharge instructions reviewed with the patient. HPI General Mode of arrival: ambulatory . Date/Time Provider Initiated Documentation: 08/25/23 13:02 . Limitations to Documentation: no limitations . Information obtained by: patient . HPI Narrative: 52-year-old female here with FOOSH and injury to right wrist. Patient notes she has chronic pain in her wrist and has been diagnosed with carpal tunnel and has physical therapy scheduled. Patient notes she tripped and fell in her barn today and now pain is much worse. Pain localized to wrist. Related Data Home Medications Medication Instructions Recorded Confirmed escitalopram oxalate 20 mg tablet 30 mg PO DAILY 11/15/19 08/25/23 (Lexapro) multivitamin 1 tab PO DAILY 10/07/20 08/25/23 guanfacine 1 mg tablet 1 mg PO DAILY PRN 01/04/23 08/25/23 biotin 10 mg tablet 10 mg PO DAILY 03/03/23 08/25/23 lisdexamfetamine 30 mg capsule 30 mg PO DAILY 03/03/23 08/25/23 (Vyvanse) propranolol 40 mg tablet 40 mg PO Q4H PRN 03/03/23 08/25/23 ropinirole 1 mg tablet 1 mg PO QHS 06/24/23 08/25/23 cyanocobalamin (vitamin B-12) 1,000 mcg PO DAILY 07/07/23 08/25/23 1,000 mcg capsule valacyclovir 1 gram tablet See Rx Instructions PO .COMPLEX PRN 07/07/23 08/25/23 (Valtrex) Allergies Allergy/AdvReac Type Severity Reaction Status Date / Time azithromycin AdvReac Intermediate yeast Unverified 08/25/23 12:57 [From Zithromax Z-Miky] infection methylprednisolone AdvReac Mild Yeast Unverified 08/25/23 12:57 [From Medrol] infection ibuprofen AdvReac Unknown GI Bleeding Unverified 08/25/23 12:57 General Stated Complaint: Orthopedic KURTIS: 3 Review of Systems Musculoskeletal Musculoskeletal: Reports as per HPI PFSH All Active Problems (Updated 08/25/23 @ 14:52 by Jeromy Montgomery MD) Right wrist sprain (Acute) Osteomyelitis of great toe of right foot (Acute) Crushing injury of right great toe (Acute) Pain in right foot (Acute) Pain in left foot (Acute) Dystrophy of nail due to trauma (Acute) Tremor (Acute) Depression (Chronic) OD - 12/1989 RLS (restless legs syndrome) (Acute) Varicose veins of both lower extremities (Acute) Pes planus of both feet (Acute) Dermatitis (Acute) Hammer toe (Acute) Tic disorder (Acute) Bunionette of left foot (Acute) Body mass index (BMI) 40.0-44.9, adult (Acute) Intractable left heel pain (Acute) Sacroiliac dysfunction (Acute) TMJ syndrome (Acute) ADHD (Acute) Herpes simplex (Acute) Gingivostomatitis Sleep disorder (Acute) Anxiety disorder (Acute) Spondylosis of lumbosacral region without myelopathy or radiculopathy (Acute) Medical History Former smoker Quit 2017; 15 pack-years. Neck pain Abnormal finding on mammography Pain in right wrist (~01/04/23) Discharge from the vagina Leg mass Family history of ovarian cancer Tubular adenoma (~10/2020) Tubulovillous adenoma (~10/2020) Colon polyp, hyperplastic (~10/2020) Elbow joint pain External hemorrhoid Pt. denies this Menorrhagia, premenopausal IUD surveillance Mirena for menorrhagia inserted 11/22/19 Pain in right elbow Hot flash, menopausal Heavy menstrual period Abdominal pain Chest pain Per pt. states this was from anxiety ,and since she has been on anxiety meds she had not had any issues. Female pelvic pain Plantar wart, left foot Plantar wart, right foot Shoulder pain, right Knee pain, right Pt. denies this Lumbar back pain Pt. denies this Lump Muscle strain Pt. denies this Surgical History History of colonoscopy (~10/2021) S/P gastric sleeve procedure S/P endometrial ablation History of bunionectomy Status post endometrial ablation Family History Other Unknown family medical history Social History Smoking/Tobacco Use Status: Former Tobacco Use Tobacco: How many years used: 15 Smoking risk assessment performed?: Yes Alcohol Intake: current Alcohol Intake frequency: holidays/special occasions only Drug use: Never Substance use type: does not use Housing: house Do you feel safe at home: Yes Do you feel safe in your relationship?: Yes Female Reproductive History Menstrual control method: progestin IUCD History History 5 Para 4 Hx # Term Pregnancies Multiple births Hx # Pregnancies Ectopic pregnancies AB induced Hx Number of Living Children AB spontaneous 1 Exam Extrem Right upper extremity: elbow/forearm Details: normal to inspection, wrist Details: tenderness Location: of the distal ulna, swelling Location: of the dorsal wrist (mild) and abnormal ROM Details: pain with active ROM during Details: with extension and with flexion; no unusual warmth and hand Details: normal capillary refill, neuromotor exam normal and neurosensory exam normal Course Vital Signs Vital signs: Vital Signs Temperature 36.9 C 08/25/23 12:52 Pulse 75 08/25/23 12:52 Respiratory Rate 20 08/25/23 12:52 Blood Pressure 160/78 H 08/25/23 12:52 Pulse Oximetry 99 08/25/23 12:52 Temperature 36.9 C 08/25/23 12:58 Temperature Source Oral 08/25/23 12:58 Pulse 75 08/25/23 12:52 Respiratory Rate 20 08/25/23 12:58 Respiratory Effort Normal, Non-Labored 08/25/23 12:58 Respiratory Depth Normal 08/25/23 12:58 Respiratory Pattern Normal 08/25/23 12:58 Blood Pressure 160/78 H 08/25/23 12:52 Blood Pressure Position Sitting 08/25/23 12:52 Pulse Oximetry 99 08/25/23 12:58 Oxygen Delivery Method Room Air 08/25/23 12:58 Oxygen Flow Rate 0 08/25/23 12:58 Pain Level 8 08/25/23 12:52
[2023-08-25] MEDS: oxyCODONE 5 MG TAB PO (13:17)
[2023-08-25] MEDS: Acetaminophen 325 MG TAB 650 MG PO (13:17)
[2023-08-25 15:05] VITALS: BP 135/84; PULSE 62; RESP 17; TEMP 36.5; O2SAT 97
== END 2023-08-25 15:07 | disposition home or self-care (01) ==
PROVIDERS: Emergency Provider Student in an Organized Health Care Education/Training Program; PCP Physician Assistant
DX: S63.501A Unspecified sprain of right wrist, initial encounter (principal); Z98.84 Bariatric surgery status; Z87.891 Personal history of nicotine dependence; W01.0XXA Fall on same level from slipping, tripping and stumbling without subsequent striking against object, initial encounter; Y93.89 Activity, other specified; Y92.71 Barn as the place of occurrence of the external cause
CPT/HCPCS: 99283; 73110

== ENCOUNTER → 2023-09-09 16:26 | Outpatient (CLI) | payer MEDICAID, SELFPAY ==
--- NOTE | 2023-09-09 15:18 | DI.RAD_ITS ---
Exam(s) XR CHEST 2V PA LATERAL EXAM: XR CHEST 2V PA LATERAL CLINICAL HISTORY: CHEST WALL PAIN-R07.89. TECHNIQUE: 2D digital imaging was performed. COMPARISON: No exams were available for comparison FINDINGS: 2 views: Heart size is normal. The mediastinum is not widened. Lungs are clear. No infiltrates nor pleural effusions. IMPRESSION: No acute pulmonary findings. DATA REPOSITORY: RADIATION DOSE DELIVERED:
== END ==
PROVIDERS: PCP Physician Assistant; Visit Provider Physician Assistant Medical
DX: R07.89 Other chest pain (principal)
CPT/HCPCS: 71046

== ENCOUNTER 2023-12-06 17:20 | Outpatient (REF) | payer MEDICAID, SELFPAY ==
[2023-12-08 12:05] LABS: HSV 1 DNA Result Negative (Negative); HSV 2 DNA Result Positive (Negative)
== END 2023-12-06 17:21 | disposition home or self-care (01) ==
LOC: NCHCN 17:20
PROVIDERS: PCP Physician Assistant; Visit Provider Family Medicine
DX: A60.04 Herpesviral vulvovaginitis (principal)
CPT/HCPCS: 87529

== ENCOUNTER 2023-12-31 16:14 | Outpatient (REF) | payer MEDICAID, SELFPAY ==
[2023-12-31 15:43] LABS: ALT 17 U/L (14-59); AST 10 U/L (15-37); Albumin 3.7 g/dL (3.4-5.0); Alkaline Phosphatase 99 U/L (46-116); Bilirubin, Direct 0.1 mg/dL (0.0-0.2); Bilirubin, Total 0.4 mg/dL (0.2-1.0); Total Protein 7.1 g/dL (6.4-8.2)
[2023-12-31 22:13] LABS: HBs Antibody, Quant <3.1 mIU/mL (See Note); Hepatitis B Surface Ab Negative (See Note)
[2023-12-31 22:22] LABS: Hepatitis B Surface Ag Negative (Negative)
[2023-12-31 22:51] LABS: HIV-1/2 Ag & Ab Screen Negative (Negative); Hepatitis C Ab w Rflx HCV PCR Negative (Negative)
== END 2023-12-31 16:15 | disposition home or self-care (01) ==
LOC: NCHCN 16:14
PROVIDERS: PCP Physician Assistant; Referring Provider Family Medicine; Visit Provider Family Medicine
DX: W46.1XXA Contact with contaminated hypodermic needle, initial encounter (principal); Z11.4 Encounter for screening for human immunodeficiency virus [HIV]; Z11.59 Encounter for screening for other viral diseases; Z01.84 Encounter for antibody response examination
CPT/HCPCS: 80076; 86706; 86803; 87340; 87389

== ENCOUNTER → 2024-01-25 01:22 | Outpatient (CLI) | payer MEDICAID, SELFPAY ==
--- NOTE | 2024-01-25 08:09 | DI.RAD_ITS ---
Exam(s) XR FOOT RT COMPLETE EXAM: XR FOOT RT COMPLETE CLINICAL HISTORY: pain left foot, HAMMERTOE LT FOOT, M29.42. TECHNIQUE: 2D digital imaging was performed of the right foot. Three images were obtained. AP, obl ique and lateral views were obtained. COMPARISON: CR XR FOOT RT COMPLETE from 08/23/2023 FINDINGS: BONES: There is incomplete healing of the fracture of the terminal tuft of the great toe. No new fra ctures identified. There is a small plantar calcaneal spur. No bony destructive lesion is seen. Sta ble deformity of the head of the 5th metatarsal. JOINTS: No dislocation present. The joint spaces are all well maintained. SOFT TISSUE: Normal. IMPRESSION: No acute abnormality. DATA REPOSITORY: RADIATION DOSE DELIVERED:
--- NOTE | 2024-01-25 08:09 | DI.RAD_ITS ---
Exam(s) XR FOOT LT COMPLETE EXAM: XR FOOT LT COMPLETE CLINICAL HISTORY: Painful toes, HAMMERTOE LT FOOT, M20.42. TECHNIQUE: 2D digital imaging was performed of the left foot. Three images were obtained. AP, obli que and lateral views were obtained. COMPARISON: CR XR FOOT LT COMPLETE from 07/22/2023 FINDINGS: BONES: No acute fracture is present. No bony destructive lesion is seen. Stable deformity of the head of the 5th metatarsal and the 5th MTP joint. There is a hammertoe of the 2nd toe. There is a small plantar calcaneal spur. JOINTS: No dislocation present. Joint spaces are well maintained. SOFT TISSUE: Normal. IMPRESSION: No acute abnormality. Incidental findings as described above. DATA REPOSITORY: RADIATION DOSE DELIVERED:
== END ==
PROVIDERS: PCP Physician Assistant; Visit Provider Podiatrist
DX: M20.42 Other hammer toe(s) (acquired), left foot (principal)
CPT/HCPCS: 73630

== ENCOUNTER → 2024-01-25 08:48 | Outpatient (CLI) | payer MEDICAID, SELFPAY ==
--- NOTE | 2024-01-25 | DI.MAMMO_ITS ---
Exam(s) MAMMO DIAGNOSTIC BI EXAM: MAMMO DIAGNOSTIC BI CLINICAL HISTORY: 6 MO F/U, BILAT FINDINGS, INCONCLUSIVE,ABN FINDINGS. TECHNIQUE: Craniocaudal and mediolateral oblique Full Field Digital Mammography views of the bilater al breast with Computer Aided Diagnosis followed by Tomosynthesis. COMPARISON: Comparison is made with prior examinations. FINDINGS: Mammography/Tomosynthesis: Masses/Architectural Distortion: No new or suspicious masses. No areas of architectural distortion a re seen. Microcalcifictions: No suspicious pleomorphic-type are seen. The previously seen calcifications on th e examination from 05/20/2023 are not present. They likely reflected external artifact such as deodor ant. Skin Thickening/Nipple Retraction: None. IMPRESSION: 1. No evidence of malignancy is noted. 2. Unless there is more urgent need, follow-up screening mammography is recommended, as per [place] [employer] guidelines. 3. The findings were discussed with the patient on the date of the examination. BI-RADS Category 1 - Negative Breast Density - Category B - Scattered areas of fibroglandular density Breast density Category C or D implies that the patient has dense breast tissue. Dense breast tissue can make it harder to find cancer on a mammogram. Dense breast tissue is also associated with an incr eased risk of breast cancer. This information about the result of the mammogram report was provided to the patient to raise their awareness. Use this report when you speak with the patient about their risks for breast cancer, which includes their family history. At that time, you may recommend additional screening tests (Ultrasoun d or MRI) as these tests may add significant information. A negative radiographic report should not delay biopsy if a dominant or clinically suspicious mass is present. Up to ten percent of cancers are not identified on mammography. A negative report may reinforce clinical impression. Adenosis and dense breasts may obscure an underlying neoplasm. False positive reports average 6 to 10%. Patient will receive a letter notifying them of these results.
== END ==
PROVIDERS: PCP Physician Assistant; Visit Provider Physician Assistant
DX: M20.42 Other hammer toe(s) (acquired), left foot (principal); M20.41 Other hammer toe(s) (acquired), right foot
CPT/HCPCS: 77062; 77066; G0279

== ENCOUNTER 2024-04-08 22:05 | Emergency (ER) | payer MEDICAID, SELFPAY ==
[2024-04-08 22:06] VITALS: BP 155/100; PULSE 94; RESP 20; TEMP 36.7; O2SAT 100
--- NOTE | 2024-04-08 22:16 | W.ED.GENAD ---
Discharge Plan Disposition Patient Disposition: Home Condition: Good Discharge Details Clinical Impression: Cellulitis of skin Primary Care Provider: Jose Napier ED Provider: Nicolas Zhao Home Meds and New Rx's Prescriptions: New doxycycline hyclate 100 mg tablet 100 mg PO BID 6 Days Qty: 12 0RF No Action propranolol 40 mg tablet 40 mg PO Q4H PRN biotin 10 mg tablet 10 mg PO DAILY valacyclovir [Valtrex] 1 gram tablet See Rx Instructions PO .COMPLEX PRN Rx Instructions: orally PRN; BID x 5 days, and repeat for subsequent outbreak x 3 days. vilazodone 10 mg tablet 10 mg PO DAILY Patient Comments: TAKE ONE TABLET BY MOUTH EVERY DAY FOR 7 DAYS guanfacine 1 mg tablet 1 mg PO DAILY PRN Patient Comments: TAKE ONE TABLET BY MOUTH AT BEDTIME Discharge Instructions Instructions: Cellulitis (ED) Additional Instructions: At this time you have evidence of cellulitis on your left swanson. This may be secondary to a tick, or other etiology. Please take the doxycycline as directed. Please be mindful to stay out of the sun as you will have an increased skin sensitivity to the sun while on the medication. Please make sure to take the medication with food otherwise you will feel quite nauseous and throw up. Avoid any dairy products or calcium supplements while on doxycycline as this will inhibit the absorption of the antibiotic. If you notice any worsening of your symptoms, or any new symptoms such as vomiting, diarrhea, fever, chills, shortness of breath, chest pain, numbness, weakness, or fainting , please return immediately to the emergency department for reevaluation. Please follow up with your primary care provider as soon as possible for reassessment and reevaluation. As always, it was a pleasure participating in your medical care today. Referrals: Jose Napier [Primary Care Provider] - [facility] General Date/Time Provider Initiated Documentation: 04/08/24 22:07. HPI Narrative: 53-year-old female with a past medical history of anxiety, herpes, ADHD, TMJ, tic disorder, depression, presents today for evaluation of a lesion on the left swanson. Patient states that about 48 hours ago she noticed a lesion develop on the pretibial space, it initially had a central clearing, but now it is all red. She scraped and tried to squeeze the area and stated that it brought about a small amount of purulence. She is uncertain if she had a tick bite there. She may have come in contact with thorns. She denies fever or chills. No other complaints at this time. No other modifying factors. Related Data Home Medications Medication Instructions Recorded Confirmed guanfacine 1 mg tablet 1 mg PO DAILY PRN 01/04/23 04/08/24 biotin 10 mg tablet 10 mg PO DAILY 03/03/23 04/08/24 propranolol 40 mg tablet 40 mg PO Q4H PRN 03/03/23 04/08/24 valacyclovir 1 gram tablet See Rx Instructions PO .COMPLEX PRN 07/07/23 04/08/24 (Valtrex) doxycycline hyclate 100 mg tablet 100 mg PO BID 6 days #12 tabs 04/08/24 vilazodone 10 mg tablet 10 mg PO DAILY 04/08/24 04/08/24 Previous Rx's Medication Instructions Recorded doxycycline hyclate 100 mg tablet 100 mg PO BID 6 days #12 tabs 04/08/24 Allergies Allergy/AdvReac Type Severity Reaction Status Date / Time azithromycin AdvReac Intermediate yeast Unverified 04/08/24 22:13 [From Zithromax Z-Miky] infection methylprednisolone AdvReac Mild Yeast Unverified 04/08/24 22:13 [From Medrol] infection ibuprofen AdvReac Unknown GI Bleeding Unverified 04/08/24 22:13 General Stated Complaint: InsectBite KURTIS: 4 Review of Systems All systems reviewed & are unremarkable except as noted in HPI and below Exam Narrative Exam Narrative: 1.Const: Well-nourished, Well-developed, appearing stated age 2.Eyes: PERRL, no conjunctival injection, and symmetrical lids. 3.ENT: Atraumatic external nose and ears. Moist MM. Neck: Symmetric, trachea midline, No thyromegaly. 4.CVS: +S1/S2, No murmurs or gallops. Peripheral pulses 2+ and equal in all extremities. Brisk capillary refill in all extremities. 5.RESP: Unlabored respiratory effort. Clear to auscultation bilaterally. No wheezes rales or rhonchi 6.GI: Soft, Nontender/Nondistended, No hepatosplenomegaly. No guarding or rebound. 7.MSK: Normocephalic/Atraumatic, Extremities w/o deformity or ttp No cyanosis or clubbing, Normal movement of all extremities 8.Skin: Patient demonstrates small area of cellulitis of the left pretibial space. Diameter is about 2 cm. There is a small amount of serosanguineous fluid coming from the center where the patient had squeezed it previously. No purulent drainage. No abscess or fluctuance. 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 Sensation grossly intact, no focal neurologic deficits. 10.Psych: (AAO) x3. Appropriate mood and affect Course Vital Signs Vital signs: Vital Signs Temperature 36.7 C 04/08/24 22:06 Pulse 94 H 04/08/24 22:06 Respiratory Rate 20 04/08/24 22:06 Blood Pressure 155/100 H 04/08/24 22:06 Pulse Oximetry 100 04/08/24 22:06 Temperature 36.7 C 04/08/24 22:06 Pulse 94 H 04/08/24 22:06 Respiratory Rate 20 04/08/24 22:06 Blood Pressure 155/100 H 04/08/24 22:06 Pulse Oximetry 100 04/08/24 22:06 Oxygen Delivery Method Room Air 04/08/24 22:06 Oxygen Flow Rate 0 04/08/24 22:06 Medical Decision Making 53-year-old female with a past medical history of anxiety, herpes, ADHD, TMJ, tic disorder, depression, presents today for evaluation of a lesion on the left swanson. Patient states that about 48 hours ago she noticed a lesion develop on the pretibial space, it initially had a central clearing, but now it is all red. She scraped and tried to squeeze the area and stated that it brought about a small amount of purulence. She is uncertain if she had a tick bite there. She may have come in contact with thorns. She denies fever or chills. No other complaints at this time. No other modifying factors. Exam demonstrates an area of cellulitis on the pretibial space, diameter is roughly 2 cm. No abscess or fluctuance. Symptoms appear consistent with bacterial cellulitis at this time. Low likelihood for Malassezia furfur or fungal component. Will give doxycycline out of concern for potential tick bite versus just generalized cellulitis/MRSA. Discussed red flags which return. I have extensively reviewed the treatment plan and discharge instructions with the patient. I have addressed all patient concerns at this time. The patient was made aware of what symptoms to monitor for that would warrant a return to the emergency department. Discussed the plan with the patient, they demonstrate verbal understanding and agreement with our assessment and plan at this time. The documentation in this chart was dictated using [employer] dictation software. Please excuse any dictation errors. Quality:SDOH Health Related Social Needs: No Data to Display PFSH All Active Problems Cellulitis of skin (Acute) Onychomycosis (Acute) Hammertoe of left foot (Acute) Hammertoe of right foot (Acute) Osteomyelitis of great toe of right foot (Acute) Crushing injury of right great toe (Acute) Pain in right foot (Acute) Pain in left foot (Acute) Dystrophy of nail due to trauma (Acute) Tremor (Acute) Depression (Chronic) OD - 12/1989 RLS (restless legs syndrome) (Acute) Varicose veins of both lower extremities (Acute) Pes planus of both feet (Acute) Dermatitis (Acute) Hammer toe (Acute) Tic disorder (Acute) Bunionette of left foot (Acute) Body mass index (BMI) 40.0-44.9, adult (Acute) Intractable left heel pain (Acute) Sacroiliac dysfunction (Acute) TMJ syndrome (Acute) ADHD (Acute) Herpes simplex (Acute) Gingivostomatitis Sleep disorder (Acute) Anxiety disorder (Acute) Spondylosis of lumbosacral region without myelopathy or radiculopathy (Acute) Medical History Former smoker Quit 2017; 15 pack-years. Neck pain Abnormal finding on mammography Pain in right wrist (~01/04/23) Discharge from the vagina Leg mass Family history of ovarian cancer Tubular adenoma (~10/2020) Tubulovillous adenoma (~10/2020) Colon polyp, hyperplastic (~10/2020) Elbow joint pain External hemorrhoid Pt. denies this Menorrhagia, premenopausal IUD surveillance Mirena for menorrhagia inserted 11/22/19 Pain in right elbow Hot flash, menopausal Heavy menstrual period Abdominal pain Chest pain Per pt. states this was from anxiety ,and since she has been on anxiety meds she had not had any issues. Female pelvic pain Plantar wart, left foot Plantar wart, right foot Shoulder pain, right Knee pain, right Pt. denies this Lumbar back pain Pt. denies this Lump Muscle strain Pt. denies this Surgical History History of colonoscopy (~10/2021) S/P gastric sleeve procedure S/P endometrial ablation History of bunionectomy Status post endometrial ablation Family History Other Unknown family medical history Social History Smoking/Tobacco Use Status: Former Tobacco Use Tobacco: How many years used: 15 Smoking risk assessment performed?: Yes Alcohol Intake: current Alcohol Intake frequency: holidays/special occasions only Drug use: Never Substance use type: does not use Housing: house Do you feel safe at home: Yes Do you feel safe in your relationship?: Yes Female Reproductive History Menstrual control method: progestin IUCD History History 5 Para 4 Hx # Term Pregnancies Multiple births Hx # Pregnancies Ectopic pregnancies AB induced Hx Number of Living Children AB spontaneous 1
[2024-04-08] MEDS: Doxycycline Hyclate 100 MG, 2 CAPS/BTL PO (22:23)
--- NOTE | 2024-04-09 08:20 | NUR.NOTE ---
patient called to say she took her first dose of doxycycline this morning. She states now she is very itchy and may be developing a rash from the abx. Relayed concern to Casandra SWIFT.
== END 2024-04-08 22:22 | disposition home or self-care (01) ==
PROVIDERS: Emergency Provider Student in an Organized Health Care Education/Training Program; PCP Physician Assistant
DX: L03.116 Cellulitis of left lower limb (principal); Z87.891 Personal history of nicotine dependence; Z98.84 Bariatric surgery status
CPT/HCPCS: 99283

== ENCOUNTER 2024-04-09 09:18 | Emergency (ER) | payer MEDICAID, SELFPAY ==
[2024-04-09 09:21] VITALS: BP 130/101; PULSE 81; RESP 16; TEMP 37.1; O2SAT 100
[2024-04-09] MEDS: diphenhydrAMINE 25 MG CAP PO (09:35)
[2024-04-09] MEDS: Famotidine 20 MG TAB PO (09:38)
[2024-04-09] MEDS: Dexamethasone 4 MG TAB 8 MG PO (09:38)
--- NOTE | 2024-04-09 10:00 | ED.GENADUL_ITS ---
Discharge Plan Disposition Patient Disposition: Home Discharge Details Clinical Impression: Urticaria Primary Care Provider: Jose Napier ED Provider: Alan Rosa Home Meds and New Rx's Prescriptions: New cephalexin 500 mg capsule 500 mg PO BID 5 Days Qty: 10 0RF Discontinued doxycycline hyclate 100 mg tablet 100 mg PO BID 6 Days Qty: 12 0RF No Action propranolol 40 mg tablet 40 mg PO Q4H PRN biotin 10 mg tablet 10 mg PO DAILY valacyclovir [Valtrex] 1 gram tablet See Rx Instructions PO .COMPLEX PRN Rx Instructions: orally PRN; BID x 5 days, and repeat for subsequent outbreak x 3 days. vilazodone 10 mg tablet 10 mg PO DAILY Patient Comments: TAKE ONE TABLET BY MOUTH EVERY DAY FOR 7 DAYS Discharge Instructions Instructions: Urticaria (ED) Additional Instructions: You were given medications to treat the itching in the emergency department. You can continue Pepcid and Benadryl at home. Pepcid 20 mg twice daily, Benadryl 25 mg every 6-8 hours as needed for itching. You can also use topical Benadryl or hydrocortisone to help with the itching. Please avoid scratching as this can lead to breaks in the skin and cause further infections. It is unclear that this was caused by the doxycycline, but is possible, please switch her antibiotic to Keflex for further treatment of your skin infection. This will not cover an infection caused by a tick, so if your symptoms worsen, please follow-up for re-evaluation HPI General Date/Time Provider Initiated Documentation: 04/09/24 09:25 . Limitations to Documentation: no limitations . Information obtained by: patient . HPI Narrative: 53-year-old female with past medical history of restless leg, depression, anxiety presents for evaluation of generalized itching. She reports onset of itching this morning after taking a dose of doxycycline. She states that she started having a rash and itching less than 5 minutes after taking the medication. She reports its generalized redness and is very itchy. She did not take any medications otherwise. She denies any new soaps lotions foods or detergents. She denies a history of urticaria. It is unknown if she has previously tolerated doxycycline. She denies any shortness of breath, cough, wheezing. Denies any abdominal pain, nausea or vomiting. Related Data Home Medications Medication Instructions Recorded Confirmed biotin 10 mg tablet 10 mg PO DAILY 05/03/23 06/09/24 propranolol 40 mg tablet 40 mg PO Q4H PRN 03/03/23 04/09/24 valacyclovir 1 gram tablet See Rx Instructions PO .COMPLEX PRN 07/07/23 04/09/24 (Valtrex) vilazodone 10 mg tablet 10 mg PO DAILY 04/08/24 04/09/24 cephalexin 500 mg capsule 500 mg PO BID 5 days #10 caps 04/09/24 Previous Rx's Medication Instructions Recorded cephalexin 500 mg capsule 500 mg PO BID 5 days #10 caps 04/09/24 Allergies Allergy/AdvReac Type Severity Reaction Status Date / Time azithromycin AdvReac Intermediate yeast Unverified 04/09/24 09:40 [From Zithromax Z-Miky] infection doxycycline AdvReac Intermediate Itching Verified 04/09/24 09:40 methylprednisolone AdvReac Mild Yeast Unverified 04/09/24 09:40 [From Medrol] infection ibuprofen AdvReac Unknown GI Bleeding Unverified 04/09/24 09:40 General Stated Complaint: Allergic KURTIS: 3 Exam Narrative Exam Narrative: Review of Systems: All systems reviewed & are unremarkable except as noted in HPI and below Well-developed, wiggling all over the bed scratching herself NCAT PERRL, normal conjunctiva RRR Unlabored respiratory effort, no hypoxia, no wheezing Nondistended abdomen Extremities w/o deformity, no cyanosis, no edema Multiple sites of excoriation on extremities, there is urticaria and erythema noted to her back and chest wall The left anterior swanson lesion is scabbed and approximately one by one, no significant cellulitis, no drainage no focal neurologic deficits Appropriate mood and affect Course Vital Signs Vital signs: Vital Signs Temperature 37.1 C 04/09/24 09:21 Pulse 81 04/09/24 09:21 Respiratory Rate 16 04/09/24 09:21 Blood Pressure 130/101 H 04/09/24 09:21 Pulse Oximetry 100 04/09/24 09:21 Temperature 37.1 C 04/09/24 09:21 Temperature Source Skin 04/09/24 09:21 Pulse 81 04/09/24 09:21 Respiratory Rate 16 04/09/24 09:21 Respiratory Effort Normal, Non-Labored 04/09/24 09:29 Respiratory Pattern Normal 04/09/24 09:29 Blood Pressure 130/101 H 04/09/24 09:21 Blood Pressure Position Sitting 04/09/24 09:21 Pulse Oximetry 100 04/09/24 09:21 Oxygen Delivery Method Room Air 04/09/24 09:21 Oxygen Flow Rate 0 04/09/24 09:21 Pain Level 10 04/09/24 09:21 Comment 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 Initial differential includes drug allergy, contact dermatitis, environmental allergy. Although the patient did take the doxycycline this morning, the onset of symptoms seems unlikely to be related to an acute drug-related allergic reaction. She does have urticaria and I will treat this with Benadryl, Pepcid and dexamethasone. She does not have any signs or symptoms concerning for anaphylaxis and therefore does not need epinephrine. The patient is convinced this is related to the doxycycline. She was placed on this for the left lower leg site of infection that could possibly have been a tick, but no tick had been seen or removed from the area. I discussed that we can change the antibiotic, but that if this is a tickborne illness, it would not likely be covered, the patient would prefer to change the antibiotic. I recommend close monitoring of the symptoms and the rash. Recommend continued Pepcid and Benadryl at home for the itching as well as topical relief medications. Recommend close follow-up with the PCP for wound check. Return precautions advised. Discharged in good condition. Medical Records Medical records reviewed: Yes I reviewed the patient's medical records. Quality:SDOH Health Related Social Needs: No Data to Display PFSH All Active Problems Urticaria (Acute) Cellulitis of skin (Acute) Onychomycosis (Acute) Hammertoe of left foot (Acute) Hammertoe of right foot (Acute) Osteomyelitis of great toe of right foot (Acute) Crushing injury of right great toe (Acute) Pain in right foot (Acute) Pain in left foot (Acute) Dystrophy of nail due to trauma (Acute) Tremor (Acute) Depression (Chronic) - 12/1989 RLS (restless legs syndrome) (Acute) Varicose veins of both lower extremities (Acute) Pes planus of both feet (Acute) Dermatitis (Acute) Hammer toe (Acute) Tic disorder (Acute) Bunionette of left foot (Acute) Body mass index (BMI) 40.0-44.9, adult (Acute) Intractable left heel pain (Acute) Sacroiliac dysfunction (Acute) TMJ syndrome (Acute) ADHD (Acute) Herpes simplex (Acute) Gingivostomatitis Sleep disorder (Acute) Anxiety disorder (Acute) Spondylosis of lumbosacral region without myelopathy or radiculopathy (Acute) Medical History Former smoker Quit 2017; 15 pack-years. Neck pain Abnormal finding on mammography Pain in right wrist (~01/04/23) Discharge from the vagina Leg mass Family history of ovarian cancer Tubular adenoma (~10/2020) Tubulovillous adenoma (~10/2020) Colon polyp, hyperplastic (~10/2020) Elbow joint pain External hemorrhoid Pt. denies this Menorrhagia, premenopausal IUD surveillance Mirena for menorrhagia inserted 11/22/19 Pain in right elbow Hot flash, menopausal Heavy menstrual period Abdominal pain Chest pain Per pt. states this was from anxiety ,and since she has been on anxiety meds she had not had any issues. Female pelvic pain Plantar wart, left foot Plantar wart, right foot Shoulder pain, right Knee pain, right Pt. denies this Lumbar back pain Pt. denies this Lump Muscle strain Pt. denies this Surgical History History of colonoscopy (~10/2021) S/P gastric sleeve procedure S/P endometrial ablation History of bunionectomy Status post endometrial ablation Family History Other Unknown family medical history Social History Smoking/Tobacco Use Status: Former Tobacco Use Tobacco: How many years used: 15 Smoking risk assessment performed?: Yes Alcohol Intake: current Alcohol Intake frequency: holidays/special occasions only Drug use: Never Substance use type: does not use Housing: house Do you feel safe at home: Yes Do you feel safe in your relationship?: Yes Female Reproductive History Menstrual control method: progestin IUCD History History 5 Para 4 Hx # Term Pregnancies Multiple births Hx # Pregnancies Ectopic pregnancies AB induced Hx Number of Living Children AB spontaneous 1
== END 2024-04-09 10:08 | disposition home or self-care (01) ==
PROVIDERS: Emergency Provider Emergency Medicine; PCP Physician Assistant
DX: L50.9 Urticaria, unspecified (principal); R11.0 Nausea; Z98.84 Bariatric surgery status; Z87.891 Personal history of nicotine dependence
CPT/HCPCS: 99283; J8540

== ENCOUNTER 2024-06-30 16:36 | Outpatient (REF) | payer MEDICAID, SELFPAY ==
--- OUTSIDE RECORDS SUMMARY | 2024-06-30 16:52 | XMS_ITS | Encounter Summary ---
Author Organization [facility] Address [address] [place] [address] Care Team Providers Care Family Practice Physician Name Role Phone Britt Mckay MD Primary Care Provider [phone] Encounter Details Date Type Department Care Team (Late st Contact Info) Description 06/23/2001 Results Only [facility] - Maple conversion [address] [place] [address] Jeffry Spaulding MD [address] [place] [phone] Social History Tobacco Use Types Packs/Day Years Used Date Smoking Tobacco: Never Assessed Sex and Gender Information Value Date Recorded Sex Assigned at Not on file Gender Identity Not on file Sexual Orientation Not on file documented as of this encounter Plan of Treatment Not on file documented as of this encounter Procedures Procedure Name Priority Date/Time Associated Diagnosis Comments CYTOPATHOLOGY Routine 06/23/2001 0:00 EDT documented in this encounter Results * CYTOPATHOLOGY (06/23/2001 0:00 EDT) Pathology Report: CYTOPATHOLOGY REPORT Reports generated via electronic interface contain original data; however they are lacking the format of the original report. Caution should be taken when reading/interpreti ng unformatted reports. Name: ? GARO MONTANA ? Accession #: ? [id number] : ? 1970 (Age: 30) ??F ?Collect Date: ? 06/23/2001 Location: ? [facility] ? Receive Date: ? 06/28/2001 Provider: ?JEFFRY SPAULDING MD Copy to: ? Specimen/Source: ?Conventional Pap Test, Cervix/Endocervix Last Menstrual Period: ? 01/30 Menstrual/Pregnanc y Status: ? SPECIMEN ADEQUACY ? Satisfactory for evaluation but limited by an absence of a transformation zone component. GENERAL CATEGORIZATION ? Within Normal Limits ? Document reviewed and electronically signed by: ? WESTON Rene(ASCP) ? Report Date: ??06/29/2001 08:44 End of Report [facility] 06/23/2001 06/28/2001 Jeffry Spaulding MD PATHOLOGY ORDERABLES Performing Organization Address City/State/[facility] Co de Phone Number [facility] [address] [place] [address] documented in this encounter Visit Diagnoses Not on filedocumented in this encounter Care Teams Family Practice Physician Relationship Specialty Start Date End Date Britt Mckay MD [address] [phone] PCP - General 01/23/10 04/21/10 documented as of this encounter
--- OUTSIDE RECORDS SUMMARY | 2024-06-30 16:52 | XMS_ITS | Encounter Summary ---
Author Organization [facility] Address [address] [place] [address] Care Team Providers Care Railways Assistant Name Role Phone Joaquin Celaya MD Primary Care Provider [phone] Encounter Details Date Type Department Care Team (Late st Contact Info) Description 04/22/2010 16:41 EDT - 04/22/2010 23:59 EDT Hospital Encounter [facility] [address] [place] [address] Scottie Schmitt MD [address] [place] [address] Discharge Disposition: Home or Self Care Social History Tobacco Use Types Packs/Day Years Used Date Smoking Tobacco: Never Assessed Sex and Gender Information Value Date Recorded Sex Assigned at Not on file Gender Identity Not on file Sexual Orientation Not on file documented as of this encounter Discharge Disposition Disposition Code Departure Means Destination Home or Self Prison documented in this encounter Plan of Treatment Not on file documented as of this encounter Procedures Procedure Name Priority Date/Time Associated Diagnosis Comments ENDOMYSIAL ANTIBODY, SERUM Routine 04/22/2010 17:17 EDT TISSUE TRANSGLUTAMINASE ANTIBODY Routine 04/22/2010 17:17 EDT IGA Routine 04/22/2010 17:17 EDT TSH Routine 04/22/2010 17:17 EDT documented in this encounter Results * TISSUE TRANSGLUTAMINASE ANTIBODY (04/22/2010 17:17 EDT) Pathologist [facility] Tissue Transglutaminase Ab Unable to collect specimen, patient left prior to collection. <15.01 U/ml [facility] Blood specimen (specimen) 04/22/2010 17:17 EDT 04/22/2010 17:19 EDT Scottie Schmitt MD IMMUNOLOGY AND SEROL OGY ORDERABLES Performing Organization Address [facility] Co de Phone Number [facility] [address] [place] [address] * ENDOMYSIAL ANTIBODY, SERUM (04/22/2010 17:17 EDT) Pathologist [facility] Endomysial Antibodies Unable to collect specimen, patient left prior to collection. [facility] Blood specimen (specimen) 04/22/2010 17:17 EDT 04/22/2010 17:19 EDT Scottie Schmitt MD IMMUNOLOGY AND SEROL OGY ORDERABLES Performing Organization Address [facility] Co de Phone Number [facility] [address] [place] [address] * IGA (04/22/2010 17:17 EDT) Pathologist [facility] IgA Unable to collect specimen, patient left prior to collection. mg/dl [facility] Blood specimen (specimen) 04/22/2010 17:17 EDT 04/22/2010 17:19 EDT Scottie Schmitt MD CHEMISTRY & BLOOD GA S ORDERABLES Performing Organization Address [facility] Co de Phone Number [facility] [address] [place] [address] * TSH (04/22/2010 17:17 EDT) Pathologist [facility] TSH Unable to collect specimen, patient left prior to collection. 0.35 - 5.00 uIU/ml [facility] Blood specimen (specimen) 04/22/2010 17:17 EDT 04/22/2010 17:19 EDT Scottie Schmitt MD CHEMISTRY & BLOOD GA S ORDERABLES [facility] [address] [place] [address] documented in this encounter Visit Diagnoses Not on filedocumented in this encounter Care Teams Railways Assistant Relationship Specialty Start Date End Date Joaquin Celaya MD [address] [place] [address] PCP - General 04/22/10 06/11/20 documented as of this encounter
--- OUTSIDE RECORDS SUMMARY | 2024-06-30 16:52 | XMS_ITS | Encounter Summary ---
Author Organization [facility] Address [address] [place] [address] Care Team Providers Care Lpc Name Role Phone Joaquin Celaya MD Primary Care Provider [phone] Reason for Visit * Reason Comments Back Pain Leg Pain bilateral at bedtime * Consult (Routine) - Closed Specialty Diagnoses / Procedures Referred By Contdaniella t Referred To Contact Orthopedic Surgery Diagnoses Low back pain Sun Mercedes APRN [address] [place] [address] [facility] [place] [address] Referral ID Status Reason Start Date Expiration Date Visits Re quested Visits Authorized [id number] Closed 1 1 Encounter Details Date Type Department Care Team (Late st Contact Info) Description 05/24/2017 12:00 EDT Office Visit [facility] Spine Program - [place] [address] [place] [address] German Segovia MD [address] [place] [phone] Midline low back pain without sciatica, unspecified chronicity (Primary Dx) Discharge Disposition: Auto Discharge Social History Tobacco Use Types Packs/Day Years Used Date Smoking Tobacco: Every Day Cigarettes Sex and Gender Information Value Date Recorded [...] Low back pain-M54.5[ICD-10-CM] M79.604 Pain in right leg-M79.604[ICD-10-CM] documented in this encounter Discharge Disposition Disposition Code Departure Means Destination Auto Discharge documented in this encounter Progress Notes * German Segovia MD - 05/24/2017 1200 EDT Patient was seen and examined with resident physician Dr. Rutherford, please refer to their note forfull details. Pleasant 46 yo female smoker with mechanical low back pain x years. Had good response (>1 year) to L3-5 RFA, but repeat no beneft. Has varying documentation and no clear memory of response to SI injection. Had one injection in the office into buttock (unclear where) that provided significant relief for 4 days. Nontender, normal neurologic exam. Imaging shows L5-S1 loss disc height; arthrosis L5/S1 > L4/5 > mild L3-4. No abnormal motion. [...] of active smoking and multiple potential sources of pain the likelihood of a successful surgery is very low and I would not recommend. I encouragedher to quit smoking, and work on overall fitness/core strength/weight loss - all of which have beenproven to help with low back pain. During this discussion she did note that prior to her knee surgery when she was more active with yoga her pain levels were much less. All questions were answered tothe best of my ability. I spent a total of more than 30 minutes in face to face time with this patient today and more than 20 minutes of that time was spent counseling the patient on the risks and treatment options for the condition and plan described above. * Abel Rutherford MD - 05/24/2017 1200 EDT [...] period of relief, she then began to have gradual onset and progressive increase in the same [...] she underwent a repeat RFA in March ofthis year, which she reports did not help [...] does mention that her leg pain is verysecondary to her back pain, which is her primary complaint. Of note, in addition to this, RFA, she has also had a prior sacroiliac injection, which she does not recall a response to and what she reports as being a right-sided buttock injection of pain medication. She is [...] past 15 years. She denies alcohol use. Shedenies additional drug use. 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 There is mild lateral recess stenosis apparent at the L5-S1 disk level. ASSESSMENT/PLAN: Ms Damico is a 46-year-old woman with long history of low back pain without complaints of radiculopathy. Her imaging does show significant degenerative changes at L5-S1; however, nosignificant nerve root compression at any of these [...] she was more active with yoga and stretchingexercises that she did have less back pain than she does currently. It seems that she has more recently been limited because of the knee surgery and now feels like she is back to her baseline in thatstent and has been able to increase her activity level. Furthermore, we counseled her that if she continues to have worsening pain or she begins to have leg symptoms that it would be possible she could be reevaluated here regarding further surgical options, but that any surgical treatment of her lumbar spine would be ill advised while she continues to smoke. She demonstrated understanding of these recommendations and all of her questions were answered. documented in this encounter Plan of Treatment Not on file documented as of this encounter Visit Diagnoses Diagnosis Midline low back pain without sciatica, unspecified chronicity- Primary documented in this encounter Care Teams Lpc Relationship Specialty Start Date End Date Joaquin Celaya MD [address] [place] [phone] PCP - General 04/22/10 06/11/20 documented as of this encounter
--- OUTSIDE RECORDS SUMMARY | 2024-06-30 16:52 | XMS_ITS | Encounter Summary ---
Author Organization [facility] Address [address] [place] [address] Care Team Providers Care Casing Mixer Name Role Phone Caesarandrew Rob Smith DNP Primary Care Provider [phone] Encounter Details Date Type Department Care Team (Late st Contact Info) Description 10/09/2020 Lab Requisition [facility] Pathology & Laboratory Medicine - [facility] [address] [place] [address] Juan Callejas MD [address] [place] [address] [address] [place], [place] [id number] Encounter for screening for malignant neoplasm of colon Social History Tobacco Use Types Packs/Day Years Used Date Smoking Tobacco: Every Day Cigarettes Interpersonal Safety Answer Date Record ed Physically Hurt Never 06/19/2020 Verbally Threaten Not on file 06/19/2020 Sex and Gender Information Value Date Recorded Sex Assigned at Not on file Gender Identity Not on file Sexual Orientation Not on file documented as of this encounter Plan of Treatment Not on file documented as of this encounter Procedures Procedure Name Priority Date/Time Associated Diagnosis Comments SURGICAL PATHOLOGY Today 10/09/2020 8:46 EST Encounter for screening for malignant neoplasm of colon documented in this encounter Results * SURGICAL PATHOLOGY (10/09/2020 8:46 EST) Final Diagnosis A. COLON, ASCENDING, BIOPSY: - Tubulovillous adenoma B. COLON, SIGMOID, BIOPSIES: - Hyperplastic polyp C. COLON, RECTUM, BIOPSY: - One (1) tubular adenoma - One (1) hyperplastic polyp 10/14/2020 14:37 [facility] Attestation By the signature below, the attending physician certifies that they have 1) personally conducted a gross and/or microscopic examination of the described specimen(s), and/or personally interpreted the results of laboratory testing of the described specimen(s), and 2) personally rendered or confirmed the above diagnosis. 10/14/2020 14:37 [facility] at 1437 Clinical History Screening; clinical diagnosis code: Z12.11 10/14/2020 14:37 [facility] Gross Description A. Received in formalin labelled with proper patient identification (initials S, T) and ascending colon polyp are 10 sandoval-brown tissue fragments ranging in size from 0.3 x 0.2 x 0.2 cm up to 0.7 x 0.5 x 0.3 cm. Submitted intact in A1-A3. B. Received in formalin labelled with proper patient identification (initials S, T) and sigmoid polyps x2 are 2 light sandoval tissues measuring 0.3 x 0.2 x 0.1 cm and 0.3 x 0.2 x 0.2 cm. Submitted intact in B1. C. Received in formalin labelled with proper patient identification (initials S, T) and rectal polyp is a lobulated sandoval-pink polypoid tissue measuring 1.2 x 0 point 8 x 0.8 cm. Serially sectioned and submitted entirely in C1-C2. JENIFFER PERDUE(ASCP) 10/09/2020 19:29 10/14/2020 14:37 [facility] Performing Lab [facility] 10/14/2020 14:37 [facility] Scanned Images 10/14/2020 14:37 [facility] Tissue SPECIMEN FROM RECTUM / Unknown 10/09/2020 8:46 EST 10/09/2020 16:53 EST Tissue specimen (specimen) SIGMOID COLON STRUCTURE / Unknown 10/09/2020 8:46 EST 10/09/2020 16:53 EST Tissue specimen (specimen) SPECIMEN FROM RECTUM / Unknown 10/09/2020 8:46 EST 10/09/2020 16:53 EST Juan Callejas MD PATHOLOGY ORDERA [facility] [address] [place] [address] documented in this encounter Visit Diagnoses Diagnosis Encounter for screening for malignant neoplasm of colon Special screening for malignant neoplasms, colon documented in this encounter Care Teams Casing Mixer Relationship Specialty Start Date End Date Rob Thakur, [facility] [address] [place] [address] [place] [phone] PCP - General 06/12/20 documented as of this encounter
--- OUTSIDE RECORDS SUMMARY | 2024-06-30 16:52 | XMS_ITS | Encounter Summary ---
Author Organization [facility] Address [address] [place] [address] Care Team Providers Care Polysom Tech Name Role Phone Britt Crowell MD Primary Care Provider [phone] Encounter Details Date Type Department Care Team (Late st Contact Info) Description 03/06/2002 Results Only [facility] - Maple conversion [address] [place] [address] Britt Crowell MD [address] [facility] [address] [place] [phone] Social History Tobacco Use Types Packs/Day Years Used Date Smoking Tobacco: Never Assessed Sex and Gender Information Value Date Recorded Sex Assigned at Not on file Gender Identity Not on file Sexual Orientation Not on file documented as of this encounter Plan of Treatment Not on file documented as of this encounter Procedures Procedure Name Priority Date/Time Associated Diagnosis Comments CYTOPATHOLOGY Routine 03/06/2002 0:00 EDT documented in this encounter Results * CYTOPATHOLOGY (03/06/2002 0:00 EDT) Pathology Report: CYTOPATHOLOGY REPORT Reports generated via electronic interface contain original data; however they are lacking the format of the original report. Caution should be taken when reading/interpreti ng unformatted reports. Name: ? GARO MONTANA ? Accession #: ? [id number] : ? 1970 (Age: 31) ??F ?Collect Date: ? 03/06/2002 Location: ? [facility] ? Receive Date: ? 03/08/2002 Provider: ?BRITT CROWELL MD Copy to: ? Specimen/Source: ?Conventional Pap Test, Cervix/Endocervix Last Menstrual Period: ? 01/30 Menstrual/Pregnanc y Status: ? Post ? SPECIMEN ADEQUACY ? Satisfactory for Evaluation - transformation zone component present GENERAL CATEGORIZATION ? Negative for Intraepithelial Lesion or Malignancy ? Document reviewed and electronically signed by: ? Thais Lawson, ??SCT(ASCP) ? Report Date: ??03/10/2002 12:58 End of Report [facility] 03/06/2002 03/08/2002 Britt Crowell MD PATHOLOGY ORDERABLES Performing Organization Address City/State/[facility] Co de Phone Number [facility] [address] [place] [address] documented in this encounter Visit Diagnoses Not on filedocumented in this encounter Care Teams Polysom Tech Relationship Specialty Start Date End Date Britt Crowell MD [address] [phone] PCP - General 01/23/10 04/21/10 documented as of this encounter
--- OUTSIDE RECORDS SUMMARY | 2024-06-30 16:52 | XMS_ITS | Encounter Summary ---
Author Organization [facility] Address [address] [place] [address] Care Team Providers Care Ranch Helper Name Role Phone Rob Thakur DNP Primary Care Provider [phone] Encounter Details Date Type Department Care Team (Late st Contact Info) Description 12/31/2023 Lab Requisition [facility] Pathology & Laboratory Medicine - [facility] [address] [place], [place] [phone] Outr Resulting Lab, Provider Social History Tobacco Use Types Packs/Day Years [...] Procedure Name Priority Date/Time Associated Diagnosis Comments HIV 1/2 ANTIGEN AND ANTIBODY, 4TH GENERATION Routine 12/31/2023 11:50 EST documented in this encounter Results * HIV 1/2 ANTIGEN AND ANTIBODY, 4TH GENERATION (12/31/2023 11:50 EST) HIV 1 and 2 Antibody/p24 Antigen, 4th Generation Negative Negative 12/31/2023 22:47 EST [facility] Comment:If acute HIV-1 infec tion is suspected in a high risk patient, submit plasma specimen for HIV-1 RNA quantitation test. Blood VENOUS BLOOD / Unknown 12/31/2023 11:50 EST 12/31/2023 21:02 EST Narrative [facility] - 12/31/2023 22:47 EST Fourth Generation assay performed on the Siemens Centaur XPT. Provider Outr Resulting Lab IMMUNOLOGY A ND SEROLOGY ORDERABLES [facility] [address] [place] [address] documented in this encounter Visit Diagnoses Not on filedocumented in this encounter Care Teams Ranch Helper Relationship Specialty Start Date End Date Rob Thakur, DNP [address] [place] [address] [place] [phone] PCP - General 06/12/20 documented as of this encounter
--- OUTSIDE RECORDS SUMMARY | 2024-06-30 16:52 | XMS_ITS | Encounter Summary ---
Author [place] [address] Care Team Providers Care Bacteriologist Medical Name Role Phone Rob Smith DNP Primary Care Provider [phone] Encounter Details Date Type Department Care Team (Latest Contact Info) Description 07/17/2022 10:15 AM EDT Laboratory Appointment Lab [address] [id number] S/P bariatric surgery; Disorder of iron metabolism Social History Tobacco Use Types Packs/Day Years Used Date Smoking Tobacco: Former Smokeless Tobacco: Never Comments:pt quit 3 yrs ago Sex and Gender Information Value Date Recorded Sex Assigned at Not on file Gender Identity Not on file Sexual Orientation Not on file documented as of this encounter Plan of Treatment Not on file documented as of this encounter Procedures Procedure Name Priority Date/Time Associated Diagnosis Comments HC PARATHYROID HORMONE(PTH INTACT Routine 07/17/2022 10:14 AM EDT S/P bariatric surgery Disorder of iron metabolism HC HEMOGRAM Routine 07/17/2022 10:14 AM EDT S/P bariatric surgery Disorder of iron metabolism HC PCH THIAMIN LVL(VITAMIN B1) WB-RAGLAND Routine 07/17/2022 10:14 AM EDT S/P bariatric surgery Disorder of iron metabolism HC IRON BINDING CAPACITY Routine 07/17/2022 10:14 AM EDT S/P bariatric surgery Disorder of iron metabolism HC VITAMIN D TOTAL-25 HYDROXY Routine 07/17/2022 10:14 AM EDT S/P bariatric surgery Disorder of iron metabolism HC FOLATE, SERUM Routine 07/17/2022 10:1 4 AM EDT S/P bariatric surgery Disorder of iron metabolism HC FERRITIN, SERUM Routine 07/17/2022 10 :14 AM EDT S/P bariatric surgery Disorder of iron metabolism HC VITAMIN B12 SERUM Routine 07/17/2022 10:14 AM EDT S/P bariatric surgery Disorder of iron metabolism COMPREHENSIVE METABOLIC PANEL Routine 07/17/2022 10:14 AM EDT S/P bariatric surgery Disorder of iron metabolism documented in this encounter Results * Comprehensive metabolic panel (non-fasting) (07/17/2022 10:14 AM EDT) [facility] Glucose 90 65 - 199 mg/dL [facility] Comment:Diabetes: >=200 mg/d L plus symptoms Blood Urea Nitrogen 11 8 - 18 mg/dL [facility] Creatinine 0.71 0.70 - 1.20 mg/dL [facility] Sodium 139 135 - 145 mmol/L [facility] Potassium 4.0 3.5 - 5.0 mmol/L [facility] Comment: Please note: ??Patients with WBC >100,000 may have falsely elevated Potassium levels. ??For accurate Potassium quantification in these patients send serum separator tube (gold top) for subsequent determinations. ??Contact the Clinical Chemistry Laboratory if there are any questions. Chloride 102 98 - 107 mmol/L [facility] Carbon Dioxide 28 22 - 31 mmol/L [facility] Anion Gap 9 5 - 15 mmol/L [facility] Calcium 9.4 8.5 - 10.5 mg/dL [facility] Protein, Total 7.4 6.1 - 8.0 g/dL [facility] Albumin 4.7 3.2 - 5.2 g/dL [facility] Aspartate Aminotransferase 10 0 - 30 unit/L [facility] Alanine Aminotransferase 11 0 - 30 unit/L [facility] Alkaline Phosphatase 85 35 - 105 unit/L [facility] Bilirubin, Total 0.5 0.2 - 1.3 mg/dL [facility] Est Glomerular Filtration Rate 103 >=60 mL/min/1. 73 m?? [facility] Comment: This patient's estimated GFR was calculated using the 2020 CKD-EPI equation. The estimated GFR can vary from the measured GFR by up to 30% in the absence of rapidly changing kidney function. Assessment of the estimated GFR is not appropriate when creatinine concentrations are rapidly changing. For clinical situations in which a more precise estimate of GFR is necessary, consider alternative methods of GFR estimation such as a 24-hour urine creatinine clearance. Assignment of CKD stage 1-5 for patients with an eGFR near the transition point between stages may be based on clinical assessment of muscle mass and symptoms in addition to eGFR. Blood 07/17/2022 10:1 4 AM EDT 07/17/2022 10:26 AM EDT Narrative Resulting Agency Comment Spec In Lab Jennifer E Vikki NUCLEAR MEDICINE PHYSICIAN CHEMISTRY ORDERABL ES Performing Organization Address [facility] de Phone Number [facility] [place] [address] * Ferritin (07/17/2022 10:14 AM EDT) [facility] Signature Ferritin 76 30 - 400 ng/mL [facility] Comment: Pediatric reference ranges not verified at [facility], interpret with caution. Reference ranges for females greater than 50 years of age approach values for men, i.e., 30-400 ng/mL. Blood 07/17/2022 10:1 4 AM EDT 07/17/2022 10:26 AM EDT Narrative Resulting Agency Comment Spec In Lab Jennifer E Leavenworth NUCLEAR MEDICINE PHYSICIAN CHEMISTRY ORDERABL ES Performing Organization Address City/[facility]/ZIP Co de Phone Number [facility] [place] [address] * Folate, serum (07/17/2022 10:14 AM EDT) Pathologist [facility] Folate 15.5 4.8 - 24.2 ng/mL [facility] Blood 07/17/2022 10:1 4 AM EDT 07/17/2022 10:26 AM EDT Narrative Resulting Agency Comment Spec In Lab Jennifer Sebas Vikki NUCLEAR MEDICINE PHYSICIAN CHEMISTRY ORDERABL ES [facility] [place] [address] * Hemogram (07/17/2022 10:14 AM EDT) Pathologist [facility] White Blood Cell 5.5 4.0 - 9.5 x10(3)/[facility] Red Blood Cell 4.49 4.00 - 5.21 x10(6)/[facility] Hemoglobin 13.6 11.7 - 15.5 g/dL [facility] Hematocrit 41.1 35.7 - 45.8 % [facility] Mean Cell Volume 91.5 82.6 - 94.4 fL [facility] Mean Cell Hemoglobin 30.3 27.1 - 32.0 pg [facility] Mean Cell Hemoglobin Concentration 33.1 31.7 - 35.0 g/dL [facility] Platelet 270 145 - 357 x10(3)/[facility] RDW Standard Deviation 43.4 37.0 - 46.0 [facility] RDW coefficient of variation 12.9 11.5 - 14.1 % [facility] Mean Platelet Volume 10.9 7.6 - 12.9 fL [facility] NRBC% auto 0.0 % [facility] NRBC Absolute 0.000 0.000 - 0.000 x10(3)/[facility] Blood 07/17/2022 10:1 4 AM EDT 07/17/2022 10:26 AM EDT Narrative Resulting Agency Comment Spec In Lab Jennifer E Leavenworth NUCLEAR MEDICINE PHYSICIAN HEMATOLOGY ORDERAB LES Performing Organization Address [facility]/ZIP Co de Phone Number [facility] [place] [address] * Iron and TIBC (07/17/2022 10:14 AM EDT) Iron 103 30 - 150 mcg/dL [facility] TIBC 346 250 - 450 mcg/dL [facility] Iron Saturation 30 20 - 50 % [facility] Blood 07/17/2022 10:1 4 AM EDT 07/17/2022 10:26 AM EDT Narrative Resulting Agency Comment Spec In Lab Jennifer E Vikki NUCLEAR MEDICINE PHYSICIAN CHEMISTRY ORDERABL ES Performing Organization Address [facility] Co de Phone Number [facility] [place] [address] * Vitamin D, 25-Hydroxy (07/17/2022 10:14 AM EDT) Vitamin D Total 25 OH 56 21 - 100 ng/mL [facility] Vit D Interp Sufficient [facility] Blood 07/17/2022 10:1 4 AM EDT 07/17/2022 10:26 AM EDT Narrative Resulting Agency Comment Spec In Lab Jennifer E Leavenworth NUCLEAR MEDICINE PHYSICIAN CHEMISTRY ORDERABL ES Performing Organization Address City/[facility]/ZIP Co de Phone Number [facility] [place] [address] * Vitamin B12 (07/17/2022 10:14 AM EDT) Vitamin B12 534 232 - 1,245 pg/mL [facility] Blood 07/17/2022 10:1 4 AM EDT 07/17/2022 10:26 AM EDT Narrative Resulting Agency Comment Spec In Lab Jennifer E Leavenworth NUCLEAR MEDICINE PHYSICIAN CHEMISTRY ORDERABL ES Performing Organization Address [facility]/ZIP Co de Phone Number [facility] [place] [address] * Vitamin B1, whole blood (07/17/2022 10:14 AM EDT) Vit B1 Lvl Wb (MARCH) 128 70 - 180 nmol/L [facility] Comment: ADDITIONAL INFORMATION This test was developed and its performance characteristics determined by [facility] in a manner consistent with CLIA requirements. This test has not been cleared or approved by the U.S. Food and Drug Administration. Test Performed by: [facility] - [address] [address] Delivery Coordinator: Binu Marques M.D. Ph.D.; CLIA# [id number] Blood 07/17/2022 10:1 4 AM EDT 07/17/2022 4:06 PM EDT Narrative Resulting Agency Comment Spec In Lab Jennifer E Leavenworth NUCLEAR MEDICINE PHYSICIAN LAB SEND OUT ORDER LUIS Performing Organization Address [facility] Co de Phone Number [facility] [place] [address] * PTH (07/17/2022 10:14 AM EDT) Parathyroid Hormone 50 15 - 65 pg/mL [facility] Blood 07/17/2022 10:1 4 AM EDT 07/17/2022 10:26 AM EDT Narrative Resulting Agency Comment Spec In Lab Jennifer E Leavenworth NUCLEAR MEDICINE PHYSICIAN CHEMISTRY ORDERABL ES Performing Organization Address [facility]/ZIP Co de Phone Number [facility] [place] [address] documented in this encounter Visit Diagnoses Diagnosis S/P bariatric surgery Bariatric surgery status Disorder of iron metabolism Other disorders of iron metabolism documented in this encounter Care Teams Bacteriologist Medical Relationship Specialty Start Date End Date Rob Smith DNP PCP - General Family Medicine 11/15/19 documented as of this encounter
--- OUTSIDE RECORDS SUMMARY | 2024-06-30 16:52 | XMS_ITS | Encounter Summary ---
Author Organization [facility] Address [address] [place] [address] Care Team Providers Care Director Of Promotions Name Role Phone Joaquin Celaya MD Primary Care Provider [phone] Encounter Details Date Type Department Care Team (Late st Contact Info) Description 04/27/2017 Results Only Imaging [facility] [phone] Unknown, Provider, Social History Tobacco Use Types Packs/Day Years Used Date Smoking Tobacco: Never Assessed Sex and Gender Information Value Date Recorded Sex Assigned at Not on file Gender Identity Not on file Sexual Orientation Not on file documented as of this encounter Plan of Treatment Pending Results Name Type Priority Associated Diagnoses Date /Time OUTSIDE IMAGES - OTHER NEURO Imaging 04/27/2017 10:18 EDT OUTSIDE IMAGES - MR NEURO Imaging 04/27/2017 10:18 EDT OUTSIDE IMAGES - MR NEURO Imaging 04/27/2017 10:18 EDT documented as of this encounter Visit Diagnoses Not on filedocumented in this encounter Care Teams Director Of Promotions Relationship Specialty Start Date End Date Joaquin Celaya MD [address] [place] [address] PCP - General 04/22/10 06/11/20 documented as of this encounter
--- OUTSIDE RECORDS SUMMARY | 2024-06-30 16:52 | XMS_ITS | Clinical Summary ---
Author Organization [facility] Address [address] [place] [address] Care Team Providers Care Welder Experimental Name Role Phone Caesarandrew Rob Smith DNP Primary Care Provider [phone] Allergies No known active allergies Medications No known medications Active Problems Patient Care Coordination No te Formatting of this note migh t be different from the original. Patient has given permission for [facility] to verbally discuss the following information with Parth Damico who has the following relationship to the patient: Son/Daughter: Scheduling/Appt/Billing/Payment Information (does not include clinical information unless specifically indicated with separate option) Medical Information including symptoms, diagnosis, medications, test results and treatment plan (does not include Mental Health unless specifically indicated with separate option) Permission remains in effect until the patient elects to revoke it. No additional problems on file Social History Tobacco Use Types Packs/Day Years Used Date Smoking Tobacco: Every Day Cigarettes Interpersonal Safety Answer Date Record ed Physically Hurt Never 06/19/2020 Verbally Threaten Not on file 06/19/2020 Sex and Gender Information Value Date Recorded Sex Assigned at Not on file Gender Identity Not on file Sexual Orientation Not on file Obstetrics History Last Filed Vital Signs Vital Sign Reading [...] Health Maintenance Due Date Last Done Comments Pneumococcal Immunization (1 of 2 - PCV) 1976 Hepatitis B Vaccine (1 of 3 - 19+ 3-dose series) 08/31 COVID-19 Vaccine (2022- season) 2023 Hepatitis C Screen Completed 12/31/2023 Procedures Procedure Name Priority Date/Time Associated Diagnosis Comments HEPATITIS C AB W REFLEX TO HCV RNA BY PCR Routine 12/31/2023 11:50 EST from Last 3 Months or Most Recently Relevant to Health Maintenance Results * HEPATITIS C AB W REFLEX TO HCV RNA BY PCR (12/31/2023 11:50 EST) Hep C Antibody Negative Negative 12/31/2023 22:47 EST [facility] Blood VENOUS BLOOD / Unknown 12/31/2023 11:50 EST 12/31/2023 21:02 EST Provider Outr Resulting Lab CHEMISTRY & BLOOD GAS ORDERABLES [facility] [address] [place], [place] [address] from Last 3 Months or Most Recently Relevant to Health Maintenance Care Teams Welder Experimental Relationship Specialty Start Date End Date Rob Thakur, D[place] [facility] [place] [address] PCP - General 06/12/20
--- OUTSIDE RECORDS SUMMARY | 2024-06-30 16:52 | XMS_ITS | Encounter Summary ---
Author Organization [facility] Address [address] [place] [address] Care Team Providers Care Enroller Name Role Phone Rbo Thakur DNP Primary Care Provider [phone] Encounter Details Date Type Department Care Team (Late st Contact Info) Description 12/07/2023 Lab Requisition [facility] Pathology & Laboratory Medicine - [facility] [address], [place] [address] Outr Resulting Lab, Provider Social History Tobacco [...] Procedure Name Priority Date/Time Associated Diagnosis Comments HSV (HERPES SIMPLEX VIRUS) MOLECULAR DETECTION, PCR Routine 12/06/2023 16:20 EST documented in this encounter Results * (ABNORMAL) HSV (HERPES SIMPLEX VIRUS) MOLECULAR DETECTION, PCR (12/06/2023 16:20 EST) Herpes Simplex Virus Molecular Detection 1, PCR Negative Negative 12/08/2023 12:00 EST [facility] Herpes Simplex Virus Molecular Detection 2, PCR Positive(A) Negative 12/08/2023 12:00 EST [facility] Swab SPECIMEN FROM SKIN / Unknown 12/06/2023 16:20 EST 12/07/2023 17:17 EST Provider Outr Resulting Lab MICROBIOLOGY - GENERAL ORDERABLES [facility] [address] [place] [address] documented in this encounter Visit Diagnoses Not on filedocumented in this encounter Care Teams Enroller Relationship Specialty Start Date End Date Rob Thakur, [facility] [address] [place] [address] [place] [phone] PCP - General 06/12/20 documented as of this encounter
--- OUTSIDE RECORDS SUMMARY | 2024-06-30 16:52 | XMS_ITS | Encounter Summary ---
Author Organization [facility] Address [address] [place] [address] Care Team Providers Care Pack Master Name Role Phone Joaquin Celaya MD Primary Care Provider [phone] Britt Mckay MD Primary Care Provider [phone] Encounter Details Date Type Department Care Team (Late st Contact Info) Description 09/22/2004 Results Only [facility] [address] [place] [address] Britt Mckay MD [address] [facility] [address] [place] [phone] Social History Tobacco Use Types Packs/Day Years Used Date Smoking Tobacco: Never Assessed Sex and Gender Information Value Date Recorded Sex Assigned at Not on file Gender Identity Not on file Sexual Orientation Not on file documented as of this encounter Plan of Treatment Not on file documented as of this encounter Procedures Procedure Name Priority Date/Time Associated Diagnosis Comments CYTOPATHOLOGY Routine 09/22/2004 0:00 EST documented in this encounter Results * CYTOPATHOLOGY (09/22/2004 0:00 EST) Pathology Report: CYTOPATHOLOGY REPORT Reports generated via electronic interface contain original data; however they are lacking the format of the original report. Caution should be taken when reading/interpreti ng unformatted reports. Name: ? GARO MONTANA ? Accession #: ? [id number] : ? 1970 (Age: 34) ??F ?Collect Date: ? 09/22/2004 Location: ? [facility] ? Receive Date: ? 09/24/2004 Provider: ?BRITT MCKAY MD Copy to: ? Specimen/Source: ?ThinPrep Pap Test, Cervix/Endocervix Last Menstrual Period: ? 09/08/04 Other: ? HPVA - HPV testing requested if ASC-US on the current ThinPrep Pap test. ? SPECIMEN ADEQUACY ? Satisfactory for Evaluation - transformation zone component present GENERAL CATEGORIZATION ? Negative for Intraepithelial Lesion or Malignancy ? Document reviewed and electronically signed by: ? WESTON Reen(ASCP) ? Report Date: ??10/01/2004 12:45 End of Report CAROLINE KHAN 09/22/2004 09/24/2004 Britt Mckay MD PATHOLOGY ORDERABLES Performing Organization Address [facility]/State/[facility] Co de Phone Number CAROLINE FLORES [facility] [address] [place] [address] documented in this encounter Visit Diagnoses Not on filedocumented in this encounter Care Teams Pack Master Relationship Specialty Start Date End Date Joaquin Celaya MD [address] [place] [address] PCP - General 04/22/10 06/11/20 Britt Mckay MD [address] [place] [phone] PCP - General 01/23/10 04/21/10 documented as of this encounter
--- OUTSIDE RECORDS SUMMARY | 2024-06-30 16:52 | XMS_ITS | Encounter Summary ---
Author Organization [facility] Address [address] [place] [address] Care Team Providers Care Alteration Worker Name Role Phone Rob Thakur DNP Primary Care Provider [phone] Encounter Details Date Type Department Care Team (Late st Contact Info) Description 02/24/2023 Lab Requisition [facility] Pathology & Laboratory Medicine - [facility] [address] [place] [address] Jose Napier, [facility] [address] [place] [address] [place] [phone] Encounter for general adult medical examination without abnormal findings Social History Tobacco Use Types Packs/Day Years [...] Procedure Name Priority Date/Time Associated Diagnosis Comments PAP TEST Today 02/24/2023 11:45 EDT Encounter for general adult medical examination without abnormal findings CHLAMYDIA/N. GONORRHOEAE AMPLIFIED NUCLEIC ACID, THINPREP Today 02/24/2023 11:45 EDT documented in this encounter Results * PAP TEST (02/24/2023 11:45 EDT) Specimens A. Cervix and/or Endocervix , ThinPrep Imaging System with Manual Evaluation 03/05/2023 13:11 [facility] Specimen Adequacy Unsatisfactory for evaluation - insufficient numbers of squamous epithelial cells (less than 10% of expected cellularity). Sample preparation compromised by excessive inflammation. 03/05/2023 13:11 [facility] General Categorization Unsatisfactory 03/05/2023 13:11 [facility] Educational Comments Unsatisfactory - Specimen processed and examined, but unsatisfactory for evaluation of epithelial abnormality. Recommend repeat age-based screening after 2-4 months per ASCCP Guidelines which may be found at www.asccp.org. HPV testing will not be performed due to the potential for false negative results. 03/05/2023 13:11 [facility] Attestation . 03/05/2023 13:11 [facility] at [address] Clinical History See below 03/05/20 13:11 [facility] Performing Lab [facility] 03/05/2023 13:11 [facility] Scanned Images 03/05/2023 13:11 [facility] Papanicolaou smear specimen (specimen) CERVIX UTERI STRUCTURE / Unknown 02/24/2023 11:45 EDT 02/26/2023 14:10 EDT Jose Napier [facility] PATHOLOGY ORDERAB LES [facility] [address] [place] [address] * CHLAMYDIA/N. GONORRHOEAE AMPLIFIED RNA, THINPREP (02/24/2023 11:45 EDT) Neisseria gonorrhoeae Result Negative Negative 02/26/2023 15:39 EDT [facility] Chlamydia trachomatis Result Negative Negative 02/26/2023 15:39 T [facility] Papanicolaou smear specimen (specimen) CERVIX UTERI STRUCTURE / Unknown 02/24/2023 11:45 EDT 02/26/2023 10:41 EDT Jose Napier RPA MICROBIOLOGY - GE NERAL ORDERABLES [facility] [address] [place] [address] documented in this encounter Visit Diagnoses Diagnosis Encounter for general adult medical examination without abnormal findings Unspecified general medical examination documented in this encounter Care Teams Alteration Worker Relationship Specialty Start Date End Date Rob Thakur, [facility] [address] [place] [address] [place] [phone] PCP - General 06/12/20 documented as of this encounter
--- OUTSIDE RECORDS SUMMARY | 2024-06-30 16:52 | XMS_ITS | Encounter Summary ---
Author Organization [facility] Address [address] [place] [address] Care Team Providers Care Plum Packer Name Role Phone Valentin Sarah Rob Katherin DNP Primary Care Provider [phone] Encounter Details Date Type Department Care Team (Late st Contact Info) Description 06/20/2020 Lab Requisition [facility] Pathology & Laboratory Medicine - [facility] [address] [place] [address] Isaak Navarro MD [address] [place] [id number] Encounter for other general examination Social History Tobacco Use Types Packs/Day Years [...] Date/Time Associated Diagnosis Comments SURGICAL PATHOLOGY Today 06/20/2020 10 :25 EDT Encounter for other general examination documented in this encounter Results * SURGICAL PATHOLOGY (06/20/2020 10:25 EDT) Final Diagnosis A. ENDOMETRIUM, CURETTAGE: - Fragments of endometrial polyp(s). - Proliferative endometrium. - Fragments of benign endocervical and squamous mucosa. 06/25/2020 15:18 EDT [facility] Attestation There was significant resident/fellow involvement in the diagnostic evaluation of this case. By the signature below, the attending physician certifies that they have personally conducted a gross and/or microscopic examination of the described specimens and rendered or confirmed the above diagnosis. 06/25/2020 15:18 EDT [facility] at 1518 Clinical History Menorrhagia 06/25/2020 15:18 EDT [facility] Gross Description A. Received in formalin labelled with proper patient identification (initials S, T) and endometrial curettings are red-brown soft tissues aggregating 1.8 x 1.5 x 0.9 cm. Entirely submitted in A1-A3. Chelsea Traoreon 06/20/2020 17:04 06/25/2020 15:18 EDT [facility] Resident/Raudel w: Roslyn Shaver MD 06/25/2020 15:18 EDT [facility] Performing Lab [facility] 06/25/2020 15:18 EDT [facility] Scanned Images 06/25/2020 15:18 EDT [facility] Tissue ENTIRE ENDOMETRIUM / Unknown 06/20/2020 10:25 EDT 06/20/2020 16:30 EDT Isaak Navarro MD PATHOLOGY ORDERABLES [facility] [address] [place] [address] documented in this encounter Visit Diagnoses Diagnosis Encounter for other general examination documented in this encounter Care Teams Plum Packer Relationship Specialty Start Date End Date Rob Thakur, [facility] [place] [address] [address] [address] PCP - General 06/12/20 documented as of this encounter
--- OUTSIDE RECORDS SUMMARY | 2024-06-30 16:52 | XMS_ITS | Encounter Summary ---
Author Organization [facility] Address [address] [place] [address] Care Team Providers Care Mechanical Drafter Name Role Phone Rob Thakur DNP Primary Care Provider [phone] Encounter Details Date Type Department Care Team (Late st Contact Info) Description 12/31/2023 Lab Requisition [facility] Pathology & Laboratory Medicine - [facility] [address] [place], [place] [address] Outr Resulting Lab, Provider Social History Tobacco [...] RNA BY PCR Routine 12/31/2023 11:50 EST HEPATITIS B SURFACE ANTIBODY Routine 12/31/2023 11:50 EST HEPATITIS B SURFACE ANTIGEN Routine 12/31/2023 11:50 EST documented in this encounter Results * HEPATITIS B SURFACE ANTIBODY (12/31/2023 11:50 EST) Hep B Surface Ab, Quantitative <3.1 See Note mIU/mL 12/31/2023 22:07 EST [facility] Comment: Reference Range for Hep B Surface Ab, Quant: Positive: >= 10.0 mIU/mL Negative: ??< 10.0 mIU/mL Patient is presumed to not be immune to infection with Hepatitis B Virus. Hep B Surface Ab, Qualitative Negative See Note 12/31/2023 22:07 EST [facility] Comment: Reference Range for Hep B Surface Ab, Qual: Unvaccinated: ??Negative Vaccinated: ??Positive Blood VENOUS BLOOD / Unknown 12/31/2023 11:50 EST 12/31/2023 21:02 EST Provider Outr Resulting Lab CHEMISTRY & BLOOD GAS ORDERABLES Performing Organization Address City/[facility]/ZIP Co de Phone Number [facility] [address] [place] [address] * HEPATITIS B SURFACE ANTIGEN (12/31/2023 11:50 EST) Hep B Surface Ag Negative Negative 12/31/2023 22:18 EST [facility] Blood VENOUS BLOOD / Unknown 12/31/2023 11:50 EST 12/31/2023 21:02 EST Provider Outr Resulting Lab CHEMISTRY & BLOOD GAS ORDERABLES Performing Organization Address City/[facility]/ZIP Co de Phone Number [facility] [address] [place] [address] * HEPATITIS C AB W REFLEX TO HCV RNA BY PCR (12/31/2023 11:50 EST) Hep C Antibody Negative Negative 12/31/2023 22:47 EST [facility] Blood VENOUS BLOOD / Unknown 12/31/2023 11:50 EST 12/31/2023 21:02 EST Provider Outr Resulting Lab CHEMISTRY & BLOOD GAS ORDERABLES Performing Organization Address [facility]/ZIP Co de Phone Number [facility] [address] [place] [address] documented in this encounter Visit Diagnoses Not on filedocumented in this encounter Care Teams Mechanical Drafter Relationship Specialty Start Date End Date Rob Thakur, DNP [facility] [place] [address] PCP - General 06/12/20 documented as of this encounter
--- OUTSIDE RECORDS SUMMARY | 2024-06-30 16:52 | XMS_ITS | Encounter Summary ---
Author Organization [facility] Address [address] [place] [address] Care Team Providers Care Screen Printing Cloth Spreader Name Role Phone Joaquin Celaya MD Primary Care Provider [phone] [facility] Primary Care Provider [phone] Encounter Details Date Type Department Care Team (Late st Contact Info) Description 01/26/2020 Lab Requisition [facility] Pathology & Laboratory Medicine - [facility] [address] [place] [address] José Miguel Hutchins MD [address] [place] [phone] Encounter for other general examination Social History [...] Procedure Name Priority Date/Time Associated Diagnosis Comments COVID-19 ROWE Today 01/25/2020 14:10 EDT Encounter for other general examination documented in this encounter Results * SARS CORONAVIRUS 2 RNA DETECTION ROWE (01/25/2020 14:10 EDT) COVID-19 ROWE Specimen Source Nasopharynx 01/28/2020 17:16 EDT [facility] COVID-19 ROWE Result Undetected Undetected 01/28/2020 17:16 EDT [facility] Comment: SARS-CoV-2 RNA is not detected. ADDITIONAL INFORMATION Testing was performed using the cyndy SARS-CoV-2 assay ([employer] on the cyndy 6800 System. Fact sheets for this Emergency Use Authorization (EUA) assay can be found at the following links: For Healthcare Providers: https://www.fda.gov/media/203546/download For Patients: https://www.fda.gov/media/124121/download Test Performed by: [facility] [address] [place] [address] Dynamiter: Binu Marques M.D. Ph.D.; CLIA# [id number] Swab ENTIRE NASOPHARYNX / Unknown Not Given / Unknown 01/25/2020 14:10 EDT 01/26/2020 16:05 EDT José Miguel Hutchins MD MICROBIOLOGY - [facility] ORDERABLES Performing Organization Address City/State/[facility] Co de Phone Number [facility] [address] [place] [address] documented in this encounter Visit Diagnoses Diagnosis Encounter for other general examination documented in this encounter Care Teams Screen Printing Cloth Spreader Relationship Specialty Start Date End Date Joaquin Celaya MD [address] [place] [phone] PCP - General 04/22/10 06/11/20 Rob Thakur, LALITA [address] [place] [address] [place] [address] PCP - General 06/12/20 documented as of this encounter
--- OUTSIDE RECORDS SUMMARY | 2024-06-30 16:52 | XMS_ITS | Encounter Summary ---
Author Organization [facility] Address [address] [place] [address] Care Team Providers Care Combination Welder Name Role Phone Rob Thakur DNP Primary Care Provider [phone] Encounter Details Date Type Department Care Team (Late st Contact Info) Description 04/10/2021 Lab Requisition [facility] Pathology & Laboratory Medicine - [facility] [address] [place], [place] [address] Outr Resulting Lab, Provider Social History Tobacco [...] Procedure Name Priority Date/Time Associated Diagnosis Comments PTH INTACT Routine 04/10/2021 8:30 EDT documented in this encounter Results * PTH INTACT (04/10/2021 8:30 EDT) Intact PTH 38 19 - 88 pg/mL 04/11/2021 9:04 EDT [facility] Blood VENOUS BLOOD / Unknown 04/10/2021 8:30 EDT 04/10/2021 16:05 EDT Provider Outr Resulting Lab CHEMISTRY & BLOOD GAS ORDERABLES [facility] [address] [place] [address] documented in this encounter Visit Diagnoses Not on filedocumented in this encounter Care Teams Combination Welder Relationship Specialty Start Date End Date Rob Thakur, [facility] [address] [place] [address] [place] [address] PCP - General 06/12/20 documented as of this encounter
--- OUTSIDE RECORDS SUMMARY | 2024-06-30 16:52 | XMS_ITS | Encounter Summary ---
Author Organization [facility] Address [address] [place] [address] Care Team Providers Care Mortgage Manager Name Role Phone Joaquin Celaya MD Primary Care Provider [phone] Encounter Details Date Type Department Care Team (Late st Contact Info) Description 08/30/2018 Results Only [facility] [phone] Matteo Miranda MD [address] [place] [id number] Social History Tobacco Use Types Packs/Day Years Used Date Smoking Tobacco: Every Day Cigarettes Sex and Gender Information Value Date Recorded Sex Assigned at Not on file Gender Identity Not on file Sexual Orientation Not on file documented as of this encounter Plan of Treatment Not on file documented as of this encounter Procedures Procedure Name Priority Date/Time Associated Diagnosis Comments PAP TEST- RESULT ONLY Routine 08/30/2018 0:00 EDT documented in this encounter Results * PAP TEST- RESULT ONLY (08/30/2018 0:00 EDT) Pathology Report: CYTOPATHOLOGY REPORT Reports generated via electronic interface contain original data; however they are lacking the format of the original report. Caution should be taken when reading/interpreti ng unformatted reports. Name: ? GARO MONTANA ? Accession #: ? [id number] ? : ? 1970 (Age: 48) ??F ?Collect Date: ? 08/30/2018 ? Location: ? [facility] ? Receive Date: ? 2018 ? Provider: MATTEO MIRANDA MD Copy to: DOMINIQUE WHEATLEY WELL TESTER ? Final Report SPECIMEN ADEQUACY ? Satisfactory for Evaluation - transformation zone component absent GENERAL CATEGORIZATION ? Negative for Intraepithelial Lesion or Malignancy ?? Specimen/Source: ??Pap Test, Cervix, ThinPrep Imaging System with manual evaluation Document reviewed and electronically signed by: ? Ifrah Riley, [facility](ASCP) ? Report ??Date: 09/08/2018 11:45 HPV with Pap Test ? Date Ordered: ? 09/08/2018 ? Status: ?? Signed Out ?Date Complete: ? 09/09/2018 ? By: ??System Interface ? Date Reported: ? 09/09/2018 ? Interpretation RESULT: Negative for HPV. No E6 or E7 mRNA is detected from HPV types 16,18,31,33,35, 39,45,51,52,56,58, 59,66, and 68 by process supervisor mediated amplification. Comments Document reviewed and electronically signed by: ? System Interface ? Report date: 09/09/2018 By the signature above, the attending physician certifies that he/she has personally conducted a gross and/or microscopic examination of the described specimens and rendered or confirmed the above diagnosis. End of Report [facility] 08/30/2018 2018 Matteo Miranda MD PATHOLOGY ORDERABLES [facility] [address] [place] [address] documented in this encounter Visit Diagnoses Not on filedocumented in this encounter Care Teams Mortgage Manager Relationship Specialty Start Date End Date Joaquin Celaya MD [address] [place] [address] PCP - General 04/22/10 06/11/20 documented as of this encounter
--- OUTSIDE RECORDS SUMMARY | 2024-06-30 16:52 | XMS_ITS | Encounter Summary ---
Author Organization [facility] Address [address] [place] [address] Care Team Providers Care Pvc Monitor Name Role Phone Rob Thakur DNP Primary Care Provider [phone] Encounter Details Date Type Department Care Team (Late st Contact Info) Description 06/17/2020 Lab Requisition [facility] Pathology & Laboratory Medicine - [facility] [address] [place], [place] [address] Outr Resulting Lab, Provider Social History Tobacco [...] Procedure Name Priority Date/Time Associated Diagnosis Comments DO NOT ORDER STANDALONE - BROAD COVID TEST Today 06/17/2020 13:21 EDT COVID-19 TESTING Routine 06/17/2020 13:2 1 EDT documented in this encounter Results * DO NOT ORDER STANDALONE - BROAD COVID TEST (06/17/2020 13:21 EDT) COVID-19 rt-PCR Result NEGATIVE Negative 06/19/2020 11:27 EDT [facility] Comment: 2019-novel Coronavirus (2019-nCoV) not detected by the qRT-PCR assay. Consider testing for other respiratory viruses or re-collecting for 2019-nCoV testing. Note: Optimum timing for peak viral levels during infections caused by 2019-nCoV have not been determined. Collection of multiple specimens from the same patient may be necessary to detect the virus. Limitations Positive results are indicative of active infection with SARS-CoV-2 but do not rule out bacterial infection or co-infection with other viruses. The agent detected may not be the definite cause of disease. In addition, detection of viral RNA may not indicate the presence of infectious virus or that SARS-CoV-2 is the causative agent for clinical symptoms. Negative results do not preclude SARS-CoV-2 infection and should not be used as the sole basis for patient management decisions. Negative results must be combined with clinical observations, patient history, and epidemiological information. False negative results may also occur if amplification inhibitors are present in the specimen or if inadequate numbers of organisms are present in the specimen. Optimum specimen types and timing for peak viral levels during infections caused by SARS-CoV-2 have not been fully determined. Collection of multiple specimens (types and time points) from the same patient may be necessary to detect the virus. The test was validated for use with upper respiratory specimens obtained via nasopharyngeal or oropharyngeal swabs in VTM, UTM, M4, M5, M6, saline, and MTM media. The performance of this test has not been established for other specimens. Specimens collected using other FDA recommended Specimen Collection Materials listed in the FDA COVID-19 [employer] communication (January 25, 2020) are processed with the caveat that they were not [...] in accordance with CLIA regulations, College of [employer]ologists (CAP) guidelines (Jan 18, 2020), and FDA guidance (Dec 30, 2019). This test is only for use under the Food and Drug Administration's Emergency Use Authorization. Swab ENTIRE NASOPHARYNX / Unknown 06/17/2020 13:21 EDT 06/17/2020 20:36 EDT Provider Outr Resulting Lab MICROBIOLOGY - GENERAL ORDERABLES [facility] [place], [place] * COVID-19 TESTING (06/17/2020 13:21 EDT) COVID-19 rt-PCR Result NEGATIVE Negative 06/19/2020 12:47 EDT [facility] Comment: 2019-novel Coronavirus (2019-nCoV) not detected by the qRT-PCR assay. Consider testing for other respiratory viruses or re-collecting for 2019-nCoV testing. Note: Optimum timing for peak viral levels during infections caused by 2019-nCoV have not been determined. Collection of multiple specimens from the same patient may be necessary to detect the virus. Limitations Positive results are indicative of active infection with SARS-CoV-2 but do not rule out bacterial infection or co-infection with other viruses. The agent detected may not be the definite cause of disease. In addition, detection of viral RNA may not indicate the presence of infectious virus or that SARS-CoV-2 is the causative agent for clinical symptoms. Negative results do not preclude SARS-CoV-2 infection and should not be used as the sole basis for patient management decisions. Negative results must be combined with clinical observations, patient history, and epidemiological information. False negative results may also occur if amplification inhibitors are present in the specimen or if inadequate numbers of organisms are present in the specimen. Optimum specimen types and timing for peak viral levels during infections caused by SARS-CoV-2 have not been fully determined. Collection of multiple specimens (types and time points) from the same patient may be necessary to detect the virus. The test was validated for use with upper respiratory specimens obtained via nasopharyngeal or oropharyngeal swabs in VTM, UTM, M4, M5, M6, saline, and MTM media. The performance of this test has not been established for other specimens. Specimens collected using other FDA recommended Specimen Collection Materials listed in the FDA COVID-19 [employer] communication (January 25, 2020) are processed with the caveat that they were not [...] in accordance with CLIA regulations, College of [employer]ologists (CAP) guidelines (Jan 18, 2020), and FDA guidance (Dec 30, 2019). This test is only for use under the Food and Drug Administration's Emergency Use Authorization. Performing Lab [facility] 06/19/2020 12:47 EDT [facility] Swab 06/17/2020 13:2 1 EDT 06/17/2020 20:36 EDT Provider Outr Resulting Lab MICROBIOLOGY - GENERAL ORDERABLES [facility] [address] [place] [address] [facility] [place] documented in this encounter Visit Diagnoses Not on filedocumented in this encounter Care Teams Pvc Monitor Relationship Specialty Start Date End Date Rob Thakur, [facility] [address] [place] [address] [place] [address] PCP - General 06/12/20 documented as of this encounter
--- OUTSIDE RECORDS SUMMARY | 2024-06-30 16:52 | XMS_ITS | Encounter Summary ---
Author Organization [facility] Address [address] [place] [address] Care Team Providers Care Paper Bags Sewing Machine Operator Name Role Phone Rob Thakur DNP Primary Care Provider [phone] Encounter Details Date Type Department Care Team (Late st Contact Info) Description 12/04/2022 Lab Requisition [facility] Pathology & Laboratory Medicine - [facility] [address] [place], [place] [address] Outr Resulting Lab, Provider Social History Tobacco [...] Procedure Name Priority Date/Time Associated Diagnosis Comments CHLAMYDIA/N. GONORRHOEAE AMPLIFIED NUCLEIC ACID Routine 12/04/2022 8:15 EST documented in this encounter Results * CHLAMYDIA/N. GONORRHOEAE AMPLIFIED RNA (12/04/2022 8:15 EST) Neisseria gonorrhoeae Result Negative Negative 12/05/2022 13:46 EST [facility] Chlamydia trachomatis Result Negative Negative 12/05/2022 13:46 EST [facility] Urine URINE / Unknown 12/04/2022 8 :15 EST 12/04/2022 22:26 EST Narrative [facility] - 12/05/2022 13:46 EST A first catch urine specimen is acceptable for detection of Gonorrhea and Chlamydia, but might detect up to 10% fewer infections when compared with vaginal and endocervical swab samples. Provider Outr Resulting Lab MICROBIOLOGY - GENERAL ORDERABLES [facility] [address] [place] [address] documented in this encounter Visit Diagnoses Not on filedocumented in this encounter Care Teams Paper Bags Sewing Machine Operator Relationship Specialty Start Date End Date Rob Thakur, DNP [address] [facility] [place] [address] PCP - General 06/12/20 documented as of this encounter
--- OUTSIDE RECORDS SUMMARY | 2024-06-30 16:52 | XMS_ITS | Encounter Summary ---
Author Organization [facility] Address [address] [place] [address] Care Team Providers Care Software Applications Developer Name Role Phone Rob Thakur DNP Primary Care Provider [phone] Encounter Details Date Type Department Care Team (Late st Contact Info) Description 10/04/2020 Lab Requisition [facility] Pathology & Laboratory Medicine - [facility] [address] [place], [place] [address] Outr Resulting Lab, Provider Social History Tobacco [...] ORDER STANDALONE - BROAD COVID TEST Today 10/04/2020 9:03 EST COVID-19 TESTING Routine 10/04/2020 9:03 EST documented in this encounter Results * DO NOT ORDER STANDALONE - BROAD COVID TEST (10/04/2020 9:03 EST) COVID-19 rt-PCR Result NEGATIVE Negative 10/05/2020 16:35 EST [facility] Comment: 2019-novel Coronavirus (2019-nCoV) not [...] in accordance with CLIA regulations, College of [employer]ologists (CAP) guidelines (Jan 18, 2020), and FDA guidance (Dec 30, 2019). This test is only for use under the Food and Drug Administration's Emergency Use Authorization. Swab ENTIRE NASOPHARYNX / Unknown 10/04/2020 9:03 EST 10/04/2020 16:09 EST Provider Outr Resulting Lab MICROBIOLOGY - GENERAL ORDERABLES [facility] [place], [place] * COVID-19 TESTING (10/04/2020 9:03 EST) COVID-19 rt-PCR Result NEGATIVE Negative 10/05/2020 16:35 EST [facility] Comment: 2019-novel Coronavirus (2019-nCoV) not detected [...] in accordance with CLIA regulations, [employer] of [employer] (CAP) guidelines (Jan 18, 2020), and FDA guidance (Dec 30, 2019). This test is only for use under the Food and Drug Administration's Emergency Use Authorization. Performing Lab [facility] 10/05/2020 16:35 EST [facility] Swab 10/04/2020 9:03 EST 10/04/2020 16:09 EST Provider Outr Resulting Lab MICROBIOLOGY - GENERAL ORDERABLES [facility] [address] [place] [address] [facility] [place], [place] documented in this encounter Visit Diagnoses Not on filedocumented in this encounter Care Teams Software Applications Developer Relationship Specialty Start Date End Date Rob Thakur, [facility] [place] [phone] PCP - General 06/12/20 documented as of this encounter
--- OUTSIDE RECORDS SUMMARY | 2024-06-30 16:52 | XMS_ITS | Encounter Summary ---
Author Organization [facility] Address [address] [place] [address] Care Team Providers Care Operations Executive Name Role Phone Joaquin Celaya MD Primary Care Provider [phone] Encounter Details Date Type Department Care Team (Late st Contact Info) Description 01/14/2011 Results Only [facility] Laboratory Services - [facility] ([facility]) [address] [place] [address] Cassie Goodrich, ESSIE [address] [place] [address],[address] [address] Social History Tobacco Use Types Packs/Day Years Used Date Smoking Tobacco: Never Assessed Sex and Gender Information Value Date Recorded Sex Assigned at Not on file Gender Identity Not on file Sexual Orientation Not on file documented as of this encounter Plan of Treatment Not on file documented as of this encounter Procedures Procedure Name Priority Date/Time Associated Diagnosis Comments CYTOPATHOLOGY Routine 01/14/2011 0:00 EDT documented in this encounter Results * CYTOPATHOLOGY (01/14/2011 0:00 EDT) Pathology Report: CYTOPATHOLOGY REPORT ? Reports generated via electronic interface contain original data; ? however they are lacking the format of the original report. ? Caution should be taken when reading/interpreti ng unformatted reports. ? Name: ? NAN, GARO L ? Accession #: ? [id number] ? : ? 1970 (Age: 40) ??F ?Collect Date: ? 01/14/2011 ? Location: ? [facility] ? Receive Date: ? 01/15/2011 ? Provider: ?CASSIE GOODRICH FRONT OFFICE DEVELOPER ? Copy to: ? Specimen/Source: ?Pap Test, Cervix/Endocervix, ThinPrep Imaging System ? with manual evaluation ? Last Menstrual Period: ? Infection History: ? Herpes ? SPECIMEN ADEQUACY ? Satisfactory for Evaluation ? - transformation zone component present ? GENERAL CATEGORIZATION ? Negative for Intraepithelial Lesion or Malignancy ? INTERPRETATION ? Reactive cellular changes associated with inflammation present (includes ?? repair). ? 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 ? Document reviewed and electronically signed by: ? GLADWYN LEIMAN MBBCh ? Report Date: ??01/22/2011 08:38 ? End of Report ? [facility] 01/14/2011 01/15/2011 Cassie Goodrich FRONT OFFICE DEVELOPER PATHOLOGY ORDERABLES [facility] [address] [place] [address] documented in this encounter Visit Diagnoses Not on filedocumented in this encounter Care Teams Operations Executive Relationship Specialty Start Date End Date Joaquin Celaya MD [address] [place] [address] PCP - General 04/22/10 06/11/20 documented as of this encounter
--- OUTSIDE RECORDS SUMMARY | 2024-06-30 16:52 | XMS_ITS | Encounter Summary ---
Author Organization [facility] Address [address] [place] [address] Care Team Providers Care Top Lifter Name Role Phone Britt Mckay MD Primary Care Provider Encounter Details Date Type Department Care Team (Late st Contact Info) Description 11/25/2000 Results Only [facility] - [facility] conversion [address] [place] [address] Tyesha Ju[address] [place], [place] [id number] Social History Tobacco Use Types Packs/Day Years Used Date Smoking Tobacco: Never Assessed Sex and Gender Information Value Date Recorded Sex Assigned at Not on file Gender Identity Not on file Sexual Orientation Not on file documented as of this encounter Plan of Treatment Not on file documented as of this encounter Procedures Procedure Name Priority Date/Time Associated Diagnosis Comments CYTOPATHOLOGY Routine 11/25/2000 0:00 EST documented in this encounter Results * CYTOPATHOLOGY (11/25/2000 0:00 EST) Pathology Report: CYTOPATHOLOGY REPORT Reports generated via electronic interface contain original data; however they are lacking the format of the original report. Caution should be taken when reading/interpreti ng unformatted reports. Name: ? GARO MONTANA ? Accession #: ? [id number] : ? 1970 (Age: 30) ??F ?Collect Date: ? 11/25/2000 Location: ? [facility] ? Receive Date: ? 11/26/2000 Provider: ?ANERhea JUAREZ CNM Copy to: ? Specimen/Source: ?ThinPrep Pap Test, Cervix/Endocervix Last Menstrual Period: ? 11/15/99 Menstrual/Pregnanc y Status: ? Post ? SPECIMEN ADEQUACY ? Satisfactory for evaluation but limited by scant squamous epithelial component secondary to excessive inflammation. GENERAL CATEGORIZATION ? Within Normal Limits ? Document reviewed and electronically signed by: ? WESTON Tubbs(ASCP)(IAC) ? Report Date: ??11/29/2000 17:13 End of Report CAROLINE KHAN 11/25/2000 11/26/2000 Tyesha Juraez CNM PATHOLOGY ORDERABLES Performing Organization Address City/State/[facility] Co de Phone Number [facility] [address] [place] [address] documented in this encounter Visit Diagnoses Not on filedocumented in this encounter Care Teams Top Lifter Relationship Specialty Start Date End Date Britt Mckay MD [address] [address] PCP - General 01/23/10 04/21/10 documented as of this encounter
--- OUTSIDE RECORDS SUMMARY | 2024-06-30 16:52 | XMS_ITS | Encounter Summary ---
Author Organization [facility] [place] [address] Care Team Providers Care Tool Design Engineer Name Role Phone Rob Smith DNP Primary Care Provider [phone] Encounter Details Date Type Department Care Team (Late st Contact Info) Description 05/06/2022 Orders [place] [address] Jennifer Florez MAINTENANCE CONTROLLER [facility] [place] [address] S/P bariatric surgery; Disorder of iron metabolism [...] on file documented as of this encounter Results * PTH (07/17/2022 10:14 AM EDT) Parathyroid Hormone 50 15 - 65 pg/mL [facility] Blood 07/17/2022 10:1 4 AM EDT 07/17/2022 10:26 AM EDT Narrative Resulting Agency Comment Spec In Lab Jennifer Florez APRN CHEMISTRY ORDERABL ES [facility] [place] [address] * Vitamin B1, whole blood (07/17/2022 10:14 AM EDT) Vit B1 Lvl Wb (MARCH) 128 70 - 180 nmol/L [facility] Comment: ADDITIONAL INFORMATION This test was developed and its performance characteristics determined by [facility] in a manner consistent with CLIA requirements. This test has not been cleared or approved by the U.S. Food and Drug Administration. Test Performed by: [facility] [address] [place] [address] Ironworker Foreman: Binu Marques M.D. Ph.D.; CLIA# [id number] Blood 07/17/2022 10:1 4 AM EDT 07/17/2022 4:06 PM EDT Narrative Resulting Agency Comment Spec In Lab Jennifer Florez APRN LAB SEND OUT ORDER LUIS Performing Organization Address City/[facility]/ZIP Co de Phone Number [facility] [place] [address] * Vitamin B12 (07/17/2022 10:14 AM EDT) [facility] Vitamin B12 534 232 - 1,245 pg/mL [facility] Blood 07/17/2022 10:1 4 AM EDT 07/17/2022 10:26 AM EDT Narrative Resulting Agency Comment Spec In Lab Jennifer Florez APRN CHEMISTRY ORDERABL ES Performing Organization Address City/[facility]/ZIP Co de Phone Number [facility] [place] [address] * Vitamin D, 25-Hydroxy (07/17/2022 10:14 AM EDT) Vitamin D Total 25 OH 56 21 - 100 ng/mL [facility] Vit D Interp Sufficient [facility] Blood 07/17/2022 10:1 4 AM EDT 07/17/2022 10:26 AM EDT Narrative Resulting Agency Comment Spec In Lab Jennifer E Mulhall MAINTENANCE CONTROLLER CHEMISTRY ORDERABL ES Performing Organization Address [facility] Co de Phone Number [facility] [place] [address] * Iron and TIBC (07/17/2022 10:14 AM EDT) Iron 103 30 - 150 mcg/dL [facility] TIBC 346 250 - 450 mcg/dL [facility] Iron Saturation 30 20 - 50 % [facility] Blood 07/17/2022 10:1 4 AM EDT 07/17/2022 10:26 AM EDT Narrative Resulting Agency Comment Spec In Lab Jennifer E Mulhall MAINTENANCE CONTROLLER CHEMISTRY ORDERABL ES Performing Organization Address [facility] Co de Phone Number [facility] [place] [address] * Hemogram (07/17/2022 10:14 AM EDT) White Blood Cell 5.5 4.0 - 9.5 x10(3)/[facility] Red Blood Cell 4.49 4.00 - 5.21 x10(6)/[facility]ATORY Hemoglobin 13.6 11.7 - 15.5 g/dL [facility] Hematocrit 41.1 35.7 - 45.8 % [facility] Mean Cell Volume 91.5 82.6 - 94.4 fL [facility] Mean Cell Hemoglobin 30.3 27.1 - 32.0 pg [facility] Mean Cell Hemoglobin Concentration 33.1 31.7 - 35.0 g/dL [facility] Platelet 270 145 - 357 x10(3)/[facility] LABORATORY RDW Standard Deviation 43.4 37.0 - 46.0 [facility] LABORATORY RDW coefficient of variation 12.9 11.5 - 14.1 % [facility] Mean Platelet Volume 10.9 7.6 - 12.9 fL [facility] NRBC% auto 0.0 % [facility] NRBC Absolute 0.000 0.000 - 0.000 x10(3)/mcL [facility] Blood 07/17/2022 10:1 4 AM EDT 07/17/2022 10:26 AM EDT Narrative Resulting Agency Comment Spec In Lab Jennifer E Vikki MAINTENANCE CONTROLLER HEMATOLOGY ORDERAB LES Performing Organization Address [facility] Co de Phone Number [facility] [place] [address] * Folate, serum (07/17/2022 10:14 AM EDT) Folate 15.5 4.8 - 24.2 ng/mL [facility] Blood 07/17/2022 10:1 4 AM EDT 07/17/2022 10:26 AM EDT Narrative Resulting Agency Comment Spec In Lab Jennifer E Mulhall MAINTENANCE CONTROLLER CHEMISTRY ORDERABL ES Performing Organization Address [facility] de Phone Number [facility] [place] [address] * Ferritin (07/17/2022 10:14 AM EDT) [facility] Ferritin 76 30 - 400 ng/mL [facility] Comment: Pediatric reference ranges not verified at [facility], interpret with caution. Reference ranges for females greater than 50 years of age approach values for men, i.e., 30-400 ng/mL. Blood 07/17/2022 10:1 4 AM EDT 07/17/2022 10:26 AM EDT Narrative Resulting Agency Comment Spec In Lab Jennifer E Vikki MAINTENANCE CONTROLLER CHEMISTRY ORDERABL ES Performing Organization Address [facility]/ZIP Co de Phone Number [facility] [place] [address] * Comprehensive metabolic panel (non-fasting) (07/17/2022 10:14 AM EDT) Glucose 90 65 - 199 mg/dL [facility] Comment:Diabetes: >=200 mg/d L plus symptoms Blood Urea Nitrogen 11 8 - 18 mg/dL [facility] Creatinine 0.71 0.70 - 1.20 mg/dL [facility] Sodium 139 135 - 145 mmol/L [facility] Potassium 4.0 3.5 - 5.0 mmol/L [facility] Comment: Please note: ??Patients with WBC >100,000 may have falsely elevated Potassium levels. ??For accurate Potassium quantification in these patients send serum separator tube (gold top) for subsequent determinations. ??Contact the Clinical Chemistry Laboratory if there are any questions. Chloride 102 98 - 107 mmol/L [facility] Carbon Dioxide 28 22 - 31 mmol/L [facility] Anion Gap 9 5 - 15 mmol/L [facility] Calcium 9.4 8.5 - 10.5 mg/dL [facility] Protein, Total 7.4 6.1 - 8.0 g/dL [facility] Albumin 4.7 3.2 - 5.2 g/dL [facility] Aspartate Aminotransferase 10 0 - 30 unit/L [facility] Alanine Aminotransferase 11 0 - 30 unit/L [facility] Alkaline Phosphatase 85 35 - 105 unit/L [facility] Bilirubin, Total 0.5 0.2 - 1.3 mg/dL [facility] Est Glomerular Filtration Rate 103 >=60 mL/min/1. 73 m?? [facility] Comment: This patient's estimated GFR was [...] Agency Comment Spec In Lab Jennifer Florez MAINTENANCE CONTROLLER CHEMISTRY ORDERABL ES [facility] [place] [address] documented in this encounter Visit Diagnoses Diagnosis S/P bariatric surgery Bariatric surgery status Disorder of iron metabolism Other disorders of iron metabolism documented in this encounter Care Teams Tool Design Engineer Relationship Specialty Start Date End Date Rob Smith DNP PCP - General Family Medicine 11/15/19 documented as of this encounter
--- OUTSIDE RECORDS SUMMARY | 2024-06-30 16:52 | XMS_ITS | Encounter Summary ---
Author Organization [facility] Address [address] [place] [address] Care Team Providers Care Cattle Driver Name Role Phone Rob Thakur DNP Primary Care Provider [phone] Encounter Details Date Type Department Care Team (Late st Contact Info) Description 04/01/2023 Lab Requisition [facility] Pathology & Laboratory Medicine - [facility] [address] [place], [place] [id number] Outr Resulting Lab, Provider Social History Tobacco [...] Comments CHLAMYDIA/N. GONORRHOEAE AMPLIFIED NUCLEIC ACID Routine 03/31/2023 13:25 EDT documented in this encounter Results * CHLAMYDIA/N. GONORRHOEAE AMPLIFIED RNA (03/31/2023 13:25 EDT) Neisseria gonorrhoeae Result Negative Negative 04/02/2023 13:08 EDT [facility] Chlamydia trachomatis Result Negative Negative 04/02/2023 13:08 EDT [facility] Swab ENTIRE VAGINA / Unknown 03/31/2023 13:25 EDT 04/01/2023 18:41 EDT Provider Outr Resulting Lab MICROBIOLOGY - GENERAL ORDERABLES [facility] [address] [place] [address] documented in this encounter Visit Diagnoses Not on filedocumented in this encounter Care Teams Cattle Driver Relationship Specialty Start Date End Date Rob Thakur, [facility] [place] [address] PCP - General 06/12/20 documented as of this encounter
--- OUTSIDE RECORDS SUMMARY | 2024-06-30 16:52 | XMS_ITS | Referral Summary ---
Author Organization [facility] Address [address] [place] [address] Care Team Providers Care Funeral Pre Need Consultant Name Role Phone Rob Thakur DNP Primary Care Provider [phone] Allergies No known active allergies Medications No known medications Active Problems Patient Care Coordination No te Formatting of this note migh t be different from the original. Patient has given permission for [facility] to verbally discuss the following information with [...] on file Sexual Orientation Not on file Last Filed Vital Signs Vital Sign Reading Time Taken Comments Blood Pressure - - Pulse - - Temperature - - Respiratory Rate - - Oxygen Saturation - - Inhaled Oxygen Concentration - - Weight 104.3 kg (230 lb) 05/24/2017 1159 EDT Height 165.1 cm (5' 5) 05/24/2017 1159 EDT Body Mass Index 38.27 05/24/2017 1159 EDT Plan of Treatment Not on file Procedures Procedure Name Priority Date/Time Associated Diagnosis Comments HEPATITIS C AB W REFLEX TO HCV RNA BY PCR Routine 12/31/2023 11:50 EST from Last 3 Months or Most Recently Relevant to Health Maintenance Results * HEPATITIS C AB W REFLEX TO HCV RNA BY PCR (12/31/2023 11:50 EST) Hep C Antibody Negative Negative 12/31/2023 22:47 EST [facility] Blood VENOUS BLOOD / Unknown 12/31/2023 11:50 EST 12/31/2023 21:02 EST Provider Outr Resulting Lab CHEMISTRY & BLOOD GAS ORDERABLES [facility] [address] [place] [address] from Last 3 Months or Most Recently Relevant to Health Maintenance Care Teams Funeral Pre Need Consultant Relationship Specialty Start Date End Date Rob Thakur, DNP [facility] [place] [address] PCP - General 06/12/20
--- OUTSIDE RECORDS SUMMARY | 2024-06-30 16:52 | XMS_ITS | Encounter Summary ---
Author Organization [facility] Address [address] [place] [address] Care Team Providers Care Platform Material Handling Supervisor Name Role Phone Joaquin Celaya MD Primary Care Provider [phone] Reason for Referral * Radiology Services (Routine) - Closed Specialty Diagnoses / Procedures Referred By Contac t Referred To Contact Diagnoses Low back pain with right-sided sciatica, unspecified back pain laterality, unspecified chronicity Procedures L SPINE 4 OR MORE VIEWS Rogers Talbert MD [address] [place] [address] [place] [address] Referral ID Status Reason Start Date Expiration Date Visits Re quested Visits Authorized [id number] Closed 05/13/2017 1 1 Reason for Visit * Reason Onset Date Comments Pre-visit Orders 05/13/2017 Encounter Details Date Type Department Care Team (Late st Contact Info) Description 05/13/2017 Orders Only [facility] Spine Program - [place] [address] [place] [address] German Segovia MD [address] [place] [address] Low back pain with right-sided sciatica, unspecified back pain laterality, unspecified chronicity (Primary Dx) Social History Tobacco Use Types Packs/Day Years Used Date Smoking Tobacco: Never Assessed Sex and Gender Information Value Date Recorded Sex Assigned at Not on file Gender Identity Not on file Sexual Orientation Not on file documented as of this encounter Plan of Treatment Not on file documented as of this encounter Procedures Procedure Name Priority Date/Time Associated Diagnosis Comments L SPINE 4 OR MORE VIEWS Routine 05/24/2017 11:56 EDT Low back pain with right-sided sciatica, unspecified back pain laterality, unspecified chronicity documented in this encounter Results * L SPINE 4 OR MORE VIEWS (05/24/2017 11:56 EDT) Anatomical Region Laterality Modality Other 05/24/2017 11:5 6 EDT 05/25/2017 13:21 EDT Narrative 05/25/2017 13:21 EDT L SPINE 4 OR MORE VIEWS ??05/24/2017 11:56 AM Clinical History/Comments: M54.41-Lumbago with sciatica, right side-ICD-10; low back pain; right leg pain. Comparison: Lumbar spine MRI March 10, 2017 from [facility]. Technique: AP and lateral flexion, neutral and extension views of the lumbar spine were obtained. Findings: Mild thoracolumbar dextroscoliotic curvature is demonstrated with the apex of the curve at about L2-L3. No tiny- or retrolisthesis is demonstrated in flexion, neutral or extension views. Vertebral body heights are preserved. There is moderate disc space narrowing at L5-S1 consistent with disc degeneration. Hypertrophy of the facet joints is demonstrated at L4-L5 and L5-S1. Procedure Note Diana Servin MD - 05/25/2017 L SPINE 4 OR MORE VIEWS 05/24/2017 11:56 AM Clinical History/Comments: M54.41-Lumbago with sciatica, right side-ICD-10; low back pain; right leg pain. Comparison: Lumbar spine MRI March 10, 2017 from [facility]. Technique: AP and lateral flexion, neutral and extension views of the lumbar spine were obtained. Findings: Mild thoracolumbar dextroscoliotic curvature is demonstrated with the apex of the curve at about L2-L3. No tiny- or retrolisthesis is demonstrated in flexion, neutral or extension views. Vertebral body heights are preserved. There is moderate disc space narrowing at L5-S1 consistent with disc degeneration. Hypertrophy of the facet joints is demonstrated at L4-L5 and L5-S1. Rogers Talbert MD IMG DIAGNOSTIC IMAGI NG ORDERABLES documented in this encounter Visit Diagnoses Diagnosis Low back pain with right-sided sciatica, unspecified back pain laterality, unspecified chronicity- Primary documented in this encounter Care Teams Platform Material Handling Supervisor Relationship Specialty Start Date End Date Joaquin Celaya MD [address] [place] [phone] PCP - General 04/22/10 06/11/20 documented as of this encounter
--- OUTSIDE RECORDS SUMMARY | 2024-06-30 16:52 | XMS_ITS | Encounter Summary ---
Author Organization [facility] Address [address] [place] [address] Care Team Providers Care Automobile Body Repair Supervisor Name Role Phone Valentin Sarah Rob Katherin DNP Primary Care Provider [phone] Encounter Details Date Type Department Care Team (Late st Contact Info) Description 10/20/2021 Lab Requisition [facility] Pathology & Laboratory Medicine - [facility] [address] [place] [address] Juan Callejas MD [address] [place] [address] [address] [place], [place] [address] Encounter for other general examination Social History [...] Date/Time Associated Diagnosis Comments SURGICAL PATHOLOGY Today 10/20/2021 9: 20 EST Encounter for other general examination documented in this encounter Results * SURGICAL PATHOLOGY (10/20/2021 9:20 EST) Note to Patient The following pathology results have been interpreted by your pathologist and may be available to you before your health provider has had the opportunity to review them. Please allow time for your provider to receive these results and explore management options, if applicable. 10/21/2021 15:17 [facility] Final Diagnosis A. COLON, CECUM, POLYP, BIOPSY: - Polypoid colonic mucosa with no specific pathologic features. B. COLON, ASCENDING, POLYPS, BIOPSY: - Fragments of tubular adenoma(s). 10/21/2021 15:17 [facility] Attestation By the signature below, the attending physician certifies that they have 1) personally conducted a gross and/or microscopic examination of the described specimen(s), and/or personally interpreted the results of laboratory testing of the described specimen(s), and 2) personally rendered or confirmed the above diagnosis. 10/21/2021 15:17 [facility] at 1517 Clinical History History of polyps 10/21/2021 15:17 [facility] Gross Description A. Received in formalin labelled with proper patient identification (initials S, T) and cecal polyp is a sandoval tissue, 0.4 x 0.2 x 0.1 cm. Entirely submitted in A1. B. Received in formalin labelled with proper patient identification (initials S, T) and ascending colon polyps x3 are four sandoval tissues ranging from 0.1 x 0.1 x 0.1 cm to 0.3 x 0.2 x 0.2 cm. Entirely submitted in B1. JENIFFER JOHNSON(ASCP) 10/20/2021 17:35 10/21/2021 15:17 [facility] Performing Lab [facility] 10/21/2021 15:17 [facility] Scanned Images 10/21/2021 15:17 [facility] Tissue ASCENDING COLON STRUCTURE / Unknown 10/20/2021 9:20 EST 10/20/2021 17:08 EST Tissue specimen (specimen) ASCENDING COLON STRUCTURE / Unknown 10/20/2021 9:20 EST 10/20/2021 17:08 EST Juan Callejas MD PATHOLOGY ORDERA [facility] [address] [place] [address] documented in this encounter Visit Diagnoses Diagnosis Encounter for other general examination documented in this encounter Care Teams Automobile Body Repair Supervisor Relationship Specialty Start Date End Date Rob Thakur, [place] [facility] [place] [address] PCP - General 06/12/20 documented as of this encounter
--- OUTSIDE RECORDS SUMMARY | 2024-06-30 16:52 | XMS_ITS | Encounter Summary ---
Author Organization [facility] Address [address] [place] [address] Care Team Providers Care Continuous Improvement Engineer Name Role Phone Unavailable Primary Care Provider Unavailabl e Encounter Details Date Type Department Care Team (Late st Contact Info) Description 01/18/2009 Before PRISM Converted Visit ([place]) [facility] conversion [address] [place] [address] Britt Crowell MD [phone] [id number] Social History Tobacco Use Types [...] Priority Date/Time Associated Diagnosis Comments CYTOPATHOLOGY Routine 01/18/2009 0:00 EDT documented in this encounter Results * CYTOPATHOLOGY (01/18/2009 0:00 EDT) Pathology Report: CYTOPATHOLOGY REPORT ? Reports generated via electronic interface contain original data; ? however they are lacking the format of the original report. ? Caution should be taken when reading/interpreti ng unformatted reports. ? Name: ? NAN, GARO L ? Accession #: ? [id number] ? : ? 1970 (Age: 38) ??F ?Collect Date: ? 01/18/2009 ? Location: ? [facility] ? Receive Date: ? 01/22/2009 ? Provider: ?BRITT CROWELL MD ? Copy to: ? Specimen/Source: ?Pap Test, Cervix/Endocervix, ThinPrep Imaging System ? with manual evaluation ? Last Menstrual Period: ? 03/11/09 ? Infection History: ? Herpes ? Other: ? HPVA - HPV testing requested if ASC-US on the current ThinPrep Pap test. ? SPECIMEN ADEQUACY ? Satisfactory for Evaluation ? - transformation zone component absent ? GENERAL CATEGORIZATION ? Negative for Intraepithelial Lesion or Malignancy ? Document reviewed and electronically signed by: ? Arlene Baltazar, CT(ASCP)(IAC) ? Report Date: ??01/23/2009 14:54 ? End of Report ? CAROLINE KHAN 01/18/2009 01/22/2009 Britt Crowell MD PATHOLOGY ORDERABLES CAROLINE KHAN [address] [place] [address] documented in this encounter Visit Diagnoses Not on filedocumented in this encounter
--- OUTSIDE RECORDS SUMMARY | 2024-06-30 16:52 | XMS_ITS | Encounter Summary ---
Author Organization [facility] Address [address] [place] [address] Care Team Providers Care Bearing Grinder Name Role Phone Joaquin Celaya MD Primary Care Provider [phone] Encounter Details Date Type Department Care Team (Late st Contact Info) Description 04/20/2016 Results Only [facility] [place]- PRISM [phone] Sun Wheatley APRN [address] [place], [place] [id number] Social History Tobacco Use Types Packs/Day Years [...] Diagnosis Comments PAP TEST- RESULT ONLY Routine 04/20/2016 0:00 EDT documented in this encounter Results * PAP TEST- RESULT ONLY (04/20/2016 0:00 EDT) Pathology Report: CYTOPATHOLOGY REPORT Reports generated via electronic interface contain original data; however they are lacking the format of the original report. Caution should be taken when reading/interpreti ng unformatted reports. Name: ? GARO MONTANA ? Accession #: ? [id number] ? : ? 1970 (Age: 45) ??F ?Collect Date: ? 04/20/2016 ? Location: ? [facility] ? Receive Date: ? 04/21/2016 ? Provider: SUN WHEATLEY APRN Copy to: ? Final Report SPECIMEN ADEQUACY ? Satisfactory for Evaluation - transformation zone component absent GENERAL CATEGORIZATION ? Negative for Intraepithelial Lesion or Malignancy ?? Specimen/Source: ??Pap Test, Cervix/Endocervix, ThinPrep Imaging System with manual evaluation Document reviewed and electronically signed by: ? WESTON Rene(ASCP) ? Report ??Date: 04/30/2016 12:11 HPV with Pap Test ? Date Ordered: ? 04/30/2016 ? Status: ?? Signed Out ?Date Complete: ? 05/04/2016 ? By: ??System Interface ? Date Reported: ? 05/04/2016 ? Interpretation RESULT: Negative for HPV. No E6 or E7 mRNA is detected from HPV types 16,18,31,33,35, 39,45,51,52,56,58, 59,66, and 68 by land inspector mediated amplification. Comments Document reviewed and electronically signed by: ? System Interface ? Report date: 05/04/2016 By the signature above, the attending physician certifies that he/she has personally conducted a gross and/or microscopic examination of the described specimens and rendered or confirmed the above diagnosis. End of Report [facility] 04/20/2016 04/21/2016 Sun Wheatley APRN PATHOLOGY ORDERABLES [facility] [address] [place] [address] documented in this encounter Visit Diagnoses Not on filedocumented in this encounter Care Teams Bearing Grinder Relationship Specialty Start Date End Date Joaquin Celaya MD [address] [place] [id number] PCP - General 04/22/10 06/11/20 documented as of this encounter
--- OUTSIDE RECORDS SUMMARY | 2024-06-30 16:52 | XMS_ITS | Encounter Summary ---
Author Organization [facility] [place] [address] Care Team Providers Care Service Establishment Attendant Name Role Phone Rob Smith LALITA Primary Care Provider [phone] Reason for Visit * Reason Comments Follow-up Encounter Details Date Type Department Care Team (Late st Contact Info) Description 11/04/2021 10:30 AM EST Office Visit [place] [address] Jennifer Florez APRN [facility] [place] [address] Emili Mclaughlin, RD [facility] [place] [address] S/P bariatric surgery; Disorder of iron metabolism [...] 36.4 ??C (97.5 ??F) 11/04/2021 10:[address] Respiratory Rate 16 11/04/2021 10:23 AM EST Oxygen Saturation 100% 11/04/2021 10:23 AM EST Inhaled Oxygen Concentration - - Weight 95.3 kg (210 lb 1 oz) 11/04/2021 10:23 AM EST Height 162.6 cm (5' 4.02) 11/04/2021 10:[address] Body Mass Index 36.04 11/04/2021 10:23 AM EST documented in this encounter Patient Instructions * Patient Instructions* Jennifer Florez, INSIDE TRUCKER - 11/04/2021 10:30 AM EST [facility] legal support specialist Elicia [phone] and Vashti [phone] Dietitians: [phone] Surgeons/ nurse practitioners: [phone] Nurse line: [phone] Dear Natalia, Please see your electronic medical record note from today for details we discussed at your visit. Below is some additional general information that you may find helpful. Testing: It would be helpful if you can have your lab work drawn a couple days before your visit donavon [facility] facility so the results are available at the time of your follow up visit. If you have labwork done by your primary physician locums urgent care before that date, please have a copy sent to the Bariatric Surgery Program. Please call/send my Whim message if you have not heard from us within 2 weeks of having labs work done. Here's the link to [facility] Lab hours and locations: [email or web address] Next visit: Follow up visits are done at 4 months and 12 months after surgery and yearly thereafter. Some patients are evaluated on a more frequent basis. Please call [phone] if you do not receive an appointment by 3-4 weeks prior to the [...] mg in AM and 600 mg in PM-2 pills twice a day) (or 1 chewable [...] slowly and chew food well. Take at least30 minutes or more to eat a meal. Call if symptoms worsen, fail to improve, or if you have difficulty keeping food or fluid down. Alcohol: is not recommended for at least 6-12 months after surgery. Alcohol is absorbed much fasterand stays in your system much longer post bariatric surgery and as a result there is an increase risk of alcohol misuse/abuse after bariatric surgery. It should be used sparingly, no more than one drink per occasion, no more than 2 drinks a week. Alcohol is toxic to the liver, a source of empty calories, it can cause ulcers, vitamin and mineral deficiencies, as well as impair digestion and absorption of nutrients. Call or follow up with your therapist or primary care provider if you are struggling or think your alcohol intake is a problem. control for women of child bearing age: is recommended for at least 18-24 months after surgery. f non-prescribed drugs and treet drugs is unsafe Anti-inflammatory medications such as Ibuprofen (Advil), Aleve (Naproxen), Excedrin, Yadi-Pratt should be used sparingly after gastric bypass, [...] Eating a healthy diet with 60 grams ofprotein per day and taking your multivitamin with minerals will help. Sleep Apnea: If you have a history of sleep apnea and have a CPAP/BiPAP, please be sure to follow up with the sleep center to confirm your pressures and determine if continued use of CPAP/BiPAP is recommended. Potential lifetime risks of gastric bypass include risk of ulcer, which is increased with alcohol and antiinflammatory medications and internal hernia (less than 5%), which may be increased with higher than predicted weight loss Potential lifetime risks of sleeve gastrectomy include developed heartburn or severe reflux Call us: ??? If you have concerns. ??? If you have unexplained abdominal pain. ??? if you see blood in your stool or vomit blood ??? If you have prolonged vomiting Post Surgery Support Group: Our post surgery support group meets at [facility] on the first Wednesday of every month from 1:00 PM-2:00 PM. You can attend online or in person. Use the following link to attend online: [email or web address] Nutrition and Activity apps- Baritastic, My Fitness Pal, Lose It, My Plate Internet resources: www.Pressly wwwAceris 3D Inspection www.bariatriceatingPatch of Land www.WriteReader ApS/blog [facility] facebook page: https://www.facebook.com/[facility]ING[facility]ariatricSurgery Books & Magazines: - Recipes for Life After Weight Loss Surgery by Connie La - Shrink Yourself by Dr Wilder Arrington - Eating Well - www.Clicks for a Cause.Fanitics - Cooking Light- www.cookinglight.Fanitics Anxiety: The Happiness Trap by Ranjit Cloud The Mindfulness and acceptance workbook for anxiety By Joaquin Capone. Mindful eating: What are you Hungry For? By Jose Luis Grier The Mindful Diet by Xiomara Moss and the [facility] group. Emotional eating: End Emotional Eating by Ifrah Jean Calming the Emotional Storm Beryl Robles documented in this encounter Progress Notes * Emili Mclaughlin, RD - 11/04/2021 10:30 AM EST Bariatric Surgery [...] ??11/04/21 210#?? 50%?? 36.0?? 4 months post-op [place] Body Weight (based on BMI of 25):??146# [...] kcal, seasoned tuna packet PM Snack Dinner Canadian Ni[place] meat pie HS Snack 1 spoonful ice [...] s/p surgery. Her excess weight loss is at 50%. Pt is tolerating the diet and is meeting protein and fluid goals. Discussed liberalizing carbohydrate and fat intake. Reviewed supplements, pt states she is inconsistent about taking evening dose of fusion MVM, discussed moving supplements to another area where she is more likely to take themin the evening. Encouraged increased exercise as tolerated. NUTRITION INTERVENTION & MONITORING: ?? Provided support/encouragement and reinforced importance of meeting nutritional goals. ?? Great work meeting protein and fluid goals ?? Okay to increase carbohydrate and fat intake, continue tracking to ensure you are meeting protein needs ?? Reviewed vitamin and mineral supplement recommendations. ? Continue taking Bariatric Fusion Complete multivitamin, two wafers twice daily (which includes Vit B12 560 mcg, Vit D3 3,000 IU, Calcium 1200 mg, Iron 45mg/day). ?? Evaluation by nurse practitioner today. RTC in 8 mo for next BSP follow up visit, with labs. Call/rtc sooner prn with questions/concerns. * Jennifer Florez APRN - 11/04/2021 10:30 AM EST [place] [address] Reason for visit: Bariatric Surgery follow up visit Subjective: Natalia Damico is s/p laparoscopic sleeve gastrectomy ??on 07/02/21?with Dr. Hastings, she presents today for 4 month post bariatric surgery follow up. Overall tolerating foods/fluids and trying to make sure she is meeting nutritional/fluid requirements. No bariatric [...] pain, left knee pain, low back pain (improved since surgery). ? Liver Disease: Not a baseline [...] pain, nausea, vomiting. No diarrhea or constipation. 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 Skin: No c/o redundant skin, no skin fold rashes. Health Habits: Tobacco/Nicotine use: None (quit for surgery). ETOH use: None. No NSAID use. 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 Dietary history/ exericse/ activity level: [...] Ht 162.6 cm (5' 4.02) Wt 95.3 kg(210 lb 1 oz) SpO2 100% BMI 36.04 [...] well enough. o Patient has met with outside sales engineer today, please see note for additional details/dietary evaluation. o Advised that Ursodiol can be discontinued at 6 months post-operatively. o Advised that hair loss due to rapid weight loss is typical for this early post-surgery time frame, will improve with time and adequate protein/calorie intake. [...] risk patients are evaluated on a more frequentbasis. *Typical Supplement recommendations: Multivitamin with minerals twice [...] If labwork is done by the primary physician locums urgent care: please send a copy to the Bariatric Surgery Program, General Surgery Clinic, [facility], or fax [phone] documented in this encounter Plan of Treatment Not on file documented as of this encounter Procedures Procedure Name Priority Date/Time Associated Diagnosis Comments HC PARATHYROID HORMONE(PTH INTACT Routine 11/04/2021 2:07 PM EST S/P bariatric surgery Disorder of iron metabolism HC HEMOGRAM Routine 11/04/2021 2:07 PM EST S/P bariatric surgery Disorder of iron metabolism HC PCH THIAMIN LVL(VITAMIN B1) WB-RAGLAND Routine 11/04/2021 2:07 PM EST S/P bariatric surgery Disorder of iron metabolism HC IRON BINDING CAPACITY Routine 11/04/2021 2:07 PM EST S/P bariatric surgery Disorder of iron metabolism HC VITAMIN D TOTAL-25 HYDROXY Routine 11/04/2021 2:07 PM EST S/P bariatric surgery Disorder of iron metabolism HC FOLATE, SERUM Routine 11/04/2021 2:07 PM EST S/P bariatric surgery Disorder of iron metabolism HC FERRITIN, SERUM Routine 11/04/2021 2: 07 PM EST S/P bariatric surgery Disorder of iron metabolism HC VENIPUNCTURE Routine 11/04/2021 2:07 PM EST S/P bariatric surgery Disorder of iron metabolism COMPREHENSIVE METABOLIC PANEL Routine 11/04/2021 2:07 PM EST S/P bariatric surgery Disorder of iron metabolism documented in this encounter Results * (ABNORMAL) Comprehensive metabolic panel (non-fasting) (11/04/2021 2:07 PM EST) Glucose 96 65 - 199 mg/dL [facility] Comment:Diabetes: >=200 mg/d L plus symptoms Blood Urea Nitrogen 8 8 - 18 mg/dL [facility] Creatinine 0.62(L) 0.70 - 1.20 mg/dL [facility] Sodium 141 135 - 145 mmol/L [facility] Potassium 3.9 3.5 - 5.0 mmol/L [facility] Comment: Please note: ??Patients with WBC >100,000 may have falsely elevated Potassium levels. ??For accurate Potassium quantification in these patients send serum separator tube (gold top) for subsequent determinations. ??Contact the Clinical Chemistry Laboratory if there are any questions. Chloride 101 98 - 107 mmol/L [facility] Carbon Dioxide 26 22 - 31 mmol/L [facility] Anion Gap 14 5 - 15 mmol/L [facility] Calcium 9.9 8.5 - 10.5 mg/dL [facility] Protein, Total 7.3 6.1 - 8.0 g/dL [facility] Albumin 4.7 3.2 - 5.2 g/dL [facility] Aspartate Aminotransferase 15 0 - 30 unit/L [facility] Alanine Aminotransferase 16 0 - 30 unit/L [facility] Alkaline Phosphatase 111(H) 35 - 105 unit/L [facility] Bilirubin, Total 0.3 0.2 - 1.3 mg/dL [facility] Est Glomerular Filtration Rate 104 >=60 mL/min/1. 73 m?? [facility] Comment: This patient? s estimated glomerular filtration rate (eGFR) is between 104 mL/min/1.73 m2 (patients with less muscle mass) and 121 mL/min/1.73 m2 (patients with more muscle mass) as determined by the CKD-EPI equation. Assessment of eGFR is not appropriate when creatinine concentrations are rapidly changing. For clinical decisions where creatinine clearance will affect therapy, a 24-hour urine creatinine clearance may be advised. Assignment of CKD stage 1 - 5 for patients with an eGFR near the transition point between stages may be based on clinical assessment of muscle mass and symptoms in addition to eGFR. Blood 11/04/2021 2:07 PM EST 11/04/2021 5:25 PM EST Narrative Resulting Agency Comment Spec In Lab Jennifer E Dysart INSIDE TRUCKER CHEMISTRY ORDERABL ES Performing Organization Address [facility]/ZIP Co de Phone Number [facility] [place] [address] * Ferritin (11/04/2021 2:07 PM EST) Ferritin 114 30 - 400 ng/mL [facility] Comment: Pediatric reference ranges not verified at [facility], interpret with caution. Reference ranges for females greater than 50 years of age approach values for men, i.e., 30-400 ng/mL. Blood 11/04/2021 2:07 PM EST 11/04/2021 5:26 PM EST Narrative Resulting Agency Comment Spec In Lab Jennifer E Dysart INSIDE TRUCKER CHEMISTRY ORDERABL ES Performing Organization Address City/[facility]/ZIP Co de Phone Number [facility] [place] [address] * Folate, serum (11/04/2021 2:07 PM EST) Folate 19.1 4.8 - 24.2 ng/mL [facility] Blood 11/04/2021 2:07 PM EST 11/04/2021 5:26 PM EST Narrative Resulting Agency Comment Spec In Lab Jennifer E Vikki INSIDE TRUCKER CHEMISTRY ORDERABL ES [facility] [place] [address] * Hemogram (11/04/2021 2:07 PM EST) White Blood Cell 5.8 4.0 - 9.5 x10(3)/[facility] Red Blood Cell 4.57 4.00 - 5.21 x10(6)/[facility] Hemoglobin 13.4 11.7 - 15.5 g/dL [facility] Hematocrit 42.0 35.7 - 45.8 % [facility] Mean Cell Volume 91.9 82.6 - 94.4 fL [facility] Mean Cell Hemoglobin 29.3 27.1 - 32.0 pg [facility] Mean Cell Hemoglobin Concentration 31.9 31.7 - 35.0 g/dL [facility] Platelet 296 145 - 357 x10(3)/[facility] RDW Standard Deviation 45.3 37.0 - 46.0 [facility] RDW coefficient of variation 13.2 11.5 - 14.1 % [facility] Mean Platelet Volume 11.5 7.6 - 12.9 [facility] NRBC% auto 0.0 % [facility] NRBC Absolute 0.000 0.000 - 0.000 x10(3)/[facility] Blood 11/04/2021 2:07 PM EST 11/04/2021 3:41 PM EST Narrative Resulting Agency Comment Spec In Lab Jennifer E Dysart INSIDE TRUCKER HEMATOLOGY ORDERAB LES Performing Organization Address [facility] Co de Phone Number [facility] [place] [address] * Vitamin D, 25-Hydroxy (11/04/2021 2:07 PM EST) Vitamin D Total 25 OH 36 21 - 100 ng/mL [facility] Vit D Interp Sufficient [facility] Blood 11/04/2021 2:07 PM EST 11/04/2021 5:26 PM EST Narrative Resulting Agency Comment Spec In Lab Jennifer E Dysart INSIDE TRUCKER CHEMISTRY ORDERABL ES Performing Organization Address [facility] de Phone Number [facility] [place] [address] * PTH (11/04/2021 2:07 PM EST) Parathyroid Hormone 56 15 - 65 pg/mL [facility] Blood 11/04/2021 2:07 PM EST 11/04/2021 4:03 PM EST Narrative Resulting Agency Comment Spec In Lab Jennifer E Dysart INSIDE TRUCKER CHEMISTRY ORDERABL ES Performing Organization Address [facility] de Phone Number [facility] [place] [address] * Vitamin B1, whole blood (11/04/2021 2:07 PM EST) Vit B1 Lvl Wb (MARCH) 118 70 - 180 nmol/L [facility] Comment: ADDITIONAL INFORMATION This test was developed and its performance characteristics determined by [facility] in a manner consistent with CLIA requirements. This test has not been cleared or approved by the U.S. Food and Drug Administration. Test Performed by: [facility] [address] [place] [address] Polymer Engineer: Binu Marques M.D. Ph.D.; CLIA# [id number] Blood 11/04/2021 2:07 PM EST 11/04/2021 4:34 PM EST Narrative Resulting Agency Comment Spec In Lab Jennifer E Vikki INSIDE TRUCKER LAB SEND OUT ORDER LUIS Performing Organization Address [facility] Co de Phone Number [facility] [place] [address] * (ABNORMAL) Iron and TIBC (11/04/2021 2:07 PM EST) Iron 46 30 - 150 mcg/dL [facility] TIBC 284 250 - 450 mcg/dL [facility] Iron Saturation 16(L) 20 - 50 % [facility] Blood 11/04/2021 2:07 PM EST 11/04/2021 5:25 PM EST Narrative Resulting Agency Comment Spec In Lab Jennifer E Dysart INSIDE TRUCKER CHEMISTRY ORDERABL ES Performing Organization Address [facility] de Phone Number [facility] [place] [address] * Vitamin B12 (11/04/2021 2:07 PM EST) Vitamin B12 459 232 - 1,245 pg/mL [facility] Blood 11/04/2021 2:07 PM EST 11/04/2021 5:26 PM EST Narrative Resulting Agency Comment Spec In Lab Jennifer E Dysart INSIDE TRUCKER CHEMISTRY ORDERABL ES Performing Organization Address [facility] de Phone Number [facility] [place] [address] documented in this encounter Visit Diagnoses Diagnosis S/P bariatric surgery Bariatric surgery status Disorder of iron metabolism Other disorders of iron metabolism documented in this encounter Care Teams Service Establishment Attendant Relationship Specialty Start Date End Date Rob Smith DNP PCP - General Family Medicine 11/15/19 documented as of this encounter
--- OUTSIDE RECORDS SUMMARY | 2024-06-30 16:52 | XMS_ITS | Encounter Summary ---
Author Organization [facility] Address [address] [place] [address] Care Team Providers Care Customer Support Manager Name Role Phone Britt Crowell MD Primary Care Provider [phone] Encounter Details Date Type Department Care Team (Late st Contact Info) Description 06/07/2003 Results Only [facility] [address] [place] [address] Britt Crowell MD 185 [facility] [address] [place] [phone] Social History Tobacco Use Types Packs/Day Years Used Date Smoking Tobacco: Never Assessed Sex and Gender Information Value Date Recorded Sex Assigned at Not on file Gender Identity Not on file Sexual Orientation Not on file documented as of this encounter Plan of Treatment Not on file documented as of this encounter Procedures Procedure Name Priority Date/Time Associated Diagnosis Comments CYTOPATHOLOGY Routine 06/07/2003 0:00 EDT documented in this encounter Results * CYTOPATHOLOGY (06/07/2003 0:00 EDT) Pathology Report: CYTOPATHOLOGY REPORT Reports generated via electronic interface contain original data; however they are lacking the format of the original report. Caution should be taken when reading/interpreti ng unformatted reports. Name: ? GARO MONTANA ? Accession #: ? [id number] : ? 1970 (Age: 32) ??F ?Collect Date: ? 06/07/2003 Location: ? [facility] ? Receive Date: ? 06/11/2003 Provider: ?BRITT CROWELL MD Copy to: ? Specimen/Source: ?ThinPrep Pap Test, Cervix/Endocervix Last Menstrual Period: ? 05/24/03 Other: ? Additional clinical information: PID HPVA - HPV testing requested if ASC-US on the current ThinPrep Pap test. ? SPECIMEN ADEQUACY ? Satisfactory for Evaluation - transformation zone component present GENERAL CATEGORIZATION ? Negative for Intraepithelial Lesion or Malignancy ? Document reviewed and electronically signed by: ? WESTON Medellin(ASCP) ? Report Date: ??06/14/2003 08:48 End of Report CAROLINE KHAN 06/07/2003 06/11/2003 Britt Crowell MD PATHOLOGY ORDERABLES Performing Organization Address City/State/[facility] Co de Phone Number CAROLINE KHAN [address] [place] [address] documented in this encounter Visit Diagnoses Not on filedocumented in this encounter Care Teams Customer Support Manager Relationship Specialty Start Date End Date Britt Crowell MD [address] [phone] PCP - General 01/23/10 04/21/10 documented as of this encounter
--- OUTSIDE RECORDS SUMMARY | 2024-06-30 16:52 | XMS_ITS | Encounter Summary ---
Author Organization [facility] Address [address] [place] [address] Care Team Providers Care Rotary Drier Name Role Phone Joaquin Celaya MD Primary Care Provider [phone] Encounter Details Date Type Department Care Team (Late st Contact Info) Description 04/05/2014 Results Only [facility] - [facility] ([facility]) [address] [place], [place] [id number] Cassie Goodrich, ESSIE [address] [place] [address],[address] [phone] Social History Tobacco Use Types [...] Diagnosis Comments PAP TEST- RESULT ONLY Routine 04/05/2014 0:00 EDT documented in this encounter Results * PAP TEST- RESULT ONLY (04/05/2014 0:00 EDT) Pathology Report: CYTOPATHOLOGY REPORT Reports generated via electronic interface contain original data; however they are lacking the format of the original report. Caution should be taken when reading/interpreti ng unformatted reports. Name: ? GARO MONTANA ? Accession #: ? [id number] ? : ? 1970 (Age: 43) ??F ?Collect Date: ? 04/05/2014 ? Location: ? [facility] ? Receive Date: ? 04/09/2014 ? Provider: CASSIE GOODRICH PAINT STOCK CLERK Copy to: ? Final Report SPECIMEN ADEQUACY ? Satisfactory for Evaluation - transformation zone component present GENERAL CATEGORIZATION ? Negative for Intraepithelial Lesion or Malignancy ?? Last Menstrual Period: 03/23/2014 Specimen/Source: ??Pap Test, Cervix/Endocervix, ThinPrep Imaging System with manual evaluation Document reviewed and electronically signed by: ? WESTON Calvo(ASCP) ? Report ??Date: 04/16/2014 10:24 HPV with Pap Test ? Date Ordered: ? 04/16/2014 ? Status: ?? Signed Out ?Date Complete: ? 04/18/2014 ? By: ??System Interface ? Date Reported: ? 04/18/2014 ? Interpretation RESULT: Negative for HPV. No E6 or E7 mRNA is detected from HPV types 16,18,31,33,35, 39,45,51,52,56,58, 59,66, and 68 by cow trimmer mediated amplification. Comments Document reviewed and electronically signed by: ? System Interface ? Report date: 04/18/2014 By the signature above, the attending physician certifies that he/she has personally conducted a gross and/or microscopic examination of the described specimens and rendered or confirmed the above diagnosis. End of Report [facility] 04/05/2014 04/09/2014 Cassie Goodrich PAINT STOCK CLERK PATHOLOGY ORDERABLES [facility] [address] [place] [address] documented in this encounter Visit Diagnoses Not on filedocumented in this encounter Care Teams Rotary Drier Relationship Specialty Start Date End Date Joaquin Celaya MD [address] [place] [address] PCP - General 04/22/10 06/11/20 documented as of this encounter
--- OUTSIDE RECORDS SUMMARY | 2024-06-30 16:52 | XMS_ITS | Encounter Summary ---
Author Organization [facility] Address [address] [place] [address] Care Team Providers Care Shoe Repairer Helper Name Role Phone Rob Thakur DNP Primary Care Provider [phone] Encounter Details Date Type Department Care Team (Late st Contact Info) Description 04/10/2021 Lab Requisition [facility] Pathology & Laboratory Medicine - [facility] [address] [place], [place] [phone] Outr Resulting Lab, Provider Social History Tobacco [...] Procedure Name Priority Date/Time Associated Diagnosis Comments H. PYLORI ANTIGEN Routine 04/10/2021 11: 55 EDT documented in this encounter Results * H. PYLORI ANTIGEN (04/10/2021 11:55 EDT) H. Pylori Negative Negative 04/15/2021 14:42 EDT [facility] Feces SPECIMEN FROM RECTUM / Unknown 04/10/2021 11:55 EDT 04/10/2021 20:17 EDT Narrative [facility] - 04/15/2021 14:42 EDT Results were obtained with the Premier Minto HpSA Plus YUMIKO. Provider Outr Resulting Lab MICROBIOLOGY - GENERAL ORDERABLES [facility] [address] [place] [address] documented in this encounter Visit Diagnoses Not on filedocumented in this encounter Care Teams Shoe Repairer Helper Relationship Specialty Start Date End Date Rob Thakur, [facility] [address] [facility] [phone] PCP - General 06/12/20 documented as of this encounter
--- OUTSIDE RECORDS SUMMARY | 2024-06-30 16:52 | XMS_ITS | Encounter Summary ---
Author Organization [facility] Address [address] [place] [address] Care Team Providers Care Vacuum Cleaner Repairer Name Role Phone Valentin Sarah Rob Katherin DNP Primary Care Provider [phone] Encounter Details Date Type Department Care Team (Late st Contact Info) Description 06/12/2020 Lab Requisition [facility] Pathology & Laboratory Medicine - [facility] [address] [place] [address] Isaak Navarro MD [address] [place] [address] Encounter for other general examination Social History [...] Date/Time Associated Diagnosis Comments SURGICAL PATHOLOGY Today 06/12/2020 14 :30 EDT Encounter for other general examination documented in this encounter Results * SURGICAL PATHOLOGY (06/12/2020 14:30 EDT) Final Diagnosis A. ENDOMETRIUM, BIOPSY: - Fragmented endometrium with stromal breakdown - Negative for hyperplasia/malig caron 06/17/2020 9:35 EDT [facility] Attestation There was significant resident/fellow involvement in the diagnostic evaluation of this case. By the signature below, the attending physician certifies that they have personally conducted a gross and/or microscopic examination of the described specimens and rendered or confirmed the above diagnosis. 06/17/2020 9:35 EDT [facility] at 0935 Clinical History Menorrhagia 06/17/2020 9:35 EDT [facility] Gross Description A. Received in formalin labelled with proper patient identification (initials S, T) and endometrium is dark red-brown soft tissue that measures 2.5 x 2.0 x 0.2 cm in aggregate. Entirely submitted in A1-A2. Raffi Warren 06/13/2020 11:23 06/17/2020 9:35 EDT [facility] Resident/Raudel w: Roslyn Shaver MD 06/17/2020 9:35 EDT [facility] Performing Lab [facility] 06/17/2020 9:35 EDT [facility] Scanned Images 06/17/2020 9:35 EDT [facility] Tissue ENTIRE ENDOMETRIUM / Unknown 06/12/2020 14:30 EDT 06/12/2020 23:25 EDT Isaak Navarro MD PATHOLOGY ORDERABLES [facility] [address] [place] [address] documented in this encounter Visit Diagnoses Diagnosis Encounter for other general examination documented in this encounter Care Teams Vacuum Cleaner Repairer Relationship Specialty Start Date End Date Rob Thakur, [facility] [place] [address] PCP - General 06/12/20 documented as of this encounter
--- OUTSIDE RECORDS SUMMARY | 2024-06-30 16:52 | XMS_ITS | Encounter Summary ---
Author Organization [facility] [place] [address] Care Team Providers Care Magazine Designer Name Role Phone Rob Smith LALITA Primary Care Provider [phone] Reason for Visit * Reason Comments Follow-up Encounter Details Date Type Department Care Team (Late st Contact Info) Description 07/17/2022 11:00 AM EDT Office [place] [address] Jennifer Florez APRN [facility] [place] [address] Emili Mclaughlin, RD [facility] [place] [address] S/P bariatric surgery; Disorder of iron metabolism [...] Sign Reading Time Taken Comments Blood Pressure 122/66 07/17/2022 10:51 AM EDT Pulse 85 07/17/2022 10:51 AM EDT Temperature - - Respiratory Rate 18 07/17/2022 10:51 AM EDT Oxygen Saturation 100% 07/17/2022 10:51 AM EDT Inhaled Oxygen Concentration - - Weight 79.8 kg (176 lb) 07/17/2022 10:51 AM EDT Height 162.6 cm (5' 4.02) 07/17/2022 10:51 AM E DT Body Mass Index 30.2 07/17/2022 10:51 AM EDT documented in this encounter Progress Notes * Emili Mclaughlin, RD - 07/17/2022 11:00 AM EDT Bariatric Surgery Program Nutrition Progress Note Encounter Type: follow up SUBJECTIVE: Topics Discussed/Patient Concerns: ?? Pt reports her fluid intake is low, discussed strategies for increasing fluid intake ?? Pt is tracking intake in MFP, pt is slightly below protein goals, encouraged pt to increase protein intake in morning ?? Social history:??Currently unemployed; working toward doctorate in psychology; - 3 boys, 1 girl. Lives w - 2 sons and their girlfriends and a grandson ?? Social support:??, sons, coworkers ?? Hobbies:??horseback riding (has 2 horses) ?? Medical Hx:?Class III obesity, joint pain, sleep disorder, anxiety ?? OBJECTIVE: ?? Date of Bariatric Surgery:?07/02/[address] Hastings Type of Bariatric Surgery:??Laparoscopic ??Sleeve Gastrectomy ?? Weight History:?? Date Weight (lbs) HT BMI Comments ??02/06/21 273.7#? Highest Weight 02/22/20 265# ? Initial program weight 02/06/21 273.7# 64 47.0 1st pre-op visit 03/18/21 267.2# ? 2nd pre-op visit (reported) 04/25/21 281.8# ?? 48.4 3rd pre-op visit ? EWL % ?? Surgery?? 07/23/21?248# 20%?? 42.5?? 1 month post-op ??11/04/21 210#?? 50%?? 36.0?? 4 months post-op 07/17/22 176# 76% 30.2 1 yr post-op [place] Body Weight (based on BMI of 25):??146# 30-70% Excess Weight Loss:??184-235#; 50% Excess Weight Loss:??210# ?? Vitamin/Mineral Supplements (reported by patient): Supplement Type Brand/Form Dosage/Amount Frequency Comments Multivitamin Women's 1/day 1 daily Advised pt to increase to 2/day Calcium ?None Advised pt to start calcium citrate chews (1 chew, twice daily) Vitamin B12 ? None?? Advised pt to start??500 mcg B12 daily Iron ? None ?? Vitamin D3 ?2000 IU Daily ?? Biotin 10,000 mcg Daily Advised pt to hold prior to labs Food Allergies/Intolerances:?None ?? Tracking Intake:??MFP- 80-120g CHO, usu below 60g protein, 1,200 calories/day ?? Daily Oral Intake: equate protein drink, Premier protein Breakfast 3 coffees w/ hazelnut creamer AM Snack Lunch Caffeine free diet Coke, trail mix bag (1/4 c) PM Snack Dinner Beef stew (1 c) HS Snack Caffeine free diet Coke, kettle corn popcorn (11/02 microwave bag) Protein/ grams per day: 20g Hydrating fluids- oz/ day: 16 oz water Soda: 2 cans caffeine free diet coke ETOH: none Caffeine: 3 cups coffee w/ hazelnut creamer, occ splenda Sweets: Can tolerate small amounts Meals per day: 3 ? Feels full/satisfied after eating:??yes ?? Feels hungry []?never ?[x]?sometimes ?[]?most of the time ?[]? always ?? Drinks with meals:??no ?? Practices portion control:??yes ?? Spends at least 20 minutes eating each meal: n/a ?? Has had dumping syndrome: none ?? In the past month, pt has vomited/regurgitated: none ?? Constipation/Diarrhea:??daily BM ?? Exercise:??Pt reports she is walking her dogs in the morning, would like to do more exercise. Reminded pt of importance of staying hydrated when exercising. ASSESSMENT: Summary of Weight Loss: Natalia Damico returns for routine follow-up at 1 year s/p surgery. Her excess weight loss is at 76%. Pt is tolerating the diet but is not meeting protein or fluid goals. We discussed the importance of meeting protein goals, eating protein at all meals and snacks, and eating protein first. Advised pt to use protein drink as creamer in coffee and to increase protein intake at lunch. Advised pt to aim for 48-64 oz hydrating fluids/day. Pt plans to try Propel packets in her water. Reviewed supplements, advised pt to take supplements as listed above. NUTRITION INTERVENTION & MONITORING: ?? Provided support/encouragement and reinforced importance of meeting nutritional goals. ?? Aim for 60-80g of protein/day- eat protein at all meals and snacks, eat protein first ?? Use protein drink in coffee, have protein at lunch ?? Aim for 48-64 oz hydrating fluid/day ?? Reviewed vitamin and mineral supplement recommendations. Multivitamins with minerals twice daily- needs to be an under 50 multivitamin that contains iron. Vitamin B12 500 mcg by mouth once daily Calcium citrate 500-600 mg with Vitamin D 400 units twice daily (2 pills twice a day) (or 1 chewable twice a day) Vitamin D 2000 IU daily ?? Evaluation by nurse practitioner today. ?? Handouts provided: Bariatric Toolkit (revised 2020) ? Refer to this booklet for high protein recipes and snack ideas RTC in 1 year for next BSP follow up visit, with labs. Call/rtc sooner prn with questions/concerns. * Jennifer Florez APRN - 07/17/2022 11:00 AM EDT [place] [address] Reason for visit: Bariatric Surgery follow up visit Subjective: Natalia Damico is s/p laparoscopic sleeve gastrectomy ??on 07/02/21?with Dr. Hastings, she presents today for annual BSP follow up. Overall tolerating foods/fluids. Protein intake is low. Typically, her fluids include caffeine free diet coke, coffee and about 16 oz water. Natalia is tracking her intake and continues to work toward 60 g protein/day. Pt reports no difficulty swallowing, epigastric pain, or bloating. No GERD. No N/V. BM are without problems. No bariatric related concerns/complaints today. Interim Health: Patient reports her health has been stable overall. No bariatric related surgeries,hospitalizations, or ED visits since the last visit. No kidney stones or atraumatic fractures. Current Supplements: Multi-vitamin with minerals/iron once daily (will increase to [address]), No Calcium citrate, No Vit B12, Vit D3 2,000 IU daily, Biotin 10,000 mcg daily. Pt follows with PCP/specialist for disease management and age specific screening. Pre-Bariatric Surgery Obesity related medical issues: ? Diabetes: Not a baseline issue.?? ? HTN: Not a baseline issue. ? GERD: Not a baseline issue.?? ? Hyperlipidemia: Not a baseline issue.?? ? CLAUDE: ??Not a baseline issue.?? ? Musculoskeletal issues: baseline issue, ??right foot pain, left knee pain, low back pain??(resolved since surgery). Neck pain, seeing chiro. ? Liver Disease: Not a baseline issue. ?? Patient Active Problem List Diagnosis Code ??? Back pain M54.9 ??? Attention deficit hyperactivity disorder (ADHD) F90.9 ??? Generalized anxiety disorder F41.1 ??? Sleep disorder G47.9 ??? Temporomandibular joint disorder M26.609 ??? Morbid obesity E66.01 Review of Systems Constitutional: energy level is significantly improved since weight loss, rare restless leg, no hair thinning/loss. Neuro: no c/o paresthesias, no changes in memory. CV: no c/o chest pain or palpitations. Pulm: denies SOB or cough. GI: as above. DIRECTOR CLINICAL APPLICATIONS: s/p endometrial ablation. Skin: Endorses edundant skin over arms, No current skin fold rashes. Health Habits: Tobacco: Quit prior to surgery. ETOH: 0-3 drinks per month.. NSAID use: None. Dietary history/ exericse/ activity level: See dietitian note from today's visit for complete dietary evaluation. Meds and Allergies reviewed. Complications summary: Early none Late - ? WT (lbs) BMI Height Highest wt Pre-op visits 02/06/21 273 46.9 5'4 273 lbs ?? 04/25/21 281 48.4 ? 05/30/21 265 45.6 ? Post-op WT (lbs) BMI ?? %EBW lost 07/23/21 247 42.3 ?? 20% 11/04/21 210?? 36.4 ?? 50%?? 07/17/22 176 30.2 76% ? Objective: BP 122/66 (BP Location (NBP): Right arm, Patient Position: Sitting, BP Cuff Sizes: Adult (25-34 cm)) Pulse 85 Resp 18 Ht 162.6 cm (5' 4.02) Wt 79.8 kg (176 lb) SpO2 100% BMI 30.20 kg/m?? Physical Exam General: Alert, pleasant, NAD, appears well. Abdomen: Soft, non-distended, non-tender. Resp: No increased work of breathing. Speaking in full sentences. No cough/wheeze witnessed. Skin: No excess skin noted over abdomen. Skin is warm and dry. No rash noted on exam today. Psychiatric: Normal mood and affect. Appropriate eye contact. Recent Results (from the past 72 hour(s)) PTH Result Value Ref Range PTH 50 15 - 65 pg/mL Vitamin B12 Result Value Ref Range Vitamin B-12 534 232 - 1,245 pg/mL Vitamin D, 25-Hydroxy Result Value Ref Range 25-OH Vit D Total 56 21 - 100 ng/mL 25-OH Vit D Interp Sufficient Hemogram Result Value Ref Range WBC 5.5 4.0 - 9.5 x10(3)/mcL RBC 4.49 4.00 - 5.21 x10(6)/mcL Hemoglobin 13.6 11.7 - 15.5 g/dL Hematocrit 41.1 35.7 - 45.8 % MCV 91.5 82.6 - 94.4 fL MCH 30.3 27.1 - 32.0 pg MCHC 33.1 31.7 - 35.0 g/dL Platelets 270 145 - 357 x10(3)/mcL RDWSD 43.4 37.0 - 46.0 fL RDWCV 12.9 11.5 - 14.1 % MPV 10.9 7.6 - 12.9 fL nRBC % Auto 0.0 % nRBC Abs Auto 0.000 0.000 - 0.000 x10(3)/mcL Folate, serum Result Value Ref Range Folate Lvl 15.5 4.8 - 24.2 ng/mL Ferritin Result Value Ref Range Ferritin 76 30 - 400 ng/mL Comprehensive metabolic panel (non-fasting) Result Value Ref Range Glucose Lvl 90 65 - 199 mg/dL BUN 11 8 - 18 mg/dL Creatinine 0.71 0.70 - 1.20 mg/dL Sodium 139 135 - 145 mmol/L Potassium 4.0 3.5 - 5.0 mmol/L Chloride 102 98 - 107 mmol/L CO2 28 22 - 31 mmol/L Anion Gap 9 5 - 15 mmol/L Calcium 9.4 8.5 - 10.5 mg/dL Total Protein 7.4 6.1 - 8.0 g/dL Albumin 4.7 3.2 - 5.2 g/dL AST 10 0 - 30 unit/L ALT 11 0 - 30 unit/L Alk Phos 85 35 - 105 unit/L Total Bilirubin 0.5 0.2 - 1.3 mg/dL Estimated GFR 103 >=60 mL/min/1.73 m?? Assessment 51 y.o. female who is 1 year s/p sleeve gastrectomy with 76% of excess body weight lost. Plan: ??? S/p bariatric surgery: o Doing well from a bariatric surgery perspective, overall pleased with surgical outcome. Discusseddietary considerations and strategies for continued success . o Reviewed importance of meeting nutritional/protein/fluid requirements, tracking food and food choices, pairing carbs with protein, being careful to avoid eating too fast, eating too much, drinking with meals, or not chewing well enough. o Encouraged more protein intake, especially earlier in the day. ??? Discussed the risk of soda intake re: bone health. Encouraged alternatives. ??? Discussed risks associated with alcohol intake after bariatric surgery (increased risk of alcohol misuse/abuse, increased risk of ulcers, empty calorie). o Patient has met with buffing turner and counter today, please see note for additional details/dietary evaluation. ??? Obesity related co-morbidities: o Improved/stable overall, patient to continue to follow with PCP/specialist. ?? Constipation: Discussed importance of fiber, fluids and activity. Consider fiber supplement. Discussed forms/administration. ??? Risk for vitamin deficiencies: o Reviewed lab results as above. o Reviewed recommended vitamin/mineral supplements- See RD note for additional details. - Start calcium citrate (600 mg twice daily) - Increase Multivitamin to 2/day. - Start B12 at 500 mcg daily. ?? Pt reminded that a bone mineral density scan (DEXA) is recommended every 2 years after bariatricsurgery. RTC in 1 year for next BSP follow up visit, with labs. Call/rtc sooner prn with questions/concerns or unexplained abdominal pain, prolonged nausea, vomiting or inability to hydrate. Bariatric Program Summary report is availabe for patient's review via e-DH I spent a total of 30 minutes [...] If labwork is done by the primary career technology teacher: please send a copy to the Bariatric Surgery Program, General Surgery Clinic, [facility], or fax [phone] documented in this encounter Plan of Treatment Not on file documented as of this encounter Visit Diagnoses Diagnosis S/P bariatric surgery Bariatric surgery status Disorder of iron metabolism Other disorders of iron metabolism documented in this encounter Care Teams Magazine Designer Relationship Specialty Start Date End Date Rob Smith DNP PCP - General Family Medicine 11/15/19 documented as of this encounter
--- OUTSIDE RECORDS SUMMARY | 2024-06-30 16:52 | XMS_ITS | Clinical Summary ---
Author Organization [facility] Address [facility] [place] [address] Care Team Providers Care Game Moderator Name Role Phone Rob Smith DNP Primary Care Provider Allergies No known active allergies Medications Medication Sig Dispensed Refills Start Date End Date Status Sodium Fluoride 1.1 % Paste BRUSH DIRECTED ONCE DAILY 02/14/2021 Active escitalopram (Lexapro) 20 mg Tablet Take 20 mg by mouth daily. Active biotin 300 mcg Tablet Take 2,500 mcg by mouth daily. Active collagen, bovine, 100 % Powder Apply topically daily. Active ursodioL (Actigall) 300 mg Capsule Take 1 capsule by mouth 2 times daily. 180 tablet 3 07/04/2021 Active Additional Information Patient not taking.Reported on 11/04/2021 acetaminophen (Tylenol) 650 mg/20.3 mL Solution Take 20.3 mLs by mouth every 6 hours as needed (for Pain). 07/04/2021 Active nystatin (Mycostatin) 100,000 unit/mL Suspension Take 5 mLs by mouth 4 times daily. 60 mL 07/10/2021 Active Additional Information Patient not taking.Reported on 11/04/2021 Vyvanse 40 mg Capsule Take 40 mg by mouth daily. 10/08/2021 Active cholecalciferol, Vitamin D3, 25 mcg (1,000 unit) Capsule Take by mouth. Active guanFACINE (Tenex) 1 mg Tablet Take 1 mg by mouth nightly. 04/08/2022 Active Active Problems Problem Noted Date Diagnosed Date Morbid obesity 02/12/2021 Attention deficit hyperactivity disorder (ADHD) 11/13/2019 Generalized anxiety disorder 11/13/2019 Sleep disorder 11/13/2019 Temporomandibular joint disorder 11/13/2019 Back pain 06/29/2013 Family History Medical History Relation Comments Lung Cancer Father metastasized thr ough-out body Cancer Maternal Grandmother gallbladder Breast Cancer Paternal Aunt EDWARD mutation Uterine Cancer Paternal Aunt may have been ov pradeep Relation Status Comments Father Maternal Grandmother Paternal [...] Pulse 85 07/17/2022 10:51 AM EDT Temperature 36.4 ??C (97.5 ??F) 11/04/2021 10:[address] Respiratory Rate 18 07/17/2022 10:51 AM EDT Oxygen Saturation 100% 07/17/2022 10:51 AM EDT Inhaled Oxygen Concentration - - Weight 79.8 kg (176 lb) 07/17/2022 10:51 AM EDT Height 162.6 cm (5' 4.02) 07/17/2022 10:51 AM E DT Body Mass Index 30.2 07/17/2022 10:51 AM EDT Plan of Treatment Health Maintenance Due Date Last Done Comments CT Colonography 1970 Colonoscopy 1970 Colorectal Cancer Screening 1970 FIT DNA 1970 FIT 1970 Sigmoidoscopy (10 year) with FIT yearly 1970 Sigmoidoscopy 1970 Pneumococcal Vaccine: At-Ris k 5-64yrs (1 of 2 - PCV) 1976 HIV screen 1988 Hepatitis C Screening 1988 Lipid Screening 1988 Hepatitis B vaccine (0-59 yrs) (1) 1989 Tdap adult 1989 Tetanus vaccine 1989 HPV test 2000 PAP Smear 2000 Breast Cancer Share Decision Needed 2010 Breast Cancer screening 2010 Zoster vaccine (1 of 2) 2020 Covid-19 Vaccine (1 - 2022-24 season) 2023 Influenza (Flu) vaccine (1 o f 1 - Influenza standard series) 07/02/2024 Diabetes Screening (HgbA1C o r Glucose) 07/17/2025 07/17/2022, 11/04/2021, 07/03/2021 Procedures Procedure Name Priority Date/Time Associated Diagnosis Comments COMPREHENSIVE METABOLIC PANEL Routine 07/17/2022 10:14 AM EDT S/P bariatric surgery Disorder of iron metabolism from Last 3 Months or Most Recently Relevant to Health Maintenance Results * Comprehensive metabolic panel (non-fasting) (07/17/2022 10:14 AM EDT) Glucose 90 65 - 199 mg/dL [facility] Comment:Diabetes: >=200 mg/d L plus symptoms Blood Urea Nitrogen 11 8 - 18 mg/dL [facility] Creatinine 0.71 0.70 - 1.20 mg/dL [facility] Sodium 139 135 - 145 mmol/L [facility] Potassium 4.0 3.5 - 5.0 mmol/L [facility] Comment: Please note: ??Patients with WBC >100,000 may have falsely elevated Potassium levels. ??For accurate Potassium quantification in these patients send serum separator tube (gold top) for subsequent determinations. ??Contact the Clinical Chemistry Laboratory if there are any questions. Chloride 102 98 - 107 mmol/L [facility] Carbon Dioxide 28 22 - 31 mmol/L [facility] Anion Gap 9 5 - 15 mmol/L [facility] Calcium 9.4 8.5 - 10.5 mg/dL [facility] Protein, Total 7.4 6.1 - 8.0 g/dL [facility] Albumin 4.7 3.2 - 5.2 g/dL [facility] Aspartate Aminotransferase 10 0 - 30 unit/L [facility] Alanine Aminotransferase 11 0 - 30 unit/L [facility] Alkaline Phosphatase 85 35 - 105 unit/L [facility] Bilirubin, Total 0.5 0.2 - 1.3 mg/dL [facility] Est Glomerular Filtration Rate 103 >=60 mL/min/1. 73 m?? [facility] Comment: This patient's estimated [...] Agency Comment Spec In Lab Jennifer Florez TRUSS DESIGNER CHEMISTRY ORDERABL ES [facility] [place] [address] from Last 3 Months or Most Recently Relevant to Health Maintenance Advance Directives * Attempt Cardiopulmonary Resuscitation - Inpatient (Latest Code Status on File) Date Activated Date Inactivated Comments 07/02/2021 6:15 PM 07/04/2021 5:31 PM Question Answer Comments Code Status decision made by: Patient * Attempt Cardiopulmonary Resuscitation - Inpatient Date Activated Date Inactivated Comments 07/02/2021 6:47 AM 07/02/2021 3:39 PM Question Answer Comments Code Status decision made by: Patient * Attempt Cardiopulmonary Resuscitation - Inpatient Date Activated Date Inactivated Comments 07/02/2021 6:46 AM 07/02/2021 6:47 AM Question Answer Comments Code Status decision made by: Patient Care Teams Game Moderator Relationship Specialty Start Date End Date Rob Smith DNP PCP - General Family Medicine 11/15/19
--- OUTSIDE RECORDS SUMMARY | 2024-06-30 16:53 | XMS_ITS | Encounter Summary ---
Author Organization [facility] [place] [address] Care Team Providers Care Instructor Warper Name Role Phone Rob Smith LALITA Primary Care Provider Reason for Visit * Reason Comments Follow-up Encounter Details Date Type Department Care Team (Late st Contact Info) Description 04/25/2021 8:00 AM EDT Office [place] [address] Jennifer Florez, COMPUTER REPAIR INSTRUCTOR [facility] [place] [address] Ifrah Mccartney, [facility] [place] [address] Pre-op evaluation; Morbid obesity; Weight gain Social History Tobacco Use Types Packs/Day Years [...] 36.4 ??C (97.6 ??F) 04/25/2021 7:52 AM ED T Respiratory Rate 16 04/25/2021 7:52 AM EDT Oxygen Saturation 100% 04/25/2021 7:52 AM EDT Inhaled Oxygen Concentration - - Weight 127.9 kg (281 lb 14.4 oz) 04/25/2021 7:52 AM EDT Height 162.6 cm (5' 4.02) 04/25/2021 7:52 AM ED T Body Mass Index 48.36 04/25/2021 7:52 AM EDT documented in this encounter Progress Notes * Ifrah Mccartney RD - 04/25/2021 8:00 AM EDT Bariatric Surgery Program Pre-op Nutrition Assessment - Second Visit Natalia Damico is being seen today for follow-up evaluation in anticipation for bariatric surgery. Initial visit was on 02/06/21 and 03/18/21. SUBJECTIVE: Changes made in preparation since last visit: feels when she quit smoking she started snacking more. States she was only smoking here and there but started to have candy or other snacks when she wanted to have a cigarette. She has been drinking more water, eating more vegetables and lean meats, andcutting fat/taking skin off her meat. Reports she followed up with Ruma Martinez RD - we talk allthe time during which she talked about increasing her exercise. Walking the dogs (has an iwatch- tracking steps, plans to link up her steps we a friend), . Last visit was 3 weeks ago. States she didnot have any cake or ice cream at her granddtr's birthday green party earlier this week. Social history: Currently [...] and squash. Recently cut back on snacking. [place] she was snacking toomuch and snacking on the wrong things- peanuts Snacking 2- 3 x day. Reports in the past she would have protein shakes (Premier or Muscle milk) for breakfast, sometimes cream of wheat made with milk/water. Lunches sometimes salads. Dinner- protein and fresh vegetables. Breakfast bagel Snack Lunch Khmer sandwich: made on a roll w salami, hard salami and ham, cheese, onions. Handful of Sun Chips Snack Supper Meatball subs - 5 meatballs sauce onions Snacks None. Fluids: water, 2-3 cups coffee with half and half or milk. Has cut back on soda. This week no soda.Regular Gatorade (was at a friend's and that's [...] 1 month post-op ? 4 months post-op [place] Body Weight (based on BMI of 25): [...] limit intake of salami. She recently (for thepast week) cut out soda. She is walking w her family and dogs regularly. PLAN: After discussion with team, provided modified version of preop diet for pt to follow (1200 calories, 80-100 g carb, 60+ g protein) to promote weight loss toward starting weight. Will reach out to pt's RD (Ruma Martinez) to gain further insight into pt's dietary changes. F/u in 2 weeks via telemedicine. Pt has contact information for further questions. * Jennifer Florez APRN - 04/25/2021 8:00 AM EDT [facility] Bariatric Surgery Candidacy Evaluation Reason for consultation: Natalia is a 50 y.o. year-old female referred by Rob Smith APRN forconsultation for consideration of surgical treatment of obesity. Her preferred procedure: Gastric sleeve (not interested in rerouting of bypass). Prior bariatric surgery evaluations: None. BARIATRIC SURGERY PROGRAM PATHWAY Review of progress with the requirements of the Bariatric Surgery Program: 1. Education: She [x] has [] Has not attended a Introduction to the [facility] Bariatric Surgery Programseminar, a comprehensive two hour meeting that provides a program overview, education on bariatric surgeries offered at [facility], risks and benefits, as well as patient expectations and follow up. [facility] Bariatric Surgery Program Educational seminars viewed 2. Pre-operative programmatic evaluations: complete. 3. Bariatric Surgery Program evaluations with RD complete. 4. Program start weight: 07/05/20 266.8 lbs WT at visit #1: 273 lbs. Wt & BMI By Encounter Date Office Visit from 04/25/2021 in General Surgery at [facility] Office Visit from 02/06/2021 in General Surgery at [facility] Weight 127.9 kg (281 lb 14.4 oz) [...] follow up Visit, initial NPW on 02/06/21. Patient was working on: smoking cessation and weight gain. [...] is having phone calls with her RD (Ruma), practicing portion control, eating more vegetables and lean meats. Has continued to cut back on soda (last soda intake was last week). 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 She has had failure to sustain weight loss by medical management and meets the criteria proposed bythe NIH Consensus Guidelines for surgical treatment of severe obesity and the AACE, TOS, ASMBS Clinical Practice Guidelines for the Perioperative Nutritional, Metabolic and Non-surgical Support of the Bariatric Surgery Patient 2013 Update. She is aware that there are non-surgical methods to achieveweight loss. This patient was seen in conjunction with Dr. Hastings as part of a shared visit- please see his note for further medical decision making. After review of her medical record, history and physical exam the following concerns were identified which will require follow up before scheduling bariatric surgery: ?? Weight gain: gain of approximately 8 lbs since last BSP visit. ?? Reviewed no weight gain policy. ?? Offered referral to [facility], patient declines. ?? Recommended pre-operative diet, printed copy given/reviewed. Follow up plan: 2 week telehealth visit (during preop diet), 1 month clinic visit follow up (with weight check). She was encouraged to call with any questions or concerns. This patient was seen in conjunction with Dr. Hastings as part of a shared visit- please see their notefor further information regarding medical decision making. Pending: [...] gain documented in this encounter Care Teams Instructor Warper Relationship Specialty Start Date End Date Rob Smith DNP PCP - General Family Medicine 11/15/19 documented as of this encounter
--- OUTSIDE RECORDS SUMMARY | 2024-06-30 16:53 | XMS_ITS | Encounter Summary ---
Author Organization [facility] [place] [address] Care Team Providers Care Accounting System Expert Name Role Phone Rob Smith DNP Primary Care Provider Encounter Details Date Type Department Care Team (Late st Contact Info) Description 03/18/2021 8:30 AM EDT TH Visit (TeleHealth) [place] [address] Jennifer Florez APRN [facility] [place] [address] [facility] [place] [address] Cigarette nicotine dependence with nicotine-induced disorder; Pre-op examination; Obesity, unspecified classification, unspecified obesity type, unspecified whether serious comorbidity present Social History Tobacco Use Types Packs/Day Years Used Date Smoking Tobacco: Former Smokeless Tobacco: Never Comments:pt quit 3 yrs ago Sex and Gender Information Value Date Recorded Sex Assigned at Not on file Gender Identity Not on file Sexual Orientation Not on file documented as of this encounter Progress Notes * Ifrah Mccartney RD - 03/18/2021 8:30 AM EDT Images from the original note were not included. Bariatric Surgery Program Pre-op Nutrition Assessment - Second Visit Call made with Jennifer Florez APRN BARIATRIC SURGERY VIRTUAL NOTE At the time of the visit pt was at home in [place]. Natalia Damico is being seen today for follow-up evaluation in anticipation for bariatric surgery. Initial visit was on 02/06/21. Insurance changed since her NPW (no longer has MVP which requires 5% weight loss). Telemedicine visit scheduled to touch base on process going forward. SUBJECTIVE: Reports losing 8# on her own. Recently unemployed but looking for work. New insurance is [place] Medicaid. Changes made in preparation since last [...] 1 month post-op ? 4 months post-op [place] Body Weight (based on BMI of 25): 146# 30-70% Excess Weight Loss: 184-235#; 50% Excess Weight Loss: 210# ASSESSMENT: Pt continues to make positive changes in preparation for bariatric surgery. Encouraged her to continue w healthy eating pattern. Encouraged her to continue to work toward not drinking soda as it is not recommended after surgery. Suggested limiting high fat meats such as salami. Discussed no weight gain policy, starting weight of 265#. PLAN: Tobacco cessation. Plan outlined by Jennifer Floerz APRN. Continue weight loss and nutrition counseling with Ruma Martinez RD. Pt has contact information for further questions. * Jennifer Florez APRN - 03/18/2021 8:30 AM EDTSummarioy: Pre-op follow up Images from [place] [address] BARIATRIC SURGERY VIRTUAL NOTE 1. Reason/purpose for phone call: PRE OP - follow up visit 2. The patient voiced an understanding of the reason and intent of the televisit and provided verbal consent to discuss clinical issues by telehealth. Additionally, [...] abdominal pain, nausea/vomiting. No diarrhea. No constipation. 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 Health Habits: Tobacco: was [...] Morbid obesity with obesity-related subclinical risk factors includingborderline hypertension, mild physical symptoms including dyspnea on moderate exertion, occasional aches and pains, fatigue, mild psychopathology, mild functional limitations/ mild impairment of wellbeing. She has had failure to sustain weight loss by medical management and meets the criteria proposed bythe NIH Consensus Guidelines for surgical treatment of severe obesity and the AACE, TOS, ASMBS Clinical Practice Guidelines for the Perioperative Nutritional, Metabolic and Non-surgical Support of the Bariatric Surgery Patient 2013 Update. She is aware that there are non-surgical methods to achieveweight loss. Patient's visit today is to discuss plan to move forward toward surgery. ?? Weight: Patient no longer has an insurance plan that requires weight loss. Reviewed no weight gain policy. Encouraged continued follow up with outside candy cutter hand. See RD note for details. ?? Smoking cessation: discussed the need for complete abstinence from nicotine prior to surgery. Most recent smoking 03/10/21. After being abstinent from smoking for 1 month (04/10/21 at the soonest) she will have her nicotine and metabolites blood test drawn. She can be scheduled to follow up in clinic with Dr. Hastings and myself after the lab results are available (if negative). If positive will be need hold/repeat test before being scheduled. ?? Patient will have preop labs drawn (standard preop labs + TSH for [place] medicaid) when she presentsfor nicotine screening. H pylori also ordered. Patient [...] e- 30 minutes spent with patient in [id number] discussion including review of diagnosis, labs, counseling/education [...] If labwork is done by the primary director of medicare: please send a copy to the Bariatric Surgery Program, General Surgery Clinic, [facility], or fax [phone] documented in this encounter Plan of Treatment Not on file documented as of this encounter Visit Diagnoses Diagnosis Cigarette nicotine dependence with nicotine-induced disorder Unspecified drug-induced mental disorder Pre-op examination Preoperative examination, unspecified Obesity, unspecified classification, unspecified obesity type, unspecified whether serious comorbidity present documented in this encounter Care Teams Accounting System Expert Relationship Specialty Start Date End Date Rob Smith DNP PCP - General Family Medicine 11/15/19 documented as of this encounter
--- OUTSIDE RECORDS SUMMARY | 2024-06-30 16:53 | XMS_ITS | Encounter Summary ---
Author Organization [facility] [place] [address] Care Team Providers Care Health Communications Specialist Name Role Phone Rob Smith LALITA Primary Care Provider [phone] Encounter Details Date Type Department Care Team (Late st Contact Info) Description 04/25/2021 9:15 AM EDT Office Visit [place] [address] Corrie Hastings MD [facility] [place] [address] Morbid obesity Social History Tobacco Use Types Packs/Day Years Used Date Smoking Tobacco: Former Smokeless Tobacco: Never Comments:pt quit 3 yrs ago Sex and Gender Information Value Date Recorded Sex Assigned at Not on file Gender Identity Not on file Sexual Orientation Not on file documented as of this encounter Progress Notes * Corrie Hastings MD - 04/25/2021 9:15 AM EDT Natalia Damico was seen again to schedule bariatric surgery and she has again gained weight. She was seen by both our dietitian and our LABOR CUSTODIAN whose notes also confirm her weight gain [...] obesity documented in this encounter Care Teams Health Communications Specialist Relationship Specialty Start Date End Date Rob Smith DNP PCP - General Family Medicine 11/15/19 documented as of this encounter
--- OUTSIDE RECORDS SUMMARY | 2024-06-30 16:53 | XMS_ITS | Encounter Summary ---
Author Organization [facility]ly [facility] [place] [address] Care Team Providers Care Cartridge Feeder Name Role Phone Rob Smith DNP Primary Care Provider Encounter Details Date Type Department Care Team (Late st Contact Info) Description 06/11/2021 8:30 AM EDT Office [place] [address] Jennifer Florez APRN [facility] [place] [address] Emili Mclaughlin, RANDI [facility] [place] [address] Encounter for pre-bariatric surgery counseling and education; Obesity, unspecified classification, unspecified obesity type, unspecified whether serious comorbidity present Social History Tobacco Use Types Packs/Day Years Used Date Smoking Tobacco: Former Smokeless Tobacco: Never Comments:pt quit 3 yrs ago Sex and Gender Information Value Date Recorded Sex Assigned at Not on file Gender Identity Not on file Sexual Orientation Not on file documented as of this encounter Patient Instructions * Patient Instructions* Jennifer Florez APRN - 06/11/2021 8:30 AM EDT [facility] BARIATRIC SUPPORT TEAM CONTACT NUMBERS (Mon-Fri 8am - 5pm): General Surgery and Bariatric Surgery [phone] Bariatric Surgeons: Doctors. Rand [phone] Location Manager: [phone] Dietitians: [phone] Outside of regular business hours, including weekends and holidays: Ask for General Surgery resident front edger [phone] BEFORE YOUR SURGERY: ??? Questions for your doctor, specialist or pharmacist: Ask your doctor about medication suggestions if you currently take medications that are larger than the size of a tylenol or calcium pill. Large pills need to be crushed (if permitted by the drug leather goods i assembler), taken in smaller size pills, ortaken in liquid form for TWO WEEKS after surgery. ??? If you take antinflammatory medications or steroid medications for arthritis or asthma, please check with your doctor. These medications will need to be held 1 week prior to and at least a few weeks after surgery. ??? Oral contraceptive pills, post menopausal hormones, and male hormones should be stopped 1 monthbefore and 1 month after surgery. ??? If [...] weeks at the General Surgery Outpatient Clinic (Customer Support Assistant 4L, [facility]). BATHING AND WOUND CARE: ?? You may [...] a calcium pill) must be crushed, Capsules mustbe opened onto applesauce or pudding. ?? Pills [...] exercises in your handbook on page 82. ?? Some patients will be discharged [...] may have been prescribed at discharge can decreaseyour breathing. ?? Follow up with the Sleep Center if pressure seems to be too high. ULCER PREVENTION: ?? IMPORTANT - you must take acid suppressing medication such as pantoprazole, nexium or omeprazolefor 3 MONTHS after surgery. This is taken to prevent ulcers at your surgical sites internally, evenif you do not have heartburn. ?? omeprazole [...] or similar medications such as pantoprazole, you mustpurchase these medications over the counter. ?? Decrease the medication to every other day when you have 7 days left in your prescription. Continue this after the initial 3 month course if you have heartburn or reflux ?? If you have Adan's esophagus, continue the medication intermediate frame tender GALLSTONE PREVENTION: ?? If you have had [...] make sure to read all instructions that comewith the medication. Take only as needed. ?? [...] more common in people with a personal orfamily history of addiction, it can occur in anyone. ?? Opioids are at risk of being diverted by anyone with access to your home. Opioids should be stored in a safe and secure place, such as a locked cabinet or safe. ?? Unused opioids should be disposed of appropriately. They may be returned to a take-back location, or mixed with a small amount of water and poured over an undesirable waste such as used coffee grounds or cat litter. ?? Opioid pain medications can cause significant constipation. You should use a stool softener suchas Miralax to address this. OTHER MEANS FOR [...] the painful area unless specifically discouraged by the surgical team. ?? Find ways to distract yourself [...] of control. Do not take control pills forthe first month after surgery. MANAGEMENT OF DIABETES MELLITUS AFTER BARIATRIC SURGERY: ?? IMPORTANT to check blood sugars four times a day, fasting blood sugars, 2 hours after meals and as needed when feeling unwell. ?? If the Diabetes Team saw you during your hospital stay, they have listed specific recommendations elsewhere in your discharge paperwork. Please refer to their specific diabetes care recommendations. ?? Patients on oral diabetic medication: If blood sugar is over 200 on more than 3 checks, call your primary care physician or diabetic specialist for recommendations. For patients on insulin and oral diabetic medications: If blood sugar is over 200 on 3 checks, call your primary care doctor or diabetic specialist for recommendations. ?? Follow up with primary care provider or beauty specialist in 1-2 weeks in order to adjust yourchanging diabetes treatment requirements. PATIENTS WITH HIGH BLOOD [...] discharge for instructions. In general, this medication is stopped after surgery, as you are at risk for dehydration after Bariatric Surgery. ?? Monitor yourself for any swelling of legs or gain of water weight after medication is stopped.Call your primary care doctor if you notice [...] to have non-food related ways to cope withstress. VITAMIN AND MINERAL SUPPLEMENTATION: START at 2 weeks post surgery Vitamin B12 500 mcg pill daily Complete multivitamin w/ minerals One pill twice daily. If a bariatric specific multivitamin, follow the package directions Calcium Calcium citrate 600 mg with vitamin D 400 units twice a day between meals. Iron with vitamin C Take iron as instructed per Handbook - (only if you have anemia, iron deficiency or regular menses) FOLLOW-UP CARE: ?? It is IMPORTANT to see your Primary Care Physician or PCP within 10-14 days after surgery for wound check and vital signs check, and to discuss specific medical management as referenced above. ?? You should follow up with your surgeon or bariatric nurse practitioner and dietitian at 3-4 weeks after surgery. ?? You will follow up with the dietitian and Bariatric nurse practitioner at 4, 12 months, then yearly for life. Vitamins and supplements are required for life. documented in this encounter Progress Notes * Jennifer Florez APRN - 06/11/2021 8:30 AM EDT BARIATRIC SURGERY PROGRAM [place], [place] [id number] Reason for visit: [facility] for up coming bariatric surgery Natalia attended a comprehensive group pre-operative class today, which included discussion of pre and post operative instructions included in the [facility] Bariatric Surgery Program Education Handbook. The nutrition [...] Pt previously attended a Introduction to the [facility] Bariatric Surgery Program seminar,a two hour meeting that provides a program overview as well as expectations. The [facility] Bariatric Surgery Program Educational seminar requirement has been met. The BSP Educational Handbook was providedat visit #1. 2. Pre-operative programmatic evaluations have been done, as noted in previous pathway review. 3. Bariatric Surgery Program evaluations with the surgeon and dietitian have taken place. Natalia has been approved to proceed with surgery by surgeon. 6. Surgical consultation has taken place Next steps in pathway: ?? During hospitalization for bariatric surgery, a standard bariatric surgery order set is followed. ?? Routine post-operative follow up with labwork is done at months 1,4,12 and 24, yearly thereafter, and PRN. High risk patients are followed more frequently. Some of the topics reviewed during group discussion today included: ?? day of surgery and post-op routine care/ locations: Admissions/SDP/PACU//3/2 [place] units ?? medications that increase the risk of bleeding including NSAIDs and anticoagulants to be avoidedper guidelines pre and post-operatively ?? DVT/VTE prevention [...] during pre-op diet and post-operatively. Diuretic therapy is held to avoid risk of dehydration unless patient [...] were answered. Time spent in counselin minutes * Emili Mclaughlin RD - 06/11/2021 8:30 AM EDT BARIATRIC SURGERY PROGRAM NUTRITION EDUCATION 2nd Pre-Operative Visit Shared Medical Appointment Natalia Damico attended a 2 hour shared medical appointment today with the bariatric surgery program dietitian and nurse practitioner. Ms. Damico is a female with morbid obesity who has been referred for nutrition evaluation and dietinstruction in anticipation of bariatric surgery. Previous conservative attempts at weight loss through dieting have been unsuccessful over the fci. Advised patient that bariatric surgery is a [...] Visit Diagnoses Diagnosis Encounter for pre-bariatric surgery counseling and education Obesity, unspecified classification, unspecified obesity type, unspecified whether serious comorbidity present documented in this encounter Care Teams Cartridge Feeder Relationship Specialty Start Date End Date Rob Smith DNP PCP - General Family Medicine 11/15/19 documented as of this encounter
--- OUTSIDE RECORDS SUMMARY | 2024-06-30 16:53 | XMS_ITS | Encounter Summary ---
Author Organization [facility] [place] [address] Care Team Providers Care Director Recreation Name Role Phone Rob Smith LALITA Primary Care Provider [phone] Encounter Details Date Type Department Care Team (Late st Contact Info) Description 07/10/2021 Telephone [place] [id number] Mary Werner, RN Social History Tobacco Use Types Packs/Day Years Used Date Smoking Tobacco: Former Smokeless Tobacco: Never Comments:pt quit 3 yrs ago Sex and Gender Information Value Date Recorded Sex Assigned at Not on file Gender Identity Not on file Sexual Orientation Not on file documented as of this encounter Miscellaneous Notes * Telephone Encounter - Mary Werner, RN - [...] this dull pain began last night while shewas eating strained cream of mushroom soup. She tried to eat again this morning and could barely get 2-3 tsp of cream of wheat down and [...] to swish and swallow 5 mL's by mouthQID, per Dr. Hastings. Teaching: The patient was instructed to use the Nystatin oral suspension as prescribed. She will nut picker the prescription today. Patient able to verbalize teaching plan: Yes. Worsening symptoms: Increased pain, nausea, vomiting, fever or chills. The patient was instructed to call the clinic with any worsening symptoms. Patient able to verbalize worsening symptom plan: Yes. Mary Werner, RN Resource in decision making: Dr. Hastings PCP: Rob Smith APRN documented in this encounter Plan of Treatment Not on file documented as of this encounter Visit Diagnoses Not on filedocumented in this encounter Care Teams Director Recreation Relationship Specialty Start Date End Date Rob Smith DNP PCP - General Family Medicine 11/15/19 documented as of this encounter
--- OUTSIDE RECORDS SUMMARY | 2024-06-30 16:53 | XMS_ITS | Encounter Summary ---
Author Organization [facility] [place] [address] Care Team Providers Care Advanced Solutions Architect Name Role Phone Rob Smith LALITA Primary Care Provider [phone] Encounter Details Date Type Department Care Team (Late st Contact Info) Description 04/16/2021 Notes Only [place] [address] Jennifer Florez APRN [facility] [place] [address] Social History Tobacco Use Types Packs/Day Years Used Date Smoking Tobacco: Former Smokeless Tobacco: Never Comments:pt quit 3 yrs ago Sex and Gender Information Value Date Recorded Sex Assigned at Not on file Gender Identity Not on file Sexual Orientation Not on file documented as of this encounter Progress Notes * Jennifer Florez APRN - 04/16/2021 12:54 PM EDT Labs received from outside facility: [facility] Drawn: 04/10/21 Nicotine and Metabolites: all negative. Iron studies: WNL Ferritin: - Folate: 15.7 WNL Vit D: 16 L Vit B 1: 122 WNL Vit B 12: 486 WNL Hemogram: WNL CMP: WNL PTH: 38 WNL HgA1C: 5.5 WNL Lipid Panel: see scanned documents documented in this encounter Plan of Treatment Not on file documented as of this encounter Visit Diagnoses Not on filedocumented in this encounter Care Teams Advanced Solutions Architect Relationship Specialty Start Date End Date Rob Smith DNP PCP - General Family Medicine 11/15/19 documented as of this encounter
--- OUTSIDE RECORDS SUMMARY | 2024-06-30 16:53 | XMS_ITS | Encounter Summary ---
Author Organization [facility] [place] [address] Care Team Providers Care Analytic Programmer Name Role Phone Rob Smith DNP Primary Care Provider [phone] Reason for Visit * Reason Comments Genetic Evaluation * Consultation (Routine) - Specialty Diagnoses / Procedures Referred By Contdaniella t Referred To Contact Hematology and Oncology Diagnoses Family history of malignant neoplasm of ovary Rob Smith, LALITA [address] [place] [address] [facility] Hem Onc Office [address] [place] [phone] Referral ID Status Reason Start Date Expiration Date V isits Requested Visits Authorized [id number] Consult, Test & Treat Connection [facility] PCP Updated and/or Approved 07/05/2020 01/02/2021 6 6 Encounter Details Date Type Department Care Team (Latest Contact Info) Description 11/11/2020 11:00 AM EST TH Visit (TeleHealth) Hematology [place] [address] Nuvia Nowak, [facility] HEMATOLOGY/[place] [address] Family history of breast cancer; Family history of gene mutation Social History Tobacco Use Types Packs/Day Years Used Date Smoking Tobacco: Every Day Smokeless Tobacco: Never Sex and Gender Information Value Date Recorded Sex Assigned at Not on file Gender Identity Not on file Sexual Orientation Not on file documented as of this encounter Progress Notes * Nuvia Nowak LGC - 11/11/2020 11:00 AM EST Natalia Damico was seen by SUSHIL Lyon in consultation at the request of Rob Smith to advise regarding possible heritable predisposition to cancer. Due to COVID-19 restrictions this was a phone consult. I spent 24 minutes of this telephone encounter with the patient gathering medical and family history and discussing the likelihood of a genetic predisposition [...] Age not known Maternal ethnic background is Romanian, Hiral. Paternal ethnic background is Romanian, Bengali. Is not sure if there is any Ashkenazi Mosque heritage. Genetic risk assessment Natalia reports that her aunt, who has had breast and a gynecologic(not sure if uterine or ovarian) cancer, was found to have a mutation in EDWARD. This aunt's daughter also has the EDWARD mutation. They have both elected to have bilateral mastectomy. She believes her aunt's testing was done several yearsago. She does not have a copy of the test report and does not know how many genes were analyzed forher aunt. We discussed that it would be helpful to have a copy of her aunt's report to verify the specific mutation found in the EDWARD gene and also to know whether her aunt was tested for other genes related togynecologic cancers. Mutations in EDWARD are associated with increased risk for breast cancer. Most EDWARD mutations have a risk of 17-33%. There is one specific mutation that is known to confer a higher risk for breast cancer, up to 60%. Mutations in EDWARD also increase the risk for pancreatic cancer, although exact risk is not known. It may also increase the risk for prostate cancer in men and ovarian cancer in women although this is not certain. It [...] may want their partner to be tested, inorder to find out if they are at risk of having a child with ataxia telangiectasia. Reproductive options are available to those interested in preventing passing this condition to their future children. A consultation with a genetic counselor may be useful for any relatives who may be concer faraz about reproductive risks. We discussed the Genetic Information Nondiscrimination Act (DALLAS), a federal law prohibiting discrimination by health insurance companies and employers based on genetic information. DALLAS does not apply to life insurance, disability insurance or long-term care insurance. Individuals will often obtain these insurances, if desired, prior to proceeding with genetic testing. More information about DALLAS may be found at www.GinaHelp.org. We reviewed various testing options for Natalia:: 1. Testing just the EDWARD gene. Ideally we would obtain a copy of the test report from either Natalia's aunt or cousin to confirm the mutation. Without this documentation, we can not be absolutely certain that we analyzed the correct gene and that we've ruled out the specific mutation running in the family. 2. [employer]'s Common Hereditary Cancers Panel: Analyzes 47 genes, including the EDWARD gene, associatedwith increased risk for breast, gynecologic and gastrointestinal cancers. While many of the genes on this panel have specific guidelines regarding screening and medical management, there are some forwhich less information is known and therefore specific guidelines are not available. If Natalia is not able to obtain her aunt's test report to verify that genes associated with an increased risk of ovarian and uterine cancer were included, she may want to do this broader panel to ensure that she doesn't have a mutation in one of these genes. 3. [employer]'s Multi-Cancer Panel: Analyzes 84 genes associated with increased risk for cancers in eight major organ systems including breast, gynecologic, gastrointestinal, endocrine, genitourinary, skin, brain/nervous system, sarcoma and hematologic. While many of the genes on this panel have specific guidelines regarding screening and medical management there are some for which less information is known and therefore specific guidelines are not available. The advantage of choosing a larger panel is that you learn more information about your potential risk for cancer. However the disadvantage is that there is a chance of an incidental finding of learning about an increased risk for a cancer that has not been seen in the family. In addition, you may learn about an increased risk for a cancer for which advice is not available regarding how to preventthe cancer or detect it early. These findings could lead to increased anxiety. It is also important to note that the more genes analyzed, the higher the chance of identifying a variant of uncertain significance (VUS). The VUS classification means that there is not enough clinical or research information to determine whether the change is associated with an increased risk of cancer or is a normal variation with no medical implications. For some individuals, finding uncertain results can lead to increased anxiety. At this time, Natalia does not feel ready to proceed with testing as she is concerned that a positive result will lead to anxiety without significantly changing her current medical management. . Natalia plans to consider the above options and will contact me if she decides to proceed with testing. Prior to testing it would be very helpful to have a copy of the report from the testing that hasbeen done for her aunt and/or her cousin. [...] them test positive this will indicate that Natalia also carries the mutation. Again, it would be [...] consider annual breast MRI exams. There is insufficient evidence to recommend bilateral mastectomy for all women with EDWARD mutations, but this can be considered on an individual basis. Ovarian cancer screening ?? We do not recommend any special screening studies in addition to an annual FOLDER AND NOTCHER exam at this time. Colon cancer screening ?? Periodic colonoscopy screening as recommended by Natalia's service employee. Skin cancer screening ?? Periodic skin exams We will readdress the issue of screening should Natalia opt to proceed with testing. documented in this encounter Plan of Treatment Not on file documented as of this encounter Visit Diagnoses Diagnosis Family history of breast cancer Family history of malignant neoplasm of breast Family history of gene mutation documented in this encounter Care Teams Analytic Programmer Relationship Specialty Start Date End Date Rob Smith DNP PCP - General Family Medicine 11/15/19 documented as of this encounter
--- OUTSIDE RECORDS SUMMARY | 2024-06-30 16:53 | XMS_ITS | Encounter Summary ---
Author Organization [facility] [place] [address] Care Team Providers Care Road Hogger Operator Name Role Phone Rob Smith DNP Primary Care Provider Encounter Details Date Type Department Care Team (Latest Contact Info) Description 09/25/2020 12:42 PM EST - 09/25/2020 11:59 PM EST Hospital [place] [phone] Discharge Disposition: Home Social History Tobacco Use Types Packs/Day Years Used Date Smoking Tobacco: Every Day Smokeless Tobacco: Never Sex and Gender Information Value Date Recorded Sex Assigned at Not on file Gender Identity Not on file Sexual Orientation Not on file documented as of this encounter Medications at Time of Discharge Medication Sig Dispensed Refills Start Date End Date ibuprofen (Advil;Motrin) 600 mg Tablet TAKE ONE TABLET BY MOUTH EVERY 6 HOURS NEEDED FOR PAIN AND INFLAMMATION 09/13/2020 03/18/2021 lamoTRIgine (LAMICTAL XR) 50 mg TR24 Take 50 mg by mouth daily. 02/06/2021 MULTIVIT WITH CALCIUM,IRON,MIN (MULTIPLE VITAMIN, WOMENS ORAL) Take 1 tablet by mouth daily. 02/06/2021 OXYcodone (OXYCONTIN) 10 mg CR tablet Take 10 mg by mouth 3 times daily. 02/06/2021 documented as of this encounter Plan of Treatment Not on file documented as of this encounter Procedures Procedure Name Priority Date/Time Associated Diagnosis Comments COVID-19 PCR Routine 09/25/2020 8:57 AM EST documented in this encounter Results * COVID-19 PCR (09/25/2020 8:57 AM EST) SARS-CoV-2 RNA Not Detected Not Detected [facility] Comment: This result should be interpreted in combination with the clinical observations, patient history and epidemiological information. For testing of asymptomatic individuals, assay performance characteristics and clinical utility have not been evaluated. Testing for SARS-CoV-2 (Severe acute respiratory syndrome coronavirus 2, formerly known as 2019 novel coronavirus or 2019-nCoV) to aid in the diagnosis of COVID-19 is performed using the Aptima SARS Co-V-2 Assay on the [employer] System ([employer].) as authorized by the FDA issued Emergency Use Authorization (EUA). This assay is intended for In-vitro Diagnostic (IVD) use with nasopharyngeal swabs collected from individuals meeting the CDC criteria for testing. The assay is performed based on the instructions for use and additional guidance provided by the FDA. Testing is performed in the Microbiology Laboratory within the Department of Pathology and Laboratory Medicine at [facility], certified under the Clinical Laboratory Improvement Amendments of 1988 (CLIA), 42 U.S.C. section 263a, to perform high-complexity tests. Assay performance has been verified according to clinical laboratory regulatory requirements. Test results are provided above. A result of Not Detected indicates that the viral RNA target is not present but does not preclude SARS-CoV-2 infection. False negative results may occur if a specimen is improperly collected, transported or handled; if amplification inhibitors are present; or if inadequate numbers of viral particles are present in the specimen. A result of Detected suggests a current or recent infection and the patient is presumed to be infected. Positive and negative predictive values for this test are highly dependent on disease prevalence. A result of Invalid indicates the inability to conclusively determine the presence or absence of SARS-CoV-2 RNA in the sample which can be due to a variety of factors. ??Collection of a new sample for repeat testing is recommended in the case of an invalid result. CDC COVID-19 criteria for testing on human specimens and clinical management guidance information are available at the CDC Coronavirus Disease 2019 (COVID-19) webpage under Information for Healthcare Professionals (https://www.cdc.gov/coronavirus/2019-ncov/hcp/index.html). SARS-CoV-2 RNA Source ECOLOGICAL ECONOMIST Swab [facility] Nasopharyngeal swab (specimen) Other / Unknown 09/25/2020 8:57 AM EST 09/26/2020 3:57 AM EST Narrative Resulting Agency Comment Spec In Lab Juan Flores MD MOLECULAR ORD ERABLES Performing Organization Address City/State/[facility] Co de Phone Number [facility] [place] [address] documented in this encounter Visit Diagnoses Not on filedocumented in this encounter Care Teams Road Hogger Operator Relationship Specialty Start Date End Date Rob Smith DNP PCP - General Family Medicine 11/15/19 documented as of this encounter
--- OUTSIDE RECORDS SUMMARY | 2024-06-30 16:53 | XMS_ITS | Encounter Summary ---
Author Organization [facility] [place] [address] Care Team Providers Care Compensation Vice President Name Role Phone Joaquin Celaya MD Primary Care Provider [phone] Encounter Details Date Type Department Care Team (Late st Contact Info) Description 07/02/2013 External Results XRay at [address] [place] [address] Provider, Scanning Social History Tobacco Use Types Packs/Day Years Used Date Smoking Tobacco: Every Day Smokeless Tobacco: Never Sex and Gender Information Value Date Recorded Sex Assigned at Not on file Gender Identity Not on file Sexual Orientation Not on file documented as of this encounter Plan of Treatment Not on file documented as of this encounter Procedures Procedure Name Priority Date/Time Associated Diagnosis Comments MRI/MRA SCAN Routine 08/23/2009 documented in this encounter Results * Scan Doc: MRI/MRA (08/23/2009) Anatomical Region Laterality Modality Other Scanning Provider MEDIA MGR SCAN EXT O RDR/RSLT documented in this encounter Visit Diagnoses Not on filedocumented in this encounter Care Teams Compensation Vice President Relationship Specialty Start Date End Date Joaquin Celaya MD PCP - General 06/29/13 02/19/19 documented as of this encounter
--- OUTSIDE RECORDS SUMMARY | 2024-06-30 16:53 | XMS_ITS | Encounter Summary ---
Author Organization [facility] [place] [address] Care Team Providers Care Automatic Developer Name Role Phone Joaquin Celaya MD Primary Care Provider [phone] Encounter Details Date Type Department Care Team (Late st Contact Info) Description 08/23/2009 Orders Only Functional [facility] at [facility] [address] [place] [address] Abundio Booth MD [facility] [place] [address] Social History Tobacco Use Types Packs/Day Years Used Date Smoking Tobacco: Never Assessed Sex and Gender Information Value Date Recorded Sex Assigned at Not on file Gender Identity Not on file Sexual Orientation Not on file documented as of this encounter Plan of Treatment Not on file documented as of this encounter Procedures Procedure Name Priority Date/Time Associated Diagnosis Comments FILM LIBRARY STORAGE ONLY MR SPINE Routine 08/23/2009 11:16 AM EDT documented in this encounter Results * Film Library- Storage only MR Spine (08/23/2009 11:16 AM EDT) 08/23/2009 11:1 6 AM EDT Narrative RAD - 06/27/2014 11:28 AM EDT This is a non-reportable exam. Procedure Note Nick Mosley - 06/27/2014 This is a non-reportable exam. Abundio Booth MD IMG FILM LIBRARY ORD ERABLES RAD [address] [facility] [place] [address] documented in this encounter Visit Diagnoses Not on filedocumented in this encounter Care Teams Automatic Developer Relationship Specialty Start Date End Date Joaquin Celaya MD PCP - General 06/29/13 02/19/19 documented as of this encounter
--- OUTSIDE RECORDS SUMMARY | 2024-06-30 16:53 | XMS_ITS | Encounter Summary ---
[place] [address] Care Team Providers Care Publications Editor Name Role Phone Rob Smith DNP Primary Care Provider [phone] Encounter Details Date Type Department Care Team (Late st Contact Info) Description 08/02/2020 2:00 PM EDT Notes [place] [phone] Social History Tobacco Use Types Packs/Day Years Used Date Smoking Tobacco: Every Day Smokeless Tobacco: Never Sex and Gender Information Value Date Recorded Sex Assigned at Not on file Gender Identity Not on file Sexual Orientation Not on file documented as of this encounter Progress Notes * Vashti Petit - 08/02/2020 2:00 PM EDTSummary: Bariatric Surgery Intro Session Patient attended the 08/02/2020 intro to bariatric surgery via. webex documented in this encounter Plan of Treatment Not on file documented as of this encounter Visit Diagnoses Not on filedocumented in this encounter Care Teams Publications Editor Relationship Specialty Start Date End Date Rob Smith DNP PCP - General Family Medicine 11/15/19 documented as of this encounter
--- OUTSIDE RECORDS SUMMARY | 2024-06-30 16:53 | XMS_ITS | Encounter Summary ---
Author Organization [facility] [place] [address] Care Team Providers Care Line Patrolman Name Role Phone Joaquin Celaya MD Primary Care Provider [phone] Encounter Details Date Type Department Care Team (Late st Contact Info) Description 09/07/2006 Orders Only Functional [facility] at [facility] [address] [place] [address] Abundio Booth MD [facility] [place] [address] Social History Tobacco Use Types Packs/Day Years [...] Associated Diagnosis Comments FILM LIBRARY STORAGE ONLY DX SPINE Routine 09/07/2006 11:16 AM EST documented in this encounter Results * Film Library- Storage only DX Spine (09/07/2006 11:16 AM EST) 09/07/2006 11:1 6 AM EST Narrative RAD - 06/27/2014 11:28 AM EDT This is a non-reportable exam. Procedure Note Nick Mosley - 06/27/2014 This is a non-reportable exam. Abundio Booth MD IMG FILM LIBRARY ORD ERABLES RAD [address] [facility] [place] [address] documented in this encounter Visit Diagnoses Not on filedocumented in this encounter Care Teams Line Patrolman Relationship Specialty Start Date End Date Joaquin Celaya MD PCP - General 06/29/13 02/19/19 documented as of this encounter
--- OUTSIDE RECORDS SUMMARY | 2024-06-30 16:53 | XMS_ITS | Encounter Summary ---
[facility] [place] [address] Care Team Providers Care Mechanical Product Engineer Name Role Phone Rob Smith [facility] Primary Care Provider [phone] Reason for Visit * Auth/Cert Specialty Diagnoses / Procedures Referred By Contdaniella t Referred To Contact Diagnoses MORBID OBESITY Procedures PRO LAPAROSCOPY, SURG/GASTRIC RESTRICTIVE PROC, LONGITUDINAL GASTRECTOMY @LAPAROSCOPY, SURG/GASTRIC RESTRICTIVE PROC, LONGITUDINAL GASTRECTOMY (WRVU 20.38) Referral ID Status Reason Start Date Expiration Date Visits Re quested Visits Authorized [id number] 1 1 Encounter Details Date Type Department Care Team (Latest Contact Info) Description 07/02/2021 6:09 AM EDT - 07/04/2021 2:30 PM EDT Hospital Encounter [address] [place] [address] Corrie Chopra MD [facility] [place] [address] Discharge Disposition: Home Social History Tobacco Use [...] 36.8 ??C (98.2 ??F) 07/04/2021 11:45 AM E DT Respiratory Rate 18 07/04/2021 11:45 AM EDT Oxygen Saturation 97% 07/04/2021 11:45 AM EDT Inhaled Oxygen Concentration - - Weight 118.6 kg (261 lb 8 oz) 07/02/2021 6:25 AM EDT Height 162.6 cm (5' 4.02) 07/02/2021 6:25 AM ED T Body Mass Index 44.86 07/02/2021 6:25 AM EDT documented in this encounter Discharge Summaries * Trey Mora MD - 07/04/2021 2:30 PM [...] [facility] Arrive at: [facility] L[facility] Area 11/04/2021 10:[address]; Jennifer Florez APRN General Surgery at [facility] Arrive at: Manager L[facility] Area Instructions Given to Patient at Discharge: Patient Instructions BARIATRIC SURGERY DISCHARGE INFORMATION BARIATRIC SUPPORT TEAM CONTACT NUMBERS (Mon-Fri 8am - 5pm): General Surgery and Bariatric Surgery [phone] Bariatric Surgeons: Drs. Rand [phone] Internet Assessor: [phone] Dietitians: [phone] Outside of regular business hours, including weekends and holidays: Ask for General Surgery resident orchestra conductor [phone] Please note, this call will be answered by a resident, and they may not be Able to return your call for many hours FOR EMERGENCIES: CALL 911 (trouble breathing, chest pain, rapid heart rate >120 beats per minuteor severe abdominal pain) CALL THE BARIATRIC TEAM [...] weeks at the General Surgery Outpatient Clinic ([facility], [facility]). Future [...] out of the vehicle, you may drive when comfortable. DIET: ?? Follow Stage II diet for [...] in your handbook on page 82. ?? You do not meet scoring [...] mustpurchase these medications over the counter. ?? You [...] insurance will not pay for it, you maybe eligible for assistance to pay for this with [employer]. Go to www.[employer] and put in the prescription and the [...] Follow up with primary care provider or access specialist in 1-2 weeks in order to [...] [facility] Arrive at: Manager L[facility] Area 11/04/2021 10:[address]; Jennifer Florez APRN General Surgery at [facility] Arrive at: Manager Lvn Area 4L [phone] Signed: Trey Mora MD 07/04/2021 Primary [place] Physician: BRENNA G[address] DR [address] / [facility] [id number] documented in this encounter Discharge Instructions * Patient Instructions* Anselmo Deshpande MD - 07/03/2021 7:16 AM EDT BARIATRIC SURGERY DISCHARGE INFORMATION BARIATRIC SUPPORT TEAM CONTACT NUMBERS (Mon-Fri 8am - 5pm): General Surgery and Bariatric Surgery [phone] Bariatric Surgeons: Drs. Estevez and Venkata [phone] Internet Assessor: [phone] Dietitians: [phone] Outside of regular business hours, including weekends and holidays: Ask for General Surgery resident orchestra conductor [phone] Please note, this call will be answered by a resident, and they may not be Able to return your call for many hours FOR EMERGENCIES: CALL 911 (trouble breathing, chest pain, rapid heart rate >120 beats per minuteor severe abdominal pain) CALL THE BARIATRIC TEAM [...] weeks at the General Surgery Outpatient Clinic ([facility], [facility]). Future [...] out of the vehicle, you may drive when comfortable. DIET: ?? Follow Stage II diet for [...] in your handbook on page 82. ?? You do not meet scoring [...] mustpurchase these medications over the counter. ?? You [...] insurance will not pay for it, you maybe eligible for assistance to pay for this with [employer]. Go to www[employer] and put in the prescription and the [...] Follow up with primary care provider or access specialist in 1-2 weeks in order to [...] Sig Dispensed Refills Start Date End Date ursodioL (Actigall) 300 mg Capsule Take 1 capsule by mouth 2 times daily. 180 tablet 3 07/04/2021 acetaminophen (Tylenol) 650 mg/20.3 mL Solution Take 20.3 mLs by mouth every 6 hours as needed (for Pain). 07/04/2021 biotin 300 mcg Tablet Take 2,500 mcg by mouth daily. collagen, bovine, 100 % Powder Apply topically daily. Sodium Fluoride 1.1 % Paste BRUSH DIRECTED ONCE DAILY 02/14/2021 escitalopram (Lexapro) 20 mg Tablet Take 20 mg by mouth daily. enoxaparin (Lovenox) 40 mg/0.4 mL Syringe Inject 0.4 mLs subcutaneously 2 times daily for 10 days. 8 mL 07/04/2021 07/14/2021 omeprazole (PriLOSEC) 40 mg Capsule, Delayed Release(E.C.) Take 1 capsule by mouth daily for 360 days. 90 capsule 3 07/04/2021 06/29/2022 ondansetron ODT (Zofran-ODT) 4 mg Tablet, Rapid Dissolve Take 1 tablet by mouth every 8 hours as needed for Nausea. 20 tablet 07/04/2021 07/23/2021 oxyCODONE (Roxicodone) 5 mg/5 mL Solution Take 5 mLs by mouth every 6 hours as needed for Pain. 60 mL 07/04/2021 07/23/2021 documented as of this encounter Progress Notes * Ifrah Castillo RN - 07/04/2021 3:00 PM EDT NURSING DISCHARGE NOTE Discharge orders received. PIV x1 removed. Belongings gathered. Bariatric surgery discharge instructions reviewed with pt and understanding verbalized. Lovenox teaching completed in am, pt able to demonstrate correct administration. Pt to p/u multiple Rx upon d/c. Pt brought [facility] to [facility] for ride home with her . * Anselmo Deshpande MD - 07/04/2021 8:41 AM EDT General Surgery Inpatient Progress Note ID: Natalia Jatin Damico is a 50 y.o. female with a history of Morbid Obesity (Body mass index is 44.86kg/m??.) who was admitted 07/02/2021 for weight loss [...] Deshpande MD General Surgery MIS Fellow [c] [phone] [p] [phone] 07/04/2021, 8:41 AM * Monet Mckeon RN - 07/04/2021 3:57 AM [...] factors per assessment: [current deficits]: Pain, tethering lines/drains, generalized weakness Assistance [level of assistance required for transfers and ambulation]: independent Supervision [direct monitoring required during toileting and ADLs]: Hands off Surveillance [continuous indirect monitoring]: Masimo, purposeful rounding, call bourgeois in reach Patient-specific fall prevention interventions for sensory deficits provided, if applicable: [X] Yes, lighting adjusted, non-skid socks CPG GOAL OUTCOME EVALUATION: Ongoing * Trey Mora MD - 07/03/2021 7:02 AM EDT Surgery Inpatient Progress Note ID: Natalia Damico is a 50 y.o. female, now 1 Day Post-Op s/p Laparoscopic sleeve gastrectomy forObesity. S/IE: - No acute events overnight - [...] with attending this morning - Please call/page [phone] with any questions. Trey Mora MD 07/03/2021 7:02 AM * Tex Gomes RN - 07/02/2021 5:07 PM [...] mL. Pt reports no urge to void. * Tex Gomes RN - 07/02/2021 3:40 PM EDT Natalia arrived to the unit around 1530. VSS on RA. A+Ox4, but lethargic and requiring constant stimulation to stay awake. Pt resting, reporting 4/10 pain present only with deep breaths. No nausea. Nonumbness or tingling. Oriented to room. Call bourgeois within reach. documented in this encounter H&P Notes * Anselmo Deshpande MD - 07/02/2021 6:46 AM EDT [facility] Surgery Interval History and Physical [...] Deshpande MD General Surgery MIS Fellow [c] [phone] [p] [phone] 07/02/2021, 6:47 AM documented in this encounter Nursing Notes * Adi Dillon RN - 07/02/2021 9:48 AM EDT 0948- Pt awake and alert, reports increased nausea. Pt medicated with phenergan per DEC. Pt maintaining her own airway on room air. NAD. VSS. 1435- Pt complaining of abdominal soreness. Pt medicated with hydromophone per DEC. Patient had small sips of water. Denies nausea at this time. VSS. documented in this encounter Miscellaneous Notes * Plan of Care - Beckie Hamlin RN - 07/03/2021 7:31 PM EDT OUTCOME EVALUATION NOTE: OUTCOME SUMMARY: Natalia had an okay day. VSS on RA. A&Ox4. Pt intermittently nauseous with few small emesis. Gave PRN compazine & phenergan, and scheduled zofran with good effect. Pt could not tolerate oral tylenol due to nausea. Pt had only sips of water this shift. Voiding adequate amount in the BR. No BMthis shift. Pt ambulated at the hallway independently. [...] monitoring]: Purposeful hourly rounding, Masimo, call bourgeois withinreach Patient-specific fall prevention interventions for sensory deficits provided, if applicable: [X] Yes, lighting adjusted for tasks/safety, non-skid socks, environmental modifications CPG GOAL OUTCOME EVALUATION: ongoing * Initial Assessments - Rayshawn Paredes RN - 07/03/2021 3:43 PM EDT Office of Care Management Initial Assessment Rayshawn Paredes RN reviewed record and discussed patient with Care Team. Source of Information: Team, bedside nurse, medical record, and Chart Review Reason for Hospitalization: Lap sleeve gastrectomy Last COVID test: Lab Results Component Value Date COVID19 Not Detected 09/25/2020 [id number] Not Detected 07/02/2021 Past medical History: No past medical history on file. Hospitalizations Within the Past 30 Days: no previous admission in last 30 days Current Decision-Making Capacity: Self Advance Care Planning: Attempt Cardiopulmonary Resuscitation - Inpatient <no information> -Advanced Directive: No, declines If AD's have not been completed Alexei Damico would be surrogate decision maker per [place] surrogate decision making law. (Only good for 180 days) Any patient receiving care at [facility] must abide by [place] law. The hierarchy for surrogate decision making [...] (i) The agent with financial power of attorney at law or a conservator appointed in accordance with RSA 464-A. (j) The guardian of the patient???s estate. Current Coping/Education/Information Needs: n/a Current Functional Ability: Assistive Person Functional Status Prior to Admission: Independent Home Environment: Others in the home: spouse. Current Living Arrangements: home/apartment/condo Current DME: none Home Address [address] [place] [id number] Social & Family Supports: Extended Emergency Contact [...] Insurance: N/A Prescription Coverage: Yes Preferred Pharmacy: [place], [place] - [address] [place] [address] [address] [facility] [address] [facility] [address] Status: Patient is a : No Primary Care Provider: Rob Smith, BRENNA [phone] Patient/Caregiver Goals of Treatment: Return home Potential [...] with transition of care planning. Rayshawn Paredes RN Case Manager Pgr: [phone] * Plan of Care - Lidia Romano RN - 07/03/2021 4:23 AM EDT OUTCOME SUMMARY: Natalia had a good night. Pt slept well in between care. AAOx4. VSS on RA. Pt intermittently nauseas, PRN compazine given x1. Pt could not tolerate [...] skid socks CPG GOAL OUTCOME EVALUATION: Ongoing * Op Note - Corrie Chopra MD - 07/02/2021 8:11 AM EDT [facility] Operative Note Patient Name: Natalia Damico : [id number] MR#: [id number] Case Date: 07/02/2021 Surgeon: Surgeon(s) and Role: [...] our Bariatric Program and it was felt that she was best suited with a sleeve gastrectomy. [...] cavity; and the antrum was divided. A 38-Nepali bougie was placed by Anesthesia and hugged against the lesser curve. Multiple firings of the stapler with a re- enforced 60 mm purple load to hug against the bougie were used [...] Procedure Name Priority Date/Time Associated Diagnosis Comments HEMOGRAM Routine 07/03/2021 6:29 AM EDT DIFFERENTIAL, AUTOMATED Routine 07/03/2021 6:29 AM EDT HC VENIPUNCTURE Routine 07/03/2021 6:29 AM EDT HC PHOSPHORUS, SERUM Routine 07/03/2021 6:29 AM EDT HC MAGNESIUM, SERUM Routine 07/03/2021 6 :29 AM EDT BASIC METABOLIC PANEL Routine 07/03/2021 6:29 AM EDT SPECIMEN TO PATHOLOGY Routine 07/02/2021 9:02 AM EDT SURGICAL PATHOLOGY REPORT Routine 07/02/2021 9:01 AM EDT RAPID COVID-19 PCR ([facility]/APD/NL) Routine 07/02/2021 8:05 AM EDT Laparoscopy, Surg/Gastric Restrictive Proc, Longitudinal Gastrectomy ([id number]) 07/02/2021 7:38 AM EDT MORBID OBESITY documented in this encounter Results * (ABNORMAL) Differential, Automated (07/03/2021 6:29 AM EDT) Neutrophil % 77.0 % [facility] Neutrophil Absolute 6.59(H) 1.70 - 6.10 x10(3)/mc L [facility] Lymph % 17.3 % [facility] Lymphocytes Abs 1.5 0.9 - 3.2 x10(3)/mc L [facility] Monocyte % 5.4 % [facility] Monocyte Abs 0.5 0.3 - 0.9 x10(3)/[facility] Eos % 0.0 % [facility] Eosinophils Abs 0.0 0.0 - 0.4 x10(3)/[facility] Basophil % 0.1 % [facility] Baso Absolute 0.0 0.0 - 0.1 x10(3)/[facility] Immature Gran % 0.20 % [facility] Comment: Immature granulocytes(IG's)percentage and absolute count will include metamyelocytes, myelocytes, and promyelocytes. Blood smears from CBCs yielding IG's will be scanned manually for concordance. If this scan disagrees with the automated IG or if promyelocytes are noted, a manual differential will be performed. Immature Gran Absolute 0.02 0.00 - 0.04 x10(3)/[facility] Blood 07/03/2021 6:29 AM EDT 07/03/2021 6:54 AM EDT Narrative Resulting Agency Comment Spec In Lab Anselmo Deshpande MD HEMATOLOGY ORDERABLE S [facility] [place] [address] * (ABNORMAL) Hemogram (07/03/2021 6:29 AM EDT) White Blood Cell 8.6 4.0 - 9.5 x10(3)/[facility] Red Blood Cell 3.95(L) 4.00 - 5.21 x10(6)/[facility] Hemoglobin 11.7 11.7 - 15.5 gm/dL [facility] Hematocrit 35.9 35.7 - 45.8 % [facility] Mean Cell Volume 90.9 82.6 - 94.4 fL [facility] Mean Cell Hemoglobin 29.6 27.1 - 32.0 pg [facility] Mean Cell Hemoglobin Concentration 32.6 31.7 - 35.0 gm/dL [facility] Platelet 253 145 - 357 x10(3)/mc L [facility] RDW Standard Deviation 44.9 37.0 - 46.0 fL [facility] RDW coefficient of variation 13.4 11.5 - 14.1 % [facility] Mean Platelet Volume 11.7 7.6 - 12.9 fL [facility] NRBC% auto 0.0 % [facility] NRBC Absolute 0.000 0.000 - 0.000 x10(3)/mc L [facility] Blood 07/03/2021 6:29 AM EDT 07/03/2021 6:54 AM EDT Narrative Resulting Agency Comment Spec In Lab Anselmo Deshpande MD HEMATOLOGY ORDERABLE S Performing Organization Address City/[facility]/ZIP Co de Phone Number [facility] [place] [address] * (ABNORMAL) Phosphorus (07/03/2021 6:29 AM EDT) Phosphorus 2.3(L) 2.5 - 4.5 mg/dL [facility] Blood 07/03/2021 6:29 AM EDT 07/03/2021 6:54 AM EDT Narrative Resulting Agency Comment Spec In Lab Anselmo Deshpande MD CHEMISTRY ORDERABLES Performing Organization Address City/[facility]/ZIP Co de Phone Number [facility] [place] [address] * Magnesium (07/03/2021 6:29 AM EDT) Magnesium 0.78 0.69 - 1.07 mmol/L [facility] Blood 07/03/2021 6:29 AM EDT 07/03/2021 6:54 AM EDT Narrative Resulting Agency Comment Spec In Lab Anselmo Deshpande MD CHEMISTRY ORDERABLES [facility] [place] [address] * (ABNORMAL) Basic Metabolic Panel (non-fasting) (07/03/2021 6:29 AM EDT) Glucose 118 65 - 199 mg/dL [facility] Comment:Diabetes: >=200 mg/d L plus symptoms Blood Urea Nitrogen 8 8 - 18 mg/dL [facility] Creatinine 0.50(L) 0.70 - 1.20 mg/dL [facility] Sodium 137 135 - 145 mmol/L [facility] Potassium 3.9 3.5 - 5.0 mmol/L [facility] Comment: Please note: ??Patients with WBC >100,000 may have falsely elevated Potassium levels. ??For accurate Potassium quantification in these patients send serum separator tube (gold top) for subsequent determinations. ??Contact the Clinical Chemistry Laboratory if there are any questions. Chloride 105 98 - 107 mmol/L [facility] Carbon Dioxide 23 22 - 31 mmol/L [facility] Anion Gap 9 5 - 15 mmol/L [facility] Calcium 8.3(L) 8.5 - 10.5 mg/dL [facility] Est Glomerular Filtration Rate 113 >=60 mL/min/1. 73 m?? [facility] Comment: This patient? s estimated glomerular filtration rate (eGFR) is between 113 mL/min/1.73 m2 (patients with less muscle mass) and 131 mL/min/1.73 m2 (patients with [...] and symptoms in addition to eGFR. Blood 07/03/2021 6:29 AM EDT 07/03/2021 6:54 AM EDT Narrative Resulting Agency Comment Spec In Lab Anselmo Deshpande MD CHEMISTRY ORDERABLES Performing Organization Address [facility]/ZIP Co de Phone Number [facility] [place] [address] * Specimen to Pathology (07/02/2021 9:02 AM EDT) AP Specimen 07/02/2021 9:02 AM EDT 07/02/2021 9:02 AM EDT Narrative [facility] - 07/02/2021 9:02 AM EDT Specimen requisition ordered. ??Separate Pathology report to follow Corrie Chopra MD PATHOLOGY/CYTOLOGY O RDERABLES Performing Organization Address [facility] Co de Phone Number [facility] [place] [address] * Surgical Pathology Report (07/02/2021 9:01 AM EDT) Final Diagnosis [id number] ? Location: [facility]; [facility]; The signing pathologist has (i) examined the relevant preparation(s) for the specimen(s) and (ii) rendered or confirmed the diagnosis(es). . ?Surgical Pathology DIAGNOSIS Portion of stomach, excision: Segment of stomach lined by unremarkable fundic gland mucosa. Electronically signed by: ?Kayla Wilkins MD Verified: ??07/13/2021 0:50 ?? Pathologist Performed at: ??-[facility] Dept. of Pathology, [place], [place] SPECIMEN(S) SUBMITTED A - Portion of Stomach, excision (1) CLINICAL INFORMATION Morbid obesity SPECIMEN PROCESSING A - Labeled/Fixative : Portion of stomach, fresh. Quantity/Size: ??Single, 21.5 x 4.0 x 1.5 cm. Tissue Description: Longitudinal, wedge resection of stomach. ??The serosa is pink, smooth and glistening. ??The mucosa is red with the usual rugal folds. Sections/Process ing: Professor Of Education sections in 1 cassettes as follows: ?A1: ??jewelry sales representative of mucosa ??sns 07/13/2021 12:50 AM EDT [facility] STOMACH STRUCTURE / Unknown 07/02/2021 9:01 AM EDT 07/02/2021 9:01 AM EDT Corrie Chopra MD PATHOLOGY/CYTOLOGY Tonya JOHNS [facility] [place] [address] * COVID-19 PCR (07/02/2021 8:05 AM EDT) SARS-CoV-2 RNA (Rapid) Not Detected Not Detected [facility] Comment: This result should be interpreted in combination with the clinical observations, patient history and epidemiological information. For testing of asymptomatic individuals, assay performance characteristics and clinical utility have not been evaluated. Testing for SARS-CoV-2 (Severe acute respiratory syndrome coronavirus 2, formerly known as 2019 novel coronavirus or 2019-nCoV) to aid in the diagnosis of COVID-19 is performed using the Simplexa COVID-19 Direct Assay by [employer] as authorized by the FDA issued Emergency [...] Department of Pathology and Laboratory Medicine at [facility], certified under the Clinical Laboratory Improvement Amendments [...] be due to a variety of factors. Recollection is recommended in the case of an invalid result. CDC COVID-19 criteria for testing on human specimens and clinical management guidance information are available at the CDC Coronavirus Disease 2019 (COVID-19) webpage under Information for Healthcare Professionals (https://www.cdc.gov/coronavirus/2019-ncov/hcp/index.html). Additional information about this and other EUA tests can be found in provider and patient fact sheets at the following FDA website: https://www.fda.gov/medical-devices/yococmtbree-eddawvs-7018-kfdkc-82-bdfroouzf- use-a smfmufwtzazut-nhzuapb-galpnaq/jjyfv-abkbxutsbwy-ztdg SARS-CoV-2 Source RESIDENT ADVISOR Swab [facility] Nasopharyngeal Swab 07/02/20 8:05 AM EDT 07/02/2021 9:08 AM EDT Comment:Symptoms->Surveillan ce Narrative Resulting Agency Comment Spec In Lab Anselmo Deshpande MD MICROBIOLOGY - GENER AL ORDERABLES [facility] [place] [address] documented in this encounter Visit Diagnoses Diagnosis Morbid obesity documented in this encounter Admitting Diagnoses Diagnosis Morbid obesity documented in this encounter Administered Medications Inactive Administered Medications - up to 3 most recent administrations Medication Order MAR Action Action Date Dose Rate Site acetaminophen (Ofirmev) (1000 mg/100 mL) infusion 1,000 mg 1,000 mg, Intravenous, at 400 mL/hr, Administer over 15 Minutes, EVERY 8 HOURS SCHEDULED, 3 doses, First dose on Wed07/04/21 at 0130, Last dose on Wed07/04/21 at 1800, Maximum dose of acetaminophen is 4000 mg from all sources in 24 hours. When ordered for pain, acetaminophen should be given even when other ordered pain medications are indicated. , Routine, Is ketorolac (Toradol) IV contraindicated? Yes, Can this patient tolerate oral medications or suppositories? No Given 07/04/2021 10:25 AM EDT 1,000 mg 400 mL/hr Given 07/04/2021 2:03 AM EDT 1,000 mg 400 mL/hr acetaminophen (Tylenol) tablet 1,000 mg 1,000 mg, Oral, ONCE, 1 dose, On Wed07/02/21 at 0715, Maximum dose of acetaminophen is 4000 mg from all sources in 24 hours. When ordered for pain, acetaminophen should be given even when other ordered pain medications are indicated. , Day of Surgery (Day of Procedure), Routine Given 07/02/2021 6:55 AM EDT 1,000 mg celecoxib (CeleBREX) capsule 200 mg 200 mg, Oral, 2 TIMES DAILY, First dose on Bridgett 07/03/21 at 0900, Until Discontinued, Administer starting post-op day one. Open capsule and administer all at once., Routine Given 07/04/2021 10:16 AM EDT 200 mg Given 07/03/2021 10:00 PM EDT 200 mg Given 07/03/2021 9:11 AM EDT 200 mg celecoxib (CeleBREX) capsule 400 mg 400 mg, Oral, ONCE, 1 dose, On Wed07/02/21 at 0715, Day of Surgery (Day of Procedure), Routine Given 07/02/2021 6:55 AM EDT 400 mg enoxaparin (Lovenox) (40 mg/0.4 mL) subcutaneous injection 40 mg 40 mg, Subcutaneous, ONCE, 1 dose, On Wed07/02/21 at 0715, To be given in preop area, Day of Surgery (Day of Procedure), Routine Given 07/02/2021 6:58 AM EDT 4 0 mg enoxaparin (Lovenox) (40 mg/0.4 mL) subcutaneous injection 40 mg 40 mg, Subcutaneous, EVERY 12 HOURS SCHEDULED (2 times per day), First dose (after last modification) on Wed07/02/21 at 2100, Until Discontinued, Routine Given 07/04/2021 10:18 AM EDT 40 mg Given 07/03/2021 8:29 PM EDT 40 mg Given 07/03/2021 9:11 AM EDT 40 mg HYDROmorphone (Dilaudid) (2 mg/mL) injection solution 0.4 mg 0.4 mg, Intravenous, EVERY 2 HOURS PRN, Starting on Wed07/02/21 at 1428, Until Wed07/04/21 at 1726, Pain, Moderate-Severe pain 4-10, Routine Given 07/03/2021 2:56 AM EDT 0.4 mg Given 07/02/2021 9:12 PM EDT 0.4 mg Given 07/02/2021 5:01 PM EDT 0.4 mg lactated ringers infusion 1,000 mL, at 100 mL/hr, Intravenous, CONTINUOUS, Starting on Wed07/02/21 at 0715, Until Wed07/02/21 at 1539, Day of Surgery (Day of Procedure) New Bag 07/02/2021 7:12 AM EDT 1,000 mLs 100 mL/hr lactated ringers infusion 1,000 mL, at 125 mL/hr, Intravenous, CONTINUOUS, Starting on Wed07/02/21 at 1230, Until Wed07/03/21 at 1335 New Bag 07/03/2021 5:11 AM EDT 1,000 mLs 125 mL /hr New Bag 07/02/2021 9:21 PM EDT 1,000 mLs 125 mL/hr New Bag 07/02/2021 12:44 PM EDT 1,000 mLs 125 mL/hr ondansetron (pf) (Zofran) (2 mg/mL) injection 4 mg 4 mg, Intravenous, EVERY 8 HOURS SCHEDULED, First dose on Wed07/02/21 at 1600, Until Discontinued, For nausea please use ondansetron as the first choice; prochlorperazine as a second choice; promethazine as a third choice. Call provider if not effective. Given 07/04/2021 10:47 AM EDT 4 mg Given 07/04/2021 1:30 AM EDT 4 mg Given 07/03/2021 6:33 PM EDT 4 mg pantoprazole (Protonix) injection 40 mg 40 mg, Intravenous, DAILY, First dose on Wed07/02/21 at 1600, Until Discontinued, Reconstitute with 10 mL of normal saline to a concentration of 4 mg/mL and infuse slowly over 2 minutes. , Routine Given 07/04/2021 10:12 AM EDT 40 mg Given 07/03/2021 9:11 AM EDT 40 mg Given 07/02/2021 5:00 PM EDT 40 mg prochlorperazine (Compazine) (5 mg/mL) injection 10 mg 10 mg, Intravenous, EVERY 6 HOURS PRN, Starting on Wed07/02/21 at 1142, Until Wed07/04/21 at 1726, Nausea, Vomiting, For nausea please use ondansetron as the first choice; prochlorperazine as a second choice; promethazine as a third choice. Call provider if not effective., Routine Given 07/03/2021 8:19 PM EDT 10 mg Given 07/03/2021 7:43 AM EDT 10 mg Given 07/03/2021 12:05 AM EDT 10 mg promethazine (Phenergan) (25 mg/mL) injection 6.25 mg 6.25 mg, Intravenous, EVERY 4 HOURS PRN, Nausea, Starting on Wed07/02/21 at 1539, Until Wed07/04/21 at 1726, For nausea please use ondansetron as the first choice; prochlorperazine as a second choice; promethazine as a third choice. Call provider if not effective. Given 07/03/2021 1:50 PM EDT 6.25 mg promethazine (Phenergan) (25 mg/mL) injection 6.25 mg 6.25 mg, Intravenous, EVERY 30 MIN PRN, Nausea, Starting on Wed07/02/21 at 0933, 2 doses, Until Wed07/02/21 at 1539, Maximum total dose of 12.5 mg (including [...] second and if ineffective use promethazine., PACU Recovery Given 07/02/2021 9:48 AM EDT 6.25 mg scopolamine (Transderm Scop) 1 mg over 3 days patch 1 patch 1 patch, Transdermal, ONCE, 1 dose, On Wed07/02/21 at 0715, Remove post-operatively if patient requires straight catheterization x 2, Day of Surgery (Day of Procedure), Routine Patch Applied 07/02/2021 6:55 AM EDT 1 patch 01- Ear Behind (Left) sodium chloride 0.9 % (flush) (BD PosiFlush Normal Saline 0.9) flush 5 mL 5 mL, Intravenous, 2 TIMES DAILY, First dose on Wed07/02/21 at 2100, Until Discontinued, Recovery (Recovery-Hospital Unit), Routine Given 07/04/2021 10:22 AM EDT 10 mLs Given 07/03/2021 8:33 PM EDT 5 mLs Given 07/03/2021 9:11 AM EDT 5 mLs sodium chloride 0.9% infusion 125 mL/hr, Intravenous, CONTINUOUS, Starting on Bridgett 07/03/21 at 1430, Until Wed07/04/21 at 1726 New Bag 07/04/2021 5:42 AM EDT 125 mL/hr 125 mL/hr New Bag 07/03/2021 10:13 PM EDT 125 mL/hr 125 mL/hr New Bag 07/03/2021 1:58 PM EDT 125 mL/hr 125 mL/hr sodium phosphate 15 mMol in sodium chloride 0.9% 150 mL infusion 15 mmol, Intravenous, ONCE, 1 dose, On Bridgett 07/03/21 at 1200, Administer over 4 Hours, Administer over 4-6 hours New Bag 07/03/2021 1:07 PM EDT 15 mmol 37.5 mL/hr documented in this encounter Active and Recently Administered Medications Times are shown in EDT. Scheduled Medication Order 07/02/2021 07/03/2021 07/04/2021 acetaminophen (Ofirmev) (1000 mg/100 mL) infusion 1,000 mg 1,000 mg, Intravenous, at 400 mL/hr, Administer over 15 Minutes, EVERY 8 HOURS SCHEDULED, 3 doses, First dose on Wed07/04/21 at 0130, Last dose on Wed07/04/21 at 1800, Maximum dose of acetaminophen is 4000 mg from all sources in 24 hours. When ordered for pain, acetaminophen should be given even when other ordered pain medications are indicated. , Routine, Is ketorolac (Toradol) IV contraindicated? Yes, Can this patient tolerate oral medications or suppositories? No 0203 (Given - Provider: Jeannie Oneal, BRENDA)1025 (Given - Provider: Ifrah Castillo, BRENDA) acetaminophen (Tylenol) tablet 1,000 mg (COMPLETED) 1,000 mg, Oral, ONCE, 1 dose, On Wed07/02/21 at 0715, Maximum dose of acetaminophen is 4000 mg from all sources in 24 hours. When ordered for pain, acetaminophen should be given even when other ordered pain medications are indicated. , Day of Surgery (Day of Procedure), Routine 06 (Given - Provider: Deonna Boucher RN) ceFAZolin (Ancef) 3 g in dextrose 5% 109 mL infusion (COMPLETED) 3 g, Intravenous, ONCE, 1 dose, On Wed07/02/21 at 0715, Administer over 30 Minutes, Day of Surgery (Day of Procedure), Indication for (Active or Suspected): Prophylaxis 0752 (Given - Provider: Abel Chandra CRNA) celecoxib (CeleBREX) capsule 200 mg 200 mg, Oral, 2 TIMES DAILY, First dose on Bridgett 07/03/21 at 0900, Until Discontinued, Administer starting post-op day one. Open capsule and administer all at once., Routine 910 (Given - Provider: Beckie Hamlin, BRENDA)2199 (Given - Provider: Monet Mckeon RN) 1016 (Given - Provider: Ifrah Castillo, BRENDA) celecoxib (CeleBREX) capsule 400 mg (COMPLETED) 400 mg, Oral, ONCE, 1 dose, On Wed07/02/21 at 0715, Day of Surgery (Day of Procedure), Routine 654 (Given - Provider: Deonna Boucher RN) enoxaparin (Lovenox) (40 mg/0.4 mL) subcutaneous injection 40 mg (COMPLETED) 40 mg, Subcutaneous, ONCE, 1 dose, On Wed07/02/21 at 0715, To be given in preop area, Day of Surgery (Day of Procedure), Routine 657 (Given - Provider: Deonna Boucher RN) enoxaparin (Lovenox) (40 mg/0.4 mL) subcutaneous injection 40 mg 40 mg, Subcutaneous, EVERY 12 HOURS SCHEDULED (2 times per day), First dose (after last modification) on Wed07/02/21 at 2100, Until Discontinued, Routine 2110 (Given - Provider: Lidia Romano, RN) 0911 (Given - Provider: Beckie Hamlin, RN)202 (Given - Provider: Monet Mckeon, BRENDA) 1018 (Given - Provider: Ifrah Castillo, RN) ondansetron (pf) (Zofran) (2 mg/mL) injection 4 mg 4 mg, Intravenous, EVERY 8 HOURS SCHEDULED, First dose on Wed07/02/21 at 1600, Until Discontinued, For nausea please use ondansetron as the first choice; prochlorperazine as a second choice; promethazine as a third choice. Call provider if not effective. 1740 (Given - Provider: Dayanara Griffin RN) 0256 (Given - Provider: Lidia Romano RN)0911 (Given - Provider: Beckie Hamlin, BRENDA)1833 (Given - Provider: Beckie Hamlin, BRENDA) 0130 (Given - Provider: Monet Mckeon RN)1000 (Not Given - Provider: Ifrah Castillo RN - Reason: Patient/family refused)1047 (Given - Provider: Ifrah Castillo RN) pantoprazole (Protonix) injection 40 mg 40 mg, Intravenous, DAILY, First dose on Wed07/02/21 at 1600, Until Discontinued, Reconstitute with 10 mL of normal saline to a concentration of 4 mg/mL and infuse slowly over 2 minutes. , Routine 1700 (Given - Provider: Tex Gomes RN) 0911 (Given - Provider: Beckie Hamlin, BRENDA) 1012 (Given - Provider: Ifrah Castillo RN) scopolamine (Transderm Scop) 1 mg over 3 days patch 1 patch (COMPLETED)(Linked Group 1) 1 patch, Transdermal, ONCE, 1 dose, On Wed07/02/21 at 0715, Remove post-operatively if patient requires straight catheterization x 2, Day of Surgery (Day of Procedure), Routine 0655 (Patch Applied - Provider: Deonna Boucher RN) sodium chloride 0.9 % (flush) (BD PosiFlush Normal Saline 0.9) flush 5 mL 5 mL, Intravenous, 2 TIMES DAILY, First dose on Wed07/02/21 at 2100, Until Discontinued, Recovery (Recovery-Hospital Unit), Routine 2110 (Given - Provider: Lidia Romano, RN) 09 (Given - Provider: Beckie Hamlin, RN)2032 (Given - Provider: Monet Mckeon, BRENDA) 1022 (Given - Provider: Ifrah Castillo, RN) sodium phosphate 15 mMol in sodium chloride 0.9% 150 mL infusion (COMPLETED) 15 mmol, Intravenous, ONCE, 1 dose, On Bridgett 07/03/21 at 1200, Administer over 4 Hours, Administer over 4-6 hours 1307 (New Bag - Provider: Beckie Hamlin, RN)1707 (Stopped - Provider: Beckie Hamlin, RN) Continuous Medication Order 07/02/2021 07/03/2021 07/04/2021 lactated ringers infusion (CANCELED) 1,000 mL, at 100 mL/hr, Intravenous, CONTINUOUS, Starting on Wed07/02/21 at 0715, Until Wed07/02/21 at 1539, Day of Surgery (Day of Procedure) 0712 (New Bag - Provider: Deonna Boucher RN) lactated ringers infusion (CANCELED) 1,000 mL, at 125 mL/hr, Intravenous, CONTINUOUS, Starting on Wed07/02/21 at 1230, Until Bridgett 07/03/21 at 1335 1244 (New Bag - Provider: Adi Dillon, BRENDA)2120 (New Bag - Provider: Lidia Romano, BRENDA) 0511 (New Bag - Provider: Lidia Romano, BRENDA) sodium chloride 0.9% infusion 125 mL/hr, Intravenous, CONTINUOUS, Starting on Bridgett 07/03/21 at 1430, Until Wed07/04/21 at 1726 1358 (New Bag - Provider: Beckie Hamlin, BRENDA)2213 (New Bag - Provider: Tex Ledbetter, BRENDA) 0542 (New Bag - Provider: Jeannie Oneal, BRENDA)1223 (Stopped - Provider: Ifrah Castillo, RN) PRN Medication Order 07/02/2021 07/03/2021 07/04/2021 BUpivacaine (pf) (Marcaine) (2.5 mg/mL) 0.25% injection (CANCELED) ONCE PRN, Starting on Wed07/02/21 at 0811, Until Wed07/04/21 at 1726, Intra-Operative (Intra-Procedure), Routine 0811 (Given - Provider: Corrie Chopra MD) HYDROmorphone (Dilaudid) (2 mg/mL) injection solution 0.4 mg 0.4 mg, Intravenous, EVERY 2 HOURS PRN, Starting on Wed07/02/21 at 1428, Until Wed07/04/21 at 1726, Pain, Moderate-Severe pain 4-10, Routine 1433 (Given - Provider: Adi Dillon RN)1701 (Given - Provider: Tex Gomes RN)2112 (Given - Provider: Lidia Romano RN) 0256 (Given - Provider: Lidia Romano RN) lidocaine (Xylocaine) 1% (10 mg/mL) injection 3 mg 3 mg (0.3 mL), Subcutaneous, ONCE PRN, 1 dose, Starting on Wed07/02/21 at 1539, Until Wed07/04/21 at 1726, for discomfort with PIV insertion, Recovery (Recovery-Hospital Unit), Routine prochlorperazine (Compazine) (5 mg/mL) injection 10 mg 10 mg, Intravenous, EVERY 6 HOURS PRN, Starting on Wed07/02/21 at 1142, Until Wed07/04/21 at 1726, Nausea, Vomiting, For nausea please use ondansetron as the first choice; prochlorperazine as a second choice; promethazine as a third choice. Call provider if not effective., Routine 1144 (Given - Provider: Radha Chapman RN) 0005 (Given - Provider: Lidia Romano RN)0743 (Given - Provider: Beckie Hamlin RN)2019 (Given - Provider: Monet Mckeon RN) promethazine (Phenergan) (25 mg/mL) injection 6.25 mg 6.25 mg, Intravenous, EVERY 4 HOURS PRN, Nausea, Starting on Wed07/02/21 at 1539, Until Wed07/04/21 at 1726, For nausea please use ondansetron as the first choice; prochlorperazine as a second choice; promethazine as a third choice. Call provider if not effective. 1350 (Given - Provider: Beckie Hamlin RN) promethazine (Phenergan) (25 mg/mL) injection 6.25 mg (CANCELED) 6.25 mg, Intravenous, EVERY 30 MIN PRN, Nausea, Starting on Wed07/02/21 at 0933, 2 doses, Until Wed07/02/21 at 1539, Maximum total dose of 12.5 mg (including [...] second and if ineffective use promethazine., PACU Recovery 0948 (Given - Provider: Adi Dillon RN) sodium chloride 0.9 % (flush) (BD PosiFlush Normal Saline 0.9) flush 5-20 mL 5-20 mL, Intravenous, EVERY 1 MIN PRN, Starting on Wed07/02/21 at 1539, Until Wed07/04/21 at 1726, flush, Flush pertains to all indwelling lines. Flush per protocol found in the job aid using the link provided on this medication record., Recovery (Recovery-Hospital Unit), Routine Linked Groups Order Group 1: scopolamine (Transderm Scop) 1 mg over 3 days patch 1 patch (COMPLETED)Jump to med 1 patch, Transdermal, ONCE, 1 dose, On Wed07/02/21 at 0715, Remove post- operatively if patient requires straight catheterization x 2, Day of Surgery (Day of Procedure), Routine And scopolamine (Transderm-Scop) 1 mg patch Patch Verification () Transdermal, ONCE, 1 dose, On Wed07/02/21 at 0715, Verify scopolamine 1 mg patch. And scopolamine (Transderm-Scop) 1 mg patch Patch Removal () Transdermal, ONCE, 1 dose, On Wed07/02/21 at 0715, Remove scopolamine 1 mg patch documented in this encounter Care Teams Mechanical Product Engineer Relationship Specialty Start Date End Date Rob Smith DNP PCP - General Family Medicine 11/15/19 documented as of this encounter
--- OUTSIDE RECORDS SUMMARY | 2024-06-30 16:53 | XMS_ITS | Encounter Summary ---
Author Organization Formerly [facility], [facility] Address [facility] [place] [address] Care Team Providers Care Floor Layer Tile Name Role Phone Sarah, Rob Maynardandrew LALITA Primary Care Provider Reason for Visit * Reason Comments Follow-up Encounter Details Date Type Department Care Team (Late st Contact Info) Description 05/30/2021 2:45 PM EDT Office [place] [address] Corrie Hastings MD [facility] [address] [place] [address] Morbid obesity Social History Tobacco Use Types Packs/Day Years Used Date Smoking Tobacco: Former Smokeless Tobacco: Never Comments:pt quit 3 yrs ago Sex and Gender Information Value Date Recorded Sex Assigned at Not on file Gender Identity Not on file Sexual Orientation Not on file documented as of this encounter Progress Notes * Corrie Hastings MD - 05/30/2021 2:45 PM [...] obesity documented in this encounter Care Teams Floor Layer Tile Relationship Specialty Start Date End Date Sarah, Rob Dege, DNP PCP - General Family Medicine 11/15/19 documented as of this encounter
--- OUTSIDE RECORDS SUMMARY | 2024-06-30 16:53 | XMS_ITS | Encounter Summary ---
[facility] Organization [facility] [place] [address] Care Team Providers Care Boiler Welder Name Role Phone Rob Smith DNP Primary Care Provider [phone] Encounter Details Date Type Department Care Team (Late st Contact Info) Description 02/10/2021 Orders Only [place] [address] Jennifer Florez HYGIENE TEACHER [facility] [place] [address] Social History Tobacco Use Types Packs/Day Years [...] on filedocumented in this encounter Care Teams Boiler Welder Relationship Specialty Start Date End Date Rob Smith DNP PCP - General Family Medicine 11/15/19 documented as of this encounter
--- OUTSIDE RECORDS SUMMARY | 2024-06-30 16:53 | XMS_ITS | Encounter Summary ---
Author Organization [facility] [place] [address] Care Team Providers Care Fermenter Champagne Name Role Phone Rob Smith DNP Primary Care Provider [phone] Encounter Details Date Type Department Care Team (Late st Contact Info) Description 09/14/2020 Notes Only Hematology [place] [address] Horacio Constantino MD [facility] [address] HEMATOLOGY/[place] [address] Social History Tobacco Use Types Packs/Day Years Used Date Smoking Tobacco: Every Day Smokeless Tobacco: Never Sex and Gender Information Value Date Recorded Sex Assigned at Not on file Gender Identity Not on file Sexual Orientation Not on file documented as of this encounter Progress Notes * Horacio Constantino MD - 09/14/2020 1:27 PM EST I have reviewed the patient's record and given personal and/or family history of cancer she should be seen by genetic counselor. This is scheduled for next week. documented in this encounter Plan of Treatment Not on file documented as of this encounter Visit Diagnoses Not on filedocumented in this encounter Care Teams Fermenter Champagne Relationship Specialty Start Date End Date Rob Smith DNP PCP - General Family Medicine 11/15/19 documented as of this encounter
--- OUTSIDE RECORDS SUMMARY | 2024-06-30 16:53 | XMS_ITS | Encounter Summary ---
Author [place] [address] Care Team Providers Care Aeronautical Test Engineer Name Role Phone Rob Smith [facility] Primary Care Provider [phone] Reason for Visit * Auth/Cert Specialty Diagnoses / Procedures Referred By Guillermina t Referred To Contact Diagnoses MORBID OBESITY Procedures PRO LAPAROSCOPY, SURG/GASTRIC RESTRICTIVE PROC, LONGITUDINAL GASTRECTOMY @LAPAROSCOPY, SURG/GASTRIC RESTRICTIVE PROC, LONGITUDINAL GASTRECTOMY (WRVU 20.38) Referral ID Status Reason Start Date Expiration Date Visits Re quested Visits Authorized [id number] 1 1 Encounter Details Date Type Department Care Team (Late st Contact Info) Description 07/02/2021 7:36 AM EDT Anesthesia Event [place] [address] Bruno Field MD [facility] [place] [address] Anesthesia Record Procedure Summary Procedure Name Responsible Anesthesiologist Anesthesia Start Time Anesthesia Stop Time @LAPAROSCOPY, SURG/GASTRIC RESTRICTIVE PROC, LONGITUDINAL GASTRECTOMY (WRVU 20.38) (Abdomen) Bruno Field MD 07/02/21 0736 07/02/21 0929 Events Date Time Event Comment 07/02/2021 0704 0736 AN Verify 0736 Start 0739 An Start Data 0743 An Induction 0747 An Intubation 0752 Anesthesia Ready 0843 Quick Note Bougie in per s urgeon 0858 Quick Note Bougie out 0923 Extubation/LMA Out 0925 an stop data 0929 Recovery or ICU Handoff Rosie ent care was transferred to the destination unit staff after review of the patient's medical history, current anesthetic/surgical status and plan, according to the Provider Handoff Checklist. 09 Stop Meds Name Total Midazolam 2 mg fentaNYL 100 [...] injection 15 mg Lactated Ringers 700 mL * Agents Name O2 Air N2O Sevoflurane (et) O2 Auxiliary Flowmeter 1 * Blood No blood administrations on file. Lines, Drains, and Airways Type Details Placement Removal Incision 07/02/21; 08; abdo men; laparoscopic punctures (specify) (5 trocar sites); 5 trocar sites 07/02/21 0815 by Nuvia Sun, BRENDA (RETIRED) Peripheral IV Line - Single Lumen 07/02/21; 0711; ovzj-iuz-gpehbs catheter system; 20 gauge, 1 in length; intradermal injection, tolerated well; tender to flush; catheter/device intact, removed per policy/procedure, site care per policy/procedure, site symptomatic; 07/04/21; 0157 07/02/21 0711 by Deonna Boucher RN 07/04/21 0157 by Shahrzad Garcia LPN ETT Mask Ventilation: Ea sy (1); ETT Type: Cuffed, Oral; ETT Size: 7 mm; Notes: Asleep, Pre-O2, Stylette; Attempts: 1; Laryngoscopy Grade: 1; ETT Placement Verified By: Auscultation, Capnometry, Visual; Secured at Teeth: 22 cm; Inserted by: Prateek SOLIS; Removal Date: 07/02/21; Removal Time: 92207/02/21 0747 by Abel Chandra CRNA 07/02/21 09 by Abel Chandra CRNA NG/OG Tube 07/02/21; 0752; nonweighted; mouth; 07/02/21; 0822 07/02/21 0752 by Abel Chandra CRNA 07/02/21 0822 by Abel Chandra CRNA documented in this encounter Social History Tobacco Use Types Packs/Day Years Used Date Smoking Tobacco: Former Smokeless Tobacco: Never Comments:pt quit 3 yrs ago Sex and Gender Information Value Date Recorded Sex Assigned at Not on file Gender Identity Not on file Sexual Orientation Not on file documented as of this encounter OR Notes * Anesthesia Postprocedure Evaluation - Bruno Field MD - 07/02/2021 10:40 AM EDT Department of Anesthesiology Post-procedure Note Patient: Natalia Damico Procedure Summary Date: 07/02/21 Room / Location: [address] MAIN OR Anesthesia Start: 735 Anesthesia Stop: 928 Procedure: @LAPAROSCOPY, SURG/GASTRIC RESTRICTIVE PROC, LONGITUDINAL GASTRECTOMY (WRVU 20.38) (N/A Abdomen) Diagnosis: (MORBID OBESITY) Surgeons: Corrie Hastings MD Responsible Provider: Bruno Field MD Anesthesia Type: general ASA Status: 2 All Anesthesia Providers: Anesthesiologist: Bruno Field MD [employer] MATH TEACHER: Abel Chandra CRNA Vitals Value Taken Time BP 145/82 07/02/21 1030 Temp 36.4 ??C (97.5 ??F) 07/02/21 0929 Pulse 61 07/02/21 1040 Resp 28 07/02/21 1040 SpO2 94 % 07/02/21 1040 Pain Level 0 07/02/21 0929 Vitals shown include unvalidated device data. Patient Location: PACU/[facility] Level of Consciousness: Conscious but Sleepy Pain Management: Satisfactory Analgesia PONV: PONV Resolved with Rx Cardiovascular Status: At Baseline Respiratory Status: At Baseline Postoperative Fluid Status: Intravascular EUvolemia Possible Anesthetic Complications: NONE apparent at time of evaluation Final Primary Anesthesia Type: General (The anesthetic type performed was the same as planned.) Comments: * Anesthesia Preprocedure Evaluation - Bruno Field MD [...] Left 2019 ??? KNEE ARTHROSCOPY Right 2015 Social History Tobacco Use ??? Smoking status: [...] consented to blood products. Plan discussed with HIGH SCHOOL MATH TEACHER. Anesthesia Screening documented in this encounter Plan of Treatment Not on file documented as of this encounter Visit Diagnoses Not on filedocumented in this encounter Administered Medications Inactive Administered Medications - up to 3 most recent administrations Medication Order MAR Action Action Date Dose Rate Site ceFAZolin (Ancef) 3 g in dextrose 5% 109 mL infusion 3 g, Intravenous, ONCE, 1 dose, On Wed07/02/21 at 0715, Administer over 30 Minutes, Day of Surgery (Day of Procedure), Indication for (Active or Suspected): Prophylaxis Given 07/02/2021 7:52 AM EDT 3 g dexamethasone (Decadron) injection Intravenous, PRN, Starting on Wed07/02/21 at 0758, Until Wed07/02/21 at 0930, Anesthesia Intra-op, Routine Given 07/02/2021 7:58 AM EDT 8 mg ePHEDrine sulfate (5 mg/mL) multi-dose injection Intravenous, PRN, Starting on Wed07/02/21 at 0801, Until Wed07/02/21 at 0930, Anesthesia Intra-op, Routine Given 07/02/2021 8:25 AM EDT 10 mg Given 07/02/2021 8:01 AM EDT 10 mg fentaNYL (pf) (50 mcg/mL) multi-dose injection Intravenous, PRN, Starting on Wed07/02/21 at 0743, Until Wed07/02/21 at 0930, Anesthesia Intra-op, Routine Given 07/02/2021 7:43 AM EDT 100 mcg glycopyrrolate (Robinul) (0.2 mg/mL) multi-dose injection Intravenous, PRN, Starting on Wed07/02/21 at 0807, Until Wed07/02/21 at 0930, Anesthesia Intra-op, Routine Given 07/02/2021 8:07 AM EDT 0.1 mg HYDROmorphone (Dilaudid) (2 mg/mL) multi-dose injection solution Intravenous, PRN, Starting on Wed07/02/21 at 0848, Until Wed07/02/21 at 0930, Anesthesia Intra-op, Routine Given 07/02/2021 8:48 AM EDT 0.4 mg ketamine (Ketalar) (10 mg/mL) IV bolus injection (Anesthesia) Intravenous, PRN, Starting on Wed07/02/21 at 0806, Until Wed07/02/21 at 0930, Anesthesia Intra-op Given 07/02/2021 8:43 AM EDT 20 mg Given 07/02/2021 8:06 AM EDT 30 mg ketorolac (Toradol) (30 mg/mL) injection Intravenous, PRN, Starting on Wed07/02/21 at 0910, Until Wed07/02/21 at 0930, Anesthesia Intra-op, Routine Given 07/02/2021 9:10 AM EDT 15 mg lactated ringers infusion Intravenous, CONTINUOUS PRN, Starting on Wed07/02/21 at 0736, Until Wed07/02/21 at 0930, Anesthesia Intra-op New Bag 07/02/2021 7:36 AM EDT lidocaine (pf) (Xylocaine) (20 mg/mL) 2% injection syringe Intravenous, PRN, Starting on Wed07/02/21 at 0743, Until Wed07/02/21 at 0930, Anesthesia Intra-op, Routine Given 07/02/2021 7:43 AM EDT 60 mg midazolam (pf) (Versed) (1 mg/mL) multi-dose injection Intravenous, PRN, Starting on Wed07/02/21 at 0736, Until Wed07/02/21 at 0930, Anesthesia Intra-op, Routine Given 07/02/2021 7:36 AM EDT 2 mg ondansetron (pf) (Zofran) (2 mg/mL) injection Intravenous, PRN, Starting on Wed07/02/21 at 0758, Until Wed07/02/21 at 0930, Anesthesia Intra-op, Routine Given 07/02/2021 9:00 AM EDT 4 mg Given 07/02/2021 7:58 AM EDT 4 mg PHENYLephrine (Bill-Synephrine) (80 mcg/mL) in sodium chloride 0.9% 250 mL infusion Intravenous, CONTINUOUS PRN, Starting on Wed07/02/21 at 0752, Until Wed07/02/21 at 0930, Anesthesia Intra-op, Routine Restarted 07/02/2021 8:25 AM EDT 20 mcg/min 15 mL/hr New Bag 07/02/2021 7:52 AM EDT 25 mcg/min 18.75 mL/hr propofoL (Diprivan) 10 mg/mL bolus injection (Anesthesia) Intravenous, PRN, Starting on Wed07/02/21 at 0743, Until Wed07/02/21 at 0930, Anesthesia Intra-op Given 07/02/2021 7:46 AM EDT 100 mg Given 07/02/2021 7:43 AM EDT 200 mg propofoL (Diprivan) infusion Intravenous, CONTINUOUS PRN, Starting on Wed07/02/21 at 0747, Until Wed07/02/21 at 0930, Anesthesia Intra-op, Routine New Bag 07/02/2021 7:47 AM EDT 30 mcg/kg/min 21.348 mL/hr rocuronium (Zemuron) (10 mg/mL) multi-dose injection Intravenous, PRN, Starting on Wed07/02/21 at 0744, Until Wed07/02/21 at 0930, Anesthesia Intra-op, Routine Given 07/02/2021 8:24 AM EDT 20 mg Given 07/02/2021 7:44 AM EDT 50 mg sugammadex (Bridion) 100 mg/mL injection Intravenous, PRN, Starting on Wed07/02/21 at 0905, Until Wed07/02/21 at 09, Anesthesia Intra-op, Routine Given 07/02/2021 9:10 AM EDT 180 mg Given 07/02/2021 9:05 AM EDT 20 mg documented in this encounter Care Teams Aeronautical Test Engineer Relationship Specialty Start Date End Date Rob Smith DNP PCP - General Family Medicine 11/15/19 documented as of this encounter
--- OUTSIDE RECORDS SUMMARY | 2024-06-30 16:53 | XMS_ITS | Encounter Summary ---
Author Organization [facility] Address [facility] [address] Care Team Providers Care Mill Labor Supervisor Name Role Phone Joaquin Celaya MD Primary Care Provider Encounter Details Date Type Department Care Team (Late st Contact Info) Description 06/29/2013 10:20 AM EDT - 06/29/2013 11:59 PM EDT Hospital Encounter XRay at [address] [place] [address] Social History Tobacco Use Types Packs/Day Years Used Date Smoking Tobacco: Every Day Smokeless Tobacco: Never Sex and Gender Information Value Date Recorded Sex Assigned at Not on file Gender Identity Not on file Sexual Orientation Not on file documented as of this encounter Medications at Time of Discharge Medication Sig Dispensed Refills Start Date End Date lamoTRIgine (LAMICTAL XR) 50 mg TR24 Take [...] on filedocumented in this encounter Care Teams Mill Labor Supervisor Relationship Specialty Start Date End Date Joaquin Celaya MD PCP - General 06/29/13 02/19/19 documented as of this encounter
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
--- OUTSIDE RECORDS SUMMARY | 2024-06-30 16:53 | XMS_ITS | Encounter Summary ---
Author Organization [facility] [place] [address] Care Team Providers Care Fire Investigation Manager Name Role Phone Rob Smith DNP Primary Care Provider [phone] Encounter Details Date Type Department Care Team (Late st Contact Info) Description 05/09/2021 10:00 AM EDT TH Visit (TeleHealth) [place] [address] Jennifer Florez APRN [facility] [place] [address] [facility] [place] [address] Encounter for pre-bariatric surgery counseling and education; Pre-op evaluation; Weight gain Social History Tobacco Use Types Packs/Day Years Used Date Smoking Tobacco: Former Smokeless Tobacco: Never Comments:pt quit 3 yrs ago Sex and Gender Information Value Date Recorded Sex Assigned at Not on file Gender Identity Not on file Sexual Orientation Not on file documented as of this encounter Progress Notes * Ifrah Mccartney, RANDI - 05/09/2021 10:00 AM EDT Images from the original note were not included. Bariatric Nutrition - Pre-op Assessment Call made with Jennifer Florez APRN BARIATRIC SURGERY VIRTUAL NOTE Natalia Damico is being seen today for nutrition follow-up in anticipation for bariatric surgery.Previous visits on 02/06/21, 03/18/21, and 04/25/21. Pt [...] helpful. Finds diet easy to follow. Loves Wallisian yogurt Social history:??Currently unemployed; working toward doctorate [...] Crush cereal w skim milk Snack Lunch Wallisian yogurt, a little bit of cottage cheese, [...] 1 month post-op ? 4 months post-op [place] Body Weight (based on BMI of 25):??146# [...] further questions. * Jennifer Florez APRN - 05/09/2021 10:00 AM EDT Images from the [place] [address] BARIATRIC SURGERY VIRTUAL NOTE 1. Reason/purpose for phone call: BSP follow up visit 2. The patient voiced an understanding of the reason and intent of the televisit and provided verbal consent to discuss clinical issues by telehelath. Additionally, [...] At her most recent visit, weight had increased. Plan following the visit including the preoperative diet and tracking in order to get back on track with diet/lifestyle changes. Natalia has been following up with her outside RD. She had a visit yesterday with a weight check and has lost about 10 lbs. Natalia is following the pre-op diet and has even grown to love Wallisian yogurt. She is tracking withBaroFold Pal. Pre-Bariatric Surgery Obesity related medical issues: [...] pain. No nausea/vomiting. No diarrhea. No constipation. 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 Health Habits: Tobacco: Quit recently (negative nicotine last month). ETOH: None currently. NSAID use: None. Dietary history/ exericse/ activity level: See dietitian note from today's visit for complete dietary evaluation. Meds and Allergies reviewed. Objective: There were no vitals taken for this visit. ([employer]). Reported weight: 269 lbs. Physical Exam Gen: Alert, pleasant, NAD, appears well Resp: Speaking in full sentences, no gasping. No cough witnessed. Skin: No pallor or diaphoresis visible. No rash noted. Psychiatric: normal mood and affect. No results found for this or any previous visit (from the past 72 hour(s)). Assessment 50 y.o. female who is preparing for bariatric surgery (prefers gastric sleeve), following up today on weight gain. Patient is now on track with diet and exercise with about 10 lb weight loss since last visit. Plan: ??? Encouraged continued tracking and good diet choices. Encouraged continued exercise. RTC as scheduled for next BSP follow up visit, with labs. Call/rtc sooner prn with questions/concerns or unexplained abdominal pain, prolonged nausea, vomiting or inability to hydrate. Bariatric Program Summary report is availabe for patient's review via e-DH 20 minutes spent with patient in [id number] discussion including review of diagnosis, labs, counseling/education [...] If labwork is done by the primary care information associate: please send a copy to the Bariatric Surgery Program, General Surgery Clinic, [facility], or fax [phone] documented in this encounter Plan of Treatment Not on file documented as of this encounter Visit Diagnoses Diagnosis Encounter for pre-bariatric surgery counseling and education Pre-op evaluation Preoperative examination, unspecified Weight gain Abnormal weight gain documented in this encounter Care Teams Fire Investigation Manager Relationship Specialty Start Date End Date Rob Smith DNP PCP - General Family Medicine 11/15/19 documented as of this encounter
--- OUTSIDE RECORDS SUMMARY | 2024-06-30 16:53 | XMS_ITS | Encounter Summary ---
Author Organization [facility] [place] [address] Care Team Providers Care Heating Equipment Repairer Name Role Phone Joaquin Celaya MD Primary Care Provider [phone] Encounter Details Date Type Department Care Team (Late st Contact Info) Description 08/11/2012 Orders Only Functional Christianity Program at [facility] [address] [place] [address] Abundio Booth MD [facility] [place] [address] Social History Tobacco Use Types Packs/Day Years [...] FILM LIBRARY STORAGE ONLY MR SPINE Routine 08/11/2012 11:16 AM EDT documented in this encounter Results * Film Library- Storage only MR Spine (08/11/2012 11:16 AM EDT) 08/11/2012 11:1 6 AM EDT Narrative RAD - 06/27/2014 11:28 AM EDT This is a non-reportable exam. Procedure Note Nick Mosley - 06/27/2014 This is a non-reportable exam. Abundio Booth MD IMG FILM LIBRARY ORD ERABLES RAD [address] [facility] [place] [address] documented in this encounter Visit Diagnoses Not on filedocumented in this encounter Care Teams Heating Equipment Repairer Relationship Specialty Start Date End Date Joaquin Celaya MD PCP - General 06/29/13 02/19/19 documented as of this encounter
--- OUTSIDE RECORDS SUMMARY | 2024-06-30 16:53 | XMS_ITS | Encounter Summary ---
Author Organization [facility] [place] [address] Care Team Providers Care Power Grader Operator Name Role Phone Rob Smith LALITA Primary Care Provider [phone] Reason for Visit * Reason Comments Follow-up s/p noa surg 07/02/21 Encounter Details Date Type Department Care Team (Late st Contact Info) Description 07/23/2021 9:30 AM EDT Office [place] [address] Jennifer Florez APRN [facility] [place] [address] Emili Mclaughlin, RANDI [facility] [place] [address] S/P bariatric surgery; Disorder of iron metabolism [...] Patient Instructions * Patient Instructions* Jennifer Florez, ENGINE HOUSE HELPER - 07/23/2021 9:30 AM EDT Bariatric Surgery Program First Post-operative Follow up visit Contact information: [facility] technical support technician: Elicia: [phone] and Vashti [phone] Dietitians: [phone] Surgeons/ nurse practitioners: [phone] Nurse line: [phone] Dear Natalia, Thank you for following up with the Bariatric Surgery Program at [facility]. Please review your medical note from today's [...] to 6:00 pm. Here's the link to [facility] Lab hours and locations, in case one of the other locations is more convenient for you: [email or web address] If you have labwork done by your primary care transitions manager before that date, please have a copy sent to the Bariatric Surgery Program. Post surgery Medications: 1. [...] Blow dry area on low setting with global creative chairman. 3. Apply absorbent powder such as Gold [...] control is recommended for at least 18-24 months after surgery. f non-prescribed drugs and treet drugs is unsafe Anti-inflammatory medications (NSAIDs) such as Ibuprofen (Advil), Aleve (Naproxen), Excedrin, Yadi-Tomahawk should be avoided for at least the [...] be increased with higher than predicted weight loss. Potential lifetime risks of sleeve gastrectomy include developed heartburn or severe reflux. Call us: ??? If you have concerns. ??? If you have unexplained abdominal pain ??? if you see blood in your stool or vomit blood ??? If you have prolonged vomiting Post Surgery Support Group: Our post surgery support group meets at [facility] on the first Wednesday of every month from 1:00 PM-2:00 PM, call to sign up! Nutrition and Activity apps- Baritastic, My Fitness Pal, Lose It, My Plate Internet resources: www.zoidu www.Razume wwwNippo www.Quadia Online Video/blog [facility] facebook page: [email or web address]://www.[email or web address] Books & Magazines: - Recipes for Life After Weight Loss Surgery by Connie La - Shrink Yourself by Dr Wilder Arrington - Eating Well - www.[employer] - Cooking Light- www.cookinglight.[employer]Point [employer] Anxiety: The Happiness Trap by Ranjit Cloud The Mindfulness and acceptance workbook for anxiety By Joaquin Capone. Mindful eating: What are you Hungry For? By Jose Luis Grier The Mindful Diet by Xiomara Moss and the [facility] group. Emotional eating: End Emotional Eating by Ifrah Jean Calming the Emotional Storm Beryl Robles documented in this encounter Progress Notes * Emili Mclaughlin, RD - 07/23/2021 9:30 AM EDT Bariatric Nutrition [...] 1 month post-op ? 4 months post-op [place] Body Weight (based on BMI of 25):??146# [...] Iron 45mg/day). Food Allergies/Intolerances: None Tracking Intake: [facility] Daily Oral Intake: Breakfast Muscle Milk [...] diet, advised pt to continue tracking in [facility], add one new food at a time, and to focus on high protein foods. Pt reports some constipation, advisedpt to start Miralax 1 cap/daily. Reviewed supplements, pt is taking supplements as recommended. Enco uraged increased exercise as tolerated. PLAN: ?? Evaluation [...] agreed with these and verbalized adequate understanding. * Jennifer Florez APRN - 07/23/2021 9:30 AM ED[place] [address] Reason for visit: Bariatric Surgery Post Op Check Surgery Info: s/p laparoscopic sleeve gastrectomy on 07/02/[address] Hastings. ?? Subjective: Natalia Damico is s/p the above procedures, post operative course has been going well. Port sitesare healing. Tolerating foods/fluids overall, still learning what [...] mood and affect. Appropriate eye contact. Assessment: Natalai Damico is s/p above procedures, with uneventful early post-operative course. Obesity related co-morbidities are improved/stable overall. Plan: ?? Continue Ursodiol as recommended for 6 months to reduce the risk of gallstone formation during the period of rapid weight loss. ?? Continue PPI therapy until at least 3 months post op to decrease the risk of ulcer formation andavoid NSAIDs. Discussed how to taper down/off. ?? [...] at this time, food/fluids etc. ?? See records section supervisor note re: recommendations regarding vitamin and mineral [...] patient's review via e- Jennifer Florez APRN [facility] Bariatric Surgery Program RECOMMENDED BARIATRIC SURGERY PROGRAM POSTOPERATIVE FOLLOW-UP: Follow up: done at 4, 12 and 24 months, and yearly thereafter. High risk patients are evaluated on a more frequent basis. *Supplement recommendations: Multivitamin with minerals twice a day, B12 500 mcg once a day, calcium citrate 600 mg/400 units vitamin D twice a day, iron (ferrous fumarate, carbonyl iron taken with vitamin C 250 mg once a day) for menstruating females or those with GEOVANNY. Labwork: Hemogram, ferritin, iron (transferrin) saturation, iron, folate, B1, B12, D (25 hydroxy only), Intact PTH and comprehensive metabolic profile at 4, 12 and 24 months, and yearly. If labwork is done by the primary care transitions manager: please send a copy to the Bariatric Surgery Program, General Surgery Clinic, [facility], or fax [phone] documented in this encounter Plan of Treatment Not on file documented as of this encounter Results * Vitamin B12 (11/04/2021 2:07 PM EST) Vitamin B12 459 232 - 1,245 pg/mL [facility] Blood 11/04/2021 2:07 PM EST 11/04/2021 5:26 PM EST Narrative Resulting Agency Comment Spec In Lab Jennifer Florez APRN CHEMISTRY ORDERABL ES Performing Organization Address [facility] Co de Phone Number [facility] [place] [address] * (ABNORMAL) Iron and TIBC (11/04/2021 2:07 PM EST) Iron 46 30 - 150 mcg/dL [facility] TIBC 284 250 - 450 mcg/dL [facility] Iron Saturation 16(L) 20 - 50 % [facility] Blood 11/04/2021 2:07 PM EST 11/04/2021 5:25 PM EST Narrative Resulting Agency Comment Spec In Lab Jennifer Florez APRN CHEMISTRY ORDERABL ES Performing Organization Address City/[facility]/ZIP Co de Phone Number [facility] [place] [address] * Vitamin B1, whole blood (11/04/2021 2:07 PM EST) Vit B1 Lvl Wb (MARCH) 118 70 - 180 nmol/L [facility] Comment: ADDITIONAL INFORMATION This test was developed and its performance characteristics determined by [facility] in a manner consistent with CLIA requirements. This test has not been cleared or approved by the U.S. Food and Drug Administration. Test Performed by: [facility] [address] [place] [address] Commercial Plumber: Binu Marques M.D. Ph.D.; CLIA# [id number] Blood 11/04/2021 2:07 PM EST 11/04/2021 4:34 PM EST Narrative Resulting Agency Comment Spec In Lab Jennifer E Vikki GAR[facility]AN [facility] SEND OUT ORDER LUIS Performing Organization Address [facility]/ZIP Co de Phone Number [facility] [place] [address] * PTH (11/04/2021 2:07 PM EST) Parathyroid Hormone 56 15 - 65 pg/mL [facility] Blood 11/04/2021 2:07 PM EST 11/04/2021 4:03 PM EST Narrative Resulting Agency Comment Spec In Lab Jennifer E Vikki ENGINE HOUSE HELPER CHEMISTRY ORDERABL ES Performing Organization Address [facility] Co de Phone Number [facility] [place] [address] * Vitamin D, 25-Hydroxy (11/04/2021 2:07 PM EST) Vitamin D Total 25 OH 36 21 - 100 ng/mL [facility] Vit D Interp Sufficient [facility] Blood 11/04/2021 2:07 PM EST 11/04/2021 5:26 PM EST Narrative Resulting Agency Comment Spec In Lab Jennifer E Millis ENGINE HOUSE HELPER CHEMISTRY ORDERABL ES Performing Organization Address [facility]/ZIP Co de Phone Number [facility] [place] [address] * Hemogram (11/04/2021 2:07 PM EST) White Blood Cell 5.8 4.0 - 9.5 x10(3)/[facility] Red Blood Cell 4.57 4.00 - 5.21 x10(6)/[facility] Hemoglobin 13.4 11.7 - 15.5 g/dL [facility] Hematocrit 42.0 35.7 - 45.8 % [facility] Mean Cell Volume 91.9 82.6 - 94.4 fL [facility] Mean Cell Hemoglobin 29.3 27.1 - 32.0 pg [facility] Mean Cell Hemoglobin Concentration 31.9 31.7 - 35.0 g/dL [facility] Platelet 296 145 - 357 x10(3)/[facility] RDW Standard Deviation 45.3 37.0 - 46.0 [facility] RDW coefficient of variation 13.2 11.5 - 14.1 % [facility] Mean Platelet Volume 11.5 7.6 - 12.9 fL [facility] NRBC% auto 0.0 % [facility] NRBC Absolute 0.000 0.000 - 0.000 x10(3)/[facility] Blood 11/04/2021 2:07 PM EST 11/04/2021 3:41 PM EST Narrative Resulting Agency Comment Spec In Lab Jennifer E Millis ENGINE HOUSE HELPER HEMATOLOGY ORDERAB LES [facility] [place] [address] * Folate, serum (11/04/2021 2:07 PM EST) Folate 19.1 4.8 - 24.2 ng/mL [facility] Blood 11/04/2021 2:07 PM EST 11/04/2021 5:26 PM EST Narrative Resulting Agency Comment Spec In Lab Jennifer Daniellding ENGINE HOUSE HELPER CHEMISTRY ORDERABL ES Performing Organization Address [facility] Co de Phone Number [facility] [place] [address] * Ferritin (11/04/2021 2:07 PM EST) [facility] Ferritin 114 30 - 400 ng/mL [facility] Comment: Pediatric reference ranges not verified at [facility], interpret with caution. Reference ranges for females greater than 50 years of age approach values for men, i.e., 30-400 ng/mL. Blood 11/04/2021 2:07 PM EST 11/04/2021 5:26 PM EST Narrative Resulting Agency Comment Spec In Lab Jennifer Morales Vikki ENGINE HOUSE HELPER CHEMISTRY ORDERABL ES Performing Organization Address [facility] Co de Phone Number [facility] [place] [address] * (ABNORMAL) Comprehensive metabolic panel (non-fasting) (11/04/2021 2:07 PM EST) [facility] Glucose 96 65 - 199 mg/dL [facility] Comment:Diabetes: >=200 mg/d L plus symptoms Blood Urea Nitrogen 8 8 - 18 mg/dL [facility] Creatinine 0.62(L) 0.70 - 1.20 mg/dL [facility] [...] questions. Chloride 101 98 - 107 mmol/L [facility] Carbon Dioxide 26 22 - 31 mmol/L [facility] Anion Gap 14 5 - 15 mmol/L [facility] Calcium 9.9 8.5 - 10.5 mg/dL [facility] Protein, Total 7.3 6.1 - 8.0 g/dL [facility] Albumin 4.7 3.2 - 5.2 g/dL [facility] Aspartate Aminotransferase 15 0 - 30 unit/L [facility] Alanine Aminotransferase 16 0 - 30 unit/L [facility] Alkaline Phosphatase 111(H) 35 - 105 unit/L [facility] Bilirubin, Total 0.3 0.2 - 1.3 mg/dL [facility] Est Glomerular Filtration Rate 104 >=60 mL/min/1. 73 m?? [facility] Comment: This patient? [...] Agency Comment Spec In Lab Jennifer Florez ENGINE HOUSE HELPER CHEMISTRY ORDERABL ES [facility] [place] [phone] documented in this encounter Visit Diagnoses Diagnosis S/P bariatric surgery Bariatric surgery status Disorder of iron metabolism Other disorders of iron metabolism documented in this encounter Care Teams Power Grader Operator Relationship Specialty Start Date End Date Rob Smith DNP PCP - General Family Medicine 11/15/19 documented as of this encounter
--- OUTSIDE RECORDS SUMMARY | 2024-06-30 16:53 | XMS_ITS | Encounter Summary ---
Author Organization [facility] [place] [address] Care Team Providers Care Pulvi Mixer Operator Name Role Phone Rob Smith [facility] Primary Care Provider [phone] Reason for Visit * Auth/Cert Specialty Diagnoses / Procedures Referred By Guillermina t Referred To Contact Diagnoses MORBID OBESITY Procedures PRO LAPAROSCOPY, SURG/GASTRIC RESTRICTIVE PROC, LONGITUDINAL GASTRECTOMY @LAPAROSCOPY, SURG/GASTRIC RESTRICTIVE PROC, LONGITUDINAL GASTRECTOMY (WRVU 20.38) Referral ID Status Reason Start Date Expiration Date Visits Re quested Visits Authorized [id number] 1 1 Encounter Details Date Type Department Care Team (Late st Contact Info) Description 07/02/2021 7:30 AM EDT - 07/02/2021 10:05 AM EDT [place] [address] Corrie Chopra MD [facility] [place] [address] @LAPAROSCOPY, SURG/GASTRIC RESTRICTIVE PROC, LONGITUDINAL GASTRECTOMY (WRVU 20.38) Social History Tobacco Use Types Packs/Day Years [...] 36.4 ??C (97.5 ??F) 07/02/2021 9:29 AM ED T Respiratory Rate 13 07/02/2021 10:00 AM EDT [...] RD; Jennifer Florez APRN General Surgery at [facility] [place] Arrive at: National Coverage Specialist Area 11/04/2021 10:[address]; Jennifer Florez APRN General Surgery at [facility] [place] Arrive at: National Coverage Specialist Area Instructions Given to Patient at Discharge: Patient Instructions BARIATRIC SURGERY DISCHARGE INFORMATION BARIATRIC SUPPORT TEAM CONTACT NUMBERS (Mon-Fri 8am - 5pm): General Surgery and Bariatric Surgery [phone] Bariatric Surgeons: Drs. Estevez and Venkata [phone] Tinsmith Apprentice: [phone] Dietitians: [phone] Outside of regular business hours, including weekends and holidays: Ask for General Surgery resident television tube inspector [phone] Please note, this call will be answered [...] weeks at the General Surgery Outpatient Clinic (National Coverage Specialist 4, [facility] [place] Future Appointments Date Time Provider Department Center 07/21/2021 9:30 AM Jennifer Florez APRN [facility] [place]G [facility] [place] 11/04/2021 10:30 AM Jennifer Florez APRN [facility] [place]G [facility] [place] BATHING AND WOUND CARE: ?? You may [...] for assistance to pay for this with [employer]. Go to www.Recruits.com and put in the prescription and the [...] Follow up with primary care provider or senior training specialist in 1-2 weeks in order to [...] RD; Jennifer Florez APRN General Surgery at [facility] [place] Arrive at: National Coverage Specialist Area 11/04/2021 10:[address]; Jennifer Florez APRN General Surgery at [facility] [place] Arrive at: National Coverage Specialist Area 4L [phone] Signed: Trey Mora MD 07/04/2021 Primary [place] Physician: BRENNA G[address] DR [address] / [facility] [id number] documented in this encounter Discharge Instructions * Patient Instructions* Anselmo Deshpande MD - 07/03/2021 7:16 AM EDT BARIATRIC SURGERY DISCHARGE INFORMATION BARIATRIC SUPPORT TEAM CONTACT NUMBERS (Mon-Fri 8am - 5pm): General Surgery and Bariatric Surgery [phone] Bariatric Surgeons: Drs. Estevez and Venkata [phone] Tinsmith Apprentice: [phone] Dietitians: [phone] Outside of regular business hours, including weekends and holidays: Ask for General Surgery resident television tube inspector [phone] Please note, this call will be answered [...] weeks at the General Surgery Outpatient Clinic (National Coverage Specialist 4, [facility] [place] Future Appointments Date Time Provider Department Center 07/21/2021 9:30 AM Jennifer Florez APRN [facility] [place]G [facility] [place] 11/04/2021 10:30 AM Jennifer Florez APRN [facility] [place] SURG [facility] [place] BATHING AND WOUND CARE: ?? You may [...] for assistance to pay for this with [employer]. Go to www.Recruits.com and put in the prescription and the [...] Follow up with primary care provider or senior training specialist in 1-2 weeks in order to [...] Rx upon d/c. Pt brought by to [facility] for ride home with her . * [...] completed shifts: In: 4016 [P.O.:240; I.V.:3776] Out: 1965 [Urine:1925; Emesis/NG output:40] No intake/output data recorded. [...] Deshpande MD General Surgery MIS Fellow [c] [phone] [p] [phone] 07/04/2021, 8:41 AM * Monet Mckeon RN [...] with attending this morning - Please call/page [phone] with any questions. Trey Mora MD 07/03/2021 [...] Deshpande MD - 07/02/2021 6:46 AM EDT [facility] Minimally Invasive Surgery Interval History and [...] Deshpande MD General Surgery MIS Fellow [c] [phone] [p] [phone] 07/02/2021, 6:47 AM documented in this encounter [...] Component Value Date COVID19 Not Detected 09/25/2020 [id number] Not Detected 07/02/2021 Past medical History: No past medical history on file. Hospitalizations Within the Past 30 Days: no previous admission in last 30 days Current Decision-Making Capacity: Self Advance Care Planning: Attempt Cardiopulmonary Resuscitation - Inpatient <no information> -Advanced Directive: No, declines If AD's have not been completed Alexei Damico would be surrogate decision maker per [place] surrogate decision making law. (Only good for 180 days) Any patient receiving care at [facility] [place] must abide by [place] law. The hierarchy for surrogate decision making [...] (i) The agent with financial power of hospital librarian or a conservator appointed in accordance with RSA 464-A. (j) The guardian of the patient???s estate. Current Coping/Education/Information Needs: n/a Current Functional Ability: Assistive Person Functional Status Prior to Admission: Independent Home Environment: Others in the home: spouse. Current Living Arrangements: home/apartment/condo Current DME: none Home Address [address] [place] [phone] Social & Family Supports: Extended Emergency Contact [...] Insurance: N/A Prescription Coverage: Yes Preferred Pharmacy: [facility] [place] - [address] [facility] [id number] Status: Patient is a : No Primary Care Provider: Rob Smith, PHOTOVOLTAIC PANEL INSTALLER [phone] Patient/Caregiver Goals of Treatment: Return home Potential [...] Chopra MD - 07/02/2021 8:11 AM EDT [facility] [place] Operative Note Patient Name: Natalia Damico : [id number] MR#: [id number] Case Date: 07/02/2021 Surgeon: Surgeon(s) and Role: [...] cavity; and the antrum was divided. A 38-Polish bougie was placed by Anesthesia and hugged [...] 07/02/2021 9:01 AM EDT RAPID COVID-19 PCR ([facility]/APD/[place]) Routine 07/02/2021 8:05 AM EDT Laparoscopy, Surg/Gastric Restrictive Proc, Longitudinal Gastrectomy ([id number]) 07/02/2021 7:38 AM EDT MORBID OBESITY documented in this encounter Results * (ABNORMAL) Differential, Automated (07/03/2021 6:29 AM EDT) Neutrophil % 77.0 % [facility] Neutrophil Absolute 6.59(H) 1.70 - 6.10 x10(3)/mc L [facility] Lymph % 17.3 % [facility] Lymphocytes Abs 1.5 0.9 - 3.2 x10(3)/mc L [facility] Monocyte % 5.4 % [facility] Monocyte Abs 0.5 0.3 - 0.9 x10(3)/ L [facility] Eos % 0.0 % [facility] Eosinophils Abs 0.0 0.0 - 0.4 x10(3)/[facility] Basophil % 0.1 % [facility] Baso Absolute 0.0 0.0 - 0.1 x10(3)/[facility] Immature Gran % 0.20 % [facility] Comment: Immature granulocytes(IG's)percentage and absolute count will include metamyelocytes, myelocytes, and promyelocytes. Blood smears from CBCs yielding IG's will be scanned manually for concordance. If this scan disagrees with the automated IG or if promyelocytes are noted, a manual differential will be performed. Immature Gran Absolute 0.02 0.00 - 0.04 x10(3)/[facility] Blood 07/03/2021 6:29 AM EDT 07/03/2021 6:54 AM EDT Narrative Resulting Agency Comment Spec In Lab Anselmo Deshpande MD HEMATOLOGY ORDERABLE S [facility] [place] [place] [address] * (ABNORMAL) Hemogram (07/03/2021 6:29 AM EDT) White Blood Cell 8.6 4.0 - 9.5 x10(3)/ L [facility] Red Blood Cell 3.95(L) 4.00 - 5.21 x10(6)/ L [facility] Hemoglobin 11.7 11.7 - 15.5 gm/dL [facility] Hematocrit 35.9 35.7 - 45.8 % [facility] Mean Cell Volume 90.9 82.6 - 94.4 fL [facility] Mean Cell Hemoglobin 29.6 27.1 - 32.0 pg [facility] Mean Cell Hemoglobin Concentration 32.6 31.7 - 35.0 gm/dL [facility] Platelet 253 145 - 357 x10(3)/mc L [facility] RDW Standard Deviation 44.9 37.0 - 46.0 fL [facility] RDW coefficient of variation 13.4 11.5 - 14.1 % [facility] Mean Platelet Volume 11.7 7.6 - 12.9 fL [facility] NRBC% auto 0.0 % [facility] NRBC Absolute 0.000 0.000 - 0.000 x10(3)/mc L [facility] Blood 07/03/2021 6:29 AM EDT 07/03/2021 6:54 AM EDT Narrative Resulting Agency Comment Spec In Lab Anselmo Deshpande MD HEMATOLOGY ORDERABLE S [facility] [address] * (ABNORMAL) Phosphorus (07/03/2021 6:29 AM EDT) Phosphorus 2.3(L) 2.5 - 4.5 mg/dL [facility] Blood 07/03/2021 6:29 AM EDT 07/03/2021 6:54 AM EDT Narrative Resulting Agency Comment Spec In Lab Anselmo Deshpande MD CHEMISTRY ORDERABLES [facility] [place] [address] * Magnesium (07/03/2021 6:29 AM EDT) Magnesium 0.78 0.69 - 1.07 mmol/L [facility] Blood 07/03/2021 6:29 AM EDT 07/03/2021 6:54 AM EDT Narrative Resulting Agency Comment Spec In Lab Anselmo Deshpande MD CHEMISTRY ORDERABLES [facility] [address] * (ABNORMAL) Basic Metabolic Panel (non-fasting) (07/03/2021 6:29 AM EDT) Glucose 118 65 - 199 mg/dL [facility] Comment:Diabetes: >=200 mg/d L plus symptoms Blood Urea Nitrogen 8 8 - 18 mg/dL [facility] Creatinine 0.50(L) 0.70 - 1.20 mg/dL [facility] Sodium 137 135 - 145 mmol/L [facility] Potassium 3.9 3.5 - 5.0 mmol/L [facility] Comment: Please note: ??Patients with WBC >100,000 may have falsely elevated Potassium levels. ??For accurate Potassium quantification in these patients send serum separator tube (gold top) for subsequent determinations. ??Contact the Clinical Chemistry Laboratory if there are any questions. Chloride 105 98 - 107 mmol/L [facility] Carbon Dioxide 23 22 - 31 mmol/L [facility] Anion Gap 9 5 - 15 mmol/L [facility] Calcium 8.3(L) 8.5 - 10.5 mg/dL [facility] Est Glomerular Filtration Rate 113 >=60 mL/min/1. 73 m?? [facility] Comment: [...] Deshpande MD CHEMISTRY ORDERABLES Performing Organization Address City/[facility]/ZIP Co de Phone Number [facility] [address] * Specimen to Pathology (07/02/2021 9:02 AM EDT) AP Specimen 07/02/2021 9:02 AM EDT 07/02/2021 9:02 AM EDT Narrative [facility] - 07/02/2021 9:02 AM EDT Specimen requisition ordered. ??Separate Pathology report to follow Corrie Chopra MD PATHOLOGY/CYTOLOGY O RDERABLES Performing Organization Address City/[facility] Co de Phone Number [facility] [address] * Surgical Pathology Report (07/02/2021 9:01 AM EDT) Final Diagnosis [id number] ? Location: [facility]; [facility]; The signing pathologist has (i) examined the relevant preparation(s) for the specimen(s) and (ii) rendered or confirmed the diagnosis(es). . ?Surgical Pathology DIAGNOSIS Portion of stomach, excision: Segment of stomach lined by unremarkable fundic gland mucosa. Electronically signed by: ?Kayla Wilkins MD Verified: ??07/13/2021 0:50 ?? Pathologist Performed at: ??-[facility] [place] [place] Dept. of Pathology, [place], [place] SPECIMEN(S) SUBMITTED A - Portion of Stomach, excision (1) CLINICAL INFORMATION Morbid obesity SPECIMEN PROCESSING A - Labeled/Fixative : Portion of stomach, fresh. Quantity/Size: ??Single, 21.5 x 4.0 x 1.5 cm. Tissue Description: Longitudinal, wedge resection of stomach. ??The serosa is pink, smooth and glistening. ??The mucosa is red with the usual rugal folds. Sections/Process ing: Microfiche Camera Operator sections in 1 cassettes as follows: ?A1: ??employment representative of mucosa ??sns 07/13/2021 12:50 AM EDT [facility] STOMACH STRUCTURE / Unknown 07/02/2021 9:01 AM EDT 07/02/2021 9:01 AM EDT Corrie Chopra MD PATHOLOGY/CYTOLOGY Tonya JOHNS [facility] [place] [place] [address] * COVID-19 PCR (07/02/2021 8:05 AM EDT) SARS-CoV-2 RNA (Rapid) Not Detected Not Detected [facility] Comment: This result should [...] using the Simplexa COVID-19 Direct Assay by [employer] as authorized by the FDA issued Emergency [...] Department of Pathology and Laboratory Medicine at [facility], certified under the Clinical [...] fact sheets at the following FDA website: https://www.fda.gov/medical-devices/jguwarmugww-wdrtuhh-6702-yjqfd-64-vcdepzhld- use-a rrwjofsskljne-rohudnz-vfgxnfj/ucmon-opvbjmmsxax-tdfk SARS-CoV-[address] TECHNOLOGIST Swab SD R[facility] Nasopharyngeal Swab 07/02/20 8:05 AM EDT 07/02/2021 9:08 AM EDT Comment:Symptoms->Surveillan ce Narrative Resulting Agency Comment Spec In Lab Anselmo Deshpande MD MICROBIOLOGY - GENER AL ORDERABLES [facility] [place] [place] [address] documented in this encounter Visit Diagnoses Not [...] 1,000 mg 400 mL/hr BUpivacaine (pf) (Marcaine) (2.5 mg/mL) 0.25% injection ONCE PRN, Starting on Wed07/02/21 at 0811, Until Wed07/04/21 at 1726, Intra-Operative (Intra-Procedure), Routine Given 07/02/2021 8:11 AM EDT 23 mLs 19- Surgical Site celecoxib (CeleBREX) capsule 200 mg 200 mg, Oral, 2 TIMES DAILY, First dose on Bridgett 07/03/21 at 0900, Until Discontinued, Administer starting post-op day one. Open capsule and administer all at once., Routine Given 07/04/2021 10:16 AM EDT 200 mg Given 07/03/2021 10:00 PM EDT 200 mg Given 07/03/2021 9:11 AM EDT 200 mg enoxaparin (Lovenox) (40 mg/0.4 mL) subcutaneous [...] mg ondansetron (pf) (Zofran) (2 mg/mL) injection 4 [...] Given 07/03/2021 1:50 PM EDT 6.25 mg sodium chloride 0.9 % (flush) (BD PosiFlush [...] suppositories? No 0203 (Given - Provider: Jeannie Oneal RN)1025 (Given - Provider: Ifrah Castillo RN) acetaminophen (Tylenol) tablet 1,000 mg (COMPLETED) 1,000 mg, Oral, ONCE, 1 dose, On Wed07/02/21 at 0715, Maximum dose of acetaminophen is 4000 mg from all sources in 24 hours. When ordered for pain, acetaminophen should be given even when other ordered pain medications are indicated. , Day of Surgery (Day of Procedure), Routine 0655 (Given - Provider: Deonna Boucher RN) ceFAZolin [...] Routine 910 (Given - Provider: Beckie Hamlin, RN)2199 (Given - Provider: Monet Mckeon, BRENDA) 1016 (Given - Provider: Ifrah Castillo, RN) celecoxib (CeleBREX) capsule 400 mg (COMPLETED) 400 mg, Oral, ONCE, 1 dose, On Wed07/02/21 at 0715, Day of Surgery (Day of Procedure), Routine 06 (Given - Provider: Deonna Boucher, BRENDA) enoxaparin (Lovenox) (40 mg/0.4 mL) subcutaneous injection 40 mg (COMPLETED) 40 mg, Subcutaneous, ONCE, 1 dose, On Wed07/02/21 at 0715, To be given in preop area, Day of Surgery (Day of Procedure), Routine 06 (Given - Provider: Deonna Boucher RN) enoxaparin (Lovenox) (40 mg/0.4 mL) subcutaneous injection 40 mg 40 mg, Subcutaneous, EVERY 12 HOURS SCHEDULED (2 times per day), First dose (after last modification) on Wed07/02/21 at 2100, Until Discontinued, Routine 2110 (Given - Provider: Lidia Romano RN) 910 (Given - Provider: Beckie Hamlin, BRENDA)2028 (Given - Provider: Monet Mckeon, BRENDA) 1018 [...] Griffin RN) 0256 (Given - Provider: Lidia Romnao, RN)0911 (Given - Provider: Beckie Hamlin, BRENDA)1833 (Given - Provider: Beckie Hamlin, BRENDA) 0130 (Given - Provider: Monet Mckeon, BRENDA)1000 (Not Given - Provider: Ifrah Castillo, RN - Reason: Patient/family refused)1047 (Given - Provider: Ifrah Castillo, BRENDA) pantoprazole (Protonix) injection 40 mg 40 mg, Intravenous, DAILY, First dose on Wed07/02/21 at 1600, Until Discontinued, Reconstitute with 10 mL of normal saline to a concentration of 4 mg/mL and infuse slowly over 2 minutes. , Routine 170 (Given - Provider: Tex Gomes RN) 09 (Given - Provider: Beckie Hamlin, BRENDA) 1012 (Given - Provider: Ifrah Castillo, BRENDA) scopolamine (Transderm Scop) 1 mg over 3 [...] RN) 0911 (Given - Provider: Beckie Hamlin, BRENDA)2033 (Given - Provider: Monet Mckeon, BRENDA) 1022 (Given - Provider: Ifrah Castillo, BRENDA) sodium phosphate 15 mMol in sodium chloride 0.9% 150 mL infusion (COMPLETED) 15 mmol, Intravenous, ONCE, 1 dose, On Bridgett 07/03/21 at 1200, Administer over 4 Hours, Administer over 4-6 hours 1307 (New Bag - Provider: Beckie Hamlin, BRENDA)1707 (Stopped - Provider: Beckie Hamlin RN) Continuous Medication Order 07/02/2021 07/03/2021 07/04/2021 [...] 1335 1244 (New Bag - Provider: Adi Dillon RN)212 (New Bag - Provider: Lidia Romano, BRENDA) 0511 (New Bag - Provider: Lidia Romano RN) sodium chloride 0.9% infusion 125 mL/hr, Intravenous, CONTINUOUS, Starting on Bridgett 07/03/21 at 1430, Until Wed07/04/21 at 1726 1358 (New Bag - Provider: Beckie Hamlin RN)2213 (New Bag - Provider: Tex Ledbetter, BRENDA) 0542 (New Bag - Provider: Jeannie Oneal, BRENDA)1223 (Stopped - Provider: Ifrah Castillo RN) PRN Medication Order 07/02/2021 07/03/2021 07/04/2021 [...] Routine 1433 (Given - Provider: Adi Dillon RN)170 (Given - Provider: Tex Gomes RN)211 (Given - Provider: Lidia R Juan Antonio, RN) 0256 (Given - Provider: Lidia Romano [...] patch documented in this encounter Care Teams Pulvi Mixer Operator Relationship Specialty Start Date End Date Rob Smith DNP PCP - General Family Medicine 11/15/19 documented as of this encounter
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
--- OUTSIDE RECORDS SUMMARY | 2024-06-30 16:53 | XMS_ITS | Encounter Summary ---
Author Organization [facility] [place] [address] Care Team Providers Care Leather Goods Assembler Name Role Phone Rob Smith DNP Primary Care Provider [phone] Encounter Details Date Type Department Care Team (Late st Contact Info) Description 03/10/2021 Telephone [place] [phone] Ray-Elicia Todd Social History Tobacco Use Types Packs/Day Years Used Date Smoking Tobacco: Former Smokeless Tobacco: Never Comments:pt quit 3 yrs ago Sex and Gender Information Value Date Recorded Sex Assigned at Not on file Gender Identity Not on file Sexual Orientation Not on file documented as of this encounter Miscellaneous Notes * Telephone Encounter - Elicia Bell - 03/10/2021 2:17 PM EDT Pt insurance changed now has medicare so her weight loss goal would no longer apply. She however did admit to smoking as recent as yesterday a drag here or there throughout the day but getting serious about it today!! I expressed she needs to be at least nicotine free for a month and then we willdo a blood screen for nicotine. She was in agreeable and said she would start today quitting, mothers day was hard, I had a few glasses of wine and bounced around the democrat saying just give me a drag to whoever would give her one. . . Per patient. documented in this encounter Plan of Treatment Not on file documented as of this encounter Visit Diagnoses Not on filedocumented in this encounter Care Teams Leather Goods Assembler Relationship Specialty Start Date End Date Rob Smith DNP PCP - General Family Medicine 11/15/19 documented as of this encounter
--- OUTSIDE RECORDS SUMMARY | 2024-06-30 16:53 | XMS_ITS | Encounter Summary ---
Author Organization [facility] [place] [address] Care Team Providers Care Box Maker Wood Name Role Phone Joaquin Celaya MD Primary Care Provider [phone] Reason for Visit * Reason Onset Date Comments Medication Refill 03/10/2017 Encounter Details Date Type Department Care Team (Late st Contact Info) Description 03/10/2017 Refill [place] [address] Durga Gerber MD [facility] [place] [address] Back pain, unspecified back location, unspecified back pain laterality, unspecified chronicity Social History Tobacco Use Types Packs/Day Years Used Date Smoking Tobacco: Every Day Smokeless Tobacco: Never Sex and Gender Information Value Date Recorded Sex Assigned at Not on file Gender Identity Not on file Sexual Orientation Not on file documented as of this encounter Plan of Treatment Not on file documented as of this encounter Visit Diagnoses Diagnosis Back pain, unspecified back location, unspecified back pain laterality, unspecified chronicity documented in this encounter Care Teams Box Maker Wood Relationship Specialty Start Date End Date Joaquin Celaya MD PCP - General 06/29/13 02/19/19 documented as of this encounter
--- OUTSIDE RECORDS SUMMARY | 2024-06-30 16:53 | XMS_ITS | Encounter Summary ---
[facility] [place] [address] Care Team Providers Care Dinkey Engine Firer Name Role Phone Rob Smith DNP Primary Care Provider Encounter Details Date Type Department Care Team (Late st Contact Info) Description 07/16/2020 Telephone [place] [phone] Elicia Hollins Social History Tobacco Use Types Packs/Day Years Used Date Smoking Tobacco: Every Day Smokeless Tobacco: Never Sex and Gender Information Value Date Recorded Sex Assigned at Not on file Gender Identity Not on file Sexual Orientation Not on file documented as of this encounter Miscellaneous Notes * Telephone Encounter - Elicia Bell - 07/16/2020 9:26 AM EDT Left message for patient returning her call regarding registering for Wednesday's bariatric intro session. documented in this encounter Plan of Treatment Not on file documented as of this encounter Visit Diagnoses Not on filedocumented in this encounter Care Teams Dinkey Engine Firer Relationship Specialty Start Date End Date Rob Smith DNP PCP - General Family Medicine 11/15/19 documented as of this encounter
--- OUTSIDE RECORDS SUMMARY | 2024-06-30 16:53 | XMS_ITS | Encounter Summary ---
Author Organization [facility] [place] [address] Care Team Providers Care Mat Roller Name Role Phone Rob Smith LALITA Primary Care Provider [phone] Encounter Details Date Type Department Care Team (Late st Contact Info) Description 02/10/2021 Notes Only [place] [address] Jennifer Florez STOCK MANAGER [facility] [place] [address] Social History Tobacco Use Types Packs/Day Years Used Date Smoking Tobacco: Former Smokeless Tobacco: Never Comments:pt quit 3 yrs ago Sex and Gender Information Value Date Recorded Sex Assigned at Not on file Gender Identity Not on file Sexual Orientation Not on file documented as of this encounter Progress Notes * Jennifer Florez APRN - 02/10/2021 2:53 PM EDT Called patient (with Nafisa Mccartney RD) to discuss her insurance's weight loss requirement. Shruti she is on a low sodium, 1200 calorie diet. She is scheduled to follow up with the outside market development executive she has been working with (Ruma). She is aware she will need to be at a weight of 251 to meet the insurance requirement. When she is closer to this weight she will call [facility] to schedule her follow up visit. She [...] on filedocumented in this encounter Care Teams Mat Roller Relationship Specialty Start Date End Date Rob Smith DNP PCP - General Family Medicine 11/15/19 documented as of this encounter
--- OUTSIDE RECORDS SUMMARY | 2024-06-30 16:53 | XMS_ITS | Encounter Summary ---
Author Organization [facility] [place] [address] Care Team Providers Care Voice Engineer Name Role Phone Joaquin Celaya MD Primary Care Provider Reason for Referral * Consultation (Routine) - Complete - Unable to Contact Patient Specialty Diagnoses / Procedures Referred By Contac t Referred To Contact Pain Management Diagnoses Back pain Abundio Booth MD [facility] [place] [address] [facility] [address] [place] [address] Referral ID Status Reason Start Date Expiration Date Visits Requested Visits Authorized [id number] Complete - Unable to Contact Patient Consult, Test & Treat 06/29/2013 12/26/2013 1 1 Reason for Visit * Reason Comments Back Pain Encounter Details Date Type Department Care Team (Late st Contact Info) Description 06/29/2013 10:40 AM EDT Office [place] [phone] [facility] [place] [place] [address] Back pain (Primary Dx) Discharge Disposition: Home Social History Tobacco Use Types Packs/Day Years Used Date Smoking Tobacco: Every Day Smokeless Tobacco: Never Sex and Gender Information Value Date Recorded Sex Assigned at Not on file Gender Identity Not on file Sexual Orientation Not on file documented as of this encounter Last Filed Vital Signs Vital Sign Reading Time Taken Comments Blood Pressure 104/74 06/29/2013 11:19 AM EDT Pulse - - Temperature - - Respiratory Rate - - Oxygen Saturation - - Inhaled Oxygen Concentration - - Weight 81.6 kg (180 lb) 06/29/2013 11:19 AM EDT Height 162.6 cm (5' 4) 06/29/2013 11:19 AM EDT Body Mass Index 30.9 06/29/2013 11:19 AM EDT documented in this encounter Progress Notes * Abundio Booth MD - 06/29/2013 12:04 PM EDT Chief complaint: Chronic low back pain Subjective: This problem began without injury or incident at onset about one year ago. She thinks she just woke up one morning with lumbosacral pain which remains her chief complaint on a mechanical basis. She really has not had any radicular pain power or sensory loss in the lower extremities. Shehad some limited benefit from initial chiropractic and then physical therapy and then went on to have multiple injections and what sounds like one round of radiofrequency ablation. Her recollection is that she was told that she could have radiofrequency ablation for her sciatic nerve but that wouldhave to be done down here at [facility]. Through all of this she has tried different regimens of opioids, currently taking OxyContin/oxycodone since methadone was not helpful and morphine made her drowsy. Percocet has worked the best for her. 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 Additional painful problems include a right heel spur for which she has had injection and has pending followup. She also has a tender spot over the lateral aspect of her right knee but this is not activity limiting for her. Presently she lives with her and 3 children. 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 Objective: Her affect is somewhat anxious but certainly her speech is in good time to the point with realistic thought content. Her daughter is here to support her history. She stands without evidentspinal deformity. Trunk flexibility through the waist while standing includes 10?? extension and 80?? forward flexion and seated straight leg raises are negative as well for any leg symptoms. Touch sensation is intact in the lower extremities and her power screens done well. She is symmetrically hyporeflexic at knees and ankles. She points out her varicose veins and mentions she is to have a veinprocedure of some kind in the near future. Her MRI of the lumbar spine from 08/12 was reviewed withher. This does show some degenerative changes through the L4-5 and L5-S1 discs and facet joints. Assessment: This is a long-standing pattern of mechanical low back pain without radicular complications. She's had extensive nonoperative care including chiropractic physical therapy and injection approaches, now opioid dependent. She describes a level of disability as well. There is some question as to whether some form of further nerve ablation could be helpful to her and she would like advice about medications as well so we've discussed approaches to these questions as well as some of the fundamentals of intensive rehabilitation for 25 of this 45 minute visit and we have mutually decided to proceed as follows. Plan: Pain center consultation. We will try to get her records forwarded from the [facility] pain service to clarify her treatment to date. If further procedures or medication changes are indicated, once these are completed it would be reasonable to go forward with a goal achievement and physical capacities (GAP) evaluation and consideration of the functional amish program. In the meantime she is going to review the shared medical decision- making video on chronic low back pain and the informational video on the functional amish program. documented in this encounter Plan of Treatment Scheduled Referrals Name Type Priority Associated Diagnoses Orde r Schedule Referral to Pain Clinic Outpatient Referral Routine Back pain Ordered: 06/29/2013 documented as of this encounter Visit Diagnoses Diagnosis Back pain- Primary Backache, unspecified documented in this encounter Care Teams Voice Engineer Relationship Specialty Start Date End Date Joaquin Celaya MD PCP - General 06/29/13 02/19/19 documented as of this encounter
--- OUTSIDE RECORDS SUMMARY | 2024-06-30 16:53 | XMS_ITS | Encounter Summary ---
Author [place] [address] Care Team Providers Care Top Frame Maker Name Role Phone Rob Smith DNP Primary Care Provider Encounter Details Date Type Department Care Team (Latest Contact Info) Description 09/10/2020 1:58 PM EST - 09/10/2020 11:59 PM EST Hospital [place] [phone] Discharge Disposition: Home Social History Tobacco Use [...] Date/Time Associated Diagnosis Comments COVID-19 PCR Routine 09/10/2020 8:34 AM EST documented in this encounter Results * COVID-19 PCR (09/10/2020 8:34 AM EST) SARS-CoV-2 RNA Not Detected Not Detected [facility] Comment: This result should be interpreted in combination with the clinical observations, patient history and epidemiological information in making a final diagnosis. For testing of asymptomatic individuals, assay performance characteristics and clinical utility have not been evaluated. Testing for SARS-CoV-2 (Severe acute respiratory syndrome coronavirus 2, formerly known as 2019 novel coronavirus or 2019-nCoV) to aid in the diagnosis of COVID-19 is performed using the [employer] SARS-CoV-2 Assay as authorized by the FDA Emergency Use Authorization (EUA). This EUA assay is intended for In-vitro Diagnostic (IVD) use with respiratory specimens such as nasopharyngeal swabs collected from individuals during the acute phase of infection. This assay is performed based on the instructions for use provided by [employer] and additional guidance provided by [facility] and FDA. Testing is performed in the [facility] within the Department of Pathology and Laboratory Medicine at [facility], certified under the Clinical Laboratory Improvement Amendments of 1988 (CLIA), 42 U.S.C. 263a, to perform high complexity tests. Assay performance has been verified according to clinical laboratory regulatory requirements for use with specimens collected from individuals suspected of COVID-19. Test results are provided above. A result of ? Not Detected? indicates that the viral RNA target is not present above the limit of detection, but does not preclude SARS-CoV-2 infection. False negative results may occur if a specimen is improperly collected, transported or handled; if amplification inhibitors are present; or if inadequate numbers of viral particles are present in the specimen. When a diagnostic test is negative, the possibility of a false negative result should be considered in the context of a patient? s recent exposures and the presence of clinical signs and symptoms consistent with COVID-19. A result of ? Detected? indicates that RNA from SARS-CoV-2 was detected and the patient is infected. As required or requested by public health authorities, positive specimens may be sent for additional testing. Positive and negative predictive values for this test are highly dependent on disease prevalence. A result of ? Invalid? indicates that neither the viral RNA targets nor the internal control target was detected. An invalid result suggests the presence of inhibitors. Recollection and re-testing is recommended in the case of an invalid result. CDC COVID-19 criteria for testing on human specimens and clinical management guidance information are available at the CDC Coronavirus Disease 2019 (COVID-19) webpage under ? Information for Healthcare Professionals? (https://www.cdc.gov/coronavirus/2019-ncov/hcp/index.html) Additional information about this and other EUA tests can be found in provider and patient fact sheets at the following FDA website: https://www.fda.gov/medical-devices/zhnxbikabgo-csoihft-2428-yqmgj-44-lnxkglvzd- use-a sfcjldcqwoufp-bigvxhi-rjbwakh/hhuzk-iainvlwntpb-iczd SARS-CoV-2 RNA Source ABSTRACT WRITER Swab [facility] Nasopharyngeal swab (specimen) Other / Unknown 09/10/2020 8:34 AM EST 09/11/2020 1:09 AM EST Narrative Resulting Agency Comment Spec In Lab Harsh Viramontes DPM MOLECULAR ORDERABLES Performing Organization Address City/State/[facility] Co de Phone Number [facility] [place] [address] documented in this encounter Visit Diagnoses Not on filedocumented in this encounter Care Teams Top Frame Maker Relationship Specialty Start Date End Date Rob Smith DNP PCP - General Family Medicine 11/15/19 documented as of this encounter
[2024-07-03 13:34] LABS: Bacterial Vaginosis (BV) Positive (Negative); Candida glabrata Negative (Negative); Candida species group Negative (Negative); Chlamydia Result Negative (Negative); GC Result Negative (Negative); Trichomonas vaginalis Negative (Negative)
== END 2024-06-30 16:37 | disposition home or self-care (01) ==
LOC: NCHCN 16:36
PROVIDERS: PCP Physician Assistant; Visit Provider Physician Assistant
DX: N89.8 Other specified noninflammatory disorders of vagina (principal)
CPT/HCPCS: 81513; 87481; 87491; 87591; 87661; 87480; 87510; 87660

== ENCOUNTER 2025-01-03 18:16 | Outpatient (REF) | payer MEDICAID, SELFPAY | END 2025-01-03 18:17 | disposition home or self-care (01) | LOC: NCHCN 18:16 | PROVIDERS: PCP Physician Assistant; Visit Provider Nurse Practitioner Family | DX: N39.0 Urinary tract infection, site not specified (principal); B96.29 Other Escherichia coli [E. coli] as the cause of diseases classified elsewhere | CPT/HCPCS: 87077; 87086; 87186 ==

== ENCOUNTER → 2025-10-26 00:06 | Outpatient (CLI) | payer MEDICAID, SELFPAY ==
--- NOTE | 2025-10-26 | DI.MAMMO_ITS ---
Exam(s) MAMMO SCREENING EXAM: MAMMO SCREENING CLINICAL HISTORY: SCREENING, Z12.31. TECHNIQUE: Bilateral full field digital CC and MLO mammographic images were obtained with 3D tomosynthesis and utilizing computer aided detection (CAD). COMPARISON: Prior mammograms were reviewed. FINDINGS: There has been no significant change in the appearance and distribution of the fibroglandular tissue. There are no CAD designations No new left breast findings. In the right breast there is increase in number of benign microcalcifications. There are no spiculated masses nor malignant-appearing microcalcification groups in either breast. There is no significant architectural distortion nor skin thickening-retraction. IMPRESSION: No radiographic evidence of malignancy. BI-RADS Category 2 - Benign Findings Breast Density - Category B - There are scattered areas of fibroglandular density. Breast density Category C or D implies that the patient has dense breast tissue. Dense breast tissue can make it harder to find cancer on a mammogram. Dense breast tissue is also associated with an increased risk of breast cancer. This information about the result of the mammogram report was provided to the patient to raise their awareness. Use this report when you speak with the patient about their risks for breast cancer, which includes their family history. At that time, you may recommend additional screening tests (Ultrasound or MRI) as these tests may add significant information. A negative radiographic report should not delay biopsy if a dominant or clinically suspicious mass is present. Up to ten percent of cancers are not identified on mammography. A negative report may reinforce clinical impression. Adenosis and dense breasts may obscure an underlying neoplasm. False positive reports average 6 to 10%. Patient will receive a letter notifying them of these results.
== END ==
PROVIDERS: PCP Physician Assistant; Visit Provider Physician Assistant
DX: Z12.31 Encounter for screening mammogram for malignant neoplasm of breast (principal); R92.323 Mammographic fibroglandular density, bilateral breasts
CPT/HCPCS: 77063; 77067